=== PATIENT | male | born 1960 | race Caucasian/White ===

== ENCOUNTER → 2017-12-26 | Outpatient (CLI) | payer OTHER ==
[~2017-12-26] MED LIST: ALBU1AER9 INH; AMT50 PO; ASPCH81X PO; BSP15 PO; CLON0.5T3 PO; DRON5CAP15 PO; EFAVTAB PO; FLUT220A INH; LISI20TA3 PO; MXZC25 PO; OMEP20CA9 PO
[2017-12-26 13:21] LABS: BASO % 0.6 %; BASO ABS # 0.03 K/uL (0-0.2); EOS % 3.2 %; EOS ABS # 0.17 K/uL (0-0.5); HEMATOCRIT 44.5 % (42-52); IG# 0.02 K/uL (0.00-0.02); LYMPH % 29.8 %; LYMPH ABS # 1.59 K/uL (1.2-3.4); MEAN CELL VOLUME 93.1 fL (80-100); MEAN CORPUSCULAR HEMOGLOBIN 33.5 pg (25-34); MEAN PLATELET VOLUME 10.6 fL (7.4-10.4); MONO % 8.2 %; MONO ABS # 0.44 K/uL (0.11-0.59); NEUT % 57.8 %; NEUT ABS # 3.09 K/uL (1.4-6.5); PLATELET COUNT 190 K/uL (130-400); RED CELL DISTRIBUTION WIDTH CV 14.3 % (11.5-14.5); RED CELL DISTRIBUTION WIDTH SD 48.5 fL (36.4-46.3); WHITE BLOOD COUNT 5.34 K/uL (4.8-10.8)
[2017-12-26 14:28] LABS: ALBUMIN 3.7 gm/dl (3.4-5.0); ALT/SGPT 24 U/L (12-78); AST/SGOT 15 U/L (15-37); BLOOD UREA NITROGEN 17 mg/dl (7-18); CALCIUM 8.4 mg/dl (8.5-10.1); CARBON DIOXIDE 28 mmol/L (21-32); CREATININE 1.17 mg/dl (0.60-1.40); GLUCOSE 140 mg/dl (70-99); POTASSIUM 4.8 mmol/L (3.5-5.1); SODIUM 132 mmol/L (136-145)
[2017-12-26 14:30] LABS: ALKALINE PHOSPHATASE 98 U/L (45-117); CHOLESTEROL 178 mg/dl (0-200); LDL CHOLESTEROL CALCULATED 86 mg/dl; TOTAL PROTEIN 7.6 gm/dl (6.4-8.2)
== END | disposition home or self-care (01) ==
LOC: C.LABPBG 08:52
PROVIDERS: ATTEND Internal Medicine Infectious Disease
DX: B20 Human immunodeficiency virus [HIV] disease (principal)

== ENCOUNTER 2019-09-25 18:31 | Inpatient (IN) ==
[2019-09-25] MEDS ORDERED: methylPREDNISolone 125 MG/2 ML VIAL IV STA (18:42)
[2019-09-25] MEDS ORDERED: ALBUT/IPRATROP 3MG/0.5MG NEB 3 ML VIAL NEB ONE (18:42)
[2019-09-25 19:05] LABS: Basophils # (auto) 0.03 K/uL (0-0.2); Basophils % (auto) 0.3 %; Eosinophils # (auto) 0.19 K/uL (0-0.5); Hematocrit (blood only) 40.1 % (42-52); Hemoglobin 14.2 g/dL (14.0-18.0); Immature Granulocytes # (auto) 0.01 K/uL (0.00-0.02); Immature Granulocytes % (auto) 0.1 %; Lymphocytes # (auto) 1.24 K/uL (1.2-3.4); Lymphocytes % (auto) 13.3 %; Mean Corpuscular Hgb Conc 35.4 g/dL (32-36); Mean Corpuscular Volume 90.3 fL (80-100); Mean Platelet Volume 10.5 fL (7.4-10.4); Monocytes # (auto) 0.59 K/uL (0.11-0.59); Monocytes % (auto) 6.3 %; Neutrophils # (auto) 7.29 K/uL (1.4-6.5); Platelet Count 220 K/uL (130-400); RDW Coefficient of Variation 13.8 % (11.5-14.5); RDW Standard Deviation 45.8 fL (36.4-46.3); Red Blood Count 4.44 M/uL (4.7-6.1); White Blood Count 9.35 K/uL (4.8-10.8)
--- NOTE | 2019-09-25 19:07 | XRay Report ---
XR chest 1V portable CLINICAL HISTORY: 58 years-old Male presenting with Chest Pain. TECHNIQUE: Portable upright AP view of the chest was obtained. COMPARISON: 07/08/2019. FINDINGS: Left apical irregular groundglass opacity as on prior exam. Elevation of the left hemidiaphragm. Card iac silhouette mildly enlarged. Significant interstitial prominence, increased from prior. Abdomen de nsity at the left lung base is similar to prior. No large effusion or pneumothorax. Degenerative winslow ges of the thoracic spine. Upper abdomen normal. IMPRESSION: 1. Interstitial prominence new from prior exam. This could represent a venolymphatic congestive winslow ge/developing pulmonary edema or an atypical infectious or inflammatory etiology. 2. Mild cardiomegaly. 3. Persistent groundglass nodule at the left apex. Underlying neoplasm not excluded. ACT 112: Negative or not required by law. Electronically signed by: Robert Guzman M.D. 09/25/2019 7:05 PM
[2019-09-25] MEDS ORDERED: MoRPHine SULFATE 4 MG/ML 1 ML CARP\\VIAL IV STA (19:08)
[2019-09-25 19:18] LABS: Partial Thromboplastin Ratio 1.1; Partial Thromboplastin Time 28.6 Seconds (21.0-31.0); Prothrombin Time 10.1 Seconds (9.0-12.0)
[2019-09-25 19:25] LABS: Base Excess VBG 1.8 mEq/L; Oxygen Saturation VBG 68.4 %; pH VBG 7.44 (7.36-7.41)
[2019-09-25 19:31] LABS: BUN Creatinine Ratio 15.5 (10-20); Blood Urea Nitrogen 14 mg/dl (7-18); Calcium 9.1 mg/dl (8.5-10.1); Carbon Dioxide 25 mmol/L (21-32); Chloride 98 mmol/L (98-107); Est GFR (African American) 103.8; Est GFR (Non-African American) 89.5; Glucose 117 mg/dl (70-99); Lipase 76 U/L (73-393); NT Pro B Type Natriuretic Pept 46 pg/ml (0-900); Sodium 129 mmol/L (136-145); Troponin I < 0.015 ng/ml (0-0.045)
[2019-09-25] MEDS ORDERED: OPTIRAY 320 125ml IV PRN (20:28)
[2019-09-25 20:34] LABS: Influenza A virus by PCR Neg for Influ A (Neg); Influenza B virus by PCR Neg for Influ B (Neg)
--- NOTE | 2019-09-25 20:41 | CT Scan Report ---
CT angio chest PE protocol CLINICAL HISTORY: 58 years-old Male presenting with chest pain, clinical concern for pulmonary embolu s. TECHNIQUE: Multidetector CT angiography of the chest was performed after administration of intravenou s contrast. 3-D volumetric and/or maximum intensity projection (MIP) images were subsequently reconst ructed for review. IV contrast: 120 mL of Optiray 320. One or more dose lowering techniques were used consistent with the principles of ALARA (as low as reasonably achievable), including automatic expos ure control, mA or kV adjustment to individual patient size, and/or use of iterative reconstruction. COMPARISON: Outside chest CT from 08/07/2019. CT DOSE (mGy.cm): The estimated cumulative dose is 295.59 mGy.cm. FINDINGS: Senior It Auditor topogram: Elevation of the left hemidiaphragm. Interstitial prominence. Pulmonary vasculature: The study is adequate for assessment of the pulmonary vascular tree. No filling defect within the pul monary arteries to suggest embolus. Segmental arteries to the right upper lobe are narrowed as are se veral segmental arteries to the left upper lobe. Main pulmonary artery is not enlarged. No flattening of the interventricular septum. No intracardiac filling defect. Reflux of contrast into the IVC and hepatic veins. This likely indicates elevated right heart pressure. Remaining chest: Soft tissues: Normal thyroid and thoracic inlet. Extensive poorly delineated mediastinal and bilatera l hilar lymphadenopathy. These were previously better delineated in part due to the phase of contrast . These have significantly progressed. Right axillary lymphadenopathy also noted. Normal aorta. Yvonne l heart size. Moderate pericardial effusion, simple appearing and increased from prior. Elevation of the left hemidiaphragm. This may suggest left phrenic nerve injury/left hemidiaphragm paralysis/pares is. Upper abdomen normal. Lungs and airways: No pneumothorax. Diffuse mild bronchial wall thickening. Severe centrilobular emph ysema. Pulmonary arteries are not significantly enlarged relative to adjacent bronchi. Nodular thicke radha of the left major fissure increased from prior. Atelectasis associated with elevation of the lef t hemidiaphragm. Several prominent bulla/blebs are evident. There is also a solid spiculated nodule a long the periphery of the left upper lobe. The irregularity of the nodule makes this difficult to mitul sure though this is approximately 2.2 cm in diameter, previously 1.7 cm. No additional nodule is appr eciated. Musculoskeletal: No destructive osseous lesion. IMPRESSION: 1. Interval progression of disease with significantly increased right axillary, mediastinal, and shine ateral lymphadenopathy, presumably related to metastatic disease in the setting of a primary lung mal ignancy. 2. Increased size of the irregular solid left upper lobe nodule now measuring 2.2 cm. This is presum ably the site of the primary bronchogenic neoplasm. 3. Nodular thickening of the left major fissure highly suspicious for lymphangitic carcinomatosis ve rsus pleural spread of disease, worsened from prior. 4. Severe emphysema. 5. No evidence of acute pulmonary embolus. 6. Evidence of elevated right heart pressure. 7. Moderate pericardial effusion, simple appearing though increased from prior. 8. Elevated left hemidiaphragm concerning for left phrenic nerve invasion in the clinical setting. ACT 112: Negative or not required by law. Electronically signed by: Robert Guzman M.D. 09/25/2019 8:40 PM
[2019-09-25] MEDS ORDERED: SODIUM CHLORIDE 0.9% 1000ML 1,000 ML IV ONE (20:48)
[2019-09-25] MEDS ORDERED: KETOROLAC TROMETHAMINE 15 MG/ML VIAL IV STA (20:56)
--- NOTE | 2019-09-25 21:18 | Emergency Department Note ---
Entered by Kimberly Payan acting as a scribe for History of Present Illness General Chief complaint: Chest Pain Time Seen by Provider: 09/25/19 18:35 Source: patient History of Present Illness Onset (ago): day(s) (2 to 3) Location: chest Quality: + other (chest pain) Exacerbated By: + other (lying flat) Associated symptoms: + cough (productive, mucus), + shortness of breath and + other (Positive tobacco use. 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 He has a hx of HIV, asthma, depression, hypertension. He states he has severe SOB and lying flat is a worsening factor. He notes he has a productive cough with mucus. The patient states he has pain left sided neck pain with radiation to his back. The patient is a current smoker but states he is trying to quit. He denies any long plane or car rides, coughing up blood. Home Medications Home Medications Medication Instructions Recorded Confirmed Type amitriptyline 50 mg PO DAILY 07/08/19 09/25/19 History buspirone 15 mg PO BID 07/08/19 09/25/19 History clonazepam 1 mg PO BID 07/08/19 09/25/19 History dronabinol 10 mg PO BID 07/08/19 09/25/19 History rpjirrdfm-xlicisjzyfjl-mpecgcj 1 tab PO DAILY 07/08/19 09/25/19 History [Atripla] fluoxetine 20 mg PO DAILY 07/08/19 09/25/19 History lisinopril 20 mg PO DAILY 07/08/19 09/25/19 History oxycodone-acetaminophen 1 - 2 tab PO Q4H PRN 07/08/19 09/25/19 History triamterene-hydrochlorothiazid 1 tab PO DAILY 07/08/19 09/25/19 History albuterol sulfate 90 mcg/actuation 2 puffs INH Q6H PRN 08/21/19 09/25/19 History aerosol inhaler aspirin 81 mg tablet,delayed 162 mg PO DAILY tab 08/21/19 09/25/19 History release fluticasone propionate 220 1 puffs INH BID 08/21/19 09/25/19 History mcg/actuation HFA aerosol inhaler omeprazole 20 mg capsule,delayed 20 mg PO DAILY 08/21/19 09/25/19 History release Allergies Allergy/AdvReac Type Severity Reaction Status Date / Time pollen extracts Allergy Intermediate ASTHMA Verified 09/25/19 20:11 Sulfa (Sulfonamide Allergy Unknown HIVES Verified 09/25/19 20:11 Antibiotics) Past Med/Surg History Medical History Anxiety (Chronic) Asymptomatic human immunodeficiency virus (HIV) infection status (Chronic 10/25/11) Distal radial fracture (Acute) HIV disease HTN (hypertension) (Chronic) Muscle strain (Resolved) Osteoarthritis (Chronic) Pain, dental (Resolved) Surgical History No pertinent past surgical history Family History Other No pertinent family history in first degree relatives Social History Feels Safe at Home: Yes Smoking Status: Current some day smoker packs per day: 0.5 ; Review of Systems See HPI for pertinent positives & negatives. and A total of 10 systems reviewed and were otherwise negative Physical Exam Vital Signs Vital Signs - 24 hr 09/25/19 18:40 09/25/19 18:41 09/25/19 18:42 Temperature 36.8 C Temperature Source Oral Pulse Rate 117 H Pulse Rate [Right Finger] Pulse Rhythm Regular Pulse Strength Normal Respiratory Rate 22 Respiratory Effort / Characteristics Spontaneous Short of Breath SOB on Exertion Non-Labored Spontaneous Respiratory Depth Shallow Normal Respiratory Pattern Regular Blood Pressure 129/89 Blood Pressure [Right Arm] Blood Pressure Mean 102 Blood Pressure Mean [Right Arm] Blood Pressure Position Lying Blood Pressure Position [Right Arm] Pulse Oximetry 84 L 98 Oxygen Delivery Method Oxymask Room Air Oxymask Oxygen Flow Rate 3 4 Sepsis Recent Fever Within 48 Hours No Sepsis New/Unexplained Change in Mental Status No Sepsis Action Taken by Nursing No Action Required 09/25/19 18:48 09/25/19 18:53 09/25/19 19:34 Temperature Temperature Source Pulse Rate 118 H Pulse Rate [Right Finger] 118 H 120 H Pulse Rhythm Regular Pulse Strength Respiratory Rate 26 H 20 28 H Respiratory Effort / Characteristics Non-Labored Spontaneous Respiratory Depth Respiratory Pattern Blood Pressure Blood Pressure [Right Arm] 93/77 L Blood Pressure Mean Blood Pressure Mean [Right Arm] 82 Blood Pressure Position Blood Pressure Position [Right Arm] Sitting Pulse Oximetry 97 98 98 Oxygen Delivery Method Oxymask Oxymask Nebulizer Oxygen Flow Rate 4 4 Sepsis Recent Fever Within 48 Hours Sepsis New/Unexplained Change in Mental Status Sepsis Action Taken by Nursing 09/25/19 20:35 Temperature Temperature Source Pulse Rate Pulse Rate [Right Finger] 111 H Pulse Rhythm Pulse Strength Respiratory Rate 24 Respiratory Effort / Characteristics Spontaneous Short of Breath SOB on Exertion Respiratory Depth Respiratory Pattern Regular Blood Pressure Blood Pressure [Right Arm] 89/70 L Blood Pressure Mean Blood Pressure Mean [Right Arm] 76 Blood Pressure Position Blood Pressure Position [Right Arm] Sitting Pulse Oximetry 94 Oxygen Delivery Method Nasal Cannula Oxygen Flow Rate 4 Sepsis Recent Fever Within 48 Hours Sepsis New/Unexplained Change in Mental Status Sepsis Action Taken by Nursing GENERAL: He is oriented to person, place, and time. He appears well-developed and well-nourished. He does not appear distressed. HENT: Exam performed. - Head: Normocephalic and atraumatic. - Right Ear: External ear normal. No mastoid tenderness. - Left Ear: External ear normal. No mastoid tenderness. - Mouth/Throat: The oropharynx is clear and moist. No trismus in the jaw. No dental abscesses or uvula swelling. No oropharyngeal exudate or tonsillar abscesses. EYES: Conjunctivae and EOM are normal. Pupils are equal, round, and reactive to light. Right eye exhibits no discharge. Left eye exhibits no discharge. No scleral icterus. NECK: Normal range of motion. Neck supple. Mild JVD present. No spinous process tenderness present. No carotid bruit present. No rigidity. No tracheal deviation and normal range of motion present. No Brudzinski's sign and no Kernig's sign noted. CV: Tachycardic rate, regular rhythm, normal heart sounds and intact distal pulses. There is no peripheral edema. Palpable radial pulses bue. PULM/CHEST: Tachypneic. No stridor. Bilateral expiratory wheezes. He has no rales. - Chest Wall: He exhibits no tenderness. ABD: The abdomen is soft. Bowel sounds are normal. He has no distension. No mass is present. There is no tenderness. There is no rebound, no guarding, no Bhandari 's sign and no tenderness at McBurney's point. Rovsig negative. MUSC/SKEL: Normal range of motion. There is no peripheral edema, tenderness or deformity. LYMPH: No cervical adenopathy. NEURO: He is alert and oriented to person, place, and time. He has normal strength. No cranial nerve deficit or sensory deficit. Coordination and gait normal. GCS eye subscore is 4. GCS verbal subscore is 5. GCS motor subscore is 6. Cerebellar tests wnl. SKIN: Skin is warm and dry. He is not diaphoretic. PSYCH: He has a normal mood and affect. Behavior is normal. Judgment and thought content normal. Course Course 1839: Past medical records reviewed. The patient was evaluated in room B11. A complete history and physical exam was performed. 2100: Patient's wheezing improved status post 1 hour DuoNeb treatment and IV steroids. Labs within normal limits. CTA of the chest shows no PE, however it does show lung mets and lung mass. Patient does state he has been told that he has lung cancer, he still waiting to be evaluated by oncology and surgical oncology. [facility] the patient's case [facility] Gonzales[facility] The patient will be evaluated for further management. Administered Medications Sodium Chloride (Nss 1000ml) 1,000 mls @ 999 mls/hr IV .Q1H1M ONE Stop: 09/25/19 21:48 Last Admin: 09/25/19 20:59 Dose: 999 mls/hr Documented by: [id number] Ioversol (Optiray 320 125ml) 120 ml IV ONCE PRN PRN Reason: Interaction Checking Stop: 09/29/19 20:27 Last Admin: 09/25/19 20:29 Dose: 120 ml Documented by: [id number] Discontinued Medications Albuterol (Duoneb) 12 ml NEB ONE ONE Stop: 09/25/19 18:43 Last Admin: 09/25/19 18:52 Dose: 12 ml Documented by: [id number] Ketorolac Tromethamine (Toradol) 15 mg IV NOW STA Stop: 09/25/19 20:57 Last Admin: 09/25/19 21:00 Dose: 15 mg Documented by: [id number] Methylprednisolone (Solumedrol) 125 mg IV NOW STA Stop: 09/25/19 18:43 Last Admin: 09/25/19 18:56 Dose: 125 mg Documented by: [id number] Morphine Sulfate (Morphine Sulfate) 4 mg IV NOW STA Stop: 09/25/19 19:09 Last Admin: 09/25/19 19:30 Dose: 4 mg Documented by: [id number] Critical Care Time Critical Care Time: Yes Total Critical Care Time: 59 I have personally spent approximately 59 minutes of critical care time in the direct management of this patient. This includes bedside care, interpretation of diagnostic studies, and testing, discussion with consultants, patient, and family members, and other required patient management activities. This approximate 59 minutes is in excess of all separately billable procedures. Medical Decision Making Medical Records Attestation: I reviewed the patient's medical records. 1836: EMR reviewed. Patient has a hx of HIV, asthma, depression, hypertension, and uses tobacco. He is on atripla. Home Medications Current Medication List: was personally reviewed by me Laboratory Data Attestation: I reviewed the patient's lab results. Result diagrams: 09/25/19 18:55 09/25/19 20:39 Lab Results 09/25/19 09/25/19 09/25/19 Range/Units 18:55 18:55 18:55 WBC 9.35 (4.8-10.8) K/uL RBC 4.44 L (4.7-6.1) M/uL Hgb 14.2 (14.0-18.0) g/dL Hct 40.1 L (42-52) % MCV 90.3 (80-100) fL MCH 32.0 (25-34) pg MCHC 35.4 (32-36) g/dL RDW Std Deviation 45.8 (36.4-46.3) fL RDW Coeff of Greg 13.8 (11.5-14.5) % Plt Count 220 (130-400) K/uL MPV 10.5 H (7.4-10.4) fL Immature Gran % (Auto) 0.1 % Neut % (Auto) 78.0 % Lymph % (Auto) 13.3 % [place] % (Auto) 6.3 % Eos % (Auto) 2.0 % Baso % (Auto) 0.3 % Immature Gran # (Auto) 0.01 (0.00-0.02) K/uL Neut # (Auto) 7.29 H (1.4-6.5) K/uL Lymph # (Auto) 1.24 (1.2-3.4) K/uL [place] # (Auto) 0.59 (0.11-0.59) K/uL Eos # (Auto) 0.19 (0-0.5) K/uL Baso # (Auto) 0.03 (0-0.2) K/uL PT 10.1 (9.0-12.0) Seconds INR 1.0 (0.9-1.1) APTT 28.6 (21.0-31.0) Seconds PTT Ratio 1.1 VBG pH (7.36-7.41) VBG pCO2 (38-50) mmHg VBG pO2 mmHg VBG HCO3 mmol/L VBG O2 Saturation % VBG Base Excess mEq/L Barometric Pressure mm/Hg Sodium 129 L (136-145) mmol/L Potassium (3.5-5.1) mmol/L Chloride 98 (98-107) mmol/L Carbon Dioxide 25 (21-32) mmol/L Anion Gap 6.0 (3-11) BUN 14 (7-18) mg/dl Creatinine 0.93 (0.6-1.4) mg/dl Est Cr Clr Drug Dosing 80.0 ml/min Est GFR ( Amer) 103.8 Est GFR (Non-Af Amer) 89.5 BUN/Creatinine Ratio 15.5 (10-20) Glucose 117 H (70-99) mg/dl Calcium 9.1 (8.5-10.1) mg/dl Troponin I < 0.015 (0-0.045) ng/ml NT-Pro-B Natriuret Pep 46 (0-900) pg/ml Lipase 76 (73-393) U/L Influenza Type A (PCR) (Neg) Influenza Type B (PCR) (Neg) 09/25/19 09/25/19 09/25/19 Range/Units 19:05 19:32 20:39 WBC (4.8-10.8) K/uL RBC (4.7-6.1) M/uL Hgb (14.0-18.0) g/dL Hct (42-52) % MCV (80-100) fL MCH (25-34) pg MCHC (32-36) g/dL RDW Std Deviation (36.4-46.3) fL RDW Coeff of Greg (11.5-14.5) % Plt Count (130-400) K/uL MPV (7.4-10.4) fL Immature Gran % (Auto) % Neut % (Auto) % Lymph % (Auto) % [place] % (Auto) % Eos % (Auto) % Baso % (Auto) % Immature Gran # (Auto) (0.00-0.02) K/uL Neut # (Auto) (1.4-6.5) K/uL Lymph # (Auto) (1.2-3.4) K/uL [place] # (Auto) (0.11-0.59) K/uL Eos # (Auto) (0-0.5) K/uL Baso # (Auto) (0-0.2) K/uL PT (9.0-12.0) Seconds INR (0.9-1.1) APTT (21.0-31.0) Seconds PTT Ratio VBG pH 7.44 H (7.36-7.41) VBG pCO2 39 (38-50) mmHg VBG pO2 36 mmHg VBG HCO3 26 mmol/L VBG O2 Saturation 68.4 % VBG Base Excess 1.8 mEq/L Barometric Pressure 716.0 mm/Hg Sodium (136-145) mmol/L Potassium 4.0 (3.5-5.1) mmol/L Chloride (98-107) mmol/L Carbon Dioxide (21-32) mmol/L Anion Gap (3-11) BUN (7-18) mg/dl Creatinine (0.6-1.4) mg/dl Est Cr Clr Drug Dosing ml/min Est GFR ( Amer) Est GFR (Non-Af Amer) BUN/Creatinine Ratio (10-20) Glucose (70-99) mg/dl Calcium (8.5-10.1) mg/dl Troponin I (0-0.045) ng/ml NT-Pro-B Natriuret Pep (0-900) pg/ml Lipase (73-393) U/L Influenza Type A (PCR) Neg for Influ A (Neg) Influenza Type B (PCR) Neg for Influ B (Neg) Imaging Data Radiologist's Impression: Radiology results as stated below per my review and the radiologist's interpretation: XR chest 1V portable CLINICAL HISTORY: 58 years-old Male presenting with Chest Pain. TECHNIQUE: Portable upright AP view of the chest was obtained. COMPARISON: 07/08/2019. FINDINGS: Left apical irregular groundglass opacity as on prior exam. Elevation of the left hemidiaphragm. Cardiac silhouette mildly enlarged. Significant interstitial prominence, increased from prior. Abdomen density at the left lung base is similar to prior. No large effusion or pneumothorax. Degenerative changes of the thoracic spine. Upper abdomen normal. IMPRESSION: 1. Interstitial prominence new from prior exam. This could represent a venolymphatic congestive change/developing pulmonary edema or an atypical infectious or inflammatory etiology. 2. Mild cardiomegaly. 3. Persistent groundglass nodule at the left apex. Underlying neoplasm not excluded. ACT 112: Negative or not required by law. Electronically signed by: Robert Guzman M.D. 09/25/2019 7:[address] angio chest PE protocol CLINICAL HISTORY: 58 years-old Male presenting with chest pain, clinical concern for pulmonary embolus. TECHNIQUE: Multidetector CT angiography of the chest was performed after administration of intravenous contrast. 3-D volumetric and/or maximum intensity projection (MIP) images were subsequently reconstructed for review. IV contrast: 120 mL of Optiray 320. One or more dose lowering techniques were used consistent with the principles of ALARA (as low as reasonably achievable), including automatic exposure control, mA or kV adjustment to individual patient size, and/or use of iterative reconstruction. COMPARISON: Outside chest CT from 08/07/2019. CT DOSE (mGy.cm): The estimated cumulative dose is 295.59 mGy.cm. FINDINGS: Civil Engineering Manager topogram: Elevation of the left hemidiaphragm. Interstitial prominence. Pulmonary vasculature: The study is adequate for assessment of the pulmonary vascular tree. No filling defect within the pulmonary arteries to suggest embolus. Segmental arteries to the right upper lobe are narrowed as are several segmental arteries to the left upper lobe. Main pulmonary artery is not enlarged. No flattening of the interventricular septum. No intracardiac filling defect. Reflux of contrast into the IVC and hepatic veins. This likely indicates elevated right heart pressure. Remaining chest: Soft tissues: Normal thyroid and thoracic inlet. Extensive poorly delineated mediastinal and bilateral hilar lymphadenopathy. These were previously better delineated in part due to the phase of contrast. These have significantly progressed. Right axillary lymphadenopathy also noted. Normal aorta. Normal heart size. Moderate pericardial effusion, simple appearing and increased from prior. Elevation of the left hemidiaphragm. This may suggest left phrenic nerve injury/left hemidiaphragm paralysis/paresis. Upper abdomen normal. Lungs and airways: No pneumothorax. Diffuse mild bronchial wall thickening. Severe centrilobular emphysema. Pulmonary arteries are not significantly e nlarged relative to adjacent bronchi. Nodular thickening of the left major fissure increased from prior. Atelectasis associated with elevation of the left hemidiaphragm. Several prominent bulla/blebs are evident. There is also a solid spiculated nodule along the periphery of the left upper lobe. The irregularity of the nodule makes this difficult to measure though this is approximately 2.2 cm in diameter, previously 1.7 cm. No additional nodule is appreciated. Musculoskeletal: No destructive osseous lesion. IMPRESSION: 1. Interval progression of disease with significantly increased right axillary, mediastinal, and bilateral lymphadenopathy, presumably related to metastatic disease in the setting of a primary lung malignancy. 2. Increased size of the irregular solid left upper lobe nodule now measuring 2.2 cm. This is presumably the site of the primary bronchogenic neoplasm. 3. Nodular thickening of the left major fissure highly suspicious for lymphangitic carcinomatosis versus pleural spread of disease, worsened from prior. 4. Severe emphysema. 5. No evidence of acute pulmonary embolus. 6. Evidence of elevated right heart pressure. 7. Moderate pericardial effusion, simple appearing though increased from prior. 8. Elevated left hemidiaphragm concerning for left phrenic nerve invasion in the clinical setting. ACT 112: Negative or not required by law. Electronically signed by: Robert Guzman M.D. 09/25/2019 8:40 PM ECG Data Attestation: I personally reviewed and interpreted this ECG as follows: Indication: + chest pain Rate (beats per minute): 119 Rhythm: + sinus tachycardia ECG Intervals/blocks: + Normal QRS, + Normal HI and + Normal QT-c ECG ST segments: no ST depression and no ST elevation Blood Pressure Blood Pressure Findings: Low blood pressure Blood Pressure Disposition: further management by hospitalist HAMIDA Melton 1839: Past medical records reviewed. The patient was evaluated in room B11. A complete history and physical exam was performed. 2100: Patient's wheezing improved status post 1 hour DuoNeb treatment and IV steroids. Labs within normal limits. CTA of the chest shows no PE, however it does show lung mets and lung mass. Patient does state he has been told that he has lung cancer, he still waiting to be evaluated by oncology and surgical oncology. Discussed the patient's case with Carole Almeida Hospitalist. The patient will be evaluated for further management. Impression & Plan Hypoxia, Lung cancer, COPD exacerbation Discharge Plan Visit Data Chief Complaint: Chest Pain ED Provider: Dustin Roberson Discharge Problem: Hypoxia, Lung cancer, COPD exacerbation Patient Disposition: Being Evaluated by Hospitalist Forms Stand Alone Forms: Call Back Authorization, [facility] Prescriptions Prescriptions: No Action fluticasone propionate 220 mcg/actuation HFA aerosol inhaler 1 puffs INH BID RF: 0 omeprazole 20 mg capsule,delayed release(DR/EC) 20 mg PO DAILY RF: 0 albuterol sulfate [Ventolin HFA] 90 mcg/actuation HFA aerosol inhaler 2 puffs INH Q6H PRN (Reason: Shortness Of Breath Or Wheezing) RF: 0 lisinopril 20 mg tablet 20 mg PO DAILY RF: 0 clonazepam 1 mg tablet 1 mg PO BID RF: 0 amitriptyline 50 mg tablet 50 mg PO DAILY RF: 0 oxycodone-acetaminophen 10-325 mg tablet 1 - 2 tab PO Q4H PRN (Reason: Pain) RF: 0 triamterene-hydrochlorothiazid 37.5-25 mg tablet 1 tab PO DAILY RF: 0 dronabinol 10 mg capsule 10 mg PO BID RF: 0 fluoxetine 20 mg capsule 20 mg PO DAILY RF: 0 buspirone 15 mg tablet 15 mg PO BID RF: 0 Atripla 600-200-300 mg tablet 1 tab PO DAILY RF: 0 aspirin 81 mg tablet,delayed release (DR/EC) 162 mg PO DAILY RF: 0 Referrals Referrals: Robert Black MD [Primary Care Provider] - Discharge Problem: Lung cancer Qualifiers: Laterality: unspecified laterality Lung location: unspecified part of lung Qualified Code(s): C34.90 - Malignant neoplasm of unspecified part of unspecified bronchus or lung The scribe's documentation has been prepared under my direction and personally reviewed by me in its entirety. I confirm that the note above accurately reflects all work, treatment, procedures, and medical decision making performed by me.
[2019-09-25] MEDS ORDERED: HYDROmorphone INJ 0.5 MG/0.5 ML SYR IV STA (23:40)
[2019-09-26] MEDS ORDERED: ALBUTEROL HFA 8 GM INHALER INH PRN (00:21)
[2019-09-26] MEDS ORDERED: ACETAMINOPHEN 325 MG TAB PO PRN (00:21)
[2019-09-26] MEDS ORDERED: NITROGLYCERIN SL 0.4 MG/TAB TAB SL PRN (00:21)
[2019-09-26] MEDS ORDERED: XOPENEX/ATROVENT 1.25mg/0.5MG NEB COMBO NEB PRN (00:21)
[2019-09-26] MEDS ORDERED: OXYCODONE/ACETAMINOPHEN 10-325 TAB PO PRN (00:21)
[2019-09-26] MEDS ORDERED: ONDANSETRON INJ 2 MG/ML 2 ML VIAL IV PRN ×2 (00:21→13:07)
[2019-09-26] MEDS: HYDROmorphone INJ 0.5 MG/0.5 ML SYR IV PRN ×2 (00:47→05:40)
--- NOTE | 2019-09-26 01:08 | History and Physical Report ---
DATE OF ADMISSION: 09/25/2019 CHIEF COMPLAINT: Chest pain. HISTORY OF PRESENT ILLNESS: This is a 58-year-old male with past medical history significant for asthma mild persistent, prediabetes, history of hypertension, generalized osteoarthritis, history of cervical disc herniation, history of HIV on antiviral therapy, generalized anxiety disorder, tobacco abuse. The patient was recently found to have enlarged lymph node in supraclavicular area. Smokes half pack a day for 50 years. CAT scan showed left lung mass and enlarged lymph node in mediastinal region. There is a plan for biopsy with Dr. Forrester as per patient. Presents now with chest pain going on for the last few days, all over the chest mostly on the left side and also left shoulder. He also complains of left knee pain and also pain in the left thigh. He is ambulating okay. Appetite is not that great. He says he has lost about 30 pounds in last 6 months, coughing up whitish yellow phlegm. Denies any fever, chills, no sore throat, no dysphagia, no odynophagia. No headache, no blurred vision, no earache, no runny nose. No fever, no chills. Has some shortness of breath, nauseous, no abdominal pain. Normal bowel and bladder movements. No hematuria or melena. No burning micturition, no hematuria. No swelling in the legs. He says the pain is more when lying down. ALLERGIES: POLLEN EXTRACT, SULFA ANTIBIOTICS. PAST MEDICAL HISTORY: As mentioned above. PAST SURGICAL HISTORY: Arteritis on left pentecostalism. MEDICATIONS: The patient is on Klonopin 1 mg p.o. b.i.d., donepezil 10 mg capsule p.o. b.i.d., Percocet 10/325 mg 1 tablet q. 6 hours p.r.n. pain, albuterol 2 puffs every 4 hours p.r.n., Flovent HFA 220 mcg 2 puffs b.i.d., lisinopril 20 mg p.o. daily, Maxzide 37.5/25 mg 1 tablet p.o. daily, BuSpar 50 mg p.o. b.i.d., Prozac 20 mg p.o. daily, Elavil 50 mg p.o. at bedtime, aspirin 325 mg p.o. daily, omeprazole 20 mg p.o. daily in a.m., albuterol nebulization every 4 hours p.r.n., Atripla 1 tablet at bedtime. FAMILY HISTORY: Significant for mother had uterine cancer and stroke. Father had early onset Alzheimer disease. SOCIAL HISTORY: Smoke half pack a day for 44 years, currently not drinking. No drug use. REVIEW OF SYMPTOMS: As per HPI. Rest of review of symptoms negative. PHYSICAL EXAMINATION: GENERAL: The patient is of moderate build, not in acute distress. VITAL SIGNS: Temperature 36.8, pulse 106, respiratory rate 22, blood pressure 109/88, oxygen 98%. HEENT: No pallor, no icterus. NECK: No JVD, no neck masses, no carotid bruits. CARDIOVASCULAR: S1, S2 heard, regular rate and rhythm, no murmur, no gallop. RESPIRATORY SYSTEM: Normal AP diameter. No accessory muscle use. No wheezing, no crackles. ABDOMEN: Soft, bowel sounds present, nontender. No distention. CENTRAL NERVOUS SYSTEM: Cranial nerves II-XII grossly nonfocal. EXTREMITIES: No edema, no erythema. LABORATORY DATA: WBC 9.3, hemoglobin 14.2, hematocrit 40.1, platelets 220. PT 10.1, INR 1, APTT 28.6. Venous blood gas pH of 7.44, pCO2 of 39, pO2 of 36, bicarbonate 26. Sodium 139, potassium 4, chloride 98, bicarbonate 25, BUN 14, creatinine 0.9, serum glucose 110, calcium 9.1. Troponin I less than 0.015. BNP 46, lipase 76. Influenza A and B PCR negative. IMAGING DATA: Chest x-ray, interstitial prominence new from prior exam, mild cardiomegaly, persistent ground-glass noted at the left apex underlying neoplasm not excluded. CTA of the chest, no PE, interval progression of the disease with significantly increased right axillary, mediastinal and bilateral lymphadenopathy, presumably related to metastatic disease in the setting of a primary lung malignancy, increased size of a regular solid left upper lobe nodule now measuring 2.2 cm. This is presumably the site of the primary bronchogenic neoplasm. Nodular thickening of the left major fissure highly suspicious for lymphangitic carcinomatosis versus pleural spread of the disease, severe emphysema, evidence of elevated right heart pressure, moderate pericardial effusion, elevated left hemidiaphragm concerning for left phrenic nerve denervation in the clinical setting. EKG: NSR of 96. No acute St changes seen. a/p 58 M with hx of HIV, Tobacco abuse, Asthma, recent finding of lung mass presents with chest pain, cough with sputum and sob. Chest pain mostly from lung mass pain control pulmonary consulted Possible copd ex hx of tobacco abuse nebs and inhalers, Prednisone 40mg daily will monitor Pericardial effusion moderate on ct scan will follow echo cardiology consulted hx of HIV continue anti viral med HTN continue lisinopril and Maxzide will monitor depression and anxiety on Klonopin and fluoxetine and BuSpar DVT px scds Disposition to be determined. MTDD
[2019-09-26] MEDS: clonazePAM 1 MG TAB PO SCH ×3 (01:48→19:43)
[2019-09-26 05:43] LABS: Basophils # (auto) 0.01 K/uL (0-0.2); Basophils % (auto) 0.2 %; Eosinophils # (auto) 0.03 K/uL (0-0.5); Eosinophils % (auto) 0.5 %; Hematocrit (blood only) 37.4 % (42-52); Hemoglobin 12.9 g/dL (14.0-18.0); Immature Granulocytes # (auto) 0.01 K/uL (0.00-0.02); Immature Granulocytes % (auto) 0.2 %; Lymphocytes % (auto) 15.3 %; Mean Corpuscular Hemoglobin 31.2 pg (25-34); Mean Corpuscular Hgb Conc 34.5 g/dL (32-36); Mean Corpuscular Volume 90.6 fL (80-100); Mean Platelet Volume 9.9 fL (7.4-10.4); Monocytes # (auto) 0.34 K/uL (0.11-0.59); Monocytes % (auto) 5.8 %; Platelet Count 184 K/uL (130-400); RDW Standard Deviation 46.1 fL (36.4-46.3); Red Blood Count 4.13 M/uL (4.7-6.1); White Blood Count 5.89 K/uL (4.8-10.8)
[2019-09-26] MEDS ORDERED: CLINDAMYCIN 600 MG/54 ML BAG IV SCH (06:00)
[2019-09-26 06:39] LABS: BUN Creatinine Ratio 13.5 (10-20); Creatinine Clr Calc Pharmacy 85.5 ml/min; Est GFR (African American) 109.5; Est GFR (Non-African American) 94.5; Magnesium 2.3 mg/dl (1.8-2.4); Potassium 4.7 mmol/L (3.5-5.1)
[2019-09-26] MEDS: FLUTICASONE FUROATE 200MCG 14 PUFFS/INHALER INH SCH (08:55)
[2019-09-26] MEDS: FLUOXETINE HCL 20 MG CAP PO SCH (08:57)
[2019-09-26] MEDS: predniSONE 20 MG TAB PO SCH (08:57)
[2019-09-26] MEDS: lisinopriL 20 MG TAB PO SCH (08:57)
[2019-09-26] MEDS: DOXYCYCLINE HYCLATE 100 MG CAP PO SCH ×2 (08:57→19:43)
[2019-09-26] MEDS: AMITRIPTYLINE HCL 50 MG TAB PO SCH (08:58)
[2019-09-26] MEDS: PANTOprazole 40 MG TAB PO SCH (08:58)
[2019-09-26] MEDS: TRIAMTERENE/HCTZ 37.5/25MG TAB PO SCH (08:58)
[2019-09-26] MEDS: ASPIRIN 81 MG ECTAB PO SCH (08:59)
[2019-09-26] MEDS: BusPIRone 15 MG TAB PO SCH ×2 (08:59→19:41)
[2019-09-26] MEDS: NICOTINE 21 MG/24 HR TDSY TD SCH (09:43)
--- NOTE | 2019-09-26 11:46 | Cardiology Consultation ---
Date of Consultation September 26, 2019 Assessment & Plan (1) Pericardial effusion: 58-year-old with past medical history of HIV diagnosed in 1996, on HAART therapy, who is a longstanding history of cigarette smoking presents with progressive chest tightness and orthopnea. A moderate sized pericardial effusion is noted on both CT and echocardiogram. The size of this effusion has increased significantly compared to CT performed on 08/07/2019 as have the patient symptoms. He is currently hemodynamically stable. The patient has findings on his chest CT suggestive of primary pulmonary malignancy for which tissue biopsy is indicated. I believe his echocardiogram is consistent with pre-tamponade physiology without garima tamponade clinically or by echocardiographic criteria. I discussed his symptoms, CT, and echocardiographic findings with Dr Forrester by phone and asked him to see the patient in consultation for consideration of pericardial window. Patient's nurse updated. Case discussed with Dr Landry by phone. Will keep patient NPO pending thoracic surgery consultation. (2) Hypoxia: (3) Lung cancer: (4) COPD exacerbation: (5) HIV disease: (6) Asthma: (7) Depression: (8) Tobacco use disorder: History of Present Illness Attending Physician: Mir Landry DO History of Present Illness Emeka Pulido is a 58 year old male seen in cardiology consultation per the request of Dr Gonzales for the evaluation of chest discomfort and pericardial effusion which had been noted on CT of the chest last evening. Patient has a longstanding history of cigarette smoking, 1/2 pack/day for 50 years, and also has a history of HIV for which he is on antiretroviral therapy. He states he was diagnosed with HIV in approximate 1996 and he has been very adherent to therapy over the years. He follows with Dr. Dodd of [place] and states his most recent visit was 3 to 4 months ago. His recent illness dates back to early July, when he had been seen at the [facility] urgent care center and apparently had an abnormal chest x-ray. He went on to have a CT of the chest performed at [facility] on 08/07/2019 with lymphadenopathy and a thoracic mass suggestive of possible underlying malignancy. He has lost 30 pounds over the last 6 months. Over the last 6 weeks he describes progressive shortness of breath with minimal levels of exertion, and most notably last evening he had progressive chest discomfort, and orthopnea. He is comfortable sitting straight up in bed and is in no acute distress at present. A CT angiogram of the chest was performed last evening in the emergency department which revealed an interval progression of disease with significantly increased right axillary, mediastinal, and bilateral lymphadenopa thy, per the radiology report presumably related to metastatic disease. The report describes increased size of the irregular solid left upper lobe nodule, now measuring 2.2 cm. Severe emphysema was noted. A moderate pericardial effusion was noted with significant increase in size compared to July 2019 along with findings suggestive of elevated right heart pressure. A transthoracic echocardiogram was performed this morning revealing findings of a moderate circumferential pericardial effusion with no significant amount of fluid collection adjacent to the right lateral portion of the right ventricle, anteriorly, and laterally. The right ventricle appears underfilled on some views suggestive of pre-tamponade physiology, without Doppler findings of garima tamponade. Blood pressure has been stable, with most recent reading of 127/90. Allergies Allergy/AdvReac Type Severity Reaction Status Date / Time pollen extracts Allergy Intermediate ASTHMA Verified 09/25/19 20:11 Sulfa (Sulfonamide Allergy Unknown HIVES Verified 09/25/19 20:11 Antibiotics) Home Medications Home Medications Medication Instructions Recorded Confirmed Type amitriptyline 50 mg PO DAILY 07/08/19 09/25/19 History buspirone 15 mg PO BID 07/08/19 09/25/19 History clonazepam 1 mg PO BID 07/08/19 09/25/19 History dronabinol 10 mg PO BID 07/08/19 09/25/19 History qjxolvbad-xbgsbeayvqph-msigrab 1 tab PO DAILY 07/08/19 09/25/19 History [Atripla] fluoxetine 20 mg PO DAILY 07/08/19 09/25/19 History lisinopril 20 mg PO DAILY 07/08/19 09/25/19 History oxycodone-acetaminophen 1 - 2 tab PO Q4H PRN 07/08/19 09/25/19 History triamterene-hydrochlorothiazid 1 tab PO DAILY 07/08/19 09/25/19 History albuterol sulfate 90 mcg/actuation 2 puffs INH Q6H PRN 08/21/19 09/25/19 History aerosol inhaler aspirin 81 mg tablet,delayed 162 mg PO DAILY tab 08/21/19 09/25/19 History release fluticasone propionate 220 1 puffs INH BID 08/21/19 09/25/19 History mcg/actuation HFA aerosol inhaler omeprazole 20 mg capsule,delayed 20 mg PO DAILY 08/21/19 09/25/19 History release Patient History Medical History Anxiety (Chronic) Asymptomatic human immunodeficiency virus (HIV) infection status (Chronic 10/25/11) Distal radial fracture (Acute) HIV disease HTN (hypertension) (Chronic) Muscle strain (Resolved) Osteoarthritis (Chronic) Pain, dental (Resolved) Surgical History No pertinent past surgical history Family History Other No pertinent family history in first degree relatives Social History Preferred Language: Citizen Of [place] Communication Ability: Effective 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 Required: No Beliefs That Will Affect Care: None Current Living Situation: Spouse Other Information That Helps Us Care for You: No Feels Safe at Home: Yes Safety Concerns: Feels Safe At This Time Smoking Status: Current every day smoker Tobacco Type: cigarettes ; packs per day: 0.5 ; Cigarettes Per Day: 20 ; Hx Alcohol Use: No Hx Substance Use: No Review of Systems Review of Systems: All systems reviewed & are unremarkable except as noted in HPI & below Physical Exam Physical Exam: Temp Pulse Resp BP Pulse Ox 36.5 C 90 18 127/90 93 09/26/19 10:55 09/26/19 10:55 09/26/19 10:55 09/26/19 10:55 09/26/19 10:55 Constitutional: WD/WN, vitals as above Respiratory: normal respiratory effort, lungs clear to auscultation Cardiovascular: RRR, no murmur, no edema Vessels: no JVD Extremities: no edema Gastrointestinal (Abdomen): normal bowel sounds, soft, nontender, no hepatosplenomegaly Skin: no rashes, warm and dry Neurologic: PERRL, EOMI, accommodation nl, no face palsy, no dysarthria Results & Data Vital Signs (Past 12 Hours) Vital Signs Temp Pulse Pulse Pulse Resp BP BP 09/26/19 10:55 36.5 C 90 18 127/90 09/26/19 07:44 95 H 09/26/19 07:30 36.2 C L 96 H 24 133/91 09/26/19 04:38 36.4 C L 95 H 18 107/72 09/26/19 00:25 102 H 09/26/19 00:15 36.2 C L 100 H 22 09/26/19 00:03 105 H 22 109/80 BP Pulse Ox 09/26/19 10:55 93 09/26/19 07:44 09/26/19 07:30 90 09/26/19 04:38 93 09/26/19 00:25 09/26/19 00:15 124/79 99 09/26/19 00:03 0 L Laboratory Results Cardiac Enzymes 09/25/19 09/26/19 Range/Units 18:55 05:31 Troponin I < 0.015 < 0.015 (0-0.045) ng/ml Coagulation 09/25/19 Range/Units 18:55 PT 10.1 (9.0-12.0) Seconds APTT 28.6 (21.0-31.0) Seconds CBC 09/25/19 09/26/19 Range/Units 18:55 05:31 WBC 9.35 5.89 (4.8-10.8) K/uL RBC 4.44 L 4.13 L (4.7-6.1) M/uL Hgb 14.2 12.9 L (14.0-18.0) g/dL Hct 40.1 L 37.4 L (42-52) % Plt Count 220 184 (130-400) K/uL Neut # (Auto) 7.29 H 4.60 (1.4-6.5) K/uL Lymph # (Auto) 1.24 0.90 L (1.2-3.4) K/uL Frontier # (Auto) 0.59 0.34 (0.11-0.59) K/uL Eos # (Auto) 0.19 0.03 (0-0.5) K/uL Baso # (Auto) 0.03 0.01 (0-0.2) K/uL Comprehensive Metabolic Panel 09/25/19 09/25/19 09/26/19 Range/Units 18:55 20:39 05:31 Sodium 129 L 131 L (136-145) mmol/L Potassium 4.0 4.7 D (3.5-5.1) mmol/L Chloride 98 101 (98-107) mmol/L Carbon Dioxide 25 22 (21-32) mmol/L BUN 14 12 (7-18) mg/dl Creatinine 0.93 0.87 (0.6-1.4) mg/dl Glucose 117 H 128 H (70-99) mg/dl Calcium 9.1 9.0 (8.5-10.1) mg/dl Intake and Output 09/25/19 09/26/19 09/26/19 22:59 06:59 14:59 Intake Total 1000 / 1000 Output Total 925 / 925 200 / 200 Balance 75 / 75 -200 / -200 Intake: IV 1000 / 1000 Nss 1000ML 1,000 ml @ 999 mls/ 1000 / 1000 hr IV .Q1H1M ONE Rx#:[id number] Output: Urine 925 / 925 200 / 200 Other: # Unmeasured Voids 1 Weight 69.1 kg 68.5 kg 68.5 kg Patient Weight 09/27/19 06:59 Weight 68.5 kg Diagnostic Findings EKG performed 09/25/2019 at 1835: Sinus tachycardia at 119 bpm, otherwise normal EKG, unchanged compared to 07/08/2019. Repeat EKG performed this morning 09/26/2019 at 6:29 AM and reviewed independently: Normal sinus rhythm at 96 bpm, no significant ST changes, no changes to suggest pericarditis by EKG criteria. Summary of transthoracic echocardiogram performed this morning 09/26/2019: There is a moderate sized circumferential pericardial effusion. Significant amount of fluid collection is anteriorly and adjacent to the anterolateral, inferolateral, and inferior aspects of the left ventricle and adjacent to the lateral wall of the right ventricle. On some views the right ventricle does appear to be somewhat underfilled. Doppler assessment does not suggest tamponade physiology. The inferior vena cava is not plethoric. Left ventricular systolic function is normal. The LV Ejection Fraction = 60-65%. There is no significant valvular heart disease. (1) Lung cancer Laterality: unspecified laterality Lung location: unspecified part of lung Qualified Code(s): C34.90 - Malignant neoplasm of unspecified part of unspecified bronchus or lung
--- NOTE | 2019-09-26 12:07 | Hospitalist Progress Note ---
Date of Service September 26, 2019 Assessment & Plan (1) Pericardial effusion: (2) Hypoxia: (3) Lung cancer: (4) COPD exacerbation: (5) HIV disease: (6) Depression: (7) Tobacco use disorder: (8) Osteoarthritis: (9) HTN (hypertension): (10) Anxiety: (11) Asymptomatic human immunodeficiency virus (HIV) infection status: 58 M with hx of HIV, Tobacco abuse, Asthma, recent finding of lung mass presents with chest pain, cough with sputum and sob. Chest pain mostly from lung mass pain control pulmonary on case as well as Thoracic Possible copd ex hx of tobacco abuse nebs and inhalers, Prednisone 40mg daily will monitor Pericardial effusion moderate on ct scan will follow echo cardiology on case hx of HIV continue anti viral med HTN continue lisinopril and Maxzide will monitor depression and anxiety on Klonopin and fluoxetine and BuSpar DVT px scds Biopsy today c Dr Forrester Labs checked ROS-No Headache, No Visual Changes, No Nausea, No Vomiting, No Fever, No Chills, No Neck Pain or Stiffness, +Rib/Chest Pain, No Palpitations, + SOB, + ZAMBRANO, + Cough, No Sputum, No Wheezing, No Abdominal Pain, No Diarrhea, No Hematemesis, No Hemoptysis, No Unexpected Weight Loss, No Flank pain, No Melena, No Hematochezia, No Frequency, No Urgency, No Burning, No Hematuria, No Rashes, No Diaphoresis. Appetite is Normal Physical Exam Gen-AAO x 3, NAD, Afebrile, Cachectic Head-NCAT, EOMI, PERRLA, Anicteric Sclera, No Posterior Pharyngeal Erythema Neck-Supple, No JVD, No Thyromegaly, No Masses, No LAD, No Bruits Lungs-Clear to Auscultation Bilaterally, No Rales, No Rhonchi, No Wheezing, No Crepitus Chest-No S4, +S1, +S2, No S3, No Murmurs, No Rubs, No Gallops, No Ectopy Abdomen-Soft, Bowel Sounds Present, Non Tender, Non Distended, No Hepatomegaly, No Splenomegaly, No Palpable Masses, No Rebound, No Rigidity, No Guarding Musculoskeletal-Full Range of Motion Bilaterally, No CVAT Extremities-No Cyanosis, No Clubbing, No Edema Nuero-Cranial Nerves II-XII grossly intact, Motor WNL, DTRs WNL, Strength WNL, Non Focal Psych-Normal Mood Results & Data ([facility]) Vital Signs (Past 12 Hours) Vital Signs Temp Pulse Pulse Pulse Resp BP BP 09/26/19 10:55 36.5 C 90 18 127/90 09/26/19 07:44 95 H 09/26/19 07:30 36.2 C L 96 H 24 133/91 09/26/19 04:38 36.4 C L 95 H 18 107/72 09/26/19 00:25 102 H 09/26/19 00:15 36.2 C L 100 H 22 124/79 Pulse Ox 09/26/19 10:55 93 09/26/19 07:44 09/26/19 07:30 90 09/26/19 04:38 93 09/26/19 00:25 09/26/19 00:15 99 (1) Lung cancer Laterality: unspecified laterality Lung location: unspecified part of lung Qualified Code(s): C34.90 - Malignant neoplasm of unspecified part of unspecified bronchus or lung
--- NOTE | 2019-09-26 12:13 | Anesthesiology Consultation ---
Date of Service September 26, 2019 Assessment & Plan (1) Encounter for pre-operative examination: Chart Review Chart Review: Acceptable Risk for Surgery History Surgery Operation Date: 09/26/19 12:20 Proposed Procedures p Left Video Assisted Thoracoscopy with Pericardial Window - Cm Forrester MD, FACS Height/Weight Height: 5 ft 7 in Weight: 68.5 kg Allergies Allergy/AdvReac Type Severity Reaction Status Date / Time pollen extracts Allergy Intermediate ASTHMA Verified 09/25/19 20:11 Sulfa (Sulfonamide Allergy Unknown HIVES Verified 09/25/19 20:11 Antibiotics) Medications Home Medications Medication Instructions Recorded Confirmed Last Taken amitriptyline 50 mg PO DAILY 07/08/19 09/25/19 Unknown buspirone 15 mg PO BID 07/08/19 09/25/19 Unknown clonazepam 1 mg PO BID 07/08/19 09/25/19 Unknown dronabinol 10 mg PO BID 07/08/19 09/25/19 Unknown ndcijzyvf-zairdpgwmsad-yvayiek 1 tab PO DAILY 07/08/19 09/25/19 Unknown [Atripla] fluoxetine 20 mg PO DAILY 07/08/19 09/25/19 Unknown lisinopril 20 mg PO DAILY 07/08/19 09/25/19 Unknown oxycodone-acetaminophen 1 - 2 tab PO Q4H PRN 07/08/19 09/25/19 Unknown triamterene-hydrochlorothiazid 1 tab PO DAILY 07/08/19 09/25/19 Unknown albuterol sulfate 90 mcg/actuation 2 puffs INH Q6H PRN 08/21/19 09/25/19 Unknown aerosol inhaler aspirin 81 mg tablet,delayed 162 mg PO DAILY tab 08/21/19 09/25/19 Unknown release fluticasone propionate 220 1 puffs INH BID 08/21/19 09/25/19 Unknown mcg/actuation HFA aerosol inhaler omeprazole 20 mg capsule,delayed 20 mg PO DAILY 08/21/19 09/25/19 Unknown release Active Medications Generic Name Dose Route Start Last Admin Trade Name Freq PRN Reason Stop Dose Admin Amitriptyline HCl 50 mg 09/26/19 09:00 09/26/19 08:58 Elavil PO 10/26/19 08:59 50 mg DAILY TEN Administration Aspirin 162 mg 09/26/19 09:00 09/26/19 08:59 Ecotrin Ectab PO 10/26/19 08:59 162 mg DAILY TEN Administration Buspirone HCl 15 mg 09/26/19 09:00 09/26/19 08:59 Buspar PO 10/26/19 08:59 15 mg BID TEN Administration Clonazepam 1 mg 09/26/19 00:21 09/26/19 08:56 Klonopin PO 10/26/19 00:20 1 mg BID TEN Administration Doxycycline Hyclate 100 mg 09/26/19 09:00 09/26/19 08:57 Vibramycin PO 10/03/19 08:59 100 mg BID TEN Administration Dronabinol 10 mg 09/26/19 09:00 09/26/19 08:56 Marinol PO 10/26/19 08:59 10 mg BID TEN Administration Fluoxetine HCl 20 mg 09/26/19 09:00 09/26/19 08:57 Prozac PO 10/26/19 08:59 20 mg DAILY TEN Administration Fluticasone Furoate 1 puffs 09/26/19 09:00 09/26/19 08:55 Arnuity Ellipta 200mcg INH 10/26/19 08:59 1 puffs DAILY TEN Administration Hydromorphone HCl 0.5 mg 09/26/19 00:21 09/26/19 05:40 Dilaudid IV 10/10/19 00:20 0.5 mg Q3H PRN Administration Pain Lisinopril 20 mg 09/26/19 09:00 09/26/19 08:57 Zestril PO 10/26/19 08:59 20 mg DAILY TEN Administration Miscellaneous 1 ea 09/26/19 08:00 09/26/19 08:55 Order Awaiting Action N/A 10/26/19 07:59 Not Given QS TEN Nicotine 21 mg 09/26/19 09:30 09/26/19 09:43 Nicoderm Cq TD 10/26/19 09:29 21 mg QAM TEN Administration Oxycodone/Acetaminophen 1 - 2 tab 09/26/19 00:21 09/26/19 08:56 Percocet 10/325mg PO 10/10/19 00:20 2 tab Q4H PRN Administration Pain Pantoprazole Sodium 40 mg 09/26/19 09:00 09/26/19 08:58 Protonix PO 10/26/19 08:59 40 mg DAILY TEN Administration Prednisone 40 mg 09/26/19 09:00 09/26/19 08:57 Prednisone PO 10/26/19 08:59 40 mg DAILY TEN Administration Triamterene/HCTZ 1 tab 09/26/19 09:00 09/26/19 08:58 Maxzide 37.5/25mg PO 10/26/19 08:59 1 tab DAILY TEN Administration Past Medical History Medical History (Updated 09/26/19 @ 12:19 by Dionicio Gaitan MD) Anxiety (Chronic) Asymptomatic human immunodeficiency virus (HIV) infection status (Chronic 10/25/11) Distal radial fracture (Acute) HIV disease HTN (hypertension) (Chronic) Lung mass Lymphadenopathy Muscle strain (Resolved) Osteoarthritis (Chronic) Pain, dental (Resolved) Weight loss Past Family History Family History Other No pertinent family history in first degree relatives Past Surgical History Surgical History (Updated 09/26/19 @ 12:14 by Dionicio Gaitan MD) History of temporal artery biopsy No pertinent past surgical history Social History Smoking Status: Current every day smoker tobacco type: cigarettes Smoking cigarettes per day: 20 Hx Alcohol Use: No Hx Substance Use: No Physical Exam Vital Signs Last Vital Signs Temp 36.5 C 09/26/19 10:55 Pulse 90 09/26/19 10:55 Resp 18 09/26/19 10:55 BP 127/90 09/26/19 10:55 Pulse Ox 93 09/26/19 10:55 Testing Laboratory Results 09/26/19 05:31 09/26/19 05:31 PT 10.1 Seconds (9.0-12.0) 09/25/19 18:55 INR 1.0 (0.9-1.1) 09/25/19 18:55 APTT 28.6 Seconds (21.0-31.0) 09/25/19 18:55 Electrocardiogram Date: 09/26/19 Findings: + NSR @ (98) Chest X-Ray Date: 09/25/19 Findings: + cardiomegaly left lung nodule interstitial prominence Echocardiogram Date: 09/26/19 EF: 60-65% LV Function: normal (underfilled) Valvular Disease: + no significant valvular disease moderate pericardial effusion c/w pretamponade
[2019-09-26] MEDS ORDERED: DEXAMETHASONE SOD INJ 4 MG/ML VIAL ONE (12:26)
[2019-09-26] MEDS ORDERED: SUCCINYLCHOLINE CHLORIDE 20 MG/ML 10 ML VIAL ONE (12:26)
[2019-09-26] MEDS ORDERED: MIDAZOLAM HCL 1 MG/ML 2ML VIAL ONE (12:26)
[2019-09-26] MEDS ORDERED: LIDOCAINE HCL 2% 2 ML VIAL/AMP(20MG/ML) INFIL ONE (12:26)
[2019-09-26] MEDS ORDERED: PHENYLEPHRINE HCL 10 MG/ML VIAL ONE (12:26)
[2019-09-26] MEDS ORDERED: GLYCOPYRROLATE 0.2 MG/ML VIAL ONE (12:26)
[2019-09-26] MEDS ORDERED: fentaNYL citrate 100 MCG/2 ML VIAL ONE (12:26)
[2019-09-26] MEDS ORDERED: NEOSTIGMINE METHYLSULFATE 5 MG/5 ML SYR ONE (12:26)
[2019-09-26] MEDS ORDERED: ePHEDrine sulfate 50 MG/ML AMP ONE (12:26)
[2019-09-26] MEDS ORDERED: PROPOFOL IV EMULSION 10 MG/ML 20 ML VIAL IV ONE (12:26)
[2019-09-26] MEDS ORDERED: ONDANSETRON INJ 2 MG/ML 2 ML VIAL ONE (12:26)
[2019-09-26] MEDS ORDERED: SODIUM CHLORIDE 0.9% PF 50 ML VIAL ONE (12:46)
[2019-09-26] MEDS ORDERED: BUPIVACAINE 0.5 % 5 MG/1 ML MPF 30ML VIAL ONE (12:46)
[2019-09-26] MEDS ORDERED: BUPIVACAINE LIPOSOME 1.3% 266 MG/20 ML VIAL ONE (12:46)
--- NOTE | 2019-09-26 13:01 | History & Physical Bridge Note ---
Date of Service September 26, 2019 History & Physical Bridge Note I have examined the patient, reviewed the History & Physical and in the interval since the performance of the History & Physical I have noted the following changes of clinical significance: no changes noted. This a 58-year-old male who has a history of HIV positivity anxiety disorder and cigarettes smoking who has been scheduled to see me in the office. Patient has been hoarse and short of breath and has lost 30 pounds. It appears he has a l adam cancer in his left lung. 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 Patient now has a pericardial effusion which is enlarging. I discussed this with Dr. Dominguez Goddard from cardiology. He is concerned about the echocardiogram and this pericardial effusion has enlarged. He is not in garima tamponade however it is concerning enough for us to intervene. I would offer him a left thoracoscopy with a pericardial window. We will be able to then biopsy the process on the left. I believe this patient has carcinoma of the lung. Is unclear whether were dealing with a small cell or non-small cell however his pericardial effusion needs to be addressed. I had a long talk with the patient and his of many years. They understand the significance and also the potential complications. We will proceed today. For details of this please see Mr. David Moses's full consult.
--- NOTE | 2019-09-26 13:02 | Surgery Consultation ---
Date of Consultation September 26, 2019 Assessment & Plan (1) Pericardial effusion: -pt. seen and examined by Dr. Forrester: -plan is for LVATS with pericardial window for diagnostic and therapeutic purposes History of Present Illness Attending Physician: Mir Landry DO History of Present Illness 58 year old male presented to [facility] with progressive SOB and chest tightness. He notes some weight loss but no fevers, shakes, chills. He was seen by cardiology and echo showed a pericardial effusion and they asked for input from thoracic surgery. Allergies Allergy/AdvReac Type Severity Reaction Status Date / Time pollen extracts Allergy Intermediate ASTHMA Verified 09/25/19 20:11 Sulfa (Sulfonamide Allergy Unknown HIVES Verified 09/25/19 20:11 Antibiotics) Home Medications Home Medications Medication Instructions Recorded Confirmed Type amitriptyline 50 mg PO DAILY 07/08/19 09/25/19 History buspirone 15 mg PO BID 07/08/19 09/25/19 History clonazepam 1 mg PO BID 07/08/19 09/25/19 History dronabinol 10 mg PO BID 07/08/19 09/25/19 History qddsvwrrl-mhjyjuonidby-wvzkcrt 1 tab PO DAILY 07/08/19 09/25/19 History [Atripla] fluoxetine 20 mg PO DAILY 07/08/19 09/25/19 History lisinopril 20 mg PO DAILY 07/08/19 09/25/19 History oxycodone-acetaminophen 1 - 2 tab PO Q4H PRN 07/08/19 09/25/19 History triamterene-hydrochlorothiazid 1 tab PO DAILY 07/08/19 09/25/19 History albuterol sulfate 90 mcg/actuation 2 puffs INH Q6H PRN 08/21/19 09/25/19 History aerosol inhaler aspirin 81 mg tablet,delayed 162 mg PO DAILY tab 08/21/19 09/25/19 History release fluticasone propionate 220 1 puffs INH BID 08/21/19 09/25/19 History mcg/actuation HFA aerosol inhaler omeprazole 20 mg capsule,delayed 20 mg PO DAILY 08/21/19 09/25/19 History release Patient History Medical History (Updated 09/26/19 @ 12:19 by Dionicio Gaitan MD) Anxiety (Chronic) Asymptomatic human immunodeficiency virus (HIV) infection status (Chronic 10/25/11) Distal radial fracture (Acute) HIV disease HTN (hypertension) (Chronic) Lung mass Lymphadenopathy Muscle strain (Resolved) Osteoarthritis (Chronic) Pain, dental (Resolved) Weight loss Surgical History (Updated 09/26/19 @ 12:14 by Dionicio Gaitan MD) History of temporal artery biopsy No pertinent past surgical history Family History Other No pertinent family history in first degree relatives Social History Preferred Language: Azeri Communication Ability: Effective Crime Scene Analyst Required: No Beliefs That Will Affect Care: None Current Living Situation: Spouse Other Information That Helps Us Care for You: No Feels Safe at Home: Yes Safety Concerns: Feels Safe At This Time Smoking Status: Current every day smoker Tobacco Type: cigarettes ; packs per day: 0.5 ; Cigarettes Per Day: 20 ; Hx Alcohol Use: No Hx Substance Use: No Review of Systems Constitutional: + weight loss; no fever and no chills Eyes: no diplopia Ear, Nose, Mouth, Throat: no ear pain Respiratory: + dyspnea on exertion Cardiovascular: Additional Comments: chest tightness Gastrointestinal: no nausea Genitourinary: no dysuria Musculoskeletal: no back pain Integumentary: no rash Neurologic: no localized weakness Physical Exam Constitutional: well developed and well nourished; no acute distress Eyes: no conjunctival abnormality ENMT: Ears: no hearing impairment Neck: trachea midline Respiratory: + labored breathing Cardiovascular: Rate/Rhythm: regular rate and regular rhythm Gastrointestinal (Abdomen): Percussion/Palpation: abdomen soft; abdomen nontender Musculoskeletal: no calf tenderness Skin: no rashes, warm and dry Neurologic: moves all extremities Results & Data Vital Signs (Past 12 Hours) Vital Signs Temp Pulse Pulse Pulse Resp BP BP 09/26/19 12:38 36.3 C L 96 H 22 124/94 09/26/19 10:55 36.5 C 90 18 127/90 09/26/19 07:44 95 H 09/26/19 07:30 36.2 C L 96 H 24 133/91 09/26/19 04:38 36.4 C L 95 H 18 107/72 Pulse Ox 09/26/19 12:38 95 09/26/19 10:55 93 09/26/19 07:44 09/26/19 07:30 90 09/26/19 04:38 93 PG Care Time/CCT Total # of Minutes Spent Total Time Spent with Patient: Total time spent is greater than 50% in coordination of care (as documented) at patient's floor/unit and/or counseling patient: Coding Level of Care Code 84468 Inpt Consult Level 4 Diagnoses Pericardial effusion I31.3
[2019-09-26] MEDS ORDERED: ePHEDrine sulfate 50 MG/ML AMP IV PRN (13:07)
[2019-09-26] MEDS ORDERED: HYDROmorphone INJ 1 MG/ML SYRINGE IV PRN (13:07)
[2019-09-26] MEDS ORDERED: fentaNYL citrate 100 MCG/2 ML VIAL IV PRN (13:07)
[2019-09-26] MEDS ORDERED: ATROPINE SULFATE 0.1 MG/ML 10ML SYR IV PRN (13:07)
[2019-09-26] MEDS ORDERED: CLINDAMYCIN 600 MG/54 ML D5W IV ONE (13:12)
[2019-09-26] MEDS ORDERED: ALBUMIN HUMAN 5% 12.5 GM/250 ML VIAL IV ONE (13:55)
[2019-09-26] MEDS ORDERED: SODIUM CHLORIDE 0.9% INJ 10 ML VIAL ONE (13:58)
[2019-09-26] MEDS ORDERED: VASOPRESSIN 20 UNIT/ML VIAL ONE (13:58)
[2019-09-26] MEDS ORDERED: LARYING-O-JET KIT (LTA) ONE (14:05)
--- NOTE | 2019-09-26 14:08 | Electrocardiogram Report ---
Test Reason : Blood Pressure : / mmHG Vent. Rate : 119 BPM Atrial Rate : 119 BPM P-R Int : 144 ms QRS Dur : 086 ms QT Int : 318 ms P-R-T Axes : 071 085 043 degrees QTc Int : 447 ms Sinus tachycardia Otherwise normal ECG When compared with ECG of 08-JUL-2019 13:30, No significant change was found Confirmed by Derrell Santana ([id number]) on 09/26/2019 2:08:36 PM Referred By: REFERRED SELF Confirmed By:Derrell Santana
[2019-09-26] MEDS ORDERED: METOCLOPRAMIDE HCL INJ 5 MG/ML 2 ML VIAL IV ONE (15:25)
--- NOTE | 2019-09-26 15:34 | XRay Report ---
XR chest 1V portable CLINICAL HISTORY: 58 years-old Male presenting with left wedge biopsy. TECHNIQUE: Portable upright AP view of the chest was obtained. COMPARISON: 09/25/2019. FINDINGS: Atherosclerosis of the aortic arch. Cardiac silhouette enlarged. Interval placement of a large bore l eft pleural drain. A suture margin is noted at the periphery of the left upper lung at the site of th e prior nodule. Trace left pneumothorax. There is asymmetric added density of the left lung. Low left lung volume again noted. Milder added density and prominent interstitium of the right lung. Trace ri ght pleural effusion. Osseous structures normal. Elevation of the left hemidiaphragm. IMPRESSION: 1. Postsurgical changes of left upper lung wedge resection. Trace left pneumothorax with a left pleu ral drain in place. 2. Interval development of diffuse added density of the lungs, left greater than right. This is conc erning for pulmonary edema. 3. Background emphysema. 4. Enlargement of the cardiac silhouette may relate to the underlying or cardial effusion. ACT 112: Negative or not required by law. Electronically signed by: Robert Guzman M.D. 09/26/2019 3:33 PM
[2019-09-26] MEDS ORDERED: ALBUT/IPRATROP 3MG/0.5MG NEB 3 ML VIAL INH PRN (15:35)
[2019-09-26] MEDS ORDERED: LORazepam 2 MG/4 ML VIAL ONE (15:37)
[2019-09-26] MEDS ORDERED: LORazepam 1 MG/2 ML VIAL IV STA (15:38)
--- NOTE | 2019-09-26 16:27 | Anesthesiology Progress Note ---
Date of Service September 26, 2019 Anesthesia Post Procedure Vital Signs Vital Signs: Temp Pulse Pulse Pulse Resp BP BP 09/26/19 16:10 36.2 C L 95 H 11 L 106/67 09/26/19 16:00 98 H 12 130/75 09/26/19 15:51 94 H 14 09/26/19 15:50 94 H 14 133/98 09/26/19 15:40 102 H 18 151/89 H 09/26/19 15:30 101 H 26 H 122/104 H 09/26/19 15:24 36.2 C L 94 H 13 137/96 09/26/19 12:38 36.3 C L 96 H 22 09/26/19 10:55 36.5 C 90 18 127/90 09/26/19 07:44 95 H 09/26/19 07:30 36.2 C L 96 H 24 133/91 09/26/19 04:38 36.4 C L 95 H 18 107/72 09/26/19 00:25 102 H 09/26/19 00:15 36.2 C L 100 H 22 09/26/19 00:03 105 H 22 109/80 09/25/19 21:30 106 H 22 09/25/19 20:35 111 H 24 09/25/19 19:34 120 H 28 H 09/25/19 18:53 118 H 20 09/25/19 18:48 118 H 26 H 09/25/19 18:42 09/25/19 18:41 36.8 C 117 H 22 129/89 BP Pulse Ox 09/26/19 16:10 96 09/26/19 16:00 94 09/26/19 15:51 94 09/26/19 15:50 94 09/26/19 15:40 93 09/26/19 15:30 94 09/26/19 15:24 96 09/26/19 12:38 124/94 95 09/26/19 10:55 93 09/26/19 07:44 09/26/19 07:30 90 09/26/19 04:38 93 09/26/19 00:25 09/26/19 00:15 124/79 99 09/26/19 00:03 0 L 09/25/19 21:30 109/88 98 09/25/19 20:35 89/70 L 94 09/25/19 19:34 93/77 L 98 09/25/19 18:53 98 09/25/19 18:48 97 09/25/19 18:42 98 09/25/19 18:41 84 L Pain Intensity Chest: Pain Intensity: 9 Transfer of Care Handoff Completed per policy Notes Mental Status: alert / awake / arousable Patient Amnestic to Procedure: Yes Nausea / Vomiting: adequately controlled Pain: adequately controlled Airway Patency, RR, SpO2: see Notes below BP & HR: see Notes below Hydration State: stable & adequate Anesthetic Complications: see Notes below Notes: Patient was very restless in recovery and primary surgical team had written for 1mg ativan to be given when I arrived to evaluate him. The ativan did help him calm down but I ordred a STAT ABG to ensure patient wasn't severely hypoxic or hypercarbic. pCO2 was 54 and pO2 was 81 on 10L oxymask. I had already given him a duoneb as he was audibly wheezing. He did have a fluid sounding cough and had very noisy breath sounds throughout all lung sibley. Given the severe nature of his condition in a likely advanced lung cancer with pericardial effusion, it was decided that this patient be transferred to the ICU. Both primary surgeon and myself spoke to the ICU cribber and gave full report. Patient will be taken to the ICU within the next 5 minutes for continued monitoring and treatment as deemed appropriate by the ICU team.
--- NOTE | 2019-09-26 16:41 | Electrocardiogram Report ---
Test Reason : Blood Pressure : / mmHG Vent. Rate : 096 BPM Atrial Rate : 096 BPM P-R Int : 170 ms QRS Dur : 090 ms QT Int : 338 ms P-R-T Axes : 067 078 048 degrees QTc Int : 427 ms Normal sinus rhythm Normal ECG When compared with ECG of 25-SEP-2019 18:35, (unconfirmed) No significant change was found Confirmed by Derrell Santana ([id number]) on 09/26/2019 4:41:22 PM Referred By: REFERRED SELF Confirmed By:Derrell Santana
[2019-09-26] MEDS: D5W AND 1/2NSS 1,000 ML IV SCH (17:00)
[2019-09-26] MEDS: DEXMEDETOMIDINE HCL 200 MCG in SODIUM CHLORIDE 0.9% 48 ML IV SCH ×3 (17:08→20:11)
[2019-09-26] MEDS: MoRPHine SULFATE 2 MG/ML CARP IV PRN (17:41)
--- NOTE | 2019-09-26 18:13 | Critical Care Consultation ---
Date of Consultation September 26, 2019 Assessment & Plan (1) Carcinoma, lung: Patient is acutely delirious status post his video-assisted thoracoscopy and pericardial drainage. We are using Precedex for sedation. He does also appear to be in a COPD exacerbation. We are continuing prednisone. He does look like he has a significant burden of metastatic lung cancer. We are awaiting the official biopsy results. It seems like he has had significant weight loss and his performance status has significantly declined over the last month or so. I did discuss CODE STATUS with the patient's partner and he indicated to me that he would want to be a full code at this time. We will hold mind altering medications at this time including his clonazepam especially in light of his acute hypercapnic respiratory failure. Chest tube management per thoracic surgery. Blood pressure appears stable at this current time. Continue general ICU care. CRITICAL CARE TIME - I have personally spent 30 minutes of critical care time in the direct management of this patient. This is a life/limb threatening event. This includes time spent evaluating patient, direct bedside care, chart review, placing orders, interpretation of diagnostic studies, discussion with consultants, patient, and family members, as well as other required patient management activities. This time is exclusive of all separately billable procedures, and teaching time and separate from and in addition to any other critical care service time. (2) Lymphadenopathy: (3) Weight loss: (4) HIV disease: History of Present Illness Reason for Consultation: Status post pericardial window now with respiratory and metabolic acidosis Requesting Physician: Dr. Landry Attending Physician: Mir Landry DO History of Present Illness This is a 58-year-old male with a history of significant tobacco abuse (0.5 packs/day for 50 years), history of HIV on ART therapy, hypertension, anxiety, COPD who presents to the hospital with increasing shortness of breath. Patient is unable to give any history as he is acutely encephalopathic status post surgery and stating over and over that "I need to use the bathroom". Patient's partner was at bedside in a wheelchair who was able to offer some collateral history. He noted that the patient has been losing significant weight over the last month or so. He has lost approximately 30 pounds. He had a CT of his chest done in July which demonstrated bulky mediastinal adenopathy with a lung nodule, but was unable to get an appointment with the surgeon for a long period of time. He notes that he has a chronic cough and has COPD. He describes that he has been having more progressively short of breath. He denied witnessing any hemoptysis. An echocardiogram was performed today which demonstrated pre-tamponade physiology. Dr. Larisa Lofton of thoracic surgery was consulted. He performed a pericardial window and was able to drain 300 mL of fluid from the pericardial sac. He also performed a tissue biopsy of the lung. I did speak with the thoracic surgeon and he indicated to me that the frozen sections were consistent with a carcinoma. Post surgery, the patient was very combative and severely delirious. I did speak with the anesthesiologist. He noted that there was approximately 30 mL of blood loss. He also noted that they had to use intermittent doses of ephedrine, phenylephrine and vasopressin to maintain his blood pressure. Currently he is hemodynamically stable, but in hypoxemic respiratory failure requiring an oxygen mask at 8 L. He does desaturate significantly when he takes the oxygen mask off. He is sitting up in bed and is quite delirious. We have started him on a Precedex drip with some mild improvement in the agitation. He did have a blood gas that was performed which demonstrated a combined respiratory metabolic acidosis with a PCO2 of 54 and a bicarb of 22. His pH was 7.22. Allergies Allergy/AdvReac Type Severity Reaction Status Date / Time pollen extracts Allergy Intermediate ASTHMA Verified 09/25/19 20:11 Sulfa (Sulfonamide Allergy Unknown HIVES Verified 09/25/19 20:11 Antibiotics) Home Medications Home Medications Medication Instructions Recorded Confirmed Type amitriptyline 50 mg PO DAILY 07/08/19 09/25/19 History buspirone 15 mg PO BID 07/08/19 09/25/19 History clonazepam 1 mg PO BID 07/08/19 09/25/19 History dronabinol 10 mg PO BID 07/08/19 09/25/19 History rmggfuxks-drqvqqlmscnl-zqgccug 1 tab PO DAILY 07/08/19 09/25/19 History [Atripla] fluoxetine 20 mg PO DAILY 07/08/19 09/25/19 History lisinopril 20 mg PO DAILY 07/08/19 09/25/19 History oxycodone-acetaminophen 1 - 2 tab PO Q4H PRN 07/08/19 09/25/19 History triamterene-hydrochlorothiazid 1 tab PO DAILY 07/08/19 09/25/19 History albuterol sulfate 90 mcg/actuation 2 puffs INH Q6H PRN 08/21/19 09/25/19 History aerosol inhaler aspirin 81 mg tablet,delayed 162 mg PO DAILY tab 08/21/19 09/25/19 History release fluticasone propionate 220 1 puffs INH BID 08/21/19 09/25/19 History mcg/actuation HFA aerosol inhaler omeprazole 20 mg capsule,delayed 20 mg PO DAILY 08/21/19 09/25/19 History release Patient History Medical History Anxiety (Chronic) Asymptomatic human immunodeficiency virus (HIV) infection status (Chronic 10/25/11) Distal radial fracture (Acute) HIV disease HTN (hypertension) (Chronic) Lung mass Lymphadenopathy Muscle strain (Resolved) Osteoarthritis (Chronic) Pain, dental (Resolved) Weight loss Surgical History History of temporal artery biopsy No pertinent past surgical history Family History Other No pertinent family history in first degree relatives Social History Preferred Language: Swiss Communication Ability: Effective Robotics Testing Technician Required: No Beliefs That Will Affect Care: None Current Living Situation: Spouse Other Information That Helps Us Care for You: No Feels Safe at Home: Yes Safety Concerns: Feels Safe At This Time Smoking Status: Current every day smoker Tobacco Type: cigarettes ; packs per day: 0.5 ; Cigarettes Per Day: 20 ; Hx Alcohol Use: No Hx Substance Use: No Review of Systems Review of Systems: Unobtainable due to cognitive status Physical Exam Constitutional: The patient is cachectic and frail-appearing. He appears much older than his stated age. He has long hair and generally appears unkempt. Eyes: Eyes appear sunken in. Pupils are equal. ENMT: Mallampati Class: II Bitemporal wasting noted. Neck: normal visual inspection Respiratory: Diffuse mild rhonchi particularly on the left. He has a chest tube present on the left that is draining serosanguineous fluid. Cardiovascular: RRR, no murmur, no edema Gastrointestinal (Abdomen): normal bowel sounds, soft, nontender, no hepatosplenomegaly Musculoskeletal: no cyanosis or clubbing, extremities motor strength 5/5 Skin: no rashes, warm and dry Neurologic: Difficult to assess as the patient is delirious and unwilling to comply with exam. He does appear to move all of his extremities. Psychiatric: Patient is awake but disoriented. Genitourinary: Wu catheter is in place and draining urine. Results & Data ([facility]) Vital Signs (Past 12 Hours) Vital Signs Temp Pulse Pulse Pulse Resp BP BP 09/26/19 17:45 107 H 32 H 09/26/19 17:30 102 H 14 09/26/19 17:15 106 H 25 H 09/26/19 17:00 102 H 13 09/26/19 16:49 98.2 F 102 H 11 L 93/66 L 09/26/19 16:48 102 H 09/26/19 16:45 104 H 24 09/26/19 16:41 103 H 18 09/26/19 16:40 103 H 21 136/119 H 09/26/19 16:20 99 H 12 93/65 L 09/26/19 16:10 97.2 F L 95 H 11 L 106/67 09/26/19 16:00 98 H 12 130/75 09/26/19 15:51 94 H 14 09/26/19 15:50 94 H 14 133/98 09/26/19 15:40 102 H 18 151/89 H 09/26/19 15:30 101 H 26 H 122/104 H 09/26/19 15:24 97.2 F L 94 H 13 137/96 09/26/19 12:38 97.3 F L 96 H 22 09/26/19 10:55 97.7 F 90 18 127/90 09/26/19 07:44 95 H 09/26/19 07:30 97.2 F L 96 H 24 133/91 BP Pulse Ox 09/26/19 17:45 94 09/26/19 17:30 94 09/26/19 17:15 95 09/26/19 17:00 92 09/26/19 16:49 98 09/26/19 16:48 09/26/19 16:45 02/07/20 16:41 09/26/19 16:40 95 09/26/19 16:20 94 09/26/19 16:10 96 09/26/19 16:00 94 09/26/19 15:51 94 09/26/19 15:50 94 09/26/19 15:40 93 09/26/19 15:30 94 09/26/19 15:24 96 09/26/19 12:38 124/94 95 09/26/19 10:55 93 09/26/19 07:44 09/26/19 07:30 90 I did reviewed the pertinent labs, chest imaging and previous notes Coding Level of Care Code Critical Care 1st 30-74 mins Diagnoses Carcinoma, lung C34.90 Laterality: unspecified laterality Lymphadenopathy R59.1 Weight loss R63.4 HIV disease B20 Time Spent (min) 30 (1) Carcinoma, lung Laterality: unspecified laterality Qualified Code(s): C34.90 - Malignant neoplasm of unspecified part of unspecified bronchus or lung
[2019-09-26] MEDS: DOCUSATE SODIUM 100 MG CAP PO SCH (19:41)
[2019-09-26] MEDS: [UNRECOGNIZED DRUG - OTHER] PO SCH (21:00)
[2019-09-26] MEDS: ACETAMINOPHEN 1,000 MG/100 ML VIAL IV SCH (21:36)
[2019-09-26] MEDS: DEXMEDETOMIDINE HCL 400 MCG in 0.9 % SODIUM CHLORIDE 96 ML IV SCH (21:39)
[2019-09-26] MEDS ORDERED: NORMOSOL-R 500 ML IV ONE (22:44)
[2019-09-26 23:06] LABS: Hematocrit (blood only) 34.5 % (42-52); Hemoglobin 11.9 g/dL (14.0-18.0)
[2019-09-26] MEDS: METOCLOPRAMIDE HCL INJ 5 MG/ML 2 ML VIAL IV SCH (23:49)
[2019-09-27] MEDS: OXYCODONE HCL IR 5 MG TAB (IMMEDIATE RELEASE) PO PRN ×3 (02:07→13:56)
[2019-09-27] MEDS: D5W AND 1/2NSS 1,000 ML IV SCH (02:11)
--- NOTE | 2019-09-27 02:26 | Operative Report ---
DATE OF OPERATION: 09/26/2019 PREOPERATIVE DIAGNOSES: 1. Enlarging pericardial effusion. 2. 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 3. Left upper lobe mass. POSTOPERATIVE DIAGNOSES: 1. Enlarging pericardial effusion. 2. 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 PROCEDURE: 1. Left thoracoscopy with pericardial window. 2. Biopsy of left mediastinal mass. 3. Wedge biopsy of left upper lobe. 4. Biopsy of pleural mass. SURGEON: Cm Forrester MD. SUPERVISOR TYPESETTING: ARA Perea (Mr. Moses was present for the entire case and closed incisions at the conclusion and was instrumental in holding the camera). ANESTHESIA: General anesthesia, endotracheal intubation. INDICATION FOR PROCEDURE AND FINDINGS: A 58-year-old male with long history of cigarette smoking, has lost 30 pounds and has been hoarse for 2 months and short of breath. It appears to me that he probably has a carcinoma of the lung with paralysis of the left hemidiaphragm and his left vocal cord based on the CT scan and his symptoms. He developed a pericardial effusion which was being followed by Dr. Dominguez Johnson. Dr. Johnson called me today and was concerned about the fact that it has enlarged and he was having some symptoms. It did not appear he was in garima tamponade. However, we still did not have a diagnosis for this patient and given the fact that this had enlarged and somewhat symptomatic, we were concerned. For this reason, we elected to proceed with a biopsy while we were in there doing a pericardial window. We elected to do this on the left side. I had a long discussion with the patient and his . On 09/26/2019, the patient underwent an uncomplicated left thoracoscopy. He had some adhesions taken down from the upper lobe to the chest wall. We really did not have any pleural fluid; however, he had about 300 mL of a yellow thick fluid in the pericardium. We actually did this posterior to the phrenic nerve, which was identified. We made a generous window. In addition, the patient had a mass noted in the left mediastinum which I noted on CT scan, I biopsied this and the frozen section came back as a very poorly differentiated carcinoma; however, it did not appear to be a small cell. I also attempted to wedge out a mass of the left upper lobe; however, these were in the area of adhesions. I did not feel a mass per se. We also saw an implant which appeared malignant to me and the pericardial fat along the pleura inferiorly, which I biopsied. We did a nerve block. The patient had very little in the way of blood loss. He tolerated it well, but was a bit agitated upon awakening in the recovery room. DETAILS OF PROCEDURE: The patient was brought to the operating room and laid in supine position. General anesthesia induced and endotracheal intubation performed with a single lumen tube. Arterial line was placed. The patient was placed in the right lateral decubitus position, his left chest prepped and draped in usual sterile fashion. After appropriate timeout had been called and after appropriate antibiotics had been given, a 5 mm port was placed posterior to the scapula. It could be seen there were some adhesions from the upper lobe to the chest wall. Another 5 mm port was placed anterior to the scapula and anterior to the latissimus dorsi muscle and then we put a 12 mm port just above the diaphragm and just anterior to mid axillary line. We then did some retraction with some long cotton-tipped applicators and used a long Bovie cautery hook as well as a Harmonic scalpel to take down these adhesions. After taking these down, there was some mild bleeding which were along the chest wall. We then saw this large mass along the left mediastinum which we biopsied by grasping this and with a biopsy forceps and got several good size pieces which were sent off to the lab. We then proceeded with a pericardial window and Dr. Robert Castillo called back in the room and for the frozen section states this is a poorly differentiated carcinoma and we felt like we had enough tissue to make a diagnosis. I then used the cautery hook to go into the pericardium and it was under pressure. Yellow fluid was ejected from the pericardotomy with a good deal of force. We then used the hook to open this up and made a window at about 8 x 4 cm posterior to the phrenic nerve. There were no adhesions in the pericardium. It was fairly thick yellow fluid which was sent to the lab. After we had finished this and we could see there was no bleeding I noted an area of an implant along the pericardial fat just above the diaphragm anterior. This was a bit hard and white and I grasped this and using Harmonic scalpel, I removed a segment of the pericardial fat as well as the mass. This was delivered off the field. I then wedged out a small area which had a small amount of bleeding on the anterolateral aspect of the upper lobe. This was sent for histology. We did not do a frozen on this. At the beginning of the case, a total of 20 mL of 266 mg of Exparel mixed with 30 mL of 0.5% bupivacaine and 250 mL of normal saline. We injected each of the 3 port sites with this before making an incision and also used it to do an intercostal block from the 2nd to the 12th rib. At the conclusion of the case, we then placed a 24-H[place] chest tube through the #12 port directed towards the apex and held in place with heavy silk suture. A 4-0 Monocryl was used to hold, it was used to close all the skin incisions in a subcuticular fashion. He had no air leak. We lost very little blood. He tolerated it well. I attest to the content of the Intraoperative Record and any orders documented therein. Any exceptions are noted below. MARIO
[2019-09-27] MEDS: MoRPHine SULFATE 2 MG/ML CARP IV PRN ×5 (02:32→21:40)
[2019-09-27 04:52] LABS: Basophils # (auto) 0.01 K/uL (0-0.2); Basophils % (auto) 0.1 %; Eosinophils # (auto) 0.04 K/uL (0-0.5); Eosinophils % (auto) 0.6 %; Hematocrit (blood only) 36.1 % (42-52); Hemoglobin 12.7 g/dL (14.0-18.0); Immature Granulocytes # (auto) 0.02 K/uL (0.00-0.02); Immature Granulocytes % (auto) 0.3 %; Lymphocytes # (auto) 0.72 K/uL (1.2-3.4); Lymphocytes % (auto) 10.6 %; Mean Corpuscular Hemoglobin 31.1 pg (25-34); Mean Corpuscular Hgb Conc 35.2 g/dL (32-36); Mean Corpuscular Volume 88.5 fL (80-100); Monocytes # (auto) 0.48 K/uL (0.11-0.59); Monocytes % (auto) 7.1 %; Neutrophils % (auto) 81.3 %; Platelet Count 178 K/uL (130-400); RDW Coefficient of Variation 13.5 % (11.5-14.5); RDW Standard Deviation 44.1 fL (36.4-46.3); Red Blood Count 4.08 M/uL (4.7-6.1); White Blood Count 6.77 K/uL (4.8-10.8)
[2019-09-27 05:10] LABS: BUN Creatinine Ratio 14.3 (10-20); Bilirubin Direct 0.1 mg/dl (0-0.2); Calcium 8.1 mg/dl (8.5-10.1); Creatinine Clr Calc Pharmacy 103.3 ml/min; Est GFR (African American) 118.3; Est GFR (Non-African American) 102.1; Magnesium 1.7 mg/dl (1.8-2.4); Potassium 4.2 mmol/L (3.5-5.1)
[2019-09-27 05:13] LABS: Bilirubin,Total 0.6 mg/dl (0.2-1); Phosphorus 2.9 mg/dl (2.5-4.9); Total Protein 6.2 gm/dl (6.4-8.2)
[2019-09-27] MEDS ORDERED: MAGNESIUM SULFATE / D5W 1 GM/100 ML BAG IV ONE (05:32)
[2019-09-27] MEDS: ACETAMINOPHEN 1,000 MG/100 ML VIAL IV SCH ×2 (06:19→13:56)
--- NOTE | 2019-09-27 06:51 | Hospitalist Progress Note ---
Date of Service September 27, 2019 Assessment & Plan (1) Pericardial effusion: (2) Hypoxia: (3) Lung cancer: (4) COPD exacerbation: (5) HIV disease: (6) Depression: (7) Tobacco use disorder: (8) Osteoarthritis: (9) HTN (hypertension): (10) Anxiety: (11) Asymptomatic human immunodeficiency virus (HIV) infection status: 58 M with hx of HIV, Tobacco abuse, Asthma, recent finding of lung mass presents with chest pain, cough with sputum and sob. Chest pain mostly from lung mass, s/p pericardial window, mediastinal and lung biopsy 09/[address] Forrester Chest tube on Left, In ICU pain control pulmonary on case copd hx of tobacco abuse nebs and inhalers, Prednisone 40mg daily Pericardial effusion Window Done hx of HIV continue anti viral med HTN continue lisinopril and Maxzide will monitor depression and anxiety on Klonopin and fluoxetine and BuSpar DVT px scds Await biopsy and serology results Labs checked ROS-No Headache, No Visual Changes, No Nausea, No Vomiting, No Fever, No Chills, No Neck Pain or Stiffness, +Rib/Chest Pain, No Palpitations, + SOB, + ZAMBRANO, + Cough, No Sputum, No Wheezing, No Abdominal Pain, No Diarrhea, No Hematemesis, No Hemoptysis, No Unexpected Weight Loss, No Flank pain, No Melena, No Hematochezia, No Frequency, No Urgency, No Burning, No Hematuria, No Rashes, No Diaphoresis. Appetite is Normal Physical Exam Gen-AAO x 3, NAD, Afebrile, Cachectic, L Chest tube in place Head-NCAT, EOMI, PERRLA, Anicteric Sclera, No Posterior Pharyngeal Erythema Neck-Supple, No JVD, No Thyromegaly, No Masses, No LAD, No Bruits Lungs-Clear to Auscultation Bilaterally, No Rales, No Rhonchi, No Wheezing, No Crepitus Chest-No S4, +S1, +S2, No S3, No Murmurs, No Rubs, No Gallops, No Ectopy Abdomen-Soft, Bowel Sounds Present, Non Tender, Non Distended, No Hepatomegaly, No Splenomegaly, No Palpable Masses, No Rebound, No Rigidity, No Guarding Musculoskeletal-Full Range of Motion Bilaterally, No CVAT Extremities-No Cyanosis, No Clubbing, No Edema Nuero-Cranial Nerves II-XII grossly intact, Motor WNL, DTRs WNL, Strength WNL, Non Focal Psych-Normal Mood Results & Data ([facility]) Vital Signs (Past 12 Hours) Vital Signs Temp Pulse Pulse Resp BP BP Pulse Ox 09/27/19 06:30 113 H 16 89 L 09/27/19 06:20 115 H 21 95 09/27/19 06:10 114 H 24 95 09/27/19 06:00 113 H 18 89 L 09/27/19 05:52 112 H 29 H 125/82 97 09/27/19 05:50 112 H 28 H 80 L 09/27/19 05:40 111 H 24 93 09/27/19 05:30 113 H 20 94 09/27/19 05:20 114 H 22 89 L 09/27/19 05:10 114 H 26 H 92 09/27/19 05:00 112 H 29 H 94 09/27/19 04:52 110 H 24 135/94 95 09/27/19 04:50 115 H 29 H 78 L 09/27/19 04:40 113 H 18 92 09/27/19 04:30 112 H 17 92 09/27/19 04:20 113 H 19 91 09/27/19 04:10 113 H 22 91 09/27/19 04:00 36.8 C 114 H 114 H 20 116/74 92 09/27/19 03:52 114 H 19 116/74 91 09/27/19 03:50 114 H 20 91 09/27/19 03:40 114 H 17 90 09/27/19 03:30 115 H 20 89 L 09/27/19 03:20 116 H 18 91 09/27/19 03:10 120 H 18 85 L 09/27/19 03:00 119 H 18 89 L 09/27/19 02:52 120 H 20 97/68 L 89 L 09/27/19 02:50 119 H 18 89 L 09/27/19 02:40 120 H 21 88 L 09/27/19 02:30 120 H 27 H 87 L 09/27/19 02:20 117 H 27 H 88 L 09/27/19 02:10 117 H 29 H 91 09/27/19 02:00 113 H 19 81 L 09/27/19 01:52 111 H 19 122/81 92 09/27/19 01:50 111 H 25 H 92 09/27/19 01:40 107 H 24 93 09/27/19 01:30 106 H 18 99 09/27/19 01:20 106 H 18 98 09/27/19 01:10 106 H 18 98 09/27/19 01:00 105 H 17 98 09/27/19 00:52 105 H 18 99/63 L 96 09/27/19 00:50 104 H 17 89 L 09/27/19 00:40 104 H 19 95 09/27/19 00:30 104 H 17 99 09/27/19 00:20 100 H 18 100 09/27/19 00:10 104 H 24 98 09/27/19 00:00 36.8 C 103 H 100 H 19 107/78 90 09/26/19 23:52 100 H 15 107/78 90 09/26/19 23:50 103 H 15 88 L 09/26/19 23:40 98 H 14 94 09/26/19 23:30 98 H 17 93 09/26/19 21:20 107 H 09/26/19 21:10 107 H 24 94 09/26/19 21:00 105 H 18 96 09/26/19 20:52 105 H 17 99/74 L 91 09/26/19 20:50 105 H 19 95 09/26/19 20:40 104 H 19 94 09/26/19 20:30 104 H 18 93 09/26/19 20:20 103 H 17 93 09/26/19 20:10 102 H 20 92 09/26/19 20:00 36.5 C 100 H 21 91 09/26/19 19:52 102 H 23 117/76 91 09/26/19 19:50 101 H 22 91 09/26/19 19:48 36.5 C 108 H 19 96/58 L 92 09/26/19 19:40 99 H 20 95 09/26/19 19:30 105 H 30 H 89 L 09/26/19 19:20 106 H 28 H 83 L 09/26/19 19:11 106 H 34 H 90 09/26/19 19:09 108 H 24 123/90 78 L 09/26/19 19:00 108 H 24 87 L 09/26/19 18:50 106 H 21 93 Pulse Ox 09/27/19 06:30 09/27/19 06:20 09/27/19 06:10 09/27/19 06:00 09/27/19 05:52 09/27/19 05:50 09/27/19 05:40 09/27/19 05:30 09/27/19 05:20 09/27/19 05:10 09/27/19 05:00 09/27/19 04:52 09/27/19 04:50 09/27/19 04:40 09/27/19 04:30 09/27/19 04:20 09/27/19 04:10 09/27/19 04:00 09/27/19 03:52 09/27/19 03:50 09/27/19 03:40 09/27/19 03:30 09/27/19 03:20 09/27/19 03:10 09/27/19 03:00 09/27/19 02:52 09/27/19 02:50 09/27/19 02:40 09/27/19 02:30 09/27/19 02:20 09/27/19 02:10 09/27/19 02:00 09/27/19 01:52 09/27/19 01:50 09/27/19 01:40 09/27/19 01:30 09/27/19 01:20 09/27/19 01:10 09/27/19 01:00 09/27/19 00:52 09/27/19 00:50 09/27/19 00:40 09/27/19 00:30 09/27/19 00:20 09/27/19 00:10 09/27/19 00:00 09/26/19 23:52 09/26/19 23:50 09/26/19 23:40 09/26/19 23:30 09/26/19 21:20 09/26/19 21:10 09/26/19 21:00 09/26/19 20:52 09/26/19 20:50 09/26/19 20:40 09/26/19 20:30 09/26/19 20:20 09/26/19 20:10 09/26/19 20:00 09/26/19 19:52 09/26/19 19:50 09/26/19 19:48 95 09/26/19 19:40 09/26/19 19:30 09/26/19 19:20 09/26/19 19:11 09/26/19 19:09 09/26/19 19:00 09/26/19 18:50 (1) Lung cancer Laterality: unspecified laterality Lung location: unspecified part of lung Qualified Code(s): C34.90 - Malignant neoplasm of unspecified part of unspecified bronchus or lung
--- NOTE | 2019-09-27 07:02 | XRay Report ---
XR chest 1V portable CLINICAL HISTORY: 58 years-old Male presenting with f/u. TECHNIQUE: Portable upright AP view of the chest was obtained. COMPARISON: 10/06/2019. FINDINGS: Large bore left pleural drain remains positioned at the left apex. Cardiac silhouette partially obscu red due enlarged. Suture margin again noted at the periphery of the left upper lung. Diffuse reticula r lung markings. Significant interval decrease in added density of the left lung and left upper lung opacity. There is also significantly decreased density of the right lung. Persistent bibasilar opacit ies. Persistent elevation of the left hemidiaphragm. Trace left pneumothorax as on prior. Small bilat eral pleural effusion suspected, stable increased from prior. Osseous structures grossly normal. Nume gonzalo overlying external leads and tubing. IMPRESSION: 1. Significantly decreased pulmonary edema and congestive change. 2. Stable to slight increase in small bilateral pleural effusions. 3. Left lower pleural drain in place with a trace left pneumothorax. 4. Background emphysema. ACT 112: Negative or not required by law. Electronically signed by: Robert Guzman M.D. 09/27/2019 7:00 AM
[2019-09-27] MEDS: DEXMEDETOMIDINE HCL 400 MCG in 0.9 % SODIUM CHLORIDE 96 ML IV SCH (07:20)
[2019-09-27] MEDS: METOCLOPRAMIDE HCL INJ 5 MG/ML 2 ML VIAL IV SCH ×2 (08:25→17:10)
[2019-09-27] MEDS: DOXYCYCLINE HYCLATE 100 MG CAP PO SCH ×2 (08:26→21:33)
[2019-09-27] MEDS: FLUTICASONE FUROATE 200MCG 14 PUFFS/INHALER INH SCH (08:26)
[2019-09-27] MEDS: DOCUSATE SODIUM 100 MG CAP PO SCH ×2 (08:29→21:33)
[2019-09-27] MEDS: FLUOXETINE HCL 20 MG CAP PO SCH (08:29)
[2019-09-27] MEDS: clonazePAM 1 MG TAB PO SCH ×2 (08:29→21:33)
[2019-09-27] MEDS: NICOTINE 21 MG/24 HR TDSY TD SCH (08:29)
[2019-09-27] MEDS: AMITRIPTYLINE HCL 50 MG TAB PO SCH (08:29)
[2019-09-27] MEDS: ASPIRIN 81 MG ECTAB PO SCH (08:29)
[2019-09-27] MEDS: TRIAMTERENE/HCTZ 37.5/25MG TAB PO SCH (08:29)
[2019-09-27] MEDS: PANTOprazole 40 MG TAB PO SCH (08:29)
[2019-09-27] MEDS: BusPIRone 15 MG TAB PO SCH ×2 (08:29→21:33)
[2019-09-27] MEDS: predniSONE 20 MG TAB PO SCH (08:30)
[2019-09-27] MEDS: lisinopriL 20 MG TAB PO SCH (08:30)
--- NOTE | 2019-09-27 09:40 | Critical Care Progress Note ---
Date of Service September 27, 2019 Assessment & Plan (1) Carcinoma, lung: Patient is status post VATS with pericardial window and lung biopsy. He is having a bit of a COPD exacerbation. Preliminary diagnosis as far as I was told by thoracic surgery appears to be a carcinoma. Final pathology is pending. Cardiology is on board for the history of atrial fibrillation and pericardial effusion. He is going to undergo a limited echo today. I did speak with Dr. Goddard of cardiology as well who is going to start him on metoprolol. Continue supplemental oxygen to maintain sats above 88%. I did review his chest x-ray which does demonstrate improvement. He has a left chest tube that is draining serosanguineous fluid. I will defer management of the chest tube to the thoracic surgeon. I do not appreciate a significant air leak. Continue course of 7 days of prednisone for COPD exacerbation. Continue is a ART therapy for his history of HIV. I think that perhaps later today he will be more stable to be transferred to the floor. (2) Lymphadenopathy: (3) Weight loss: (4) HIV disease: (5) Pericardial effusion: Subjective Patient is much less delirious today. He is sitting up in a chair. He does appear quite short of breath. He is wearing an oxygen mask. He notes that he became very winded when walking to the bedside commode. He is still having some intermittent chest pain on the left side near the chest tube insertion site. He is not having any nausea or vomiting. Physical Exam ENMT: Mallampati Class: II Neck: normal visual inspection Respiratory: Rhonchi bilaterally. Left lower lobe diminished. Cardiovascular: RRR, no murmur, no edema Gastrointestinal (Abdomen): normal bowel sounds, soft, nontender, no hepatosplenomegaly Musculoskeletal: no cyanosis or clubbing, extremities motor strength 5/5 Skin: no rashes, warm and dry Neurologic: PERRL, EOMI, accommodation nl, no face palsy, no dysarthria Psychiatric: A+Ox3, euthymic affect Results & Data ([facility]) Vital Signs (Past 12 Hours) Vital Signs Temp Pulse Pulse Resp BP BP Pulse Ox 09/27/19 06:30 113 H 16 89 L 09/27/19 06:20 115 H 21 95 09/27/19 06:10 114 H 24 95 09/27/19 06:00 113 H 18 89 L 09/27/19 05:52 112 H 29 H 125/82 97 09/27/19 05:50 112 H 28 H 80 L 09/27/19 05:40 111 H 24 93 09/27/19 05:30 113 H 20 94 09/27/19 05:20 114 H 22 89 L 09/27/19 05:10 114 H 26 H 92 09/27/19 05:00 112 H 29 H 94 09/27/19 04:52 110 H 24 135/94 95 09/27/19 04:50 115 H 29 H 78 L 09/27/19 04:40 113 H 18 92 09/27/19 04:30 112 H 17 92 09/27/19 04:20 113 H 19 91 09/27/19 04:10 113 H 22 91 09/27/19 04:00 98.2 F 114 H 114 H 20 116/74 92 09/27/19 03:52 114 H 19 116/74 91 09/27/19 03:50 114 H 20 91 09/27/19 03:40 114 H 17 90 09/27/19 03:30 115 H 20 89 L 09/27/19 03:20 116 H 18 91 09/27/19 03:10 120 H 18 85 L 09/27/19 03:00 119 H 18 89 L 09/27/19 02:52 120 H 20 97/68 L 89 L 09/27/19 02:50 119 H 18 89 L 09/27/19 02:40 120 H 21 88 L 09/27/19 02:30 120 H 27 H 87 L 09/27/19 02:20 117 H 27 H 88 L 09/27/19 02:10 117 H 29 H 91 09/27/19 02:00 113 H 19 81 L 09/27/19 01:52 111 H 19 122/81 92 09/27/19 01:50 111 H 25 H 92 09/27/19 01:40 107 H 24 93 09/27/19 01:30 106 H 18 99 09/27/19 01:20 106 H 18 98 09/27/19 01:10 106 H 18 98 09/27/19 01:00 105 H 17 98 09/27/19 00:52 105 H 18 99/63 L 96 09/27/19 00:50 104 H 17 89 L 09/27/19 00:40 104 H 19 95 09/27/19 00:30 104 H 17 99 09/27/19 00:20 100 H 18 100 09/27/19 00:10 104 H 24 98 09/27/19 00:00 98.2 F 103 H 100 H 19 107/78 90 09/26/19 23:52 100 H 15 107/78 90 09/26/19 23:50 103 H 15 88 L 09/26/19 23:40 98 H 14 94 09/26/19 23:30 98 H 17 93 Coding Level of Care Code 78631 Subseq Hosp Care Lvl 3 Diagnoses Carcinoma, lung C34.90 Laterality: unspecified laterality Lymphadenopathy R59.1 Weight loss R63.4 HIV disease B20 Pericardial effusion I31.3 (1) Carcinoma, lung Laterality: unspecified laterality Qualified Code(s): C34.90 - Malignant neoplasm of unspecified part of unspecified bronchus or lung
--- NOTE | 2019-09-27 10:00 | Cardiology Progress Note ---
Date of Service September 27, 2019 Assessment & Plan (1) Pericardial effusion: (2) Carcinoma, lung: Presumed malignant pericardial effusion, status post fluoroscopy, lung biopsy, pericardial window yielding 300 mL of pericardial fluid. Cytology currently pending. Blood pressure stable, but still on the lower side. Mild hyponatremia noted. We will discontinue lisinopril and triamterene hydrochlorothiazide, and start metoprolol tartrate 25 mg twice daily for treatment of sinus tachycardia, as I am concerned that he is at risk for atrial arrhythmias. Limited echo plan for today reassess pericardial fluid. EKG performed this morning revealed sinus tachycardia 108 bpm. Mild J-point e levation noted in lead II only without garima changes to suggest pericarditis by EKG criteria. Knee-high SCDs for DVT prophylaxis while chest tube is in place. Subjective Patient sitting in bedside chair. Left-sided chest tube in place. Comfortable, mild cough. Sinus tachycardia noted on the monitor. Review of Systems Review of Systems: All systems reviewed & are unremarkable except as noted in HPI & below Physical Exam Physical Exam: Temp Pulse Resp BP Pulse Ox 36.8 C 113 H 16 125/82 89 L 09/27/19 04:00 09/27/19 06:30 09/27/19 06:30 09/27/19 05:52 09/27/19 06:30 Constitutional: Thin, acutely ill in appearance without acute distress Respiratory: Mildly decreased breath sounds bilaterally at the bases, no rales Cardiovascular: Rate/Rhythm: + tachycardic Heart Sounds: normal S1 and normal S2; no murmur Vessels: no JVD Extremities: no edema Gastrointestinal (Abdomen): normal bowel sounds, soft, nontender, no hepatosplenomegaly Neurologic: PERRL, EOMI, accommodation nl, no face palsy, no dysarthria Results & Data Vital Signs (Past 12 Hours) Vital Signs Temp Pulse Pulse Resp BP BP Pulse Ox 09/27/19 06:30 113 H 16 89 L 09/27/19 06:20 115 H 21 95 09/27/19 06:10 114 H 24 95 09/27/19 06:00 113 H 18 89 L 09/27/19 05:52 112 H 29 H 125/82 97 09/27/19 05:50 112 H 28 H 80 L 09/27/19 05:40 111 H 24 93 02/08/20 05:30 113 H 20 94 02/08/20 05:20 114 H 22 89 L 09/27/19 05:10 114 H 26 H 92 09/27/19 05:00 112 H 29 H 94 09/27/19 04:52 110 H 24 135/94 95 09/27/19 04:50 115 H 29 H 78 L 09/27/19 04:40 113 H 18 92 09/27/19 04:30 112 H 17 92 09/27/19 04:20 113 H 19 91 09/27/19 04:10 113 H 22 91 09/27/19 04:00 36.8 C 114 H 114 H 20 116/74 92 09/27/19 03:52 114 H 19 116/74 91 09/27/19 03:50 114 H 20 91 09/27/19 03:40 114 H 17 90 09/27/19 03:30 115 H 20 89 L 09/27/19 03:20 116 H 18 91 09/27/19 03:10 120 H 18 85 L 09/27/19 03:00 119 H 18 89 L 09/27/19 02:52 120 H 20 97/68 L 89 L 09/27/19 02:50 119 H 18 89 L 09/27/19 02:40 120 H 21 88 L 09/27/19 02:30 120 H 27 H 87 L 09/27/19 02:20 117 H 27 H 88 L 09/27/19 02:10 117 H 29 H 91 09/27/19 02:00 113 H 19 81 L 09/27/19 01:52 111 H 19 122/81 92 09/27/19 01:50 111 H 25 H 92 09/27/19 01:40 107 H 24 93 09/27/19 01:30 106 H 18 99 09/27/19 01:20 106 H 18 98 09/27/19 01:10 106 H 18 98 09/27/19 01:00 105 H 17 98 09/27/19 00:52 105 H 18 99/63 L 96 09/27/19 00:50 104 H 17 89 L 09/27/19 00:40 104 H 19 95 09/27/19 00:30 104 H 17 99 09/27/19 00:20 100 H 18 100 09/27/19 00:10 104 H 24 98 09/27/19 00:00 36.8 C 103 H 100 H 19 107/78 90 09/26/19 23:52 100 H 15 107/78 90 09/26/19 23:50 103 H 15 88 L 09/26/19 23:40 98 H 14 94 09/26/19 23:30 98 H 17 93 Laboratory Results Cardiac Enzymes 09/26/19 09/27/19 Range/Units 10:58 04:11 AST 14 L (15-37) U/L Troponin I < 0.015 (0-0.045) ng/ml CBC 09/26/19 09/27/19 Range/Units 22:57 04:11 WBC 6.77 (4.8-10.8) K/uL RBC 4.08 L (4.7-6.1) M/uL Hgb 11.9 L 12.7 L (14.0-18.0) g/dL Hct 34.5 L 36.1 L (42-52) % Plt Count 178 (130-400) K/uL Neut # (Auto) 5.50 (1.4-6.5) K/uL Lymph # (Auto) 0.72 L (1.2-3.4) K/uL Banks # (Auto) 0.48 (0.11-0.59) K/uL Eos # (Auto) 0.04 (0-0.5) K/uL Baso # (Auto) 0.01 (0-0.2) K/uL Comprehensive Metabolic Panel 09/27/19 Range/Units 04:11 Sodium 128 L (136-145) mmol/L Potassium 4.2 (3.5-5.1) mmol/L Chloride 98 (98-107) mmol/L Carbon Dioxide 24 (21-32) mmol/L BUN 10 (7-18) mg/dl Creatinine 0.72 (0.6-1.4) mg/dl Glucose 141 H (70-99) mg/dl Calcium 8.1 L (8.5-10.1) mg/dl Direct Bilirubin 0.1 (0-0.2) mg/dl AST 14 L (15-37) U/L ALT 16 (12-78) U/L Alkaline Phosphatase 95 (45-117) U/L Total Protein 6.2 L (6.4-8.2) gm/dl Albumin 3.0 L (3.4-5.0) gm/dl Intake and Output 09/26/19 09/27/19 09/27/19 22:59 06:59 14:59 Intake Total 3330.570 / 4891.153 1560.583 / 4891.153 127.917 / 127.917 Output Total 3310 / 5910 2100 / 5910 Balance 20.570 / -1018.847 -539.417 / -1018.847 127.917 / 127.917 Intake: IV 230.570 / 0098.603 9589.583 / 1791.153 127.917 / 127.917 OFIRMEV 1,000 mg In 100 ml @ 100 / 200 100 / 200 400 mls/hr IV Q8H TEN Rx#: [id number] CLEOCIN 600 mg In 54 ml @ 100 54 / 54 mls/hr IV PREOP TEN Rx#: [id number] D5w and 1/2Nss 1,000 ml @ 100 918.333 / 918.333 mls/hr IV .Q10H TEN Rx#: [id number] Precedex 400 Mcg In Sodium 42.25 / 42.25 27.917 / 27.917 Chloride 96 ml @ 0.29 MCG/KG/HR 4.966 mls/hr IV .Q20H9M TEN Rx #:[id number] Precedex 200 Mcg In Nss 48 ml @ 76.570 / 76.570 1.5 MCG/KG/HR 25.688 mls/hr IV .Q1H57M TEN Rx#:[id number] MAGNESIUM SULFATE / D5W 1 gm In 100 / 100 100 ml @ 100 mls/hr IV ONE ONE Rx#:[id number] Normosol-R 500 ml @ 999 mls/hr 500 / 500 IV .Q31M ONE Rx#:[id number] IV Perioperative 2600 / 2600 Other 500 / 500 Output: Estimated Blood Loss 30 / 30 Urine Amount (Catheter) 2850 / 4050 1200 / 4050 Wu/Indwelling 2850 / 4050 1200 / 4050 Chest Tube Drainage 430 / 1330 900 / 1330 Left Lateral Chest Pleur-Evac 430 / 1330 900 / 1330 Xi Other: Other Intake Source Albumin # Unmeasured Voids 1 Weight 67.4 kg (1) Carcinoma, lung Laterality: unspecified laterality Qualified Code(s): C34.90 - Malignant neoplasm of unspecified part of unspecified bronchus or lung
--- NOTE | 2019-09-27 10:07 | Progress Note ---
DATE: 09/27/2019 Mr. Pulido looks much better today. He apologized for his belligerent last night. He is on nasal cannula with good saturations this morning. Heart rate is still high, but is a bit anxious at 110. His lungs sound very good. He does not have an air leak. He has over 1300 mL in his chest tube which is a bit surprising. We will see how much he drains over the next 24 hours. I thought his x-ray looked very good. ASSESSMENT: 1. 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 2. Pericardial effusion which was drained with pericardial window. PLAN: I believe this patient will be moved up to the third floor which has experienced taking care chest tubes. My hope is that the drainage will drop and we will be able to get the chest tube out tomorrow. I explained to the patient and his ____ that this is a metastatic carcinoma and we will have to wait for our final immunohistochemical stains and genomic to see exactly what his treatment will be and what cell type we are dealing with. I also explained him that it is extremely important for him to walk. One other problem is he is hyponatremic. His sodium is down to 128 and he has been low since he got here. In fact, he has a history of having a low sodium. He is 129 on 09/25/2019, went up to 131 and down to 128. It is possible he has a paraneoplastic syndrome, although I doubt that. At any rate, we will stop his IV and diurese him, I think it would be helpful. Incidentally, his x-ray looks much better today.
[2019-09-27] MEDS: METOPROLOL TARTRATE 25 MG TAB PO SCH ×2 (11:23→20:58)
--- NOTE | 2019-09-27 11:23 | Electrocardiogram Report ---
Test Reason : Blood Pressure : / mmHG Vent. Rate : 108 BPM Atrial Rate : 324 BPM P-R Int : 000 ms QRS Dur : 076 ms QT Int : 352 ms P-R-T Axes : 043 080 044 degrees QTc Int : 471 ms Atrial flutter with 3:1 A-V conduction Minor ST elevation in Inferior leads Abnormal ECG When compared with ECG of 26-SEP-2019 06:29, Atrial flutter has replaced Sinus rhythm Minor ST elevation now present in Inferior leads HR has increased by 12 bpm Confirmed by Oswaldo Urrutia ([id number] on 09/27/2019 11:23:04 AM Referred By: REFERRED SELF Confirmed By:Oswaldo Urrutia
[2019-09-27] MEDS: IPRATROPIUM BROMIDE NEB SOLN 0.02% 2.5 ML VIAL INH PRN (13:18)
[2019-09-27] MEDS: LEVALBUTEROL 1.25MG/0.5ML NEB INH PRN (13:18)
--- NOTE | 2019-09-27 20:11 | Anesthesiology Progress Note ---
Date of Service September 27, 2019 Anesthesia Post Procedure Vital Signs Vital Signs: Temp Pulse Pulse Resp BP BP BP 09/27/19 19:20 36.6 C 94 H 18 92/65 L 09/27/19 14:52 36.4 C L 95 H 20 91/67 L 09/27/19 13:52 98 H 24 100/78 09/27/19 13:18 100 H 24 09/27/19 12:52 100 H 20 111/77 09/27/19 12:30 123/89 09/27/19 12:00 113 H 23 09/27/19 11:52 36.5 C 112 H 24 123/89 09/27/19 10:52 109 H 19 103/63 09/27/19 10:00 113 H 19 09/27/19 09:52 113 H 24 102/71 09/27/19 08:43 112 H 24 105/67 09/27/19 08:07 121 H 92/62 L 09/27/19 08:00 36.5 C 111 H 21 09/27/19 07:00 114 H 20 09/27/19 06:30 113 H 16 09/27/19 06:20 115 H 21 09/27/19 06:10 114 H 24 09/27/19 06:00 113 H 18 09/27/19 05:52 112 H 29 H 125/82 09/27/19 05:50 112 H 28 H 09/27/19 05:40 111 H 24 09/27/19 05:30 113 H 20 09/27/19 05:20 114 H 22 09/27/19 05:10 114 H 26 H 09/27/19 05:00 112 H 29 H 09/27/19 04:52 110 H 24 135/94 09/27/19 04:50 115 H 29 H 09/27/19 04:40 113 H 18 09/27/19 04:30 112 H 17 09/27/19 04:20 113 H 19 09/27/19 04:10 113 H 22 09/27/19 04:00 36.8 C 114 H 114 H 20 116/74 09/27/19 03:52 114 H 19 116/74 09/27/19 03:50 114 H 20 09/27/19 03:40 114 H 17 09/27/19 03:30 115 H 20 09/27/19 03:20 116 H 18 09/27/19 03:10 120 H 18 09/27/19 03:00 119 H 18 09/27/19 02:52 120 H 20 97/68 L 09/27/19 02:50 119 H 18 09/27/19 02:40 120 H 21 09/27/19 02:30 120 H 27 H 09/27/19 02:20 117 H 27 H 09/27/19 02:10 117 H 29 H 09/27/19 02:00 113 H 19 09/27/19 01:52 111 H 19 122/81 09/27/19 01:50 111 H 25 H 09/27/19 01:40 107 H 24 09/27/19 01:30 106 H 18 09/27/19 01:20 106 H 18 09/27/19 01:10 106 H 18 09/27/19 01:00 105 H 17 09/27/19 00:52 105 H 18 99/63 L 09/27/19 00:50 104 H 17 09/27/19 00:40 104 H 19 09/27/19 00:30 104 H 17 09/27/19 00:20 100 H 18 09/27/19 00:10 104 H 24 09/27/19 00:00 36.8 C 103 H 100 H 19 107/78 09/26/19 23:52 100 H 15 107/78 09/26/19 23:50 103 H 15 09/26/19 23:40 98 H 14 09/26/19 23:30 98 H 17 09/26/19 21:20 107 H 09/26/19 21:10 107 H 24 09/26/19 21:00 105 H 18 09/26/19 20:52 105 H 17 99/74 L 09/26/19 20:50 105 H 19 09/26/19 20:40 104 H 19 09/26/19 20:30 104 H 18 09/26/19 20:20 103 H 17 Pulse Ox 09/27/19 19:20 91 09/27/19 14:52 92 09/27/19 13:52 09/27/19 13:18 92 09/27/19 12:52 92 09/27/19 12:30 09/27/19 12:00 90 09/27/19 11:52 91 09/27/19 10:52 90 09/27/19 10:00 92 09/27/19 09:52 92 09/27/19 08:43 09/27/19 08:07 09/27/19 08:00 94 09/27/19 07:00 91 09/27/19 06:30 89 L 09/27/19 06:20 95 09/27/19 06:10 95 09/27/19 06:00 89 L 09/27/19 05:52 97 09/27/19 05:50 80 L 09/27/19 05:40 93 09/27/19 05:30 94 09/27/19 05:20 89 L 09/27/19 05:10 92 09/27/19 05:00 94 09/27/19 04:52 95 09/27/19 04:50 78 L 09/27/19 04:40 92 09/27/19 04:30 92 09/27/19 04:20 91 09/27/19 04:10 91 09/27/19 04:00 92 09/27/19 03:52 91 09/27/19 03:50 91 09/27/19 03:40 90 09/27/19 03:30 89 L 09/27/19 03:20 91 09/27/19 03:10 85 L 09/27/19 03:00 89 L 09/27/19 02:52 89 L 09/27/19 02:50 89 L 09/27/19 02:40 88 L 09/27/19 02:30 87 L 09/27/19 02:20 88 L 09/27/19 02:10 91 09/27/19 02:00 81 L 09/27/19 01:52 92 09/27/19 01:50 92 09/27/19 01:40 93 09/27/19 01:30 99 09/27/19 01:20 98 09/27/19 01:10 98 09/27/19 01:00 98 09/27/19 00:52 96 09/27/19 00:50 89 L 09/27/19 00:40 95 09/27/19 00:30 99 09/27/19 00:20 100 09/27/19 00:10 98 09/27/19 00:00 90 09/26/19 23:52 90 02/07/20 23:50 88 L 09/26/19 23:40 94 09/26/19 23:30 93 09/26/19 21:20 09/26/19 21:10 94 09/26/19 21:00 96 09/26/19 20:52 91 09/26/19 20:50 95 09/26/19 20:40 94 09/26/19 20:30 93 09/26/19 20:20 93 Pain Intensity Chest: Pain Intensity: 9 Notes Mental Status: alert / awake / arousable and participated in evaluation Patient Amnestic to Procedure: Yes Nausea / Vomiting: adequately controlled Pain: adequately controlled Airway Patency, RR, SpO2: stable & adequate BP & HR: stable & adequate Hydration State: stable & adequate Anesthetic Complications: no major complications apparent and Pt Satisfied with anesthetic care
[2019-09-27] MEDS: [UNRECOGNIZED DRUG - OTHER] PO SCH (21:33)
[2019-09-28] MEDS: IPRATROPIUM BROMIDE NEB SOLN 0.02% 2.5 ML VIAL INH PRN (01:59)
[2019-09-28] MEDS: LEVALBUTEROL 1.25MG/0.5ML NEB INH PRN (01:59)
[2019-09-28] MEDS: MoRPHine SULFATE 2 MG/ML CARP IV PRN ×2 (03:09→09:47)
--- NOTE | 2019-09-28 06:56 | Hospitalist Progress Note ---
Date of Service September 28, 2019 Assessment & Plan (1) Pericardial effusion: (2) Hypoxia: (3) Lung cancer: (4) COPD exacerbation: (5) HIV disease: (6) Depression: (7) Tobacco use disorder: (8) Osteoarthritis: (9) HTN (hypertension): (10) Anxiety: (11) Asymptomatic human immunodeficiency virus (HIV) infection status: 58 M with hx of HIV, Tobacco abuse, Asthma, recent finding of lung mass presents with chest pain, cough with sputum and sob. Chest pain mostly from lung mass, s/p pericardial window, mediastinal and lung biopsy 09/[address] Forrester Await Path, now in PCU Chest tube on Left, In ICU pain control pulmonary on case COPD hx of tobacco abuse nebs and inhalers, Prednisone 40mg daily Pericardial effusion Window Done 09/26 hx of HIV continue anti viral med HTN continue lisinopril and Maxzide will monitor depression and anxiety on Klonopin and fluoxetine and BuSpar DVT px SCDs, No Heparin +Bloody CT drainage Await biopsy and serology results Labs checked ROS-No Headache, No Visual Changes, No Nausea, No Vomiting, No Fever, No Chills, No Neck Pain or Stiffness, +Rib/Chest Pain, No Palpitations, + SOB, + ZAMBRANO, + Cough, No Sputum, No Wheezing, No Abdominal Pain, No Diarrhea, No Hematemesis, No Hemoptysis, No Unexpected Weight Loss, No Flank pain, No Melena, No Hematochezia, No Frequency, No Urgency, No Burning, No Hematuria, No Rashes, No Diaphoresis. Appetite is Normal Physical Exam Gen-AAO x 3, NAD, Afebrile, Cachectic, L Chest tube in place Head-NCAT, EOMI, PERRLA, Anicteric Sclera, No Posterior Pharyngeal Erythema Neck-Supple, No JVD, No Thyromegaly, No Masses, No LAD, No Bruits Lungs-Poor air movement, No Rales, No Rhonchi, No Wheezing, No Crepitus Chest-Tachy No S4, +S1, +S2, No S3, No Murmurs, No Rubs, No Gallops, No Ectopy Abdomen-Soft, Bowel Sounds Present, Non Tender, Non Distended, No Hepatomegaly, No Splenomegaly, No Palpable Masses, No Rebound, No Rigidity, No Guarding Musculoskeletal-Full Range of Motion Bilaterally, No CVAT Extremities-No Cyanosis, No Clubbing, No Edema Nuero-Cranial Nerves II-XII grossly intact, Motor WNL, DTRs WNL, Strength WNL, Non Focal Psych-Normal Mood Results & Data ([facility]) Vital Signs (Past 12 Hours) Vital Signs Temp Pulse Resp BP Pulse Ox 09/28/19 03:45 36.6 C 104 H 24 134/95 90 09/28/19 02:00 109 H 28 H 94 09/27/19 23:18 36.5 C 99 H 24 116/76 93 09/27/19 19:20 36.6 C 94 H 18 92/65 L 91 (1) Lung cancer Laterality: unspecified laterality Lung location: unspecified part of lung Qualified Code(s): C34.90 - Malignant neoplasm of unspecified part of unspecified bronchus or lung
[2019-09-28] MEDS ORDERED: SODIUM CHLORIDE 0.65% NA SOLN 45 ML (OCEAN) ONE (07:20)
[2019-09-28] MEDS: DOXYCYCLINE HYCLATE 100 MG CAP PO SCH ×2 (09:22→22:31)
[2019-09-28] MEDS: DOCUSATE SODIUM 100 MG CAP PO SCH ×2 (09:22→23:03)
[2019-09-28] MEDS: PANTOprazole 40 MG TAB PO SCH (09:22)
[2019-09-28] MEDS: predniSONE 20 MG TAB PO SCH (09:22)
[2019-09-28] MEDS: ASPIRIN 81 MG ECTAB PO SCH (09:23)
[2019-09-28] MEDS: NICOTINE 21 MG/24 HR TDSY TD SCH (09:23)
[2019-09-28] MEDS: FLUOXETINE HCL 20 MG CAP PO SCH (09:23)
[2019-09-28] MEDS: METOPROLOL TARTRATE 25 MG TAB PO SCH ×2 (09:23→22:30)
[2019-09-28] MEDS: BusPIRone 15 MG TAB PO SCH ×2 (09:24→22:31)
[2019-09-28] MEDS: FLUTICASONE FUROATE 200MCG 14 PUFFS/INHALER INH SCH (09:24)
[2019-09-28] MEDS: clonazePAM 1 MG TAB PO SCH ×2 (09:30→22:31)
[2019-09-28] MEDS: AMITRIPTYLINE HCL 50 MG TAB PO SCH (09:31)
--- NOTE | 2019-09-28 10:49 | Progress Note ---
DATE: 09/28/2019 The patient has some anxiety related issues. Heart rates in the 110s with stable blood pressure. He has made a good deal of urine. His chest tube output was assessed. By my count, he has put out at least 300 mL last day, but apparently this has slowed. We are going to see how much he drains over the next 24 hours and then pull his chest tube, hopefully tomorrow. He looks much better except he remains quite anxious. MTDD
--- NOTE | 2019-09-28 10:54 | Cardiology Progress Note ---
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 Repeat echocardiogram performed 09/27/2019 revealed a trace residual loculated pericardial effusion adjacent to the right ventricle. No echocardiographic indications of tamponade or constrictive physiology. Continue metoprolol. He will be more comfortable once his chest tube is removed, however he needs to stay in place for now, as noted in the thoracic surgery note, drainage to be reassessed tomorrow and need for ongoing chest tube will be reassessed then. Continue BUILDING APPRAISER HAART therapy. DVT prophylaxis: SCDs Subjective Patient has chest pain or shortness of breath, but subjectively improved compared to yesterday. Still tachycardic, sinus tachycardia at 117 to 121 bpm present on telemetry. Approximately 300 mL of chest tube drainage noted in the last 24 hours. Physical Exam Physical Exam: Temp Pulse Resp BP Pulse Ox 36.4 C L 117 H 24 119/92 94 09/28/19 07:08 09/28/19 07:08 09/28/19 07:08 09/28/19 07:08 09/28/19 09:30 Constitutional: WD/WN, vitals as above Respiratory: Mildly decreased breath sounds at left apex, chest tube in place Cardiovascular: Rate/Rhythm: + tachycardic Heart Sounds: no gallop, no murmur and no cardiac rub Extremities: no edema Gastrointestinal (Abdomen): normal bowel sounds, soft, nontender, no hepatosplenomegaly Results & Data Vital Signs (Past 12 Hours) Vital Signs Temp Pulse Resp BP Pulse Ox 09/28/19 09:30 94 09/28/19 07:08 36.4 C L 117 H 24 119/92 92 09/28/19 03:45 36.6 C 104 H 24 134/95 90 09/28/19 02:00 109 H 28 H 94 09/27/19 23:18 36.5 C 99 H 24 116/76 93 (1) Carcinoma, lung Laterality: unspecified laterality Qualified Code(s): C34.90 - Malignant neoplasm of unspecified part of unspecified bronchus or lung
[2019-09-28] MEDS: [UNRECOGNIZED DRUG - OTHER] PO SCH (22:32)
[2019-09-29 06:35] LABS: Basophils # (auto) 0.01 K/uL (0-0.2); Basophils % (auto) 0.1 %; Eosinophils # (auto) 0.17 K/uL (0-0.5); Eosinophils % (auto) 1.7 %; Hematocrit (blood only) 40.6 % (42-52); Immature Granulocytes # (auto) 0.03 K/uL (0.00-0.02); Immature Granulocytes % (auto) 0.3 %; Lymphocytes # (auto) 1.12 K/uL (1.2-3.4); Lymphocytes % (auto) 11.4 %; Mean Corpuscular Hemoglobin 31.6 pg (25-34); Mean Corpuscular Hgb Conc 36.9 g/dL (32-36); Mean Corpuscular Volume 85.7 fL (80-100); Mean Platelet Volume 10.5 fL (7.4-10.4); Monocytes # (auto) 0.99 K/uL (0.11-0.59); Monocytes % (auto) 10.1 %; Neutrophils # (auto) 7.48 K/uL (1.4-6.5); Neutrophils % (auto) 76.4 %; Platelet Count 241 K/uL (130-400); RDW Coefficient of Variation 13.4 % (11.5-14.5); Red Blood Count 4.74 M/uL (4.7-6.1)
--- NOTE | 2019-09-29 06:42 | Hospitalist Progress Note ---
Date of Service September 29, 2019 Assessment & Plan (1) Pericardial effusion: (2) Hypoxia: (3) Lung cancer: (4) COPD exacerbation: (5) HIV disease: (6) Depression: (7) Tobacco use disorder: (8) Osteoarthritis: (9) HTN (hypertension): (10) Anxiety: (11) Asymptomatic human immunodeficiency virus (HIV) infection status: 58 M with hx of HIV, Tobacco abuse, Asthma, recent finding of lung mass presents with chest pain, cough with sputum and sob. Chest pain mostly from lung mass, s/p pericardial window, mediastinal and lung biopsy 09/[address] Forrester Await Path, now in PCU Chest tube on Left pain control pulmonary on case COPD hx of tobacco abuse nebs and inhalers, Prednisone 40mg daily Pericardial effusion Window Done 09/26 hx of HIV continue anti viral med HTN continue lisinopril and Maxzide will monitor depression and anxiety on Klonopin and fluoxetine and BuSpar DVT px SCDs, No Heparin +Bloody CT drainage Await biopsy and serology results Labs checked-Replete Mg ROS-No Headache, No Visual Changes, No Nausea, No Vomiting, No Fever, No Chills, No Neck Pain or Stiffness, +Rib/Chest Pain, No Palpitations, + SOB, + ZAMBRANO, + Cough, No Sputum, No Wheezing, No Abdominal Pain, No Diarrhea, No Hematemesis, No Hemoptysis, No Unexpected Weight Loss, No Flank pain, No Melena, No Hematochezia, No Frequency, No Urgency, No Burning, No Hematuria, No Rashes, No Diaphoresis. Appetite is Normal Physical Exam Gen-AAO x 3, NAD, Afebrile, Cachectic, L Chest tube in place, Looks better today Head-NCAT, EOMI, PERRLA, Anicteric Sclera, No Posterior Pharyngeal Erythema Neck-Supple, No JVD, No Thyromegaly, No Masses, No LAD, No Bruits Lungs-Poor air movement, No Rales, No Rhonchi, No Wheezing, No Crepitus Chest-Tachy No S4, +S1, +S2, No S3, No Murmurs, No Rubs, No Gallops, No Ectopy Abdomen-Soft, Bowel Sounds Present, Non Tender, Non Distended, No Hepatomegaly, No Splenomegaly, No Palpable Masses, No Rebound, No Rigidity, No Guarding Musculoskeletal-Full Range of Motion Bilaterally, No CVAT Extremities-No Cyanosis, No Clubbing, No Edema Nuero-Cranial Nerves II-XII grossly intact, Motor WNL, DTRs WNL, Strength WNL, Non Focal Psych-Normal Mood Results & Data ([facility]) Vital Signs (Past 12 Hours) Vital Signs Temp Pulse Resp BP Pulse Ox 09/29/19 03:46 37.0 C 97 H 18 126/97 94 09/28/19 23:50 36.9 C 103 H 20 114/97 90 09/28/19 18:51 36.5 C 90 22 103/70 90 (1) Lung cancer Laterality: unspecified laterality Lung location: unspecified part of lung Qualified Code(s): C34.90 - Malignant neoplasm of unspecified part of unspecified bronchus or lung
--- NOTE | 2019-09-29 07:00 | XRay Report ---
XR chest 1V portable CLINICAL HISTORY: 58 years-old Male presenting with lung cancer. TECHNIQUE: Portable upright AP view of the chest was obtained. COMPARISON: 09/27/2019. FINDINGS: Atherosclerosis of the aortic arch. Cardiac silhouette enlarged. Elevation of the left hemidiaphragm as on prior. Large bore left pleural drain remains position at the left apex. No pneumothorax is appa rent. Persistent bandlike opacity at the left lung base. Diffuse reticular lung markings. Interval de creased density of the left lung. Significant improved aeration of the right lung base. No large effu kale. Degenerative changes of the thoracic spine. Gaseous distention of large bowel beneath the left hemidiaphragm. IMPRESSION: 1. Continued decrease in pulmonary edema. 2. Resolution of right pleural effusion. 3. Improved aeration of the right lung base. 4. Left pleural drain. No pneumothorax. 5. Background emphysema. ACT 112: Negative or not required by law. Electronically signed by: Robert Guzman M.D. 09/29/2019 6:59 AM
[2019-09-29 08:12] LABS: Albumin Globulin Ratio 0.7 (0.9-2); Albumin Level 3.1 gm/dl (3.4-5.0); Bilirubin,Total 0.7 mg/dl (0.2-1); Calcium 9.3 mg/dl (8.5-10.1); Creatinine Clr Calc Pharmacy 88.5 ml/min; Est GFR (African American) 112.2; Est GFR (Non-African American) 96.8; Globulin 4.6 gm/dl (2.5-4.0); Potassium 4.4 mmol/L (3.5-5.1); Total Protein 7.7 gm/dl (6.4-8.2)
[2019-09-29 08:13] LABS: BUN Creatinine Ratio 26.2 (10-20)
[2019-09-29] MEDS ORDERED: SODIUM CHLORIDE 0.9% 1000ML 1,000 ML IV ONE ×2 (08:31→15:02)
[2019-09-29] MEDS: MAGNESIUM OXIDE 400 MG TAB PO SCH ×3 (08:48→21:00)
[2019-09-29] MEDS: BusPIRone 15 MG TAB PO SCH ×2 (08:49→21:01)
[2019-09-29] MEDS: DOXYCYCLINE HYCLATE 100 MG CAP PO SCH ×2 (08:49→21:00)
[2019-09-29] MEDS: FLUOXETINE HCL 20 MG CAP PO SCH (08:50)
[2019-09-29] MEDS: PANTOprazole 40 MG TAB PO SCH (08:50)
[2019-09-29] MEDS: predniSONE 20 MG TAB PO SCH (08:50)
[2019-09-29] MEDS: METOPROLOL TARTRATE 25 MG TAB PO SCH ×2 (08:50→21:01)
[2019-09-29] MEDS: ASPIRIN 81 MG ECTAB PO SCH (08:51)
[2019-09-29] MEDS: AMITRIPTYLINE HCL 50 MG TAB PO SCH (08:51)
[2019-09-29] MEDS: FLUTICASONE FUROATE 200MCG 14 PUFFS/INHALER INH SCH (08:52)
[2019-09-29] MEDS: DOCUSATE SODIUM 100 MG CAP PO SCH ×2 (08:52→21:01)
[2019-09-29] MEDS: NICOTINE 21 MG/24 HR TDSY TD SCH (08:53)
[2019-09-29] MEDS: clonazePAM 1 MG TAB PO SCH ×2 (09:03→21:01)
--- NOTE | 2019-09-29 09:10 | XRay Report ---
XR chest 1V portable CLINICAL HISTORY: 58 years-old Male presenting with tube removal. TECHNIQUE: Portable upright AP view of the chest was obtained. COMPARISON: 09/29/2019 at 6:45 AM. FINDINGS: The left pleural drain has been removed. Cardiomediastinal silhouette stable. Persistence mild promin ence of pulmonary vasculature with interstitial prominence. Persistent bandlike opacity at the left l adam base. Aeration of the lungs is unchanged. No large effusion. Trace left pneumothorax may be prese nt along the suture margin noted in the periphery of the left lung. Underlying left upper lung reticu lonodular opacity. Degenerative changes of the thoracic spine. Gaseous distention of bowel beneath th e left hemidiaphragm. IMPRESSION: 1. Trace pneumothorax may be present along the suture margin in the periphery of the left lung statu s post left pleural drain removal. Attention on follow-up. 2. Some degree of volume overload and congestive change remains. 3. 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 4. Background emphysema and left apical infiltrate. ACT 112: Negative or not required by law. Electronically signed by: Robert Guzman M.D. 09/29/2019 9:09 AM
--- NOTE | 2019-09-29 09:58 | Cardiology Progress Note ---
Date of Service September 29, 2019 Assessment & Plan (1) Pericardial effusion: (2) Carcinoma, lung: Pericardial fluid cytology consistent with metastatic carcinoma. Thoracic surgery input noted and appreciated. Chest tube removed today, chest x-ray with small residual pneumothorax. Patient is tachycardic, relatively hypotensive, hemoconcentrated with hemoglobin of 15, and sodium level is 118 mmol/L. The chest x-ray interpretation per radiology suggest congestive heart failure, I think this is likely markings from his underlying lung disease, and would proceed with cautious IV fluid administration. Continue metoprolol for heart rate support, given risks of developing atrial arrhythmias. Repeat echocardiogram tomorrow. Subjective Patient feeling progressively improved this morning, still has some degree of chest discomfort at his chest tube site, and just after my exam of the patient, thoracic surgery removed his chest tube with interval improvement in pt's generalized comfort. Telemetry revealed sinus rhythm and sinus tachycardia in the range of 90-110 overnight last night and thus far this morning. Physical Exam Physical Exam: Temp Pulse Resp BP Pulse Ox 36.7 C 112 H 18 91/71 L 92 09/29/19 07:47 09/29/19 07:47 09/29/19 07:47 09/29/19 07:47 09/29/19 07:47 Constitutional: + ill appearing and + cachectic Respiratory: normal respiratory effort, lungs clear to auscultation Cardiovascular: Rate/Rhythm: + tachycardic Heart Sounds: normal S1 and normal S2; no murmur Vessels: no JVD Extremities: no edema Gastrointestinal (Abdomen): normal bowel sounds, soft, nontender, no hepatosplenomegaly Neurologic: PERRL, EOMI, accommodation nl, no face palsy, no dysarthria Results & Data Vital Signs (Past 12 Hours) Vital Signs Temp Pulse Resp BP BP Pulse Ox 09/29/19 07:47 36.7 C 112 H 18 91/71 L 92 09/29/19 03:46 37.0 C 97 H 18 126/97 94 09/28/19 23:50 36.9 C 103 H 20 114/97 90 Laboratory Results Cardiac Enzymes 09/29/19 09/29/19 Range/Units 06:05 07:32 AST Cancelled 20 CBC 09/29/19 Range/Units 06:05 WBC 9.80 (4.8-10.8) K/uL RBC 4.74 (4.7-6.1) M/uL Hgb 15.0 (14.0-18.0) g/dL Hct 40.6 L (42-52) % Plt Count 241 (130-400) K/uL Neut # (Auto) 7.48 H (1.4-6.5) K/uL Lymph # (Auto) 1.12 L (1.2-3.4) K/uL [place] # (Auto) 0.99 H (0.11-0.59) K/uL Eos # (Auto) 0.17 (0-0.5) K/uL Baso # (Auto) 0.01 (0-0.2) K/uL Comprehensive Metabolic Panel 09/29/19 09/29/19 Range/Units 06:05 07:32 Sodium Cancelled 118 L* Potassium Cancelled 4.4 Chloride Cancelled 85 L Carbon Dioxide Cancelled 27 BUN Cancelled 22 H Creatinine Cancelled 0.82 Glucose Cancelled 107 H Calcium Cancelled 9.3 AST Cancelled 20 ALT Cancelled 24 Alkaline Phosphatase Cancelled 110 Total Protein Cancelled 7.7 Albumin Cancelled 3.1 L Intake and Output 09/28/19 09/29/19 09/29/19 22:59 06:59 14:59 Intake Total 240 / 1260 520 / 1260 Output Total 400 / 690 50 / 690 Balance -160 / 570 470 / 570 Intake: Oral 240 / 1260 520 / 1260 Output: Urine 400 / 600 Chest Tube Drainage 50 / 90 Left Lateral Chest Pleur-Evac 50 / 90 Xi Other: # Unmeasured Voids 3 1 Weight 64.5 kg (1) Carcinoma, lung Laterality: unspecified laterality Qualified Code(s): C34.90 - Malignant neoplasm of unspecified part of unspecified bronchus or lung
[2019-09-29] MEDS ORDERED: OXYCODONE/ACETAMINOPHEN 5mg/325mg TAB PO PRN (10:38)
[2019-09-29] MEDS: OXYCODONE/ACETAMINOPHEN 5mg/325mg TAB PO PRN (11:29)
--- NOTE | 2019-09-29 13:31 | Progress Note ---
DATE: 09/29/2019 Mr. Pulido is better. He is on room air. We pulled his chest tube out today and his x-ray shows some atelectasis and actually looks good. 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 The cytology on his pericardial fluid has come back and he does have metastatic carcinoma with a malignant pericardial effusion. It should be noted he did not have a pleural effusion. ASSESSMENT AND PLAN: Postoperative day #3 status post pericardial window and biopsy. Oncology should get involved in this case. I do feel better about him. He is settling down from a surgical standpoint.
[2019-09-29 14:04] LABS: BUN Creatinine Ratio 26.1 (10-20); Calcium 8.7 mg/dl (8.5-10.1); Creatinine Clr Calc Pharmacy 89.6 ml/min; Est GFR (African American) 112.7; Est GFR (Non-African American) 97.3; Potassium 4.5 mmol/L (3.5-5.1)
[2019-09-29 14:27] LABS: Base Excess ABG 0.1 mEq/L (-9-1.8); HCO3 ABG 22 mmol/L (19-24); Oxygen Saturation ABG 92.4 % (90-95); PCO2 ABG 28 mmHg (35-46); PO2 ABG 61 mmHg (80-95)
[2019-09-29 14:30] LABS: Allen Test Pos (Pos)
[2019-09-29] MEDS ORDERED: HALOPERIDOL LACTATE 5 MG/ML 1 ML VIAL IV STA (14:37)
[2019-09-29 15:34] LABS: Calcium 9.3 mg/dl (8.5-10.1); Creatinine Clr Calc Pharmacy 91.9 ml/min; Est GFR (African American) 113.9; Est GFR (Non-African American) 98.3; Potassium 4.9 mmol/L (3.5-5.1)
[2019-09-29 15:41] LABS: Hematocrit (blood only) 41.8 % (42-52); Hemoglobin 15.6 g/dL (14.0-18.0); Mean Corpuscular Hemoglobin 31.7 pg (25-34); Mean Corpuscular Hgb Conc 37.3 g/dL (32-36); Mean Platelet Volume 10.7 fL (7.4-10.4); Platelet Count 278 K/uL (130-400); RDW Coefficient of Variation 13.2 % (11.5-14.5); Red Blood Count 4.92 M/uL (4.7-6.1); White Blood Count 11.53 K/uL (4.8-10.8)
[2019-09-29 15:42] LABS: Basophils # (auto) 0.01 K/uL (0-0.2); Basophils % (auto) 0.1 %; Echinocytes 1+; Eosinophils # (auto) 0.06 K/uL (0-0.5); Eosinophils % (auto) 0.5 %; Immature Granulocytes # (auto) 0.03 K/uL (0.00-0.02); Immature Granulocytes % (auto) 0.3 %; Lymphocytes # (auto) 0.48 K/uL (1.2-3.4); Lymphocytes % (auto) 4.2 %; Monocytes # (auto) 0.58 K/uL (0.11-0.59); Neutrophils # (auto) 10.37 K/uL (1.4-6.5); Neutrophils % (auto) 89.9 %
[2019-09-29] MEDS ORDERED: OPTIRAY 320 125ml IV PRN (16:21)
--- NOTE | 2019-09-29 16:49 | CT Scan Report ---
CT angio chest PE protocol CT DOSE: 419.93 mGy.cm HISTORY: 58 years-old Male with PE. Acute shortness of breath TECHNIQUE: Multiple CTA images of the chest were obtained after the intravenous administration of 120 ml Optiray 320. Coronal and sagittal MIPS were obtained from the axial data set and were submitted for review. All measurements were obtained according to NASCET criteria. A dose lowering technique w as utilized adhering to the principles of ALARA. COMPARISON: Chest radiograph of same day, CT chest 09/25/2019, 08/07/2019. FINDINGS: CTA: Mild cardiomegaly. Trace pericardial effusion has decreased in size from comparison. Coronary arteria l calcifications are noted. No thoracic aortic aneurysm or dissection. Mild mixed plaque of the thora cic aorta. Patency of the imaged great vessels. The pulmonary artery is opacified to level of the sub segmental branches. Study is mildly limited secondary to respiratory motion artifact. No filling defe cts identified to suggest pulmonary thromboembolic disease. CT CHEST: Unremarkable thyroid. Pathologically enlarged prevascular, paratracheal, subcarinal and bilateral hil ar lymph nodes are redemonstrated with right hilar adenopathy measuring up to 3.2 x 2.5 cm image 165 series 4. Pathologic hilar adenopathy encases branches of the pulmonary arteries. 4.2 x 2.4 cm partia lly imaged ill-defined mass of the right retroperitoneum is noted suspicious for adrenal metastasis, increase in size from 08/06/2019. Soft tissue nodule within the region of the left adrenal gland luiz uring 1.6 cm suggestive of additional metastatic focus. A small diverticulum of the gastric fundus in cidentally noted. No acute process of the imaged upper abdomen. Trace left pleural effusion. Irregular and spiculated peripheral 2.2 cm nodule of the left upper lobe redemonstrated. Adjacent suture material with trace left pneumothorax. 6 cm fissural nodule noted ad jacent to the lingula, image 154 series 4. Asymmetric thickening of the left major fissure. Irregular 2.1 cm consolidative opacity of the lingula with peripheral cystic changes as noted on image 104 ser ies 4 which appears unchanged. Severe emphysema with marked bilateral bronchial wall thickening. Mode rate tracheobronchial secretions. Unchanged 3.1 cm medial cyst of the left lung base. 7 mm solid nodu le of the superior segment left lower lobe. 10 mm solid nodule lingula on image 164 series 4. New dep endent consolidative opacities of the right lower lobe, image 140 series 4 with additional scattered groundglass and consolidative opacities of the right lung base. Soft tissues are unremarkable. No definite suspicious osteolytic or blastic lesions identified. IMPRESSION: 1. Exam degraded by respiratory motion artifact. Within the limitations of the study, there is no opal dence of pulmonary thromboembolic disease. 2. 2.2 cm irregular subpleural nodule of the anterior segment left upper lobe redemonstrated suggesti ve of neoplasm. Adjacent surgical suture material is noted in addition to a trace left pneumothorax. 3. There are several nodular foci scattered throughout the left lung as above suspicious for metastat ic disease. Additionally, there is irregular asymmetric thickening of the left major fissure again no homero which may reflect lymphangitic carcinomatosis. 4. Trace left pleural effusion. 5. Patchy groundglass and consolidative opacities of the right lung base and superior segment right l ower lobe are new from the 09/25/2019 exam. This finding in conjunction with tracheobronchial secretion s is suspicious for aspiration pneumonitis. 6. Metastatic thoracic adenopathy and adrenal metastasis redemonstrated. ACT 112: Negative or not required by law. The above report was generated using voice recognition software. It may contain grammatical, syntax o r spelling errors. Electronically signed by: Edwin Cristobal M.D. 09/29/2019 4:48 PM
[2019-09-29] MEDS: [UNRECOGNIZED DRUG - OTHER] PO SCH (21:01)
[2019-09-30] MEDS: OXYCODONE/ACETAMINOPHEN 5mg/325mg TAB PO PRN ×6 (01:35→22:15)
[2019-09-30] MEDS: LEVALBUTEROL 1.25MG/0.5ML NEB INH PRN ×3 (02:12→21:49)
[2019-09-30] MEDS: IPRATROPIUM BROMIDE NEB SOLN 0.02% 2.5 ML VIAL INH PRN ×3 (02:12→21:50)
[2019-09-30 06:32] LABS: Hematocrit (blood only) 42.3 % (42-52); Hemoglobin 15.6 g/dL (14.0-18.0); Mean Corpuscular Hemoglobin 31.6 pg (25-34); Mean Corpuscular Hgb Conc 36.9 g/dL (32-36); Mean Corpuscular Volume 85.8 fL (80-100); Mean Platelet Volume 10.3 fL (7.4-10.4); Platelet Count 250 K/uL (130-400); RDW Coefficient of Variation 13.3 % (11.5-14.5); RDW Standard Deviation 41.6 fL (36.4-46.3); Red Blood Count 4.93 M/uL (4.7-6.1); White Blood Count 10.19 K/uL (4.8-10.8)
--- NOTE | 2019-09-30 06:47 | Hospitalist Progress Note ---
Date of Service September 30, 2019 Assessment & Plan (1) Pericardial effusion: (2) Hypoxia: (3) Lung cancer: (4) COPD exacerbation: (5) HIV disease: (6) Depression: (7) Tobacco use disorder: (8) Osteoarthritis: (9) HTN (hypertension): (10) Anxiety: (11) Asymptomatic human immunodeficiency virus (HIV) infection status: 58 M with hx of HIV, Tobacco abuse, Asthma, recent finding of lung mass presents with chest pain, cough with sputum and sob. Chest pain From lung mass, s/p pericardial window, mediastinal and lung biopsy 09/[address] Forrester Await Path, now in PCU Chest tube on Left is out pain control pulmonary on case CTA neg for PE COPD hx of tobacco abuse nebs and inhalers, Prednisone 40mg daily Pericardial effusion Window Done 09/26 HIV continue anti viral med HTN BP Low will monitor Depression and Anxiety on Klonopin and fluoxetine and BuSpar DVT px SCDs, No Heparin +Bloody CT drainage Await biopsy and serology results AMS yesterday, Seems better today Labs checked ROS-No Headache, No Visual Changes, No Nausea, No Vomiting, No Fever, No Chills, No Neck Pain or Stiffness, +Rib/Chest Pain, No Palpitations, + SOB, + ZAMBRANO, + Cough, No Sputum, No Wheezing, No Abdominal Pain, No Diarrhea, No Hematemesis, No Hemoptysis, No Unexpected Weight Loss, No Flank pain, No Melena, No Hematochezia, No Frequency, No Urgency, No Burning, No Hematuria, No Rashes, No Diaphoresis. Appetite is Normal Physical Exam Gen-AAO x 3, NAD, Afebrile, Cachectic, L Chest tube in place, Looks better today Head-NCAT, EOMI, PERRLA, Anicteric Sclera, No Posterior Pharyngeal Erythema Neck-Supple, No JVD, No Thyromegaly, No Masses, No LAD, No Bruits Lungs-Better air movement, L Rales, No Rhonchi, No Wheezing, No Crepitus Chest-Tachy No S4, +S1, +S2, No S3, No Murmurs, No Rubs, No Gallops, No Ectopy Abdomen-Soft, Bowel Sounds Present, Non Tender, Non Distended, No Hepatomegaly, No Splenomegaly, No Palpable Masses, No Rebound, No Rigidity, No Guarding Musculoskeletal-Full Range of Motion Bilaterally, No CVAT Extremities-No Cyanosis, No Clubbing, No Edema Nuero-Cranial Nerves II-XII grossly intact, Motor WNL, DTRs WNL, Strength WNL, Non Focal Psych-Normal Mood Admission and Anticipated Discharge Date Admission Date: September 25, 2019 Results & Data ([facility]) Vital Signs (Past 12 Hours) Vital Signs Temp Pulse Pulse Resp BP BP Pulse Ox 09/30/19 03:08 36.8 C 101 H 18 108/80 92 09/30/19 02:14 93 H 20 93 09/29/19 23:30 36.9 C 103 H 17 113/70 90 (1) Lung cancer Laterality: unspecified laterality Lung location: unspecified part of lung Qualified Code(s): C34.90 - Malignant neoplasm of unspecified part of unspecified bronchus or lung
[2019-09-30] MEDS ORDERED: SODIUM CHLORIDE 0.9% 1000ML 1,000 ML IV SCH (07:00)
[2019-09-30 07:13] LABS: Albumin Globulin Ratio 0.7 (0.9-2); Albumin Level 2.9 gm/dl (3.4-5.0); BUN Creatinine Ratio 26.2 (10-20); Bilirubin,Total 0.5 mg/dl (0.2-1); Calcium 8.6 mg/dl (8.5-10.1); Creatinine Clr Calc Pharmacy 93.3 ml/min; Est GFR (African American) 115.7; Est GFR (Non-African American) 99.9; Globulin 3.9 gm/dl (2.5-4.0); Potassium 4.1 mmol/L (3.5-5.1); Total Protein 6.8 gm/dl (6.4-8.2)
[2019-09-30] MEDS: BusPIRone 15 MG TAB PO SCH ×2 (08:49→22:11)
[2019-09-30] MEDS: predniSONE 20 MG TAB PO SCH (08:49)
[2019-09-30] MEDS: MAGNESIUM OXIDE 400 MG TAB PO SCH ×3 (08:49→22:11)
[2019-09-30] MEDS: FLUTICASONE FUROATE 200MCG 14 PUFFS/INHALER INH SCH (08:49)
[2019-09-30] MEDS: DOXYCYCLINE HYCLATE 100 MG CAP PO SCH ×2 (08:49→22:11)
[2019-09-30] MEDS: ASPIRIN 81 MG ECTAB PO SCH (08:50)
[2019-09-30] MEDS: AMITRIPTYLINE HCL 50 MG TAB PO SCH (08:50)
[2019-09-30] MEDS: FLUOXETINE HCL 20 MG CAP PO SCH (08:50)
[2019-09-30] MEDS: PANTOprazole 40 MG TAB PO SCH (08:50)
[2019-09-30] MEDS: NICOTINE 21 MG/24 HR TDSY TD SCH (08:50)
[2019-09-30] MEDS: clonazePAM 1 MG TAB PO SCH ×2 (09:44→21:45)
[2019-09-30] MEDS: METOPROLOL TARTRATE 25 MG TAB PO SCH ×2 (09:44→22:11)
[2019-09-30] MEDS: DOCUSATE SODIUM 100 MG CAP PO SCH ×2 (09:44→22:12)
--- NOTE | 2019-09-30 11:13 | Cardiology Progress Note ---
Date of Service September 30, 2019 Assessment & Plan (1) Pericardial effusion: (2) Carcinoma, lung: Malignant pericardial effusion status post thorascopic pericardial window. Continue metoprolol tartrate 25 mg twice daily with holds given his relative low blood pressure in the range of a systolic blood pressure of 90 to 100 mmHg. Would recommend starting pharmacologic DVT prophylaxis now that his chest tube is been removed. Hyponatremia noted yesterday, which improved slightly with fluid bolus. Repeat CT of the chest performed 09/29/2019 for shortness of breath revealed no evidence of pulmonary embolism. Trace residual pericardial effusion noted. Metastatic thoracic adenopathy and adrenal metastases demonstrated unchanged compared to the previous CT scan as well as a 2.2 cm irregular subpleural nodule of the anterior segment of the left upper lobe. Subjective Patient feeling a bit more comfortable today, but still has some degree of shortness of breath. Repeat echocardiogram performed this morning reveals no residual pericardial effusion, no significant pericardial thickening to suggest effusive constrictive pericarditis. Ongoing sinus tachycardia in the range of 100 to 110 bpm is noted on telemetry. Physical Exam Physical Exam: Temp Pulse Resp BP Pulse Ox 36.3 C L 106 H 18 90/68 L 90 09/30/19 07:28 09/30/19 08:00 09/30/19 07:28 09/30/19 09:41 09/30/19 07:28 Constitutional: WD/WN, vitals as above Respiratory: Diminished breath sounds at the apices, no rales rhonchi or wheezing Cardiovascular: RRR, no murmur, no edema Gastrointestinal (Abdomen): normal bowel sounds, soft, nontender, no hepatosplenomegaly Neurologic: Conversant, moves all 4 extremities Results & Data Vital Signs (Past 12 Hours) Vital Signs Temp Pulse Pulse Pulse Resp BP BP 09/30/19 09:41 90/68 L 09/30/19 08:00 106 H 09/30/19 07:28 36.3 C L 112 H 18 97/71 L 09/30/19 03:08 36.8 C 101 H 18 108/80 09/30/19 02:14 93 H 20 09/29/19 23:30 36.9 C 103 H 17 113/70 Pulse Ox 09/30/19 09:41 09/30/19 08:00 09/30/19 07:28 90 09/30/19 03:08 92 09/30/19 02:14 93 09/29/19 23:30 90 Laboratory Results Cardiac Enzymes 09/30/19 Range/Units 06:02 AST 18 (15-37) U/L CBC 09/29/19 09/30/19 Range/Units 15:06 06:02 WBC 11.53 H 10.19 (4.8-10.8) K/uL RBC 4.92 4.93 (4.7-6.1) M/uL Hgb 15.6 15.6 (14.0-18.0) g/dL Hct 41.8 L 42.3 (42-52) % Plt Count 278 250 (130-400) K/uL Neut # (Auto) 10.37 H (1.4-6.5) K/uL Lymph # (Auto) 0.48 L (1.2-3.4) K/uL [place] # (Auto) 0.58 (0.11-0.59) K/uL Eos # (Auto) 0.06 (0-0.5) K/uL Baso # (Auto) 0.01 (0-0.2) K/uL Comprehensive Metabolic Panel 09/29/19 09/29/19 09/30/19 Range/Units 13:09 15:06 06:02 Sodium 120 L 121 L 124 L (136-145) mmol/L Potassium 4.5 4.9 4.1 D (3.5-5.1) mmol/L Chloride 89 L 91 L 94 L (98-107) mmol/L Carbon Dioxide 23 20 L 22 (21-32) mmol/L BUN 21 H 22 H 20 H (7-18) mg/dl Creatinine 0.81 0.79 0.76 (0.6-1.4) mg/dl Glucose 120 H 132 H 115 H (70-99) mg/dl Calcium 8.7 9.3 8.6 (8.5-10.1) mg/dl AST 18 (15-37) U/L ALT 29 (12-78) U/L Alkaline Phosphatase 116 (45-117) U/L Total Protein 6.8 (6.4-8.2) gm/dl Albumin 2.9 L (3.4-5.0) gm/dl Intake and Output 09/29/19 09/30/19 09/30/19 22:59 06:59 14:59 Intake Total 1000 / 3055 550 / 3055 340 / 340 Balance 1000 / 2403 550 / 2403 340 / 340 Intake: IV 1000 / 2000 Nss 1000ML 1,000 ml @ 999 mls/ 1000 / 1000 hr IV .Q1H1M ONE Rx#:[id number] Oral 550 / 1055 340 / 340 Other: # Unmeasured Voids 3 1 1 Weight 64.5 kg 63 kg (1) Carcinoma, lung Laterality: unspecified laterality Qualified Code(s): C34.90 - Malignant neoplasm of unspecified part of unspecified bronchus or lung
--- NOTE | 2019-09-30 12:55 | Nephrology Consultation ---
Date of Consultation September 30, 2019 Assessment & Plan (1) Hyponatremia: acute on chronic hyponatremia w/ baseline sNa about 130 including on 09/26 presentation; dropped to 118 on 09/29 at 0730 after sNa on 09/27 was 128 (so acute change). sNa has climbed gradually since to 124 as of this am, gain of 6 points in 24 hrs. He had 2L NS yesterday and has been getting 100 ml/hr NS since 0700 today. He has been hypotensive and tachycardic and is overall 3L positive this admission -continue NS for now given relative hypotension/tachycardia -stat BMP, serum osms, urine osms, urine rd Na -goal sNa is 128-130 by tomorrow am; target rate of change not as slow w/ acute processes like this so this target should be acceptable -would avoid hctz/triamterene combination at d/c d/t chronic hyponatremia -agree w/ holding lisinopril for now -daily bmp >> some risk w/ hypotension, IV contrast for KRISTINE Present on Admission?: Yes History of Present Illness Reason for Consultation: hyponatremia, volume status Requesting Physician: Dr Landry Attending Physician: Mir Landry, DO History of Present Illness 58 y/o M whom I'm asked to see for hyponatremia and volume status was admitted 09/26 w/ enlarging malignant pericardial effusion, L mediastinal mass and L upper lobe and pleural masses. PMH includes HIV on ART therapy, active tobacco abuse, COPD, anxiety disorder, chronic hyponatremia w/ sNa running low 130s. Concern before procedure was for lung carcinoma. Weight loss 30 lb reported in month prior to admission. He is s/p L thoracoscopy w/ pericardial window on 09/27/19. Biopsy path is pending; pericardial fluid came back as metastatic carcinoma. After procedure, pt was in ICU for about 24 hrs to manage acute delirium and post procedural hypotension. chest tube out now; pt on RA. Cardiology following closely. F/u TTE today shows trace residual pericardial effusion; also s/p CTA PE protocol w/ no PE found. he was 129 on 2/6 PM presentation and remained in customary OP range through 09/27. Then next labs 09/29 0730 w/ sNa 118, on gradual uptrend to 124 this am at 0600. he was started this AM on NS at 100 mL hourly based on AM labs. He also had 2L NS yesterday. He is overall about 3L positive on admission. He endorses chronic thirst and states he is "always" drinking water. Allergies Allergy/AdvReac Type Severity Reaction Status Date / Time pollen extracts Allergy Intermediate ASTHMA Verified 09/25/19 20:11 Sulfa (Sulfonamide Allergy Intermediate HIVES Verified 09/29/19 10:40 Antibiotics) Home Medications Home Medications Medication Instructions Recorded Confirmed Type amitriptyline 50 mg PO DAILY 07/08/19 09/25/19 History buspirone 15 mg PO BID 07/08/19 09/25/19 History clonazepam 1 mg PO BID 07/08/19 09/25/19 History dronabinol 10 mg PO BID 07/08/19 09/25/19 History jlphtfeej-sqqdyfajfcsp-ylgemnm 1 tab PO DAILY 07/08/19 09/25/19 History [Atripla] fluoxetine 20 mg PO DAILY 07/08/19 09/25/19 History lisinopril 20 mg PO DAILY 07/08/19 09/25/19 History oxycodone-acetaminophen 1 - 2 tab PO Q4H PRN 07/08/19 09/25/19 History triamterene-hydrochlorothiazid 1 tab PO DAILY 07/08/19 09/25/19 History albuterol sulfate 90 mcg/actuation 2 puffs INH Q6H PRN 08/21/19 09/25/19 History aerosol inhaler aspirin 81 mg tablet,delayed 162 mg PO DAILY tab 08/21/19 09/25/19 History release fluticasone propionate 220 1 puffs INH BID 08/21/19 09/25/19 History mcg/actuation HFA aerosol inhaler omeprazole 20 mg capsule,delayed 20 mg PO DAILY 08/21/19 09/25/19 History release Patient History Medical History Anxiety (Chronic) Asymptomatic human immunodeficiency virus (HIV) infection status (Chronic 10/25/11) Carcinoma, lung Distal radial fracture (Acute) HIV disease HTN (hypertension) (Chronic) Hyponatremia Lung mass Lymphadenopathy Muscle strain (Resolved) Osteoarthritis (Chronic) Pain, dental (Resolved) Pericardial effusion Weight loss Surgical History History of temporal artery biopsy No pertinent past surgical history Family History Other No pertinent family history in first degree relatives Social History Preferred Language: American Communication Ability: Effective 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 Beliefs That Will Affect Care: None Current Living Situation: Spouse Other Information That Helps Us Care for You: No Feels Safe at Home: Yes Safety Concerns: Feels Safe At This Time Smoking Status: Current every day smoker Tobacco Type: cigarettes ; packs per day: 0.5 ; Cigarettes Per Day: 20 ; Hx Alcohol Use: No Hx Substance Use: No Review of Systems Respiratory: + cough Cardiovascular: + chest pain (at L chest/site of chest tube); no palpitations and no edema Gastrointestinal: + abdominal pain (LUQ and c/o bulge in this area intermittently all post procedure/ worse w/ chough); no vomiting and no diarrhea/loose stools Genitourinary: + urinary frequency; no dysuria and no difficulty urinating Psychiatric: no depression Physical Exam Constitutional: well developed, + thin and cooperative on RA Eyes: EOM intact bilaterally ENMT: Ears: no external ear abnormality Nose: no external nose abnormality Mouth: + muffled voice (hoarse) and + dry oral mucous membranes Neck: no nuchal rigidity Respiratory: normal respiratory effort; no respiratory distress and no labored breathing Auscultation: + diminished lung sounds and + crackles (R base posterior) Cardiovascular: Rate/Rhythm: regular rhythm and + tachycardic Extremities: no edema Gastrointestinal (Abdomen): Inspection/Auscultation: normal bowel sounds Percussion/Palpation: abdomen soft; abdomen nontender and no guarding Musculoskeletal: Extremities: strength 5/5 throughout pastor, fluent speech, no tremor Skin: no rashes, warm and dry large bandage L chest Neurologic: pastor, fluent speech, no tremor Psychiatric: Orientation: alert and oriented x 3 Speech: normal rate/rhythm/volume of speech (though hoarse) Affect: + anxious affect Genitourinary: no carvajal Results & Data Vital Signs (Past 12 Hours) Vital Signs Temp Pulse Pulse Resp BP Pulse Ox 09/30/19 11:09 113 H 18 92 09/30/19 09:41 90/68 L 09/30/19 08:00 106 H 09/30/19 07:28 36.3 C L 112 H 18 97/71 L 90 09/30/19 03:08 36.8 C 101 H 18 108/80 92 09/30/19 02:14 93 H 20 93 Laboratory Results 09/30/19 06:02 09/30/19 06:[address] chest PE protocol 09/29 1. Exam degraded by respiratory motion artifact. Within the limitations of the study, there is no evidence of pulmonary thromboembolic disease. 2. 2.2 cm irregular subpleural nodule of the anterior segment left upper lobe redemonstrated suggestive of neoplasm. Adjacent surgical suture material is noted in addition to a trace left pneumothorax. 3. There are several nodular foci scattered throughout the left lung as above suspicious for metastatic disease. Additionally, there is irregular asymmetric thickening of the left major fissure again noted which may reflect lymphangitic carcinomatosis. 4. Trace left pleural effusion. 5. Patchy groundglass and consolidative opacities of the right lung base and superior segment right lower lobe are new from the 09/25/2019 exam. This finding in conjunction with tracheobronchial secretions is suspicious for aspiration pneumonitis. 6. Metastatic thoracic adenopathy and adrenal metastasis redemonstrated. cxr 09/29 1. Trace pneumothorax may be present along the suture margin in the periphery of the left lung status post left pleural drain removal. Attention on follow-up. 2. Some degree of volume overload and congestive change remains. 3. 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 4. Background emphysema and left apical infiltrate.
[2019-09-30] MEDS: ENOXAPARIN INJ 40 MG/0.4 ML SYR SQ SCH (13:32)
[2019-09-30 14:14] LABS: BUN Creatinine Ratio 21.4 (10-20); Calcium 8.8 mg/dl (8.5-10.1); Est GFR (African American) 105.1; Est GFR (Non-African American) 90.7
[2019-09-30 14:24] LABS: iSTAT Arterial Blood Gas HCO3 22 meg/L (19-24); iSTAT Arterial Blood Gas pCO2 54 mmHg (35-46); iSTAT Arterial Blood Gas pH 7.22 (7.35-7.45); iSTAT Arterial Blood Gas pO2 81 mmHg (80-95); iSTAT Carbon Dioxide 24 mmol/L (24-31); iSTAT Hematocrit 36 % (42-52); iSTAT Hemoglobin 12.2 g/dl (14.0-18.0); iSTAT Potassium 4.5 mmol/L (3.3-5.0); iSTAT Site Art Line; iSTAT Sodium 132 mmol/L (135-144)
--- NOTE | 2019-09-30 15:41 | Progress Note ---
DATE: 09/30/2019 Mr. Pulido was seen today. He is going to be moved up to the third floor today. He is on room air. CT scan was obtained yesterday and shows no evidence of pulmonary embolism. He really has very little in the way of any fluid or pericardial fluid. The final pathology has come back. He has a very poorly differentiated carcinoma, but we are still waiting for immunohistochemical stains on the level 5 lymph node. His pericardial fluid was also positive.
[2019-09-30] MEDS: SODIUM CHLORIDE 0.9% 1000ML IV SCH (17:58)
[2019-09-30] MEDS: [UNRECOGNIZED DRUG - OTHER] PO SCH (21:44)
[2019-10-01] MEDS: MoRPHine SULFATE 2 MG/ML CARP IV PRN ×3 (02:08→23:53)
[2019-10-01] MEDS: SODIUM CHLORIDE 0.9% 1000ML IV SCH (03:41)
[2019-10-01] MEDS: OXYCODONE/ACETAMINOPHEN 5mg/325mg TAB PO PRN ×2 (05:42→11:52)
[2019-10-01 06:29] LABS: Basophils # (auto) 0.02 K/uL (0-0.2); Basophils % (auto) 0.2 %; Eosinophils # (auto) 0.14 K/uL (0-0.5); Eosinophils % (auto) 1.1 %; Hematocrit (blood only) 41.8 % (42-52); Hemoglobin 15.2 g/dL (14.0-18.0); Immature Granulocytes # (auto) 0.05 K/uL (0.00-0.02); Immature Granulocytes % (auto) 0.4 %; Lymphocytes # (auto) 0.89 K/uL (1.2-3.4); Lymphocytes % (auto) 6.8 %; Mean Corpuscular Hemoglobin 31.6 pg (25-34); Mean Corpuscular Hgb Conc 36.4 g/dL (32-36); Mean Corpuscular Volume 86.9 fL (80-100); Mean Platelet Volume 10.1 fL (7.4-10.4); Monocytes # (auto) 0.96 K/uL (0.11-0.59); Monocytes % (auto) 7.3 %; Neutrophils # (auto) 11.01 K/uL (1.4-6.5); Neutrophils % (auto) 84.2 %; Platelet Count 249 K/uL (130-400); RDW Coefficient of Variation 13.5 % (11.5-14.5); RDW Standard Deviation 42.6 fL (36.4-46.3); Red Blood Count 4.81 M/uL (4.7-6.1); White Blood Count 13.07 K/uL (4.8-10.8)
[2019-10-01] MEDS: BusPIRone 15 MG TAB PO SCH ×2 (08:29→21:05)
[2019-10-01] MEDS: METOPROLOL TARTRATE 25 MG TAB PO SCH ×2 (08:30→21:04)
[2019-10-01] MEDS: FLUOXETINE HCL 20 MG CAP PO SCH (08:30)
[2019-10-01] MEDS: predniSONE 20 MG TAB PO SCH (08:30)
[2019-10-01] MEDS: ASPIRIN 81 MG ECTAB PO SCH (08:31)
[2019-10-01] MEDS: MAGNESIUM OXIDE 400 MG TAB PO SCH ×3 (08:31→21:04)
[2019-10-01] MEDS: AMITRIPTYLINE HCL 50 MG TAB PO SCH (08:32)
[2019-10-01] MEDS: PANTOprazole 40 MG TAB PO SCH (08:32)
[2019-10-01] MEDS: FLUTICASONE FUROATE 200MCG 14 PUFFS/INHALER INH SCH (08:33)
[2019-10-01] MEDS: DOXYCYCLINE HYCLATE 100 MG CAP PO SCH ×2 (08:34→21:05)
[2019-10-01] MEDS: NICOTINE 21 MG/24 HR TDSY TD SCH (08:35)
[2019-10-01] MEDS: DOCUSATE SODIUM 100 MG CAP PO SCH ×2 (08:38→21:02)
[2019-10-01] MEDS: ENOXAPARIN INJ 40 MG/0.4 ML SYR SQ SCH (08:39)
[2019-10-01] MEDS: clonazePAM 1 MG TAB PO SCH ×2 (08:39→21:03)
[2019-10-01 09:09] LABS: BUN Creatinine Ratio 21.7 (10-20); Calcium 8.9 mg/dl (8.5-10.1); Creatinine Clr Calc Pharmacy 89.7 ml/min; Est GFR (African American) 113.9; Est GFR (Non-African American) 98.3; Potassium 4.5 mmol/L (3.5-5.1)
[2019-10-01] MEDS: IPRATROPIUM BROMIDE NEB SOLN 0.02% 2.5 ML VIAL INH PRN (09:30)
[2019-10-01] MEDS: LEVALBUTEROL 1.25MG/0.5ML NEB INH PRN (09:31)
[2019-10-01] MEDS: guaiFENesin 200 MG TAB PO SCH ×2 (10:54→17:02)
--- NOTE | 2019-10-01 12:42 | XRay Report ---
XR chest 1V portable CLINICAL HISTORY: SOB COMPARISON STUDY: September 29, 2019 FINDINGS: There is an increasing left-sided pneumothorax with a pleural separation of 34 mm. There is an area of nodularity within the visceral pleural surface of the left upper lung zone at the level o f the suture line. Since the prior study, the patient has developed diffuse right lung airspace opaci ties this could represent asymmetric edema or a right lung pneumonia.[ IMPRESSION: 1. Moderate left-sided pneumothorax with pleural separation of 34 mm 2. Interval development of diffuse right lung airspace opacities, asymmetric edema versus pneumonia. Clinical and radiographic follow-up is recommended. ACT 112: Negative or not required by law. Electronically signed by: Kiel Garcia M.D. 10/01/2019 12:41 PM
[2019-10-01] MEDS: IPRATROPIUM BROMIDE NEB SOLN 0.02% 2.5 ML VIAL INH SCH ×2 (12:46→20:11)
[2019-10-01] MEDS: LEVALBUTEROL 1.25MG/0.5ML NEB INH SCH ×2 (12:46→20:11)
--- NOTE | 2019-10-01 12:55 | Hospitalist Progress Note ---
Date of Service October 01, 2019 Assessment & Plan (1) Pericardial effusion: Present on admission with worsening chest pain when lying associated with SOB CTA chest on admission showed moderate pericardial effusion, simple appearing though increased from prior. Echo showed moderate sized circumferential pericardial effusion From lung mass, s/p pericardial window, mediastinal and lung biopsy 09/[address] Forrester Repeat ECHO on 09/30 showed no pericardial effusion Pathology report showed METASTATIC ADENOCARCINOMA CONSISTENT WITH LUNG PRIMARY. Chest tube on Left lung removed Thoracic surgery on board CTA neg for PE Pneumothorax Hypoxia CXR done today showed moderate left-sided pneumothorax with pleural separation of 34 mm Thoracic surgeon was notified Since Dr. Forrester in the OR, will ask pulmonology team to eval the patient for chest tube placement Continue oxygen supplement Pneumonia CXR showed Interval development of diffuse right lung airspace opacities, asymmetric edema versus pneumonia. Continue doxycycline Lung CA patology showed METASTATIC ADENOCARCINOMA CONSISTENT WITH LUNG PRIMARY. 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 IVF discontinued Fluid restriction at 1200ml Monitor BMP COPD Hx of tobacco abuse nebs and inhalers, Prednisone 40mg daily Continue oxygen supplement Counseling on tobacco abuse HIV continue anti viral med HTN BP stable Continue Metoprolol Depression Anxiety on Klonopin, fluoxetine and BuSpar Stable DVT px Will start on heparin drip if no upcoming surgical procedure by thoracic surgeon for the pneumothorax CODE Status Full code Admission and Anticipated Discharge Date Admission Date: September 25, 2019 Subjective Pt was seen and examined Sitting in bed complaint of SOB Pt said that he feels his breathing got worst He said that he ran out breath just by walking to the bathroom He has been required more oxygen supplement He said that he has been coughing up phlegm with trace of blood Physical Exam Physical Exam: General- No acute distress Head- atraumatic Eyes- PERRL, EOMI, ENT- oropharynx clear Neck- supple, no JVD Lungs- decreased BS more in the [place] Heart- +tachycardia, no murmur Abdomen- normal bowel sounds, soft, nontender Extremities- no calf tenderness Neuro- alert, oriented x 3; PERRL, EOMI; no facial palsy; no dysarthria Skin- warm & dry Results & Data ([facility]) Vital Signs (Past 12 Hours) Vital Signs Temp Pulse Pulse Resp BP Pulse Ox 10/01/19 12:46 104 H 24 91 10/01/19 11:43 105 H 18 92 10/01/19 11:35 105 H 28 H 77 L 10/01/19 09:31 108 H 24 70 L 10/01/19 07:18 36.3 C L 111 H 22 127/90 91 10/01/19 05:41 113 H 20 80 L
--- NOTE | 2019-10-01 13:23 | Cardiology Progress Note ---
Date of Service October 01, 2019 Assessment & Plan (1) Carcinoma, lung: Pathology consistent with primary lung carcinoma. (2) Pericardial effusion: Malignant pericardial effusion. Status post pericardial window. No residual fluid on echocardiogram 09/30/2019, and repeat chest CT. (3) Hyponatremia: Sodium trending toward normal having reached a level of 118, and is up to 127 today. Continue metoprolol 25 mg twice daily for treatment of tachycardia. Continue Lovenox 40 mg daily subcutaneously for DVT prophylaxis. Subjective Patient now with telemetry. He was seen and examined in room 376. He was receiving a nebulizer treatment. He felt a little bit less comfortable compared to yesterday from a shortness of breath standpoint. Lungs are clear to auscultation. Review of Systems Review of Systems: All systems reviewed & are unremarkable except as noted in HPI & below Physical Exam Physical Exam: Temp Pulse Resp BP Pulse Ox 36.3 C L 104 H 24 127/90 91 10/01/19 07:18 10/01/19 12:46 10/01/19 12:46 10/01/19 07:18 10/01/19 12:46 Constitutional: + cachectic Respiratory: normal respiratory effort, lungs clear to auscultation Cardiovascular: RRR, no murmur, no edema Vessels: no JVD Gastrointestinal (Abdomen): normal bowel sounds, soft, nontender, no hepatosplenomegaly Neurologic: PERRL, EOMI, accommodation nl, no face palsy, no dysarthria Results & Data Vital Signs (Past 12 Hours) Vital Signs Temp Pulse Pulse Resp BP Pulse Ox 10/01/19 12:46 104 H 24 91 10/01/19 11:43 105 H 18 92 10/01/19 11:35 105 H 28 H 77 L 10/01/19 09:31 108 H 24 70 L 10/01/19 07:18 36.3 C L 111 H 22 127/90 91 10/01/19 05:41 113 H 20 80 L Laboratory Results CBC 10/01/19 Range/Units 06:15 WBC 13.07 H (4.8-10.8) K/uL RBC 4.81 (4.7-6.1) M/uL Hgb 15.2 (14.0-18.0) g/dL Hct 41.8 L (42-52) % Plt Count 249 (130-400) K/uL Neut # (Auto) 11.01 H (1.4-6.5) K/uL Lymph # (Auto) 0.89 L (1.2-3.4) K/uL [place] # (Auto) 0.96 H (0.11-0.59) K/uL Eos # (Auto) 0.14 (0-0.5) K/uL Baso # (Auto) 0.02 (0-0.2) K/uL Comprehensive Metabolic Panel 09/30/19 10/01/19 Range/Units 13:43 06:17 Sodium 126 L 127 L (136-145) mmol/L Potassium 4.0 4.5 (3.5-5.1) mmol/L Chloride 94 L 96 L (98-107) mmol/L Carbon Dioxide 23 24 (21-32) mmol/L BUN 20 H 17 (7-18) mg/dl Creatinine 0.92 0.79 (0.6-1.4) mg/dl Glucose 143 H 108 H (70-99) mg/dl Calcium 8.8 8.9 (8.5-10.1) mg/dl Intake and Output 09/30/19 10/01/19 10/01/19 22:59 06:59 14:59 Intake Total 1261.667 / 2601.667 1000 / 2601.667 601.667 / 601.667 Output Total 350 / 1650 1150 / 1650 500 / 500 Balance 911.667 / 951.667 -150 / 951.667 101.667 / 101.667 Intake: IV 921.667 / 3718.014 6061 / 1921.667 601.667 / 601.667 Nss 1000ML 1,000 ml @ 100 mls/ 921.667 / 9530.814 8483 / 1921.667 601.667 / 601.667 hr IV .Q10H TEN Rx#:[id number] Oral 340 / 680 Output: Urine 350 / 1650 1150 / 1650 500 / 500 Other: Weight 63 kg (1) Carcinoma, lung Laterality: unspecified laterality Qualified Code(s): C34.90 - Malignant neoplasm of unspecified part of unspecified bronchus or lung
--- NOTE | 2019-10-01 14:52 | Nephrology Progress Note ---
Date of Service October 01, 2019 Assessment & Plan (1) Hyponatremia: acute on chronic hyponatremia w/ baseline sNa about 130 including on 09/26 presentation; dropped to 118 on 09/29 at 0730 after sNa on 09/27 was 128 (so acute change). sNa has climbed gradually since to 127 as of this am, urine osmolality of 635 and a urine sodium of 66. Etiology of hyponatremia likely SIADH. -stop IV fluids. -fluid restriction of 1200 mL daily. -PO Lasix 20 mg daily -salt tablets 1 g three times daily -agree w/ holding lisinopril for now -daily bmp >> some risk w/ hypotension, IV contrast for KRISTINE Admission and Anticipated Discharge Date Admission Date: September 25, 2019 Subjective Patient complains of shortness of breath. Sodium is better today at 127. No leg swelling. Patient usually drinks about a gal of water daily at home. Review of Systems Review of Systems: All systems reviewed & are unremarkable except as noted in HPI & below Physical Exam Physical Exam: General exam: Appears comfortable, no acute distress HEENT: Pupils are equal and reactive to light Neck: No JVD, neck is supple trachea is midline Respiratory system: Reduced breath sounds in the bases bilaterally. Gastrointestinal: Abdomen is soft, non distended, non tender, bowel sounds are present CVS: Tachycardia. No murmurs, rubs or gallops Musculoskeletal: No joint or muscle tenderness Extremities: Non tender, no edema, peripheral pulses are present Neuro: Oriented, no tremors, no focal neurological deficits Skin: No rashes Results & Data ([facility]) Vital Signs (Past 12 Hours) Vital Signs Temp Pulse Pulse Resp BP Pulse Ox 10/01/19 12:46 104 H 24 91 10/01/19 11:43 105 H 18 92 10/01/19 11:35 105 H 28 H 77 L 10/01/19 09:31 108 H 24 70 L 10/01/19 07:18 36.3 C L 111 H 22 127/90 91 10/01/19 05:41 113 H 20 80 L Laboratory Results 10/01/19 06:17 10/01/19 06:15 WBC 13.07 H RBC 4.81 MCV 86.9 MCH 31.6 MCHC 36.4 H RDW Std Deviation 42.6 RDW Coeff of Greg 13.5 Plt Count 249 MPV 10.1
[2019-10-01] MEDS ORDERED: LIDOCAINE HCL 1% 20 ML VIAL ONE (16:21)
--- NOTE | 2019-10-01 16:46 | Procedure Note ---
Procedure Note Date of Service October 01, 2019 Procedure: Pigtail chest tube insertion Yarn Dumper: Dr. Ryland Alba Indication: Tension pneumothorax on the left side Consent: Signed by patient and verified with timeout prior to procedure Anesthesia: 1% lidocaine without epinephrine local Procedure: Consent was verified and timeout performed. Appropriate imaging studies were reviewed prior to the procedure. Appropriate site above the diaphragm for chest tube insertion was selected. The skin was prepped and draped in normal sterile fashion. Lidocaine was used for local analgesia. Fluid was aspirated via the finder needle. A small skin heaven was made with the scalpel and the catheter over the needle apparatus was advanced over the rib into the pleural space. With the help of guidewire and Seldinger technique, 14 [place] pigtail catheter was inserted and connected to Pleur-evac. There was bubbling appreciated initially which lasted less than 20 seconds after which no air leak appreciated. Chest x-ray to follow Fluid was sent for labs, culture and cytology. The patient tolerated the procedure without obvious complication Complications: None Blood loss: Less than 2 cc. Coding CPT Codes Pulmonary/Thoracic - Pulmonary and Thoracic: 69647 Tube thoracostomy ([id number]) [facility] [place] Procedure Codes ([place]arges) Pulmonary/Thoracic Procedure 1: Pulmonary and Thoracic: 48878 Tube thoracostomy
--- NOTE | 2019-10-01 16:51 | XRay Report ---
XR chest 1V portable CLINICAL HISTORY: pneumothorax/ chest tube placement COMPARISON STUDY: Chest CT September 29, 2019. Chest radiograph October 01, 2019. FINDINGS: Interval placement of a left pleural pigtail catheter is noted. Left pneumothorax has signi ficantly decreased in size since prior exam performed earlier today. There is a small residual pleura l effusion. Emphysema and interstitial thickening is unchanged. Cardiomediastinal silhouette is unrem arkable. IMPRESSION: 1. Interval placement of a left pleural pigtail catheter. Significant decrease in size of the left pn eumothorax. Small residual pneumothorax. 2. Otherwise, unchanged appearance of the chest with severe emphysema. ACT 112: Negative or not required by law. Electronically signed by: Jem Gallardo M.D. 10/01/2019 4:50 PM
[2019-10-01] MEDS: SODIUM CHLORIDE 1 GM TABLET PO SCH ×2 (16:52→21:05)
[2019-10-01] MEDS: FUROSEMIDE 20 MG TAB PO SCH (16:52)
--- NOTE | 2019-10-01 17:07 | Pulmonary Consultation ---
Date of Consultation October 01, 2019 Assessment & Plan (1) Tension pneumothorax: Called to bedside by hospitalist physician to evaluate for tension pneumothorax Chest x-ray revealed a moderate left pneumothorax with separation of approximately 34 mm INR was checked and was 1.0 on 09/25/2019 Consent was obtained by Dr. Alba at bedside from the patient A left-sided pigtail catheter was placed to the fourth intercostal space in the midaxillary line without difficulty Postprocedural chest x-ray shows significant decrease in pneumothorax and good chest tube placement Chest tube should be placed on continuous suction at -20 mmHg Repeat chest x-ray in the morning We will communicate with Dr. Forrester Thank you for including us in the care of this patient. Please refer to Dr. Alba's addendum for further recommendations and corrections. Supervising Physician Co-Signing Physician Notes I saw and evaluated the patient with Pj sethi, and agree with findings and plan as documented in the note. 58-year-old male with past medical history of HIV on Ross therapy who was admitted to the hospital with complaints of chest pain and pericardial effusion for along with mediastinal mass for which patient had a pericardial window through left thoracoscopy and biopsy of the left mediastinal mass and wedge biopsy of the left upper lobe on 09/26/2019. Patient was found to have small pneumothorax since then. Pulmonary were consulted as patient was developing tension pneumothorax today. Patient was in severe respiratory distress. Plan was made to do pigtail chest tube insertion. Risks and benefits of the procedure were explained to the patient at bedside. 14 Danish pigtail catheter was placed in the left fourth intercostal space midaxillary line without any complications. Repeat chest x-ray showed reexpansion of the left lung with small residual pneumothorax appreciated. We will put the patient on -20 of suction continuous for the time being. Dr. Forrester is already on the board. Chest tube management as per CT surgery. I have spent more than 50% of this 40 minute encounter in counseling and/or coordination of care with patient. History of Present Illness Attending Physician: Chaka Brandt MD History of Present Illness Attending: Dr. Alba This is a 58-year-old male admitted on 09/25/2019 with chest pain. Patient was found to have a pericardial effusion. 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 Patient went to the operating room on 09/26/2019 and underwent left thoracoscopy with pericardial window, biopsy of left mediastinal mass, wedge biopsy of left upper lobe, and biopsy of pleural mass. 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 A nerve block was completed. Today the patient was found to have shortness of breath and a chest x-ray was completed which showed a moderate left-sided pneumothorax [address] Forrester was called to evaluate and was in the operating room. The pulmonary service was then called by Dr. Brandt of the hospitalist service to evaluate. Consent was obtained and a left-sided pigtail catheter was placed at the fourth intercostal space in the midaxillary line. Please refer to Dr. Alba's procedure note for further detail. Allergies Allergy/AdvReac Type Severity Reaction Status Date / Time pollen extracts Allergy Intermediate ASTHMA Verified 09/25/19 20:11 Sulfa (Sulfonamide Allergy Intermediate HIVES Verified 09/29/19 10:40 Antibiotics) Home Medications Home Medications Medication Instructions Recorded Confirmed Type amitriptyline 50 mg PO DAILY 07/08/19 09/25/19 History buspirone 15 mg PO BID 07/08/19 09/25/19 History clonazepam 1 mg PO BID 07/08/19 09/25/19 History dronabinol 10 mg PO BID 07/08/19 09/25/19 History euylbuaiw-dxhrljwgogtl-tajsnfv 1 tab PO DAILY 07/08/19 09/25/19 History [Atripla] fluoxetine 20 mg PO DAILY 07/08/19 09/25/19 History lisinopril 20 mg PO DAILY 07/08/19 09/25/19 History oxycodone-acetaminophen 1 - 2 tab PO Q4H PRN 07/08/19 09/25/19 History triamterene-hydrochlorothiazid 1 tab PO DAILY 07/08/19 09/25/19 History albuterol sulfate 90 mcg/actuation 2 puffs INH Q6H PRN 08/21/19 09/25/19 History aerosol inhaler aspirin 81 mg tablet,delayed 162 mg PO DAILY tab 08/21/19 09/25/19 History release fluticasone propionate 220 1 puffs INH BID 08/21/19 09/25/19 History mcg/actuation HFA aerosol inhaler omeprazole 20 mg capsule,delayed 20 mg PO DAILY 08/21/19 09/25/19 History release Patient History Medical History Anxiety (Chronic) Asymptomatic human immunodeficiency virus (HIV) infection status (Chronic 02/28) Carcinoma, lung Distal radial fracture (Acute) HIV disease HTN (hypertension) (Chronic) Hyponatremia Lung mass Lymphadenopathy Muscle strain (Resolved) Osteoarthritis (Chronic) Pain, dental (Resolved) Pericardial effusion Weight loss Surgical History History of temporal artery biopsy No pertinent past surgical history Family History Other No pertinent family history in first degree relatives Social History Preferred Language: Guyanese Communication Ability: Effective Flight Teacher Required: No Beliefs That Will Affect Care: None Current Living Situation: Spouse Other Information That Helps Us Care for You: No Feels Safe at Home: Yes Safety Concerns: Feels Safe At This Time Smoking Status: Current every day smoker Tobacco Type: cigarettes ; packs per day: 0.5 ; Cigarettes Per Day: 20 ; Hx Alcohol Use: No Hx Substance Use: No Review of Systems Review of Systems: All systems reviewed & are unremarkable except as noted in HPI & below Physical Exam Physical Exam: GENERAL : Moderate respiratory distress with evidence of accessory muscle use EYES: No icterus, gaze conjugate. Pupils are equal round and reactive to light NOSE: No evidence of epistaxis. Oxymask is in place. MOUTH: No lesions or candidiasis. Mucosa is moist NECK: Supple. Trachea is slightly deviated to the right LUNGS: Decreased breath sounds at the left base. There are also some faint wheezes on forced expiration in the posterior sibley. HEART: Regular, rate controlled. No appreciation of ectopy ABDOMEN: Soft, NT, ND, BS Present. EXTREMITIES: No LE edema, pedal pulses intact NEURO: A&OX3. Results & Data ([facility]) Vital Signs (Past 12 Hours) Vital Signs Temp Pulse Pulse Resp BP BP Pulse Ox 10/01/19 15:13 36.4 C L 104 H 26 H 126/79 86 L 10/01/19 12:46 104 H 24 91 10/01/19 11:43 105 H 18 92 10/01/19 11:35 105 H 28 H 77 L 10/01/19 09:31 108 H 24 70 L 10/01/19 07:18 36.3 C L 111 H 22 127/90 91 10/01/19 05:41 113 H 20 80 L Laboratory Results 10/01/19 06:15 10/01/19 06:17 INR 1.0 (0.9-1.1) 09/25/19 18:55 Diagnostic Findings XR chest 1V portable 10/01/2019 at 1241pm CLINICAL HISTORY: SOB COMPARISON STUDY: September 29, 2019 FINDINGS: There is an increasing left-sided pneumothorax with a pleural separation of 34 mm. There is an area of nodularity within the visceral pleural surface of the left upper lung zone at the level of the suture line. Since the prior study, the patient has developed diffuse right lung airspace opacities this could represent asymmetric edema or a right lung pneumonia.[ IMPRESSION: 1. Moderate left-sided pneumothorax with pleural separation of 34 mm 2. Interval development of diffuse right lung airspace opacities, asymmetric edema versus pneumonia. Clinical and radiographic follow-up is recommended. ACT 112: Negative or not required by law. Electronically signed by: Kiel Garcia M.D. 10/01/2019 12:41 PM XR chest 1V portable CLINICAL HISTORY: pneumothorax/ chest tube placement COMPARISON STUDY: Chest CT September 29, 2019. Chest radiograph October 01, 2019. FINDINGS: Interval placement of a left pleural pigtail catheter is noted. Left pneumothorax has significantly decreased in size since prior exam performed earlier today. There is a small residual pleural effusion. Emphysema and interstitial thickening is unchanged. Cardiomediastinal silhouette is unremarkable. IMPRESSION: 1. Interval placement of a left pleural pigtail catheter. Significant decrease in size of the left pneumothorax. Small residual pneumothorax. 2. Otherwise, unchanged appearance of the chest with severe emphysema. ACT 112: Negative or not required by law. Electronically signed by: Jem Gallardo M.D. 10/01/2019 4:50 PM PG Care Time/CCT Total # of Minutes Spent Total Time Spent with Patient: Total time spent is greater than 50% in coordination of care (as documented) at patient's floor/unit and/or counseling patient: 25 minutes independent of any procedures performed by Dr. Alba [place] [address] Initial Inpt Care Lvl 2 Patient Type New Medical Decision Making Straight Forward Diagnoses Tension pneumothorax J93.0
[2019-10-01] MEDS: [UNRECOGNIZED DRUG - OTHER] PO SCH (21:03)
[2019-10-02] MEDS ORDERED: KETOROLAC TROMETHAMINE 15 MG/ML VIAL IV ONE (00:35)
--- NOTE | 2019-10-02 00:37 | Hospitalist Progress Note ---
Date of Service October 02, 2019 Assessment & Plan Admission and Anticipated Discharge Date Admission Date: September 25, 2019 Subjective On 9 L as per RN on 9 L Code purple called around 12 AM. Worsening hypoxemia noted as per RN. O2 sats 60s on 9 L as per RN. Left-sided chest pain going to the neck as per patient Worsening shortness of breath. Usual cough symptoms. CXR as per my interpretation : Asymmetric pulmonary congestion right, COPD, left-sided pneumothorax similar to a.m. x-ray, drainage catheter left lung field in place AP Worsening hypoxemic respiratory failure Pulmonary congestion Tension pneumothorax status post L drainage catheter placement ICU transfer for closer monitoring Supplemental O2 Baseline ABG IV Lasix [address] chest RE worsening hypoxemia Will relay to AM provider. Results & Data ([facility]) Vital Signs (Past 12 Hours) Vital Signs Temp Pulse Pulse Pulse Resp BP BP 10/01/19 23:08 36.4 C L 115 H 16 111/71 10/01/19 20:59 37.1 C 108 H 17 113/82 10/01/19 20:11 103 H 20 10/01/19 17:11 36.3 C L 101 H 20 126/87 10/01/19 15:13 36.4 C L 104 H 26 H 126/79 10/01/19 12:46 104 H 24 Pulse Ox 10/01/19 23:08 98 10/01/19 20:59 90 10/01/19 20:11 92 10/01/19 17:11 91 10/01/19 15:13 86 L 10/01/19 12:46 91
[2019-10-02 00:44] LABS: Base Excess ABG 1.1 mEq/L (-9-1.8); HCO3 ABG 23 mmol/L (19-24); Oxygen Saturation ABG 94.3 % (90-95); PCO2 ABG 30 mmHg (35-46); PO2 ABG 65 mmHg (80-95)
[2019-10-02 00:47] LABS: Partial Thromboplastin Ratio 1.1; Partial Thromboplastin Time 29.6 Seconds (21.0-31.0)
[2019-10-02 00:51] LABS: Allen Test POS (Pos)
[2019-10-02 00:53] LABS: BUN Creatinine Ratio 23.2 (10-20); Calcium 9.5 mg/dl (8.5-10.1); Creatinine Clr Calc Pharmacy 99.8 ml/min; Est GFR (Non-African American) 102.7; Magnesium 1.8 mg/dl (1.8-2.4); Potassium 4.7 mmol/L (3.5-5.1)
[2019-10-02 00:54] LABS: pH ABG 7.51 (7.35-7.45)
[2019-10-02] MEDS ORDERED: ICU PROTOCOL FOR HYPERGLYCEMIA PRN (01:16)
[2019-10-02] MEDS ORDERED: XOPENEX/ATROVENT 1.25mg/0.5MG NEB COMBO NEB SCH (01:16)
[2019-10-02] MEDS ORDERED: XOPENEX/ATROVENT 1.25mg/0.5MG NEB COMBO NEB STA (01:16)
[2019-10-02] MEDS: MAGNESIUM SULFATE / D5W 1 GM/100 ML BAG IV SCH ×2 (01:20→02:27)
[2019-10-02] MEDS: LEVALBUTEROL 1.25MG/0.5ML NEB INH SCH ×4 (01:24→19:21)
[2019-10-02] MEDS ORDERED: ALBUMIN 25% 50 ML with FUROSEMIDE 40 MG IV ONE (01:30)
--- NOTE | 2019-10-02 01:33 | Critical Care Progress Note ---
Date of Service October 02, 2019 Assessment & Plan (1) Admitted to intensive care unit: Reason Critically Ill: 58-year-old male with complicated hospital course including pericardial effusion status post pericardial window, new diagnosis of lung mass, recurrent pulmonary edema, and pneumothorax requiring decompression. Patient with acute hypoxic respiratory distress with concerns for volume overload. NEURO - * CAM ICU: NEGATIVE * Pain: Morphine as needed * Waxing/waning agitation: * Present since postoperative state. * No focal neurological deficits. Patient awake, alert, and oriented. * Morphine for pain and air hunger. * Precedex if needed. CARDIAC/VASCULAR - * Pericardial effusion: * Status post pericardial window. * EKG demonstrates no acute findings. * Monitor on telemetry. RESPIRATORY - * Acute respiratory distress with hypoxia: * Chest x-ray concerning for pulmonary edema. * LEFT-sided chest tube in place without significant persisting pneumothorax. * Administer Lasix and plan positive pressure ventilatory techniques. * Patient showed great improvement with BiPAP at settings of 8/4 and 50%. * Trend ABGs. * Monitor urine output and serial chest x-rays. * Low threshold for intubation. * Imaging patterns consistent with patient's prior presentation of pulmonary edema. GI/NUTRITION - * N.p.o. currently. RENAL/LYTES - * Hyponatremia: * Appreciate nephrology recommendations. - * Wu in place - Strict I&Os. ENDO - * No history of diabetes or thyroid disease. * BSGs per unit protocol. ISS --> gtt per unit policy. HEME - * Stable H&H. ID - * Chest x-ray appears more consistent with pulmonary edema. Without sequela of infection at this time. Would hold antibiotics for now. * Chronic HIV infection: * Continue home medications. LINES/IV ACCESS - * PIVs x2 * Wu catheter * LEFT-sided chest tube. DVT PROPHYLAXIS - * Lovenox * SCDs I have personally spent 60 minutes of critical care time in the direct management of this patient. This is a life/limb threatening event. This includes time spent evaluating patient, direct bedside care, chart review, placing orders, interpretation of diagnostic studies, discussion with consultants, patient, and family members, as well as other required patient management activities. This time is exclusive of all separately billable procedures, and teaching time and separate from and in addition to any other critical care service time. Thank you for allowing us to participate in the care of this patient. Please refer to my attending physician's documentation for any further recommendations. (2) Respiratory distress: (3) Pneumothorax: (4) Hyponatremia: (5) Pericardial effusion: (6) Carcinoma, lung: (7) Lung mass: (8) COPD exacerbation: (9) Lung cancer: (10) Hypoxia: (11) HIV disease: Supervising Physician Co-Signing Physician Notes I have personally evaluated and examined this patient. I agree with assessment and plan of Mack Rey PA-C. Patient is hemodynamically stable, chest tube will be managed by CT surgery. Patient has all indicators of significant metastatic disease. Likely to benefit from oncology/palliative care determination of goals of care. Stable for downgrade out of ICU. Subjective Patient is a 58-year-old male who initially presented to this facility with shortness of breath and concerns for lung mass who underwent pericardial window procedure in the setting of concern for cardiac tamponade. He had an abbreviated stay in the ICU and was subsequently transferred to the medical surgical floor for continued management. Chest tubes had been removed previously. Yesterday, the patient did develop an LEFT-sided pneumothorax requiring pigtail catheter placement for decompression. He was noted to be hypoxic during this time. He had been doing well throughout the evening, but developed worsening hypoxia, pain, and tachypnea. Code purple was called and the patient subsequently underwent chest x-ray which demonstrated persistent yet worsening pulmonary edema to the RIGHT sided lung field. LEFT-sided pigtail catheter in place with reexpansion of the lung noted. Patient was subsequently transferred to the ICU for continued care. On evaluation, the patient is awake, alert, and oriented. He is occasionally agitated and confused. He complains of pain to the LEFT-sided chest and LEFT shoulder. He states that the LEFT shoulder pain is chronic, but the chest pain has worsened. BiPAP was placed and the patient did show improvement with his tachypnea and tidal volumes. He reports feeling better with BiPAP in place. Review of Systems Review of Systems: A complete 10 point review of systems was reviewed with the patient with pertinent positives and negatives as per history of present illness. All else were negative. Physical Exam Physical Exam: VITAL SIGNS - Vital signs and nursing notes were reviewed. GENERAL - 58-year-old male appearing his stated age who is in moderate respiratory distress. Communicates well with provider and answers questions appropriately. HEAD - NC/AT. EYES - PERRL with EOMI bilaterally. Sclera anicteric. EARS - No deformities of external structures noted on gross examination bilaterally. NOSE - Midline and without cyanosis. MOUTH/OROPHARYNX - Without perioral cyanosis. Buccal mucosa pink and moist and without leukoplakia. NECK - Neck with FROM. Supple to palpation. LUNGS - Tachypnea.coarse breath sounds noted to the LEFT-sided lung field. Diminished breath sounds with rales noted to the RIGHT. LEFT sided chest tube in place. CARDIAC - RRR with S1/S2. No murmur, rubs, or gallops appreciated. No reprod ucible tenderness to palpation appreciated over the anterior chest wall. ABDOMEN - Abdominal contour flat without pulsations or visible masses. BS normoactive all four quadrants. No tenderness, palpable masses, hepatosplenomegaly, or ascites noted. EXTREMITIES - No clubbing or peripheral cyanosis. No pretibial edema present. +3/5 radial and dorsalis pedis pulses palpated throughout. +5/5 strength noted in UE/LE bilaterally. NEUROLOGIC - Cranial nerves II through XII grossly intact. Sensory intact to light touch throughout. PSYCH - A&Ox3 and cooperates fully with examiner. Pt is very pleasant and interacts well with examiner. Results & Data ([facility]) Vital Signs (Past 12 Hours) Vital Signs Temp Pulse Pulse Pulse Resp BP BP 10/02/19 01:29 121 H 22 10/02/19 01:26 121 H 22 10/01/19 23:08 36.4 C L 115 H 16 111/71 10/01/19 20:59 37.1 C 108 H 17 113/82 10/01/19 20:11 103 H 20 10/01/19 17:11 36.3 C L 101 H 20 126/87 10/01/19 15:13 36.4 C L 104 H 26 H 126/79 Pulse Ox 10/02/19 01:29 95 10/02/19 01:26 95 10/01/19 23:08 98 10/01/19 20:59 90 10/01/19 20:11 92 10/01/19 17:11 91 10/01/19 15:13 86 L Coding Level of Care Code Critical Care 1st 30-74 mins Diagnoses Admitted to intensive care unit Z78.9 Respiratory distress R06.03 Pneumothorax J93.9 Hyponatremia E87.1 Pericardial effusion I31.3 Carcinoma, lung C34.90 Laterality: unspecified laterality Lung mass R91.8 COPD exacerbation J44.1 Lung cancer C34.90 Laterality: unspecified laterality Lung location: unspecified part of lung Hypoxia R09.02 HIV disease B20 Time Spent (min) 60 (1) Lung cancer Laterality: unspecified laterality Lung location: unspecified part of lung Qualified Code(s): C34.90 - Malignant neoplasm of unspecified part of unspecified bronchus or lung (2) Carcinoma, lung Laterality: unspecified laterality Qualified Code(s): C34.90 - Malignant neoplasm of unspecified part of unspecified bronchus or lung
[2019-10-02] MEDS ORDERED: LEVALBUTEROL 1.25MG/0.5ML NEB INH STA (01:34)
[2019-10-02] MEDS ORDERED: IPRATROPIUM BROMIDE NEB SOLN 0.02% 2.5 ML VIAL INH STA (01:34)
[2019-10-02] MEDS: MoRPHine SULFATE 2 MG/ML CARP IV PRN ×2 (01:37→23:17)
[2019-10-02 01:45] LABS: Basophils # (auto) 0.01 K/uL (0-0.2); Basophils % (auto) 0.1 %; Eosinophils # (auto) 0.23 K/uL (0-0.5); Eosinophils % (auto) 1.5 %; Hematocrit (blood only) 42.9 % (42-52); Hemoglobin 15.3 g/dL (14.0-18.0); Immature Granulocytes # (auto) 0.03 K/uL (0.00-0.02); Immature Granulocytes % (auto) 0.2 %; Lymphocytes # (auto) 1.22 K/uL (1.2-3.4); Lymphocytes % (auto) 8.2 %; Mean Corpuscular Hemoglobin 30.8 pg (25-34); Mean Corpuscular Hgb Conc 35.7 g/dL (32-36); Mean Corpuscular Volume 86.3 fL (80-100); Monocytes # (auto) 0.83 K/uL (0.11-0.59); Monocytes % (auto) 5.6 %; Neutrophils # (auto) 12.61 K/uL (1.4-6.5); Neutrophils % (auto) 84.4 %; Platelet Count 282 K/uL (130-400); RBC Morphology Unremarkable; Red Blood Count 4.97 M/uL (4.7-6.1); White Blood Count 14.93 K/uL (4.8-10.8)
[2019-10-02] MEDS: IPRATROPIUM BROMIDE NEB SOLN 0.02% 2.5 ML VIAL INH SCH ×4 (02:04→19:21)
[2019-10-02] MEDS: DEXMEDETOMIDINE HCL 200 MCG in SODIUM CHLORIDE 0.9% 48 ML IV SCH ×3 (02:16→13:56)
[2019-10-02] MEDS: guaiFENesin 200 MG TAB PO SCH ×3 (02:28→17:53)
[2019-10-02 04:55] LABS: Basophils # (auto) 0.02 K/uL (0-0.2); Basophils % (auto) 0.2 %; Eosinophils # (auto) 0.21 K/uL (0-0.5); Eosinophils % (auto) 1.8 %; Hematocrit (blood only) 38.4 % (42-52); Hemoglobin 13.9 g/dL (14.0-18.0); Immature Granulocytes # (auto) 0.04 K/uL (0.00-0.02); Immature Granulocytes % (auto) 0.3 %; Lymphocytes % (auto) 8.5 %; Mean Corpuscular Hemoglobin 31.3 pg (25-34); Mean Corpuscular Hgb Conc 36.2 g/dL (32-36); Mean Corpuscular Volume 86.5 fL (80-100); Mean Platelet Volume 10.2 fL (7.4-10.4); Monocytes # (auto) 0.86 K/uL (0.11-0.59); Monocytes % (auto) 7.3 %; Neutrophils # (auto) 9.66 K/uL (1.4-6.5); Neutrophils % (auto) 81.9 %; Platelet Count 252 K/uL (130-400); RDW Coefficient of Variation 13.3 % (11.5-14.5); RDW Standard Deviation 42.2 fL (36.4-46.3); Red Blood Count 4.44 M/uL (4.7-6.1); White Blood Count 11.79 K/uL (4.8-10.8)
[2019-10-02 05:12] LABS: BUN Creatinine Ratio 24.9 (10-20); Blood Urea Nitrogen 18 mg/dl (7-18); Carbon Dioxide 24 mmol/L (21-32); Chloride 91 mmol/L (98-107); Creatinine Clr Calc Pharmacy 97.1 ml/min; Est GFR (African American) 117.7; Est GFR (Non-African American) 101.5; Glucose 129 mg/dl (70-99); Magnesium 2.5 mg/dl (1.8-2.4); Potassium 4.2 mmol/L (3.5-5.1); Sodium 124 mmol/L (136-145)
[2019-10-02 05:17] LABS: Phosphorus 3.7 mg/dl (2.5-4.9); Troponin I < 0.015 ng/ml (0-0.045)
[2019-10-02 05:18] LABS: Allen Test Pos (Pos); Base Excess ABG 2.9 mEq/L (-9-1.8); HCO3 ABG 26 mmol/L (19-24); PCO2 ABG 37 mmHg (35-46); PO2 ABG 69 mmHg (80-95); pH ABG 7.47 (7.35-7.45)
--- NOTE | 2019-10-02 06:28 | XRay Report ---
XR chest 1V portable HISTORY: 58 years-old Male sob acute shortness of breath COMPARISON: Chest radiograph 10/01/2019, CT of the chest 10/02/2019 TECHNIQUE: Portable AP view of the chest FINDINGS: Left-sided pigtail catheter projects of the left lung base, slightly inferior from comparison. Left-s ided pneumothorax persists, pleural separation of 7 mm, unchanged. Cardiomediastinal and hilar silhou ettes are unchanged. Slightly progressed interstitial opacities of the right lung base. Severe emphys baron with chronic fibrotic changes. Persistent left basilar atelectasis. No overt pulmonary edema. Deg enerative changes of the shoulders and spine. IMPRESSION: 1. Left-sided pigtail drainage catheter terminates at the level of the left lung base, slightly infer ior from comparison radiograph. Unchanged small left pneumothorax. 2. Severe emphysema with chronic fibrotic changes. 3. Mildly progressed interstitial opacities of the right lung base ACT 112: Negative or not required by law. The above report was generated using voice recognition software. It may contain grammatical, syntax o r spelling errors. Electronically signed by: Edwin Cristobal M.D. 10/02/2019 6:27 AM
--- NOTE | 2019-10-02 08:16 | CT Scan Report ---
CT SCAN OF THE CHEST WITHOUT IV CONTRAST CLINICAL HISTORY: Dyspnea. COMPARISON STUDY: Chest CT scans dated 09/29/2019 and 08/07/2019. Chest x-ray dated 10/02/2019. TECHNIQUE: CT scan of the thorax was performed from the thoracic inlet to the upper abdomen. Images are reviewed in the axial, sagittal, and coronal planes. IV contrast was not administered for this ex amination as per the referring clinician. A dose lowering technique was utilized adhering to the tiff watson of [place]. CT DOSE: 278.99 mGy.cm FINDINGS: Thyroid: Imaged portions of the thyroid gland are normal in size and attenuation. Thoracic aorta: There is mild atherosclerotic calcification of the thoracic aorta, which is normal in caliber and demonstrates standard 3-vessel arch anatomy. Heart: The heart is normal in size and without pericardial effusion. The coronary arteries are densel y calcified. Lungs and pleural spaces: Advanced emphysema is change is identified. There is postoperative change s een in the left upper lobe. Elevation of the left hemidiaphragm is unchanged. A chest tube has been p laced at the left lung base. This extends through the major fissure and is positioned within the ling ular parenchyma. There is trace left-sided pneumothorax. There is trace left pleural effusion. There are scattered calcified granulomas. Foci of scarring/atelectasis are present at the lung bases, left greater than right. The trachea and central airways are clear. A 6 cm focus of nodular pleural thicke radha in the lingula along the major fissure on image #162 is unchanged. No lobar consolidation is asaf ntified. Intralobular septal thickening and groundglass changes seen throughout the right lower lung. This has increased from previous. Mediastinum: Mediastinal lymphadenopathy is similar to previous. A subcarinal node measures 2.3 cm in short axis. A prevascular magdalene aggregate measures up to 3.5 cm. Dee: Hilar adenopathy is likely unchanged. This is not well-visualized without IV contrast. Axillae: There is no axillary lymphadenopathy. Upper abdomen: A 3.8 cm right adrenal mass is unchanged. A 1.4 cm nodule is noted in the left adrenal gland. Skeletal structures: The skeletal structures are osteopenic. No lytic or blastic bony lesions are see n. Soft tissues: Subcutaneous emphysema is noted along the left chest wall. IMPRESSION: 1. Advanced emphysema with postoperative change from left upper lobe resection. 2. A chest tube has been placed at the left lung base. This traverses the major fissure and terminate s in the lingular parenchyma. This may be malpositioned and clinical correlation will be required. 3. Trace left hydropneumothorax. 4. Intralobular septal thickening and groundglass change throughout the right lower lung has increase d from 09/29/2019. This could be on an infectious/inflammatory basis or could represent edema. Clinica l correlation will be essential. 5. Mediastinal and hilar adenopathy are likely unchanged. 6. Bilateral adrenal lesions are likely unchanged. 7. Nodular pleural thickening along the left major fissure is unchanged. ACT 112: Negative or not required by law. Electronically signed by: Pj Marx M.D. 10/02/2019 8:14 AM
--- NOTE | 2019-10-02 08:18 | XRay Report ---
SINGLE VIEW CHEST CLINICAL HISTORY: Dyspnea. FINDINGS: An AP, portable, upright chest radiograph is compared to chest x-ray and chest CT performed earlier the same day 10/02/2019. The examination is degraded by portable technique and patient rotati on. The cardiomediastinal silhouette is unremarkable noting atherosclerotic calcification of the thor acic aorta. A catheter at the left lung base is unchanged. Advanced emphysema and postoperative mcmahan e from left upper lobe lung resection are similar to previous. There is elevation of left hemidiaphra gm. Trace left hydropneumothorax persists. Airspace opacities are again seen at the right lung base. The skeletal structures are osteopenic. The bony thorax is grossly intact. IMPRESSION: 1. Advanced emphysema and postoperative change in the left lung are similar to previous. 2. A catheter at the left lung base is unchanged in position. Trace left hydropneumothorax persists. 3. Airspace opacities are again seen at the right lung base. ACT 112: Negative or not required by law. Electronically signed by: Pj Marx M.D. 10/02/2019 8:16 AM
[2019-10-02] MEDS: DOXYCYCLINE HYCLATE 100 MG CAP PO SCH ×2 (08:38→21:44)
[2019-10-02] MEDS: PANTOprazole 40 MG TAB PO SCH (08:38)
[2019-10-02] MEDS: clonazePAM 1 MG TAB PO SCH ×2 (08:38→21:45)
[2019-10-02] MEDS: FLUOXETINE HCL 20 MG CAP PO SCH (08:38)
[2019-10-02] MEDS: NICOTINE 21 MG/24 HR TDSY TD SCH (08:38)
[2019-10-02] MEDS: FLUTICASONE FUROATE 200MCG 14 PUFFS/INHALER INH SCH (08:38)
[2019-10-02] MEDS: BusPIRone 15 MG TAB PO SCH ×2 (08:38→21:44)
[2019-10-02] MEDS: ASPIRIN 81 MG ECTAB PO SCH (08:38)
[2019-10-02] MEDS: predniSONE 20 MG TAB PO SCH (08:39)
[2019-10-02] MEDS: AMITRIPTYLINE HCL 50 MG TAB PO SCH (08:39)
[2019-10-02] MEDS: SODIUM CHLORIDE 1 GM TABLET PO SCH (08:39)
[2019-10-02] MEDS: ENOXAPARIN INJ 40 MG/0.4 ML SYR SQ SCH (08:39)
--- NOTE | 2019-10-02 09:42 | Progress Note ---
DATE: 10/02/2019 Mr. Pulido was seen last night, on supplemental oxygen resting, he was hypoxic with a saturation of about 85%. He was transferred down to the unit. He is on BiPAP with 96% saturations on an FIO2 of 50%. He developed a pneumothorax yesterday while I was in the OR. Dr. Alba expertly inserted a chest tube, which has worked very well. A CT scan was obtained which shows no evidence of a significant pneumothorax. The bottom line is that this patient has widely metastatic lung cancer. He has stage 4 with a malignant pericardial effusion. 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 The fact that the patient never had an air leak and has marked bulla make me wonder if we are dealing with a staple line leak or a ruptured bleb. At any rate, his lung is fully expanded, and I see no evidence of an air leak. We will continue to follow along. MARIO
[2019-10-02] MEDS ORDERED: ONDANSETRON 8MG OD TAB PO PRN (10:22)
--- NOTE | 2019-10-02 10:27 | Cardiology Progress Note ---
Date of Service October 02, 2019 Assessment & Plan (1) Pericardial effusion: (2) Carcinoma, lung: (3) Pneumothorax: s/p thorascopic pericardial window using 300 mL of malignant pericardial effusion 09/26/2019. Status post emergent chest tube placement 10/01/19 for pneumothorax. Continue metoprolol with holds to minimize risk of developing atrial fibrillation. Lovenox for DVT prophylaxis. Thoracic surgery and pulmonary input noted and appreciated. Subjective Patient nauseous my assessment in ICU room 103. Mildly tachycardic at 102 bpm, systolic blood pressure in the 80s. Left-sided chest tube in place having been found to have hypoxia and a left-sided pneumothorax yesterday prompting placement of chest tube emergently. Physical Exam Physical Exam: Temp Pulse Resp BP Pulse Ox 36.5 C 98 H 18 89/64 L 96 10/02/19 04:09 10/02/19 07:37 10/02/19 07:37 10/02/19 06:46 10/02/19 07:37 Constitutional: + ill appearing and + cachectic Respiratory: normal respiratory effort, lungs clear to auscultation Cardiovascular: Rate/Rhythm: + tachycardic Heart Sounds: normal S1 and normal S2; no murmur Vessels: no JVD Neurologic: PERRL, EOMI, accommodation nl, no face palsy, no dysarthria Results & Data Vital Signs (Past 12 Hours) Vital Signs Temp Pulse Pulse Pulse Resp BP BP 10/02/19 07:37 98 H 98 H 18 10/02/19 06:46 99 H 17 89/64 L 10/02/19 06:08 92 H 16 96/64 L 10/02/19 05:05 96 H 15 113/82 10/02/19 04:09 36.5 C 102 H 20 87/62 L 10/02/19 03:44 103 H 23 100/62 10/02/19 03:08 102 H 21 100/74 10/02/19 02:38 103 H 22 93/64 L 10/02/19 01:35 120 H 10/02/19 01:34 120 H 20 113/78 10/02/19 01:29 121 H 22 10/02/19 01:26 121 H 22 10/01/19 23:08 36.4 C L 115 H 16 111/71 Pulse Ox 10/02/19 07:37 96 10/02/19 06:46 98 10/02/19 06:08 92 10/02/19 05:05 92 10/02/19 04:09 96 10/02/19 03:44 95 10/02/19 03:08 96 10/02/19 02:38 94 10/02/19 01:35 10/02/19 01:34 88 L 10/02/19 01:29 95 10/02/19 01:26 95 10/01/19 23:08 98 Laboratory Results Cardiac Enzymes 10/02/19 Range/Units 04:42 Troponin I < 0.015 (0-0.045) ng/ml Coagulation 10/02/19 Range/Units 00:29 APTT 29.6 (21.0-31.0) Seconds CBC 10/02/19 10/02/19 Range/Units 00:29 04:42 WBC 14.93 H 11.79 H (4.8-10.8) K/uL RBC 4.97 4.44 L (4.7-6.1) M/uL Hgb 15.3 13.9 L (14.0-18.0) g/dL Hct 42.9 38.4 L (42-52) % Plt Count 282 252 (130-400) K/uL Neut # (Auto) 12.61 H 9.66 H (1.4-6.5) K/uL Lymph # (Auto) 1.22 1.00 L (1.2-3.4) K/uL [place]on # (Auto) 0.83 H 0.86 H (0.11-0.59) K/uL Eos # (Auto) 0.23 0.21 (0-0.5) K/uL Baso # (Auto) 0.01 0.02 (0-0.2) K/uL Comprehensive Metabolic Panel 10/02/19 10/02/19 Range/Units 00:29 04:42 Sodium 124 L 124 L (136-145) mmol/L Potassium 4.7 4.2 (3.5-5.1) mmol/L Chloride 91 L 91 L (98-107) mmol/L Carbon Dioxide 22 24 (21-32) mmol/L BUN 17 18 (7-18) mg/dl Creatinine 0.71 0.73 (0.6-1.4) mg/dl Glucose 129 H 129 H (70-99) mg/dl Calcium 9.5 9.0 (8.5-10.1) mg/dl Intake and Output 10/01/19 10/02/19 10/02/19 22:59 06:59 14:59 Intake Total 222 / 1199.855 256.188 / 1199.855 36.435 / 36.435 Output Total 432 / 1854 920 / 1854 Balance -210 / -654.145 -663.812 / -654.145 36.435 / 36.435 Intake: IV 256.188 / 857.855 36.435 / 36.435 Precedex 200 Mcg In Nss 48 ml @ 2.188 / 2.188 36.435 / 36.435 0.4 MCG/KG/HR 6.3 mls/hr IV . [id number] [facility] Rx#:[id number] Albumin 25% 50 ml @ 54 mls/hr 54 / 54 IV ONE ONE with Lasix 40 mg Rx# :[id number] MAGNESIUM SULFATE / D5W 1 gm In 200 / 200 100 ml @ 100 mls/hr IV Q1H [facility] Rx#:[id number] Oral 222 / 342 Output: Urine 400 / 900 Pleural Fluid 32 / 32 Urine Amount (Catheter) 850 / 850 Wu/Indwelling 850 / 850 Chest Tube Drainage 70 / 70 Left Lateral Chest Pleur-Evac 70 / 70 Xi Other: Weight 61.1 kg (1) Carcinoma, lung Laterality: unspecified laterality Qualified Code(s): C34.90 - Malignant neoplasm of unspecified part of unspecified bronchus or lung
[2019-10-02] MEDS: OXYCODONE/ACETAMINOPHEN 5mg/325mg TAB PO PRN ×3 (11:24→23:24)
--- NOTE | 2019-10-02 11:26 | Hospitalist Progress Note ---
Date of Service October 02, 2019 Assessment & Plan (1) Pericardial effusion: Present on admission with worsening chest pain when lying associated with SOB CTA chest on admission showed moderate pericardial effusion, simple appearing though increased from prior. Echo showed moderate sized circumferential pericardial effusion From lung mass, s/p pericardial window, mediastinal and lung biopsy 09/[address] Forrester Repeat ECHO on 09/30 showed no pericardial effusion Pathology report showed METASTATIC ADENOCARCINOMA CONSISTENT WITH LUNG PRIMARY. Thoracic surgery on board CTA neg for PE Pneumothorax Hypoxia CXR on 10/01 showed moderate left-sided pneumothorax with pleural separation of [address] Forrester was notified. Since Dr. Forrester was in the OR, Iphone Developer Dr. Renee placed the chest tube on 10/01/19 CT chest repeat this morning showed trace left hydropneumothorax. intralobular septal thickening and groundglass change throughout the right lower lung has increased from 09/29/2019. Continue oxygen supplement Pneumonia CXR showed Interval development of diffuse right lung airspace opacities, asymmetric edema versus pneumonia. Continue doxycycline Lung CA Pathology showed METASTATIC ADENOCARCINOMA CONSISTENT WITH LUNG PRIMARY. Stage 4 with a malignant pericardial effusion. 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 IVF discontinued Na dropped to 124 today Fluid restriction at 1200ml Monitor BMP COPD Hx of tobacco abuse nebs and inhalers, Prednisone 40mg daily Continue oxygen supplement Counseling on tobacco abuse HIV continue anti viral med HTN BP stable Continue Metoprolol Depression Anxiety on Klonopin, fluoxetine and BuSpar Stable DVT px Will start on heparin drip if no upcoming surgical procedure by thoracic surgeon for the pneumothorax CODE Status Full code Disposition Will transfer to Med/surg Admission and Anticipated Discharge Date Admission Date: September 25, 2019 Subjective Pt was seen and examined Sitting in bed with no distress He was sent to the ICU for close monitor due to hypoxia/SOB He said that his breathing a little bit better He said that he feels like his suffocated with the ventimask He said that he feels much comfortable with the NC Denies any chest pain, palpitation and dizziness Physical Exam Physical Exam: General- No acute distress Head- atraumatic Eyes- PERRL, EOMI, ENT- oropharynx clear Neck- supple, no JVD Lungs- decreased BS in the Lside, +chest tube in left lung Heart- +tachycardia, no murmur Abdomen- normal bowel sounds, soft, nontender Extremities- no calf tenderness Neuro- alert, oriented x 3; PERRL, EOMI; no facial palsy; no dysarthria Skin- warm & dry Results & Data ([facility]) Vital Signs (Past 12 Hours) Vital Signs Temp Pulse Pulse Resp BP Pulse Ox 10/02/19 07:37 98 H 98 H 18 96 10/02/19 06:46 99 H 17 89/64 L 98 10/02/19 06:08 92 H 16 96/64 L 92 10/02/19 05:05 96 H 15 113/82 92 10/02/19 04:09 36.5 C 102 H 20 87/62 L 96 10/02/19 03:44 103 H 23 100/62 95 10/02/19 03:08 102 H 21 100/74 96 10/02/19 02:38 103 H 22 93/64 L 94 10/02/19 01:35 120 H 10/02/19 01:34 120 H 20 113/78 88 L 10/02/19 01:29 121 H 22 95 10/02/19 01:26 121 H 22 95
[2019-10-02] MEDS: METOPROLOL TARTRATE 25 MG TAB PO SCH ×2 (11:47→21:45)
[2019-10-02] MEDS: FUROSEMIDE 20 MG TAB PO SCH (11:47)
[2019-10-02] MEDS: UREA (URE-NA) 15 GM PACK PO SCH ×2 (11:47→21:45)
[2019-10-02] MEDS: DOCUSATE SODIUM 100 MG CAP PO SCH ×2 (11:48→21:59)
--- NOTE | 2019-10-02 13:49 | Nephrology Progress Note ---
Date of Service October 02, 2019 Assessment & Plan (1) Hyponatremia: acute on chronic hyponatremia w/ baseline sNa about 130 including on 09/26 presentation; dropped to 118 on 09/29 at 0730 after sNa on 09/27 was 128 (so acute change). sNa has climbed gradually since to 127 as of this am, urine osmolality of 635 and a urine sodium of 66. Etiology of hyponatremia likely SIADH. -start park 15 g twice daily -fluid restriction of 1200 mL daily. -continue PO Lasix 20 mg daily -discontinue salt tablets 1 g three times daily -agree w/ holding lisinopril for now -daily bmp >> some risk w/ hypotension, IV contrast for KRISTINE Admission and Anticipated Discharge Date Admission Date: September 25, 2019 Subjective Patient complains of shortness of breath. He was transferred to ICU yesterday for left-sided pneumothorax. He is status post chest tube. Sodium dropped to 124. Review of Systems Review of Systems: All systems reviewed & are unremarkable except as noted in HPI & below Physical Exam Physical Exam: General exam: Appears comfortable, no acute distress HEENT: Pupils are equal and reactive to light Neck: No JVD, neck is supple trachea is midline Respiratory system: Clear breath sounds bilaterally. Chest tube on the Left side Gastrointestinal: Abdomen is soft, non distended, non tender, bowel sounds are present CVS: Regular rate and rhythm. No murmurs, rubs or gallops Musculoskeletal: No joint or muscle tenderness Extremities: Non tender, no edema, peripheral pulses are present Neuro: Oriented, no tremors, no focal neurological deficits Skin: No rashes Results & Data ([facility]) Vital Signs (Past 12 Hours) Vital Signs Temp Pulse Pulse Resp BP Pulse Ox 10/02/19 13:31 102 H 28 H 94 10/02/19 12:14 102 H 33 H 101/87 88 L 10/02/19 10:35 104 H 24 83/65 L 90 10/02/19 10:28 104 H 18 82/57 L 89 L 10/02/19 09:35 102 H 27 H 92/68 L 92 10/02/19 09:06 103 H 20 86/60 L 91 10/02/19 08:36 103 H 24 85/57 L 92 10/02/19 08:35 102 H 24 88/54 L 93 10/02/19 08:20 36.9 C 99 H 17 73/57 L 95 10/02/19 08:03 98 H 16 81/60 L 93 10/02/19 07:37 98 H 98 H 18 96 10/02/19 07:35 99 H 16 81/60 L 94 10/02/19 07:05 97 H 18 82/64 L 97 10/02/19 06:46 99 H 17 89/64 L 98 10/02/19 06:08 92 H 16 96/64 L 92 10/02/19 05:05 96 H 15 113/82 92 10/02/19 04:09 36.5 C 102 H 20 87/62 L 96 10/02/19 03:44 103 H 23 100/62 95 10/02/19 03:08 102 H 21 100/74 96 10/02/19 02:38 103 H 22 93/64 L 94 Laboratory Results 10/02/19 04:42 10/02/19 10/02/19 10/02/19 00:29 04:42 04:42 WBC 14.93 H 11.79 H RBC 4.97 4.44 L MCV 86.3 86.5 MCH 30.8 31.3 MCHC 35.7 36.2 H RDW Std Deviation 42.2 RDW Coeff of Greg 13.3 Plt Count 282 252 MPV 10.2 Phosphorus 3.7
--- NOTE | 2019-10-02 14:19 | Electrocardiogram Report ---
Test Reason : Blood Pressure : / mmHG Vent. Rate : 112 BPM Atrial Rate : 112 BPM P-R Int : 162 ms QRS Dur : 090 ms QT Int : 314 ms P-R-T Axes : 076 091 074 degrees QTc Int : 428 ms Sinus tachycardia Possible Left atrial enlargement Rightward axis Borderline ECG When compared with ECG of 27-SEP-2019 07:04, No significant change Confirmed by Rolo Flowers ([id number]) on 10/02/2019 2:18:56 PM Referred By: REFERRED SELF Confirmed By:Rolo Flowers
--- NOTE | 2019-10-02 15:28 | Pulmonology Progress Note ---
Date of Service October 02, 2019 Assessment & Plan (1) Pneumothorax: -- Tension pneumothorax Status post pigtail catheter insertion 10/01/2019 Patient has multiple reasons for his pneumothorax he has metastatic adenocarcinoma with mets at the periphery of the lung which are very likely to cause pneumothorax, on top of that patient has severe emphysema and bullous disease bilaterally especially of the apices and lastly patient recently had surgery with pericardial window. There is no air leak appreciated on the chest tube. He still has small left- sided pneumothorax. Patient is very high risk for future pneumothoraces. -- Severe COPD/emphysema Would continue with inhaled bronchodilators Patient needs to be on LABA/lama (Anoro/Bevespi/Stiolto) inhaler on discharge. Recommend not continuing fluticasone inhaler on discharge. Pulmonary will sign off. Chest tube management as per Dr. Forrester. Recall if needed. Please note the above document was generated using voice recognition software. It may contain grammatical, syntax or spelling errors. Subjective Patient seen and examined at bedside. No acute distress. Patient was upgraded to the ICU overnight as he was desaturating and complaining of shortness of breath. Patient was put on BiPAP after which she felt better. Today the time of examination patient states he has no chest pain, shortness of breath is improved. No headache, no nausea, no vomiting. Denies any headache, no blurry vision. Review of Systems Review of Systems: All systems reviewed & are unremarkable except as noted in HPI & below Physical Exam Physical Exam: Constitutional: No acute distress HEENT: EOMI, PERRLA Respiratory system: Decreased air entry bilaterally, no wheeze, no rhonchi, minimal crackles bilateral lower lobes CVS: S1-S2 positive, no murmurs or gallops Abdomen: Soft, nontender, nondistended, positive bowel sounds x4 Extremities: +2 pulses bilaterally radialis/ dorsalis pedis, no cyanosis, no edema, no clubbing Neuro: Awake alert oriented x3 Psych: Normal mood and affect G/U: No Wu Left-sided chest tube in place. No air leak appreciated. On increasing the suction to -40 some bubbles were appreciated which resolved. But back to -20. Skin: no rashes, warm and dry Lymphatic: no cervical or axillary lymphadenopathy Results & Data ([facility]) Vital Signs (Past 12 Hours) Vital Signs Temp Pulse Pulse Pulse Resp BP BP 10/02/19 13:53 36.0 C L 77 20 81/58 L 10/02/19 13:31 102 H 28 H 10/02/19 12:14 102 H 33 H 101/87 10/02/19 10:35 104 H 24 83/65 L 10/02/19 10:28 104 H 18 82/57 L 10/02/19 09:35 102 H 27 H 92/68 L 10/02/19 09:06 103 H 20 86/60 L 10/02/19 08:36 103 H 24 85/57 L 10/02/19 08:35 102 H 24 88/54 L 10/02/19 08:20 36.9 C 99 H 17 73/57 L 10/02/19 08:03 98 H 16 81/60 L 10/02/19 07:37 98 H 98 H 18 10/02/19 07:35 99 H 16 81/60 L 10/02/19 07:05 97 H 18 82/64 L 10/02/19 06:46 99 H 17 89/64 L 10/02/19 06:08 92 H 16 96/64 L 10/02/19 05:05 96 H 15 113/82 10/02/19 04:09 36.5 C 102 H 20 87/62 L 10/02/19 03:44 103 H 23 100/62 BP Pulse Ox 10/02/19 13:53 88/54 L 94 10/02/19 13:31 94 10/02/19 12:14 88 L 10/02/19 10:35 90 10/02/19 10:28 89 L 10/02/19 09:35 92 10/02/19 09:06 91 10/02/19 08:36 92 10/02/19 08:35 93 10/02/19 08:20 95 10/02/19 08:03 93 10/02/19 07:37 96 10/02/19 07:35 94 10/02/19 07:05 97 10/02/19 06:46 98 10/02/19 06:08 92 10/02/19 05:05 92 10/02/19 04:09 96 10/02/19 03:44 95 10/02/19 04:42 10/02/19 04:42 PG Care Time/CCT Total # of Minutes Spent Total Time Spent with Patient: Total time spent is greater than 50% in coordination of care (as documented) at patient's floor/unit and/or counseling patient: Coding Level of Care Code 72117 Subseq Hosp Care Lvl 2 Diagnoses Pneumothorax J93.9
[2019-10-02] MEDS: LORazepam 0.25 MG/0.5 ML VIAL IV PRN (16:04)
[2019-10-02] MEDS: [UNRECOGNIZED DRUG - OTHER] PO SCH (21:43)
[2019-10-02] MEDS: PSYLLIUM 58.6% POWDER PACKET PO SCH (21:45)
[2019-10-03] MEDS: guaiFENesin 200 MG TAB PO SCH ×3 (01:09→18:48)
[2019-10-03] MEDS: MoRPHine SULFATE 2 MG/ML CARP IV PRN ×4 (01:10→23:31)
[2019-10-03] MEDS: LEVALBUTEROL 1.25MG/0.5ML NEB INH SCH ×4 (01:17→19:13)
[2019-10-03] MEDS: IPRATROPIUM BROMIDE NEB SOLN 0.02% 2.5 ML VIAL INH SCH ×4 (01:17→19:14)
[2019-10-03] MEDS: LORazepam 0.25 MG/0.5 ML VIAL IV PRN (02:02)
--- NOTE | 2019-10-03 02:55 | Communication Note ---
Date of Service: October 03, 2019 Made aware of persistent tachycardia on the floor after ICU transfer out last night. Usual chest tube pain as per RN. No unusual shortness of breath. Patient currently sleeping as per RN. Medical telemetry transfer for closer monitoring. Will relay to AM provider.
[2019-10-03 04:28] LABS: Basophils # (auto) 0.02 K/uL (0-0.2); Basophils % (auto) 0.2 %; Eosinophils # (auto) 0.22 K/uL (0-0.5); Hematocrit (blood only) 36.7 % (42-52); Hemoglobin 13.6 g/dL (14.0-18.0); Immature Granulocytes # (auto) 0.08 K/uL (0.00-0.02); Immature Granulocytes % (auto) 0.7 %; Lymphocytes # (auto) 1.31 K/uL (1.2-3.4); Lymphocytes % (auto) 12.1 %; Mean Corpuscular Hemoglobin 31.6 pg (25-34); Mean Corpuscular Hgb Conc 37.1 g/dL (32-36); Mean Corpuscular Volume 85.2 fL (80-100); Mean Platelet Volume 9.5 fL (7.4-10.4); Monocytes # (auto) 0.89 K/uL (0.11-0.59); Monocytes % (auto) 8.2 %; Neutrophils # (auto) 8.35 K/uL (1.4-6.5); Neutrophils % (auto) 76.8 %; Platelet Count 292 K/uL (130-400); RDW Coefficient of Variation 13.4 % (11.5-14.5); RDW Standard Deviation 42.1 fL (36.4-46.3); Red Blood Count 4.31 M/uL (4.7-6.1); White Blood Count 10.87 K/uL (4.8-10.8)
[2019-10-03 04:30] LABS: Base Excess ABG 1.4 mEq/L (-9-1.8); HCO3 ABG 25 mmol/L (19-24); Oxygen Saturation ABG 87.2 % (90-95); PCO2 ABG 36 mmHg (35-46); PO2 ABG 55 mmHg (80-95); pH ABG 7.46 (7.35-7.45)
[2019-10-03 04:32] LABS: Allen Test Pos (Pos)
[2019-10-03 04:48] LABS: BUN Creatinine Ratio 52.3 (10-20); Calcium 8.8 mg/dl (8.5-10.1); Creatinine Clr Calc Pharmacy 66.7 ml/min; Est GFR (African American) 91.7; Est GFR (Non-African American) 79.1; Magnesium 2.4 mg/dl (1.8-2.4); Potassium 3.6 mmol/L (3.5-5.1)
[2019-10-03] MEDS ORDERED: POTASSIUM CHLORIDE 20 MEQ TABCR PO STA (07:26)
--- NOTE | 2019-10-03 08:32 | XRay Report ---
XR chest 1V portable CLINICAL HISTORY: 58 years-old Male presenting with pneumothorax. TECHNIQUE: Portable upright AP view of the chest was obtained. COMPARISON: 10/02/2019. FINDINGS: Left pleural pigtail catheter remains at the left lung base likely in the posterior costophrenic sulc us. Atherosclerosis of the aortic arch. Cardiac silhouette partially secured. Heterogeneity of lung p arenchyma. Diffuse interstitial prominence of the lungs, right greater than left. Slight interval dec reased size of the small basilar predominant left pneumothorax. Postsurgical changes of the periphery of the left lung suspected with peripheral opacity at the left upper lung again noted.. Bandlike opa cities at the left lung base similar to prior. No large effusion. Degenerative changes of the thoraci c spine. Upper abdomen normal. IMPRESSION: 1. Slight interval decrease of the small basilar predominant left pneumothorax with the left pleural drain in place. 2. Post surgical changes of the left upper lung with a peripheral infiltrate. This is unchanged. 3. Congestive changes in the lungs versus developing diffuse interstitial infiltrates superimposed o n emphysema. 4. Minimal left basilar atelectasis. ACT 112: Negative or not required by law. Electronically signed by: Robert Guzman M.D. 10/03/2019 8:31 AM
--- NOTE | 2019-10-03 09:03 | Progress Note ---
DATE: 10/03/2019 Mr. Pulido was seen today. On 2 liters, he is 96% saturations. He is moving air on the left side. I reviewed his x-ray and there is a very tiny pneumothorax, but I do not see an air leak. He has drained some fluid. I made sure that his chest tube is working. We may end up pulling out this pleural catheter tomorrow or the next day. I would keep it today. We did have a discussion about his cancer. He realizes he has metastatic lung cancer which is stage IV. We will check an x-ray tomorrow and make a determination about when to pull his chest tube.
[2019-10-03] MEDS: clonazePAM 1 MG TAB PO SCH ×2 (09:27→20:56)
[2019-10-03] MEDS: ASPIRIN 81 MG ECTAB PO SCH (09:31)
[2019-10-03] MEDS: PANTOprazole 40 MG TAB PO SCH (09:31)
[2019-10-03] MEDS: BusPIRone 15 MG TAB PO SCH ×2 (09:32→20:49)
[2019-10-03] MEDS: FLUTICASONE FUROATE 200MCG 14 PUFFS/INHALER INH SCH (09:34)
[2019-10-03] MEDS: AMITRIPTYLINE HCL 50 MG TAB PO SCH (09:34)
[2019-10-03] MEDS: ENOXAPARIN INJ 40 MG/0.4 ML SYR SQ SCH (09:36)
[2019-10-03] MEDS: NICOTINE 21 MG/24 HR TDSY TD SCH (09:36)
[2019-10-03] MEDS: predniSONE 20 MG TAB PO SCH (09:37)
[2019-10-03] MEDS: METOPROLOL TARTRATE 25 MG TAB PO SCH ×2 (09:38→20:52)
[2019-10-03] MEDS: FUROSEMIDE 20 MG TAB PO SCH (09:38)
[2019-10-03] MEDS: UREA (URE-NA) 15 GM PACK PO SCH ×2 (09:39→20:52)
--- NOTE | 2019-10-03 09:59 | Nephrology Progress Note ---
Date of Service October 03, 2019 Assessment & Plan (1) Hyponatremia: acute on chronic hyponatremia w/ baseline sNa about 130 including on 09/26 presentation; dropped to 118 on 09/29 at 0730 after sNa on 09/27 was 128 (so acute change). sNa has climbed gradually since to 127 as of this am, urine osmolality of 635 and a urine sodium of 66. Etiology of hyponatremia likely SIADH. -Continue Hernandez 15 g twice daily -fluid restriction of 1200 mL daily. -continue PO Lasix 20 mg daily -agree w/ holding lisinopril for now -daily bmp >> some risk w/ hypotension, IV contrast for KRISTINE Admission and Anticipated Discharge Date Admission Date: September 25, 2019 Subjective Patient complains of shortness of breath and left-sided chest pain at the site of the chest tube. Sodium is up trending to 127. Review of Systems Review of Systems: All systems reviewed & are unremarkable except as noted in HPI & below Physical Exam Physical Exam: General exam: Mild respiratory distress HEENT: Pupils are equal and reactive to light Neck: No JVD, neck is supple trachea is midline Respiratory system: Clear breath sounds bilaterally. Chest tube on the left side Gastrointestinal: Abdomen is soft, non distended, non tender, bowel sounds are present CVS: Regular rate and rhythm. No murmurs, rubs or gallops Musculoskeletal: No joint or muscle tenderness Extremities: Non tender, no edema, peripheral pulses are present Neuro: Oriented, no tremors, no focal neurological deficits Skin: No rashes Results & Data ([facility]) Vital Signs (Past 12 Hours) Vital Signs Temp Pulse Pulse Pulse Resp BP BP 10/03/19 09:52 68 101/68 10/03/19 07:16 36.6 C 69 20 112/75 10/03/19 06:58 107 H 18 10/03/19 04:15 99 H 10/03/19 03:55 36.7 C 104 H 26 H 89/49 L 10/03/19 01:35 10/03/19 01:17 106 H 24 10/03/19 01:16 10/02/19 23:16 36.5 C 108 H 18 106/73 Pulse Ox 10/03/19 09:52 10/03/19 07:16 96 10/03/19 06:58 73 L 10/03/19 04:15 10/03/19 03:55 92 10/03/19 01:35 94 10/03/19 01:17 84 L 10/03/19 01:16 81 L 10/02/19 23:16 92 Laboratory Results 10/03/19 04:11 10/03/19 04:11 WBC 10.87 H RBC 4.31 L MCV 85.2 MCH 31.6 MCHC 37.1 H RDW Std Deviation 42.1 RDW Coeff of Greg 13.4 Plt Count 292 MPV 9.5
[2019-10-03] MEDS: DOCUSATE SODIUM 100 MG CAP PO SCH ×2 (10:14→20:56)
[2019-10-03] MEDS: OXYCODONE/ACETAMINOPHEN 5mg/325mg TAB PO PRN ×2 (10:57→20:58)
--- NOTE | 2019-10-03 12:25 | Cardiology Progress Note ---
Date of Service October 03, 2019 Assessment & Plan (1) Pneumothorax: (2) Pericardial effusion: (3) Carcinoma, lung: s/p thorascopic pericardial window using 300 mL of malignant pericardial effusion 09/26/2019. Status post emergent chest tube placement 10/01/19 for pneumothorax. Continue metoprolol with holds to minimize risk of developing atrial fibrillation. Nephrology input noted and appreciated regarding hyponatremia, and furosemide dose. -Follow up echo post pericardial window revealed normal biventricular systolic function without residual effusion or pericardial thickening. Lovenox for DVT prophylaxis. Subjective Pt seen in room 287-2. He notes he is still SOB. Left sided chest tube is in place. Telemetry reveals sinus tachycardia at 110 bpm. Physical Exam Physical Exam: Temp Pulse Resp BP Pulse Ox 36.8 C 120 H 20 100/69 95 10/03/19 12:09 10/03/19 12:09 10/03/19 12:09 10/03/19 12:09 10/03/19 12:09 Constitutional: WD/WN, vitals as above Respiratory: Decreased breath sounds at the left apex Cardiovascular: Rate/Rhythm: + tachycardic Heart Sounds: no murmur and no cardiac rub Vessels: no JVD Extremities: no edema Gastrointestinal (Abdomen): normal bowel sounds, soft, nontender, no hepatosplenomegaly Neurologic: PERRL, EOMI, accommodation nl, no face palsy, no dysarthria Results & Data Vital Signs (Past 12 Hours) Vital Signs Temp Pulse Pulse Pulse Resp BP BP 10/03/19 12:09 36.8 C 120 H 20 100/69 10/03/19 10:56 99/69 L 10/03/19 09:52 68 101/68 10/03/19 08:20 106 H 10/03/19 07:16 36.6 C 69 20 112/75 10/03/19 06:58 107 H 18 10/03/19 04:15 99 H 10/03/19 03:55 36.7 C 104 H 26 H 89/49 L 10/03/19 01:35 10/03/19 01:17 106 H 24 10/03/19 01:16 Pulse Ox 10/03/19 12:09 95 10/03/19 10:56 90 10/03/19 09:52 10/03/19 08:20 10/03/19 07:16 96 10/03/19 06:58 73 L 10/03/19 04:15 10/03/19 03:55 92 10/03/19 01:35 94 10/03/19 01:17 84 L 10/03/19 01:16 81 L (1) Carcinoma, lung Laterality: unspecified laterality Qualified Code(s): C34.90 - Malignant neoplasm of unspecified part of unspecified bronchus or lung
--- NOTE | 2019-10-03 14:49 | Hospitalist Progress Note ---
Date of Service October 03, 2019 Assessment & Plan (1) Pericardial effusion: Present on admission with worsening chest pain when lying associated with SOB CTA chest on admission showed moderate pericardial effusion, simple appearing though increased from prior. Echo showed moderate sized circumferential pericardial effusion From lung mass, s/p pericardial window, mediastinal and lung biopsy 09/[address] Forrester Repeat ECHO on 09/30 showed no pericardial effusion Pathology report showed METASTATIC ADENOCARCINOMA CONSISTENT WITH LUNG PRIMARY. Thoracic surgery on board CTA neg for PE Pneumothorax Hypoxia CXR on 10/01 showed moderate left-sided pneumothorax with pleural separation of [address] Forrester was notified. Since Dr. Forrester was in the OR, Machine Rug Cleaner Dr. Renee placed the chest tube on 10/01/19 CT chest repeat this morning showed trace left hydropneumothorax. intralobular septal thickening and groundglass change throughout the right lower lung has increased from 09/29/2019. Continue oxygen supplement repeat CXR today showed slight interval decrease of the small basilar predominant left pneumothorax with the left pleural drain in place. Plan to remove chest tube tomorrow Consider to step on discharge if continue requiring oxygen Pneumonia CXR showed Interval development of diffuse right lung airspace opacities, asymmetric edema versus pneumonia. Continue doxycycline Lung CA Pathology showed METASTATIC ADENOCARCINOMA CONSISTENT WITH LUNG PRIMARY. Stage 4 with a malignant pericardial effusion. 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 IVF discontinued Na dropped to 127 today Fluid restriction at 1200ml Monitor BMP COPD Hx of tobacco abuse nebs and inhalers, Prednisone 40mg daily Continue oxygen supplement Counseling on tobacco abuse HIV continue anti viral med HTN BP stable Continue Metoprolol Depression Anxiety on Klonopin, fluoxetine and BuSpar Stable DVT px Will start on heparin drip if no upcoming surgical procedure by thoracic surgeon for the pneumothorax CODE Status Full code Disposition Continue monitor closely Admission and Anticipated Discharge Date Admission Date: September 25, 2019 Subjective Pt was seen and examined Sitting in bed with no distress Pt said that his breathing feels much today He said that he is having pain in his left side of his chest He continues to require oxygen supplement Denies any fever, chest pain and dizziness Physical Exam Physical Exam: General- No acute distress Head- atraumatic Eyes- PERRL, EOMI, ENT- oropharynx clear Neck- supple, no JVD Lungs- decreased BS in the Lside, +chest tube in left lung Heart- +tachycardia, no murmur Abdomen- normal bowel sounds, soft, nontender Extremities- no calf tenderness Neuro- alert, oriented x 3; PERRL, EOMI; no facial palsy; no dysarthria Skin- warm & dry Results & Data ([facility]) Vital Signs (Past 12 Hours) Vital Signs Temp Pulse Pulse Pulse Resp BP BP 10/03/19 13:09 87 22 10/03/19 12:09 36.8 C 120 H 20 100/69 10/03/19 10:56 99/69 L 10/03/19 09:52 68 101/68 10/03/19 08:20 106 H 10/03/19 07:16 36.6 C 69 20 112/75 10/03/19 06:58 107 H 18 10/03/19 04:15 99 H 10/03/19 03:55 36.7 C 104 H 26 H 89/49 L Pulse Ox 10/03/19 13:09 94 10/03/19 12:09 95 10/03/19 10:56 90 10/03/19 09:52 10/03/19 08:20 10/03/19 07:16 96 10/03/19 06:58 73 L 10/03/19 04:15 10/03/19 03:55 92
[2019-10-03] MEDS: PSYLLIUM 58.6% POWDER PACKET PO SCH (20:49)
[2019-10-03] MEDS: [UNRECOGNIZED DRUG - OTHER] PO SCH (20:53)
[2019-10-03] MEDS ORDERED: COUGH DROP (SUGAR FREE) LOZ 24 LOZ/1 BOX BUCCAL PRN (22:06)
[2019-10-04] MEDS: LEVALBUTEROL 1.25MG/0.5ML NEB INH SCH ×4 (01:07→19:42)
[2019-10-04] MEDS: IPRATROPIUM BROMIDE NEB SOLN 0.02% 2.5 ML VIAL INH SCH ×4 (01:07→19:42)
[2019-10-04] MEDS: guaiFENesin 200 MG TAB PO SCH ×3 (01:56→17:18)
[2019-10-04] MEDS ORDERED: ALBUT/IPRATROP 3MG/0.5MG NEB 3 ML VIAL NEB STA (04:48)
[2019-10-04] MEDS: MoRPHine SULFATE 2 MG/ML CARP IV PRN ×3 (05:12→15:51)
[2019-10-04] MEDS ORDERED: FUROSEMIDE 20 MG in SYRINGE 0 ML IV ONE (05:15)
--- NOTE | 2019-10-04 07:16 | XRay Report ---
XR chest 1V portable CLINICAL HISTORY: SOB COMPARISON STUDY: 10/04/2019 FINDINGS: The cardiac and mediastinal contours remain stable. There is interval decrease in the size of a left pneumothorax with a lateral pleural separation of 14 mm. There is a large bore pigtail cath eter within the left pleural space. There is elevation left hemidiaphragm and left basilar atelectati c change. There are trace pleural effusions. There is diffuse interstitial thickening.[ IMPRESSION: 1. Diffuse elevation of interstitium, consistent with congestive failure/fluid overload, or interstit ial inflammatory process 2. Interval decrease in the size of the left pneumothorax with a current pleural separation a 14 mm ACT 112: Negative or not required by law. Electronically signed by: Kiel Garcia M.D. 10/04/2019 7:15 AM
--- NOTE | 2019-10-04 07:24 | XRay Report ---
XR chest 1V portable CLINICAL HISTORY: Hypoxia COMPARISON STUDY: 10/03/2019 FINDINGS: There is an enlarging left-sided pneumothorax with a pleural separation of 5 cm laterally. There is a large bore left pleural pigtail catheter. The heart is normal in size. There is diffuse in terstitial thickening, consistent with pulmonary vascular congestion or underlying interstitial infla mmatory process.[ IMPRESSION: Interval increase in size of the left pneumothorax which currently has a pleural separati on of 5 cm. ACT 112: Negative or not required by law. Electronically signed by: Kiel Garcia M.D. 10/04/2019 7:22 AM
[2019-10-04 07:43] LABS: Basophils # (auto) 0.04 K/uL (0-0.2); Basophils % (auto) 0.3 %; Eosinophils % (auto) 2.5 %; Hematocrit (blood only) 43.2 % (42-52); Hemoglobin 15.2 g/dL (14.0-18.0); Immature Granulocytes # (auto) 0.11 K/uL (0.00-0.02); Immature Granulocytes % (auto) 0.9 %; Lymphocytes # (auto) 1.73 K/uL (1.2-3.4); Lymphocytes % (auto) 14.5 %; Mean Corpuscular Hemoglobin 31.3 pg (25-34); Mean Corpuscular Hgb Conc 35.2 g/dL (32-36); Mean Corpuscular Volume 89.1 fL (80-100); Mean Platelet Volume 9.8 fL (7.4-10.4); Monocytes # (auto) 0.91 K/uL (0.11-0.59); Monocytes % (auto) 7.6 %; Neutrophils # (auto) 8.82 K/uL (1.4-6.5); Neutrophils % (auto) 74.2 %; Platelet Count 357 K/uL (130-400); RDW Coefficient of Variation 13.6 % (11.5-14.5); RDW Standard Deviation 44.4 fL (36.4-46.3); Red Blood Count 4.85 M/uL (4.7-6.1); White Blood Count 11.91 K/uL (4.8-10.8)
[2019-10-04 08:09] LABS: Base Excess ABG 2.6 mEq/L (-9-1.8); HCO3 ABG 26 mmol/L (19-24); PCO2 ABG 35 mmHg (35-46); PO2 ABG 82 mmHg (80-95); pH ABG 7.48 (7.35-7.45)
[2019-10-04 08:10] LABS: Allen Test Pos (Pos)
[2019-10-04 08:22] LABS: BUN Creatinine Ratio 34.7 (10-20); Calcium 9.7 mg/dl (8.5-10.1); Creatinine Clr Calc Pharmacy 71.8 ml/min; Est GFR (African American) 101.1; Est GFR (Non-African American) 87.3; Magnesium 2.1 mg/dl (1.8-2.4); Potassium 4.1 mmol/L (3.5-5.1)
[2019-10-04] MEDS: predniSONE 20 MG TAB PO SCH (09:02)
[2019-10-04] MEDS: FLUTICASONE FUROATE 200MCG 14 PUFFS/INHALER INH SCH (09:02)
[2019-10-04] MEDS: UREA (URE-NA) 15 GM PACK PO SCH ×2 (09:02→20:47)
[2019-10-04] MEDS: AMITRIPTYLINE HCL 50 MG TAB PO SCH (09:03)
[2019-10-04] MEDS: METOPROLOL TARTRATE 25 MG TAB PO SCH ×2 (09:03→20:45)
[2019-10-04] MEDS: ASPIRIN 81 MG ECTAB PO SCH (09:03)
[2019-10-04] MEDS: NICOTINE 21 MG/24 HR TDSY TD SCH (09:03)
[2019-10-04] MEDS: PANTOprazole 40 MG TAB PO SCH (09:03)
[2019-10-04] MEDS: clonazePAM 1 MG TAB PO SCH ×2 (09:04→20:45)
[2019-10-04] MEDS: BusPIRone 15 MG TAB PO SCH ×2 (09:04→20:46)
[2019-10-04] MEDS: ENOXAPARIN INJ 40 MG/0.4 ML SYR SQ SCH (09:04)
[2019-10-04] MEDS: DOCUSATE SODIUM 100 MG CAP PO SCH ×2 (09:18→20:49)
--- NOTE | 2019-10-04 09:53 | Progress Note ---
DATE: 10/04/2019 Mr. Pulido had respiratory distress and an x-ray this morning at 5:00 showed recurrent pneumothorax. His pleural catheter had become occluded. It was flushed and his pneumothorax had resolved. There is a small one laterally, but I do not think this is of clinical significance. The patient is frustrated. He is also having pain in his chest, which is not responding to morphine. Needless to say, this patient has significant tumor burden. I would like for him to get treated. We are still awaiting his genomic studies to see whether he is a candidate for checkpoint inhibitors. In the meantime, he does have an air leak this morning. I am going to continue observing this. I would prefer not to operate on this patient again. However, we may have to go repair his air leak. We will discuss this in more detail if his air leak does not stop.
--- NOTE | 2019-10-04 13:59 | Hospitalist Progress Note ---
Date of Service October 04, 2019 Assessment & Plan (1) Pericardial effusion: Present on admission with worsening chest pain when lying associated with SOB CTA chest on admission showed moderate pericardial effusion, simple appearing though increased from prior. Echo showed moderate sized circumferential pericardial effusion From lung mass, s/p pericardial window, mediastinal and lung biopsy 09/[address] Forrester Repeat ECHO on 09/30 showed no pericardial effusion Pathology report showed METASTATIC ADENOCARCINOMA CONSISTENT WITH LUNG PRIMARY. Thoracic surgery on board CTA neg for PE Pneumothorax Hypoxia CXR on 10/01 showed moderate left-sided pneumothorax with pleural separation of [address] Forrester was notified. Since Dr. Forrester was in the OR, Textile Technical Officer Dr. Renee placed the chest tube on 10/01/19 CT chest repeat this morning showed trace left hydropneumothorax. intralobular septal thickening and groundglass change throughout the right lower lung has increased from 09/29/2019. Continue oxygen supplement Repeat CXR today showed interval decrease in the size of the left pneumothorax with a current pleural separation a 14 mm Chest tube as been managed by Dr. Forrester Consider to step on discharge if continue requiring oxygen CHF CXR showed diffuse elevation of interstitium, consistent with congestive failure/fluid overload, or interstitial inflammatory process Received IV lasix 20mg this morning Continue Lasix po daily Will assess later for additional lasix Pneumonia CXR showed Interval development of diffuse right lung airspace opacities, asymmetric edema versus pneumonia. Continue doxycycline Lung CA Pathology showed METASTATIC ADENOCARCINOMA CONSISTENT WITH LUNG PRIMARY. Stage 4 with a malignant pericardial effusion. Genomic study pending Case discussed with Dr. 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 IVF discontinued Na dropped to 127 today Fluid restriction at 1200ml Monitor BMP COPD Hx of tobacco abuse nebs and inhalers, Prednisone 40mg daily Continue oxygen supplement Counseling on tobacco abuse HIV continue anti viral med HTN BP stable Continue Metoprolol Depression Anxiety on Klonopin, fluoxetine and BuSpar Stable DVT px Will start on heparin drip if no upcoming surgical procedure by thoracic surgeon for the pneumothorax CODE Status Full code Disposition Continue monitor closely Provide update to his Dominguez @ [phone] Admission and Anticipated Discharge Date Admission Date: September 25, 2019 Subjective Pt was seen and examined Lying in bed with no distress Pt said that breathing is slightly better He said that pain around the chest tube area a little bit improves Continue to require oxygen supplement Update provided to his Dominguez as pt permission Physical Exam Physical Exam: General- No acute distress Head- atraumatic Eyes- PERRL, EOMI, ENT- oropharynx clear Neck- supple, no JVD Lungs- decreased BS in the Lside, +chest tube in left lung Heart- +tachycardia, no murmur Abdomen- normal bowel sounds, soft, nontender Extremities- no calf tenderness Neuro- alert, oriented x 3; PERRL, EOMI; no facial palsy; no dysarthria Skin- warm & dry Results & Data ([facility]) Vital Signs (Past 12 Hours) Vital Signs Temp Pulse Pulse Pulse Resp BP Pulse Ox 10/04/19 13:36 116 H 91/53 L 10/04/19 12:34 36.8 C 113 H 20 94/72 L 93 10/04/19 08:00 36.5 C 118 H 20 106/71 98 10/04/19 07:25 115 H 22 95 10/04/19 07:15 113 H 10/04/19 04:56 99 H 16 93 10/04/19 04:29 97 H 18 116/85 90 10/04/19 04:20 83 L
[2019-10-04] MEDS: OXYCODONE/ACETAMINOPHEN 5mg/325mg TAB PO PRN ×2 (14:07→18:59)
[2019-10-04] MEDS: KETOROLAC 30 MG/ML VIAL IV PRN (17:44)
[2019-10-04] MEDS: [UNRECOGNIZED DRUG - OTHER] PO SCH (20:46)
[2019-10-04] MEDS: PSYLLIUM 58.6% POWDER PACKET PO SCH (20:47)
[2019-10-05] MEDS: LEVALBUTEROL 1.25MG/0.5ML NEB INH SCH ×4 (01:41→17:51)
[2019-10-05] MEDS: IPRATROPIUM BROMIDE NEB SOLN 0.02% 2.5 ML VIAL INH SCH ×4 (01:41→17:51)
[2019-10-05] MEDS: guaiFENesin 200 MG TAB PO SCH ×3 (01:45→18:15)
[2019-10-05 06:13] LABS: Hematocrit (blood only) 39.9 % (42-52); Hemoglobin 14.4 g/dL (14.0-18.0); Mean Corpuscular Hemoglobin 31.3 pg (25-34); Mean Corpuscular Hgb Conc 36.1 g/dL (32-36); Mean Corpuscular Volume 86.7 fL (80-100); Mean Platelet Volume 9.2 fL (7.4-10.4); Platelet Count 323 K/uL (130-400); RDW Coefficient of Variation 13.4 % (11.5-14.5); RDW Standard Deviation 42.7 fL (36.4-46.3); White Blood Count 8.62 K/uL (4.8-10.8)
[2019-10-05 06:52] LABS: BUN Creatinine Ratio 55.2 (10-20); Calcium 8.8 mg/dl (8.5-10.1); Creatinine Clr Calc Pharmacy 83.1 ml/min; Est GFR (African American) 112.7; Est GFR (Non-African American) 97.3; Potassium 3.9 mmol/L (3.5-5.1)
--- NOTE | 2019-10-05 07:52 | XRay Report ---
SINGLE VIEW CHEST CLINICAL HISTORY: Lung cancer. Pneumothorax. FINDINGS: An AP, portable, upright chest radiograph is compared to chest x-ray dated 10/04/2019 and co rrelated with chest CT performed 10/02/2019. The examination is degraded by portable technique and pat ient rotation. The cardiomediastinal silhouette is unremarkable noting atherosclerotic calcification of the thoracic aorta. A catheter at the left lung base is unchanged position. Advanced emphysema and postoperative change from left upper lobe lung resection are similar to previous. There is elevation of left hemidiaphragm. A small left upper lobe pneumothorax persists. Airspace opacities are again s een in the left upper lobe. The skeletal structures are osteopenic. The bony thorax is grossly intact . IMPRESSION: 1. Advanced emphysema and postoperative change in the left lung are similar to previous. 2. A catheter at the left lung base is unchanged in position. A small left pneumothorax is unchanged from yesterday. 3. Airspace opacities are again seen in the left upper lobe. ACT 112: Negative or not required by law. Electronically signed by: Pj Marx M.D. 10/05/2019 7:51 AM
[2019-10-05] MEDS: clonazePAM 1 MG TAB PO SCH ×2 (08:37→20:54)
[2019-10-05] MEDS: NICOTINE 21 MG/24 HR TDSY TD SCH (08:39)
[2019-10-05] MEDS: AMITRIPTYLINE HCL 50 MG TAB PO SCH (08:39)
[2019-10-05] MEDS: METOPROLOL TARTRATE 25 MG TAB PO SCH ×2 (08:39→20:54)
[2019-10-05] MEDS: BusPIRone 15 MG TAB PO SCH ×2 (08:41→20:53)
[2019-10-05] MEDS: ASPIRIN 81 MG ECTAB PO SCH (08:41)
[2019-10-05] MEDS: PANTOprazole 40 MG TAB PO SCH (08:42)
[2019-10-05] MEDS: predniSONE 20 MG TAB PO SCH (08:44)
[2019-10-05] MEDS: UREA (URE-NA) 15 GM PACK PO SCH ×3 (08:44→20:55)
[2019-10-05] MEDS: ENOXAPARIN INJ 40 MG/0.4 ML SYR SQ SCH (08:44)
[2019-10-05] MEDS: FLUTICASONE FUROATE 200MCG 14 PUFFS/INHALER INH SCH (08:45)
[2019-10-05] MEDS: DOCUSATE SODIUM 100 MG CAP PO SCH ×2 (08:46→21:00)
[2019-10-05] MEDS ORDERED: KETOROLAC TROMETHAMINE 15 MG/ML VIAL IV ONE (10:00)
--- NOTE | 2019-10-05 10:41 | Progress Note ---
DATE: 10/05/2019 Mr. Pulido continues to be quite anxious. He is complaining of 10/10 pain; however, I think much of this has to do with anxiety. He did have a better night with the Toradol. We will continue that. His air leak is smaller but still present intermittently and I was happy with his x-ray today. I would prefer not to operate on this patient. 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 He understands. He would like more potent pain medicine; however, I do not think anxiety plays a role here. He is on significant amount of medications as it. We will check another chest x-ray in the morning.
[2019-10-05] MEDS: MoRPHine SULFATE 2 MG/ML CARP IV PRN ×4 (10:57→21:59)
--- NOTE | 2019-10-05 11:21 | Hospitalist Progress Note ---
Date of Service October 05, 2019 Assessment & Plan (1) Pericardial effusion: Present on admission with worsening chest pain when lying associated with SOB CTA chest on admission showed moderate pericardial effusion, simple appearing though increased from prior. Echo showed moderate sized circumferential pericardial effusion From lung mass, s/p pericardial window, mediastinal and lung biopsy 09/[address] Forrester Repeat ECHO on 09/30 showed no pericardial effusion Pathology report showed METASTATIC ADENOCARCINOMA CONSISTENT WITH LUNG PRIMARY. Thoracic surgery on board CTA neg for PE Pneumothorax Hypoxia CXR on 10/01 showed moderate left-sided pneumothorax with pleural separation of [address] Forrester was notified. Since Dr. Forrester was in the OR, Hatchery Worker Dr. Renee placed the chest tube on 10/01/19 CT chest repeat this morning showed trace left hydropneumothorax. intralobular septal thickening and groundglass change throughout the right lower lung has increased from 09/29/2019. Continue oxygen supplement Repeat CXR today showed a small left pneumothorax is unchanged from yesterday. Airspace opacities are again seen in the left upper lobe. Chest tube as been managed by Dr. Forrester Consider 2 step exercise on discharge if continue requiring oxygen Will repeat CXR in am Chest pain Might be related to the chest tube Will get an EKG and troponin Continue morphine and toradol for pain CHF CXR showed diffuse elevation of interstitium, consistent with congestive failure/fluid overload, or interstitial inflammatory process Received IV lasix 20mg this morning Continue Lasix po daily Will assess later for additional lasix if BP improves Pneumonia CXR showed Interval development of diffuse right lung airspace opacities, asymmetric edema versus pneumonia. Continue doxycycline Lung CA Pathology showed METASTATIC ADENOCARCINOMA CONSISTENT WITH LUNG PRIMARY. Stage 4 with a malignant pericardial effusion. Genomic study pending Case discussed with Dr. 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 IVF discontinued Na dropped to 127 today Fluid restriction at 1200ml Monitor BMP COPD Hx of tobacco abuse nebs and inhalers, Prednisone 40mg daily Continue oxygen supplement Counseling on tobacco abuse HIV continue anti viral med HTN BP stable Continue Metoprolol Depression Anxiety on Klonopin, fluoxetine and BuSpar Stable DVT px Will start on heparin drip if no upcoming surgical procedure by thoracic surgeon for the pneumothorax CODE Status Full code Disposition Continue monitor closely Provide update to his Dominguez @ [phone] Admission and Anticipated Discharge Date Admission Date: September 25, 2019 Subjective Pt was seen and examined Sitting in bed with complaint of chest pain He said that pain is worst with deep breathing He said that morphine helps with the pain Physical Exam Physical Exam: General- No acute distress Head- atraumatic Eyes- PERRL, EOMI, ENT- oropharynx clear Neck- supple, no JVD Lungs- decreased BS in the Lside, +chest tube in left lung Heart- +tachycardia, no murmur Abdomen- normal bowel sounds, soft, nontender Extremities- no calf tenderness Neuro- alert, oriented x 3; PERRL, EOMI; no facial palsy; no dysarthria Skin- warm & dry Results & Data ([facility]) Vital Signs (Past 12 Hours) Vital Signs Temp Pulse Pulse Pulse Resp BP Pulse Ox 10/05/19 09:40 36.4 C L 117 H 22 95/58 L 96 10/05/19 08:00 107 H 22 87/65 L 98 10/05/19 07:32 93 H 10/05/19 07:08 76 16 85 L 10/05/19 02:56 36.2 C L 94 H 21 97 10/05/19 01:41 88 16 91 10/05/19 01:07 93 H
--- NOTE | 2019-10-05 14:22 | Electrocardiogram Report ---
Test Reason : Blood Pressure : / mmHG Vent. Rate : 119 BPM Atrial Rate : 119 BPM P-R Int : 132 ms QRS Dur : 090 ms QT Int : 324 ms P-R-T Axes : 066 087 058 degrees QTc Int : 455 ms Sinus tachycardia Possible Left atrial enlargement Borderline ECG When compared with ECG of 02-OCT-2019 00:28, No significant change was found Confirmed by Cruz Bonilla ([id number]) on 10/05/2019 2:22:30 PM Referred By: REFERRED SELF Confirmed By:Cruz Bonilla
[2019-10-05] MEDS: FUROSEMIDE 20 MG TAB PO SCH (15:07)
[2019-10-05] MEDS: [UNRECOGNIZED DRUG - OTHER] PO SCH (20:52)
[2019-10-05] MEDS: PSYLLIUM 58.6% POWDER PACKET PO SCH (20:55)
[2019-10-05] MEDS: OXYCODONE/ACETAMINOPHEN 5mg/325mg TAB PO PRN (20:55)
[2019-10-06] MEDS: MoRPHine SULFATE 2 MG/ML CARP IV PRN ×4 (00:02→17:59)
[2019-10-06] MEDS: LEVALBUTEROL 1.25MG/0.5ML NEB INH SCH ×4 (00:55→19:34)
[2019-10-06] MEDS: IPRATROPIUM BROMIDE NEB SOLN 0.02% 2.5 ML VIAL INH SCH ×4 (00:55→19:34)
[2019-10-06] MEDS: guaiFENesin 200 MG TAB PO SCH ×3 (01:26→19:20)
[2019-10-06] MEDS: LORazepam 0.25 MG/0.5 ML VIAL IV PRN ×2 (03:38→19:19)
[2019-10-06] MEDS ORDERED: XOPENEX/ATROVENT 1.25mg/0.5MG NEB COMBO NEB STA (03:42)
[2019-10-06] MEDS ORDERED: LEVALBUTEROL 1.25MG/0.5ML NEB INH STA (03:45)
[2019-10-06] MEDS ORDERED: MAGNESIUM SULFATE / D5W 1 GM/100 ML BAG IV ONE (03:45)
[2019-10-06] MEDS ORDERED: IPRATROPIUM BROMIDE NEB SOLN 0.02% 2.5 ML VIAL INH STA (03:45)
[2019-10-06] MEDS ORDERED: POTASSIUM CHLORIDE 20 MEQ TABCR PO STA ×2 (03:45→21:55)
[2019-10-06] MEDS ORDERED: METOPROLOL TARTRATE 25 MG TAB PO SCH (04:15)
[2019-10-06 04:21] LABS: Basophils # (auto) 0.03 K/uL (0-0.2); Basophils % (auto) 0.2 %; Eosinophils # (auto) 0.31 K/uL (0-0.5); Eosinophils % (auto) 2.5 %; Hematocrit (blood only) 38.1 % (42-52); Hemoglobin 13.7 g/dL (14.0-18.0); Immature Granulocytes # (auto) 0.32 K/uL (0.00-0.02); Immature Granulocytes % (auto) 2.5 %; Lymphocytes # (auto) 1.69 K/uL (1.2-3.4); Lymphocytes % (auto) 13.4 %; Mean Corpuscular Hemoglobin 31.7 pg (25-34); Mean Corpuscular Volume 88.2 fL (80-100); Monocytes % (auto) 10.3 %; Neutrophils # (auto) 8.99 K/uL (1.4-6.5); Neutrophils % (auto) 71.1 %; Platelet Count 325 K/uL (130-400); RDW Coefficient of Variation 13.7 % (11.5-14.5); RDW Standard Deviation 44.3 fL (36.4-46.3); Red Blood Count 4.32 M/uL (4.7-6.1); White Blood Count 12.64 K/uL (4.8-10.8)
[2019-10-06 04:23] LABS: Base Excess ABG -0.9 mEq/L (-9-1.8); HCO3 ABG 22 mmol/L (19-24); Oxygen Saturation ABG 96.1 % (90-95); PCO2 ABG 32 mmHg (35-46); PO2 ABG 76 mmHg (80-95); pH ABG 7.46 (7.35-7.45)
[2019-10-06 04:24] LABS: Allen Test Pos (Pos)
[2019-10-06 04:32] LABS: Partial Thromboplastin Time 25.9 Seconds (21.0-31.0)
[2019-10-06 04:40] LABS: BUN Creatinine Ratio 52.3 (10-20); Calcium 8.6 mg/dl (8.5-10.1); Creatinine Clr Calc Pharmacy 81.1 ml/min; Est GFR (African American) 111.6; Est GFR (Non-African American) 96.3; Potassium 3.9 mmol/L (3.5-5.1)
[2019-10-06] MEDS ORDERED: ALBUMIN 25% 50 ML IV ONE (04:43)
[2019-10-06] MEDS: KETOROLAC 30 MG/ML VIAL IV PRN (04:47)
--- NOTE | 2019-10-06 05:57 | XRay Report ---
XR chest 1V portable CLINICAL HISTORY: sob dyspnea COMPARISON STUDY: 10/05/2019 FINDINGS: Slight increase in volume of the left-sided pneumothorax. Maximum pleural separation at the left base is now 2.4 cm. Very slight displacement of the cardiomediastinal silhouette to the right. Slightly progressive compressive atelectasis left base. Right lung remains clear. Left basilar chest tube is unchanged in position. IMPRESSION: Mild increase in volume of left-sided pneumothorax now estimated 25% of the left hemitho racic volume. ACT 112: Negative or not required by law. The above report was generated using voice recognition software. It may contain grammatical, syntax or spelling errors. Electronically signed by: Shantanu Jiménez M.D. 10/06/2019 5:55 AM
[2019-10-06] MEDS: clonazePAM 1 MG TAB PO SCH ×2 (08:10→21:40)
[2019-10-06] MEDS: DOCUSATE SODIUM 100 MG CAP PO SCH ×2 (08:10→21:43)
[2019-10-06] MEDS: AMITRIPTYLINE HCL 50 MG TAB PO SCH (08:10)
[2019-10-06] MEDS: FUROSEMIDE 20 MG TAB PO SCH (08:11)
[2019-10-06] MEDS: predniSONE 20 MG TAB PO SCH (08:11)
[2019-10-06] MEDS: UREA (URE-NA) 15 GM PACK PO SCH ×2 (08:12→21:48)
[2019-10-06] MEDS: ASPIRIN 81 MG ECTAB PO SCH (08:12)
[2019-10-06] MEDS: BusPIRone 15 MG TAB PO SCH ×2 (08:15→21:40)
[2019-10-06] MEDS: FLUTICASONE FUROATE 200MCG 14 PUFFS/INHALER INH SCH (08:15)
[2019-10-06] MEDS: PANTOprazole 40 MG TAB PO SCH (08:15)
[2019-10-06] MEDS: ENOXAPARIN INJ 40 MG/0.4 ML SYR SQ SCH (08:16)
[2019-10-06] MEDS: NICOTINE 21 MG/24 HR TDSY TD SCH (08:16)
[2019-10-06] MEDS: METOPROLOL TARTRATE 25 MG TAB PO SCH ×2 (09:00→21:41)
[2019-10-06] MEDS: OXYCODONE/ACETAMINOPHEN 5mg/325mg TAB PO PRN ×2 (09:39→21:43)
[2019-10-06] MEDS: POLYETHYLENE (MIRALAX) 17 GM PACK PO PRN (09:40)
--- NOTE | 2019-10-06 11:47 | XRay Report ---
XR chest 1V portable CLINICAL HISTORY: pneumothorax COMPARISON STUDY: 10/06/2019 3:48 AM FINDINGS: Slight increase in volume of a left pneumothorax. Maximum pleural separation is 2.8 cm slig htly increased from 2.4 cm earlier the same date. The left basilar catheter remains similar in position. There is elevation left hemidiaphragm on a chr onic basis. Interstitial changes throughout the left perihilar and basilar regions remains stable. Right lung is grossly clear. IMPRESSION: Slight increase in volume of a left sided pneumothorax. ACT 112: Negative or not required by law. The above report was generated using voice recognition software. It may contain grammatical, syntax or spelling errors. Electronically signed by: Shantanu Jiménez M.D. 10/06/2019 11:46 AM
--- NOTE | 2019-10-06 12:45 | Progress Note ---
DATE: 10/06/2019 I had a very long discussion with the patient's sister who has arrived from [place]. This is his only sibling. I had a long talk about his whole process in the hospital. He continues to have an air leak, in fact has a pneumothorax. We are manipulating the tube now. We discussed different options. One option would be to simply insert a chest tube and attached a Heimlich valve to it as it is draining very little in the way of fluid. Having said that, I also stated that another option would be to do another thoracoscopy, find the air leak and repair it. After a long discussion with the patient and his sister, they have agreed that they would like to have surgery. We are going to schedule this for tomorrow 10/07/2019. We discussed risks and benefits. Everyone is aware. 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 He has a metastatic lung adenocarcinoma. We have sent out his tissue for genomic studies. Hopefully, this will be back in the near future. MARIO
--- NOTE | 2019-10-06 12:45 | XRay Report ---
XR chest 1V portable CLINICAL HISTORY: pneumothorax COMPARISON STUDY: 10/06/2019 FINDINGS: The cardiac and mediastinal contours remain stable. There is a left pleural space pigtail c atheter. There is a left lateral pneumothorax with pleural separation of 39 mm. There are left basila r atelectatic changes. There is subtle diffuse reticulonodular shadowing.[ IMPRESSION: Loculated left lateral pneumothorax, similar in size preceding examination. ACT 112: Negative or not required by law. Electronically signed by: Kiel Garcia M.D. 10/06/2019 12:43 PM
--- NOTE | 2019-10-06 13:55 | Anesthesiology Consultation ---
Date of Service October 06, 2019 Assessment & Plan (1) Encounter for pre-operative examination: Chart Review Chart Review: Acceptable Risk for Surgery and Patient NOT seen in Pre Admission Testing Patient alert and oriented. Able to consent himself. Consults Requested none Patient's contact info: [place] [phone] History Surgery Operation Date: 09/26/19 12:20 Proposed Procedures p Left Video Assisted Thoracoscopy with Pericardial Window - Cm Forrester MD, FACS Operation Date: 10/07/19 13:05 Proposed Procedures p Left Thoracoscopy with Repair of Air Leak - Cm Forrester MD, FACS Height/Weight Height: 5 ft 7 in Weight: 62.1 kg Allergies Allergy/AdvReac Type Severity Reaction Status Date / Time pollen extracts Allergy Intermediate ASTHMA Verified 09/25/19 20:11 Sulfa (Sulfonamide Allergy Intermediate HIVES Verified 09/29/19 10:40 Antibiotics) Medications Home Medications Medication Instructions Recorded Confirmed Last Taken amitriptyline 50 mg PO DAILY 07/08/19 09/25/19 Unknown buspirone 15 mg PO BID 07/08/19 09/25/19 Unknown clonazepam 1 mg PO BID 07/08/19 09/25/19 Unknown dronabinol 10 mg PO BID 07/08/19 09/25/19 Unknown [id number] 1 tab PO DAILY 07/08/19 09/25/19 Unknown [Atripla] fluoxetine 20 mg PO DAILY 07/08/19 09/25/19 Unknown lisinopril 20 mg PO DAILY 07/08/19 09/25/19 Unknown oxycodone-acetaminophen 1 - 2 tab PO Q4H PRN 07/08/19 09/25/19 Unknown triamterene-hydrochlorothiazid 1 tab PO DAILY 07/08/19 09/25/19 Unknown albuterol sulfate 90 mcg/actuation 2 puffs INH Q6H PRN 08/21/19 09/25/19 Unknown aerosol inhaler aspirin 81 mg tablet,delayed 162 mg PO DAILY tab 08/21/19 09/25/19 Unknown release fluticasone propionate 220 1 puffs INH BID 08/21/19 09/25/19 Unknown mcg/actuation HFA aerosol inhaler omeprazole 20 mg capsule,delayed 20 mg PO DAILY 08/21/19 09/25/19 Unknown release Active Medications Generic Name Dose Route Start Last Admin Trade Name Galileo PRN Reason Stop Dose Admin Amitriptyline HCl 50 mg 09/26/19 09:00 10/06/19 08:10 Elavil PO 10/26/19 08:59 50 mg DAILY TEN Administration Aspirin 162 mg 09/26/19 09:00 10/06/19 08:12 Ecotrin Ectab PO 10/26/19 08:59 162 mg DAILY TEN Administration Buspirone HCl 15 mg 09/26/19 09:00 10/06/19 08:15 Buspar PO 10/26/19 08:59 15 mg BID TEN Administration Clonazepam 1 mg 09/26/19 00:21 10/06/19 08:10 Klonopin PO 10/26/19 00:20 1 mg BID TEN Administration Docusate Sodium 100 mg 09/26/19 21:00 10/06/19 08:10 Colace PO 10/26/19 20:59 100 mg BID TEN Administration Dronabinol 10 mg 09/27/19 21:00 10/06/19 09:00 Marinol PO 10/26/19 08:59 10 mg BID TEN Administration Efavirenz/Emtricitabine/Tenofovir 1 ea 09/26/19 21:00 10/05/19 20:52 Atripla Tablet PO 10/26/19 20:59 1 ea HS TEN Administration Enoxaparin Sodium 40 mg 09/30/19 11:30 10/06/19 08:16 Lovenox SQ 10/30/19 11:29 40 mg QAM TEN Administration Fluticasone Furoate 1 puffs 09/26/19 09:00 10/06/19 08:15 Arnuity Ellipta 200mcg INH 10/26/19 08:59 1 puffs DAILY TEN Administration Furosemide 20 mg 10/05/19 15:00 10/06/19 08:11 Lasix PO 11/04/19 14:59 20 mg QAM TEN Administration Guaifenesin 200 mg 10/01/19 10:00 10/06/19 09:00 Organidin Nr PO 10/31/19 09:59 200 mg Q8H TEN Administration Lorazepam 0.25 mg in 0.5 mls @ 0.5 mls/min 10/02/19 01:16 10/06/19 03:38 Ativan IV 03/14/20 01:15 0.5 mls/min Q4H PRN Administration Anxiety Ipratropium [place] 0.5 mg 10/02/19 07:00 10/06/19 13:22 Atrovent 0.02% 0.5mg/2.5ml INH 11/01/19 06:59 0.5 mg Q6R TEN Administration Ketorolac Tromethamine 30 mg 10/04/19 08:49 10/06/19 04:47 Toradol IV 10/09/19 08:48 30 mg Q6H PRN Administration Pain Levalbuterol HCl 1.25 mg 10/02/19 07:00 10/06/19 13:22 Xopenex 1.25mg/0.5ml Neb INH 11/01/19 06:59 1.25 mg Q6R TEN Administration Metoprolol Tartrate 25 mg 10/06/19 09:00 10/06/19 09:00 Lopressor PO 11/05/19 08:59 Not Given BID [facility] Miscellaneous 1 ea 09/27/19 08:59 10/06/19 08:17 Remove Nicoderm Patch N/A 10/27/19 08:58 1 ea DAILY@0859 TEN Administration Morphine Sulfate 2 mg 10/02/19 01:24 10/06/19 12:58 Morphine Sulfate IV 10/16/19 01:23 2 mg Q1H PRN Administration Pain Nicotine 21 mg 09/26/19 09:30 10/06/19 08:16 Nicoderm Cq TD 10/26/19 09:29 21 mg QAM TEN Administration Oxycodone/Acetaminophen 2 tab 09/29/19 10:39 10/06/19 09:39 Percocet 5mg/325mg PO 10/13/19 10:38 2 tab Q4H PRN Administration Pain Pantoprazole Sodium 40 mg 09/26/19 09:00 10/06/19 08:15 Protonix PO 10/26/19 08:59 40 mg DAILY TEN Administration Polyethylene Glycol 17 gm 09/26/19 00:21 10/06/19 09:40 Miralax Powder Packet PO 10/26/19 00:20 17 gm DAILY PRN Administration Constipation Prednisone 40 mg 09/26/19 09:00 10/06/19 08:11 Prednisone PO 10/26/19 08:59 40 mg DAILY TEN Administration Psyllium Hydrophilic Mucilloid 1 pkt 10/02/19 21:00 10/05/19 20:55 Metamucil PO 11/01/19 20:59 1 pkt PM TEN Administration Urea 15 gm 10/02/19 09:00 10/06/19 08:12 Ure-Na PO 11/01/19 08:59 15 gm BID TEN Administration Past Medical History Medical History (Updated 10/06/19 @ 14:02 by Moreno Galan MD) Anxiety (Chronic) Asthma Asymptomatic human immunodeficiency virus (HIV) infection status (Chronic 10/25/11) Carcinoma, lung COPD exacerbation (Acute) Depression (Acute 10/25/11) Distal radial fracture (Acute) HIV disease HTN (hypertension) (Chronic) Hyponatremia Lung cancer (Acute) Lung mass Lymphadenopathy Muscle strain (Resolved) Osteoarthritis (Chronic) Pain, dental (Resolved) Pericardial effusion Pneumothorax Tachycardia Patient being followed by cardiology, has been maintained on metoprolol Tobacco use disorder (Acute 10/25/11) Weight loss PATIENT HAD EMERGENT CHEST TUBE PLACEMENT 10/01/2019 FOR PNEUMOTHORAX. . 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 He has a metastatic adenocarcinoma. Patient has a continued air leak and will require another thoracoscopy with air leak repair. Past Family History Family History Other No pertinent family history in first degree relatives Past Surgical History Surgical History (Updated 10/06/19 @ 13:49 by Moreno Galan MD) History of temporal artery biopsy Status post creation of pericardial window 09/26/2019: pericardial window with Left VATS by Dr. Forrester. GETA. MAC 4, grade 2 view. 8.5 cuffed ETT. Arterial line. post-op delerium and to ICU. Social History Smoking Status: Current every day smoker tobacco type: cigarettes Smoking cigarettes per day: 20 Hx Alcohol Use: No Hx Substance Use: No Physical Exam Vital Signs Last Vital Signs Temp 36.6 C 10/06/19 11:58 Pulse 97 H 10/06/19 13:22 Resp 23 10/06/19 13:22 BP 114/77 10/06/19 11:58 Pulse Ox 96 10/06/19 13:22 ENMT Mouth: + dentition abnormality and + edentulous Thyromental Distance: < 3.5 Finger Breadths Mallampati Class: III Neck normal visual inspection Respiratory normal respiratory effort Auscultation: + diminished lung sounds; + lungs not clear to auscultation Cardiovascular Rate/Rhythm: regular rate and regular rhythm Musculoskeletal Spine: normal cervical ROM and no pain with cervical ROM Neurologic moves all extremities Psychiatric Orientation: alert and oriented x 3 Testing Laboratory Results 10/06/19 04:10 10/06/19 04:10 PT 10.1 Seconds (9.0-12.0) 09/25/19 18:55 INR 1.0 (0.9-1.1) 09/25/19 18:55 APTT 25.9 Seconds (21.0-31.0) 10/06/19 04:10 Blood Type O Positive 09/26/19 22:57 Antibody Screen NEGATIVE 09/26/19 22:57 09/26/19 14:41 Acid Fast Bacilli Smear - Final Pericardial Fluid Acid Fast Bacilli Culture - Preliminary No Acid-Fast Bacilli Isolated - Report 1, Additional Report to Follow. 09/26/19 14:41 Acid Fast Bacilli Smear - Final Lung,Left Acid Fast Bacilli Culture - Preliminary No Acid-Fast Bacilli Isolated - Report 1, Additional Report to Follow. 09/26/19 14:41 Fungal Smear - Final Chest Fungal Culture - Preliminary No yeast or fungus isolated - Report 2, Additional report to follow. 09/26/19 14:41 Fungal Smear - Final Lung,Left Fungal Culture - Preliminary No yeast or fungus isolated - Report 2, Additional report to follow. 09/26/19 14:41 Gram Stain - Final Pericardial Fluid Aerobic and Anaerobic Culture - Final No growth 09/26/19 14:41 Gram Stain - Final Lung,Left Aerobic and Anaerobic Culture - Final No growth Electrocardiogram Date: 10/05/19 Findings: + ST @ (119) sinus tach. possible LAE. No change when compared to ECG 10/02/2019. Chest X-Ray Date: 10/06/19 Findings: + cardiomegaly loculated left lateral pneumothorax, similar in size preceding exam. Echocardiogram Date: 09/27/19 LV Function: normal (underfilled) Valvular Disease: + no significant valvular disease (after pericardial window) Trace loculated pericardial effusion is noted. No tamponade. EF 60-65% RV size and function is normal. Echo performed 09/30/2019: Normal biv systolic function is note. NO PERICARDIAL EFFUSION.
--- NOTE | 2019-10-06 14:27 | Palliative Care Consultation ---
Date of Consultation October 06, 2019 Assessment & Plan (1) Goals of care, counseling/discussion: Pt seen and examined, pt's sister, Елена , at bedside Pt's spouse, Dominguez, is at home. Pt is primary caregiver for his spouse - spouse with hemiplegia s/p CVA. Pt is a 58 yo male with a PMH significant for HIV- dx 1996 on Atripla, Asthma/COPD- current smoker, depression/anxiety and HTN who presented to the ER on . with a complaint of CP X 2-3 days with increased sx when lying flat. pt was found to have a moderate pericardial effusion and L lung mass with adenopathy. Pt underwent pericardial window, mediastinal node bx, bx of pleural mass and MAYRA wedge resection of lung mass on 09/26. Pt required a pigtail CT placement on 10/01 for tension PTX. Node bx and pericardial effusion were + for Adenocarcinoma. Pt continues to require CT. Met with pt and sister at bedside - pt very SOB with speech, voice is just above a whisper. Discussed role of Palliative care and gave pt brochure describing Palliative care as well as phone # to call to make and outpt appt. Suggested f/u after he speaks with his ID physician and Oncology. Discussed seeing his ID physician before Oncologist to discuss whether or not chemo would be an option for him given his HIV status. Pt is to [place], he has one sibling, his sister Елена. He has no children. Елена lives in [place], [place] and is here to help care for pt and his spouse. Discussed having spouse's PCP make a home health referral to assist with his care as pt will not be able to provide the care he has been doing. Pt reports putting his own healthcare on hold to care for his spouse. - Goals of care - Full code for now, pt to see ID after d/c to see if chemo is an option given his HIV disease - Pericardial effusion - s/p pericardial window on 09/26 - Lung CA - will need to speak with Onc regarding his options - Tension PTX - CT iin place - Dr Forrester following - Resp distress - on O2 at 6L , further plans per Dr Forrester, cont scheduled nebs - HIV disease - on Atripla - pt will need to see ID after d/c with new dx of Filomena ng CA - Anxiety - increased anxiety with resp distress and new dx of Lung CA - cont Amitrip, Buspar, Klonopin, and prn Ativan. - TOB dependence - encourage smoking cessation - cont nicotine patch Pt given info for out pt follow up in Palliative Clinic (2) Pericardial effusion: (3) Carcinoma, lung: Laterality: unspecified laterality Qualified Code(s): C34.90 - Malignant neoplasm of unspecified part of unspecified bronchus or lung (4) Tension pneumothorax: (5) Respiratory distress: (6) HIV disease: (7) Anxiety: (8) Tobacco use disorder: History of Present Illness Reason for Consultation: Goals of care Requesting Physician: Dr Brandt Attending Physician: Chaka Brandt MD History of Present Illness Pt seen and examined, pt's sister, Елена , at bedside Pt's spouse, Dominguez, is at home. Pt is primary caregiver for his spouse - spouse with hemiplegia s/p CVA. Pt is a 58 yo male with a PMH significant for HIV- dx 1996 on Atripla, Asthma/COPD- current smoker, depression/anxiety and HTN who presented to the ER on 09.25 with a complaint of CP X 2-3 days with increased sx when lying flat. pt was found to have a moderate pericardial effusion and L lung mass with adenopathy. Pt underwent pericardial window, mediastinal node bx, bx of pleural mass and MAYRA wedge resection of lung mass on 09/26. Pt required a pigtail CT placement on 10/01 for tension PTX. Node bx and pericardial effusion were + for Adenocarcinoma. Pt continues to require CT. Met with pt and sister at bedside - pt very SOB with speech, voice is just above a whisper. Discussed role of Palliative care and gave pt brochure describing Palliative care as well as phone # to call to make and outpt appt. Suggested f/u after he speaks with his ID physician and Oncology. Discussed seeing his ID physician before Oncologist to discuss whether or not chemo would be an option for him given his HIV status. Pt is to [place], he has one sibling, his sister Елена. He has no children. Елена lives in [place], [place] and is here to help care for pt and his spouse. Discussed having spouse's PCP make a home health referral to assist with his care as pt will not be able to provide the care he has been doing. Pt reports putting his own healthcare on hold to care for his spouse. Allergies Allergy/AdvReac Type Severity Reaction Status Date / Time pollen extracts Allergy Intermediate ASTHMA Verified 09/25/19 20:11 Sulfa (Sulfonamide Allergy Intermediate HIVES Verified 09/29/19 10:40 Antibiotics) Home Medications Home Medications Medication Instructions Recorded Confirmed Type amitriptyline 50 mg PO DAILY 07/08/19 09/25/19 History buspirone 15 mg PO BID 07/08/19 09/25/19 History clonazepam 1 mg PO BID 07/08/19 09/25/19 History dronabinol 10 mg PO BID 07/08/19 09/25/19 History gkzdkvkai-sumcfmezpqwc-hoyrqqu 1 tab PO DAILY 07/08/19 09/25/19 History [Atripla] fluoxetine 20 mg PO DAILY 07/08/19 09/25/19 History lisinopril 20 mg PO DAILY 07/08/19 09/25/19 History oxycodone-acetaminophen 1 - 2 tab PO Q4H PRN 07/08/19 09/25/19 History triamterene-hydrochlorothiazid 1 tab PO DAILY 07/08/19 09/25/19 History albuterol sulfate 90 mcg/actuation 2 puffs INH Q6H PRN 08/21/19 09/25/19 History aerosol inhaler aspirin 81 mg tablet,delayed 162 mg PO DAILY tab 08/21/19 09/25/19 History release fluticasone propionate 220 1 puffs INH BID 08/21/19 09/25/19 History mcg/actuation HFA aerosol inhaler omeprazole 20 mg capsule,delayed 20 mg PO DAILY 08/21/19 09/25/19 History release Patient History Medical History Anxiety (Chronic) Asthma Asymptomatic human immunodeficiency virus (HIV) infection status (Chronic 10/25/11) Carcinoma, lung COPD exacerbation (Acute) Depression (Acute 10/25/11) Distal radial fracture (Acute) HIV disease HTN (hypertension) (Chronic) Hyponatremia Lung cancer (Acute) Lung mass Lymphadenopathy Muscle strain (Resolved) Osteoarthritis (Chronic) Pain, dental (Resolved) Pericardial effusion Pneumothorax Tachycardia Patient being followed by cardiology, has been maintained on metoprolol Tobacco use disorder (Acute 10/25/11) Weight loss Surgical History History of temporal artery biopsy Status post creation of pericardial window 09/26/2019: pericardial window with Left VATS by Dr. Forrester. SHERYLA. MAC 4, grade 2 view. 8.5 cuffed ETT. Arterial line. post-op delerium and to ICU. Family History Other No pertinent family history in first degree relatives Social History Preferred Language: Telugu Communication Ability: Effective [employer] Required: No Beliefs That Will Affect Care: None Current Living Situation: Spouse Other Information That Helps Us Care for You: No Feels Safe at Home: Yes Safety Concerns: Feels Safe At This Time Smoking Status: Current every day smoker Tobacco Type: cigarettes ; packs per day: 0.5 ; Cigarettes Per Day: 20 ; Hx Alcohol Use: No Hx Substance Use: No Review of Systems Constitutional: + anorexia and + weight loss approx 30 # Eyes: no problem reported Ear, Nose, Mouth, Throat: + hoarseness Respiratory: + dyspnea at rest and increased with speech L CT in place Cardiovascular: + dyspnea at rest and + dyspnea on exertion Gastrointestinal: + problem reported GERD Musculoskeletal: + muscle weakness Integumentary: no problem reported Neurologic: + generalized weakness Psychiatric: + depression and + anxiety Tobacco dependence Endocrine: no problem reported Physical Exam Physical Exam: PE: pt awake and alert, mild SOB at rest HEENT: EOMI, hearing WNL Resp: diminished BS on L, no rhonchi or wheezes, increased SOB with speech - can say 3-4 words between breaths CV: RR ABD: soft, NT/ND Ext: generalized weakness Neuro: no focal deficits, A&O X 4 Psych: anxious Results & Data Vital Signs (Past 12 Hours) Vital Signs Temp Pulse Pulse Pulse Resp BP Pulse Ox 10/06/19 13:22 97 H 23 96 10/06/19 11:58 97.9 F 86 16 114/77 97 10/06/19 07:38 97.9 F 116 H 17 99/67 L 92 10/06/19 07:19 117 H 10/06/19 07:03 111 H 19 93 10/06/19 04:38 103 H 20 99 10/06/19 04:32 97.5 F L 119 H 22 95/65 L 96 PG Care Time/CCT Total # of Minutes Spent Total Time Spent with Patient: Total time spent 70 min with > 50% of time spent at bedside discussing pt's goals as well as counseling regarding treatment options Coding Level of Care Code 23578 Inpt Consult Level 3 Diagnoses Goals of care, counseling/discussion Z71.89 Pericardial effusion I31.3 Carcinoma, lung C34.90 Laterality: unspecified laterality Tension pneumothorax J93.0 Respiratory distress R06.03 HIV disease B20 Anxiety F41.9 Tobacco use disorder F17.200 Time Spent (min) 70
--- NOTE | 2019-10-06 14:53 | XRay Report ---
SINGLE VIEW CHEST CLINICAL HISTORY: Lung cancer. Pneumothorax. FINDINGS: An AP, portable, upright chest radiograph is compared chest x-ray performed earlier the 10/06/2019 and correlated with chest CT performed 10/02/2019. The examination is degraded by port able technique and patient rotation. The cardiomediastinal silhouette is unremarkable noting atherosc lerotic calcification of the thoracic aorta. A catheter at the left lung base is unchanged position. Advanced emphysema and postoperative change from left upper lobe lung resection are similar to previo us. A left-sided pneumothorax has decreased in size from today's earlier examination. There is appro ximately 1.5 cm pleural separation. Airspace opacities are again seen in the left upper lobe. The ske letal structures are osteopenic. The bony thorax is grossly intact. IMPRESSION: 1. Advanced emphysema and postoperative change in the left lung are similar to previous. 2. A catheter at the left lung base is unchanged in position. A small left pneumothorax has decreased in size from today's earlier study. 3. Airspace opacities are again seen in the left upper lobe. ACT 112: Negative or not required by law. Electronically signed by: Pj Marx M.D. 10/06/2019 2:51 PM
--- NOTE | 2019-10-06 17:06 | Nephrology Progress Note ---
Date of Service October 06, 2019 Assessment & Plan (1) Hyponatremia: acute on chronic hyponatremia w/ baseline sNa about 130 including on 09/26 presentation; dropped to 118 on 09/29 at 0730 after sNa on 09/27 was 128 (so acute change). sNa has climbed gradually since to 133 as of this am, urine osmolality of 635 and a urine sodium of 66. 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 -Continue Urea 15 g twice daily -fluid restriction of 1200 mL daily. -continue PO Lasix 20 mg daily -agree w/ holding lisinopril for now -caution w/ nsaids for pain control -daily bmp >> some risk w/ hypotension, IV contrast for KRISTINE >>>will sign off; pls call if ?; Care coordinated w/ Dr Brandt >>>discharge recommendations (d/c summary updated)>> -Continue Urea 15 g twice daily; patient's sister aware pt may well have to pay for this out of pocket -fluid restriction of 1200 mL daily. -continue PO Lasix 20 mg daily -weekly bmp at discharge x 4 checks will be ordered by nephrology -follow up in nephrology clinic 4-6 wks after discharge w/ Dr Macario or Liz Present on Admission?: Yes Admission and Anticipated Discharge Date Admission Date: September 25, 2019 Subjective seen on round sthis am at 0940; c/o ongoing anxiety, pain at chest tube site; constipation; struggles to communicate Review of Systems Review of Systems: All systems reviewed & are unremarkable except as noted in HPI & below Respiratory: + dyspnea Physical Exam Constitutional: well developed and + thin sitting up cross legged in bed Eyes: EOM intact bilaterally ENMT: Ears: no external ear abnormality Nose: no external nose abnormality Mouth: + dry oral mucous membranes Neck: no nuchal rigidity Respiratory: normal respiratory effort and able to speak in complete sentences (but has to breathe between each) Auscultation: + diminished lung sounds L chest tube Cardiovascular: Rate/Rhythm: regular rhythm and + tachycardic Extremities: no edema Gastrointestinal (Abdomen): Inspection/Auscultation: normal bowel sounds Percussion/Palpation: abdomen soft; abdomen nontender Musculoskeletal: Extremities: strength 5/5 throughout Skin: no rashes, warm and dry Neurologic: pastor, fluent speech, no tremor Psychiatric: Orientation: alert and oriented x 3 Affect: + anxious affect Results & Data ([facility]) Vital Signs (Past 12 Hours) Vital Signs Temp Pulse Pulse Resp BP Pulse Ox 10/06/19 16:17 113 H 10/06/19 15:33 36.4 C L 112 H 20 104/69 95 10/06/19 13:22 97 H 23 96 10/06/19 11:58 36.6 C 86 16 114/77 97 10/06/19 07:38 36.6 C 116 H 17 99/67 L 92 10/06/19 07:19 117 H 10/06/19 07:03 111 H 19 93 Laboratory Results 10/06/19 04:10 10/06/19 04:10
--- NOTE | 2019-10-06 19:48 | Hospitalist Progress Note ---
Date of Service October 06, 2019 Assessment & Plan (1) Pericardial effusion: Present on admission with worsening chest pain when lying associated with SOB CTA chest on admission showed moderate pericardial effusion, simple appearing though increased from prior. Echo showed moderate sized circumferential pericardial effusion From lung mass, s/p pericardial window, mediastinal and lung biopsy 09/[address] Forrester Repeat ECHO on 09/30 showed no pericardial effusion Pathology report showed METASTATIC ADENOCARCINOMA CONSISTENT WITH LUNG PRIMARY. Thoracic surgery on board CTA neg for PE Pneumothorax Hypoxia CXR on 10/01 showed moderate left-sided pneumothorax with pleural separation of [address] Forrester was notified. Since Dr. Forrester was in the OR, Salon Professional Dr. Renee placed the chest tube on 10/01/19 CT chest repeat this morning showed trace left hydropneumothorax. intralobular septal thickening and groundglass change throughout the right lower lung has increased from 09/29/2019. Continue oxygen supplement Repeat CXR today showed A catheter at the left lung base is unchanged in position. A small left pneumothorax has decreased in size from today's earlier study. Airspace opacities are again seen in the left upper lobe. Chest tube as been managed by Dr. Forrester Plan to get thoracoscopy done tomorrow by Dr. Forerster Consider 2 step exercise on discharge if continue requiring oxygen Will make NPO after midnight Chest pain Might be related to the chest tube Will get an EKG and troponin Continue morphine and toradol for pain CHF CXR showed diffuse elevation of interstitium, consistent with congestive failure/fluid overload, or interstitial inflammatory process Received IV lasix 20mg this morning Continue Lasix po daily Will assess later for additional lasix if BP improves Pneumonia CXR showed Interval development of diffuse right lung airspace opacities, asymmetric edema versus pneumonia. Continue doxycycline Lung CA Pathology showed METASTATIC ADENOCARCINOMA CONSISTENT WITH LUNG PRIMARY. Stage 4 with a malignant pericardial effusion. Genomic study pending Case discussed with Dr. 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 IVF discontinued Na improved to 133 Fluid restriction at 1200ml Nephrology on board Continue Urea 15 g twice daily Continue PO Lasix 20 mg daily Weekly bmp at discharge x 4 checks will be ordered by nephrology Follow up in nephrology clinic 4-6 wks after discharge w/ Dr Macario or [facility] COPD Hx of tobacco abuse nebs and inhalers, Prednisone 40mg daily Continue oxygen supplement Counseling on tobacco abuse HIV continue anti viral med HTN BP stable Continue Metoprolol Depression Anxiety on Klonopin, fluoxetine and BuSpar Stable DVT px Will start on heparin drip if no upcoming surgical procedure by thoracic surgeon for the pneumothorax CODE Status Full code Disposition Continue monitor closely Provide update to his Dominguez @ [phone] Admission and Anticipated Discharge Date Admission Date: September 25, 2019 Subjective Pt was seen and examined Lying in bed with no acute distress Pt said that he continues to have pain around his chest wall area Continue to require oxygen supplement He is very anxious Physical Exam Physical Exam: General- No acute distress Head- atraumatic Eyes- PERRL, EOMI, ENT- oropharynx clear Neck- supple, no JVD Lungs- decreased BS in the Lside, +chest tube in left lung Heart- +tachycardia, no murmur Abdomen- normal bowel sounds, soft, nontender Extremities- no calf tenderness Neuro- alert, oriented x 3; PERRL, EOMI; no facial palsy; no dysarthria Skin- warm & dry Results & Data ([facility]) Vital Signs (Past 12 Hours) Vital Signs Temp Pulse Pulse Resp BP Pulse Ox 10/06/19 19:37 110 H 20 90 10/06/19 19:04 36.5 C 108 H 20 131/65 90 10/06/19 16:17 113 H 10/06/19 15:33 36.4 C L 112 H 20 104/69 95 10/06/19 13:22 97 H 23 96 10/06/19 11:58 36.6 C 86 16 114/77 97
[2019-10-06] MEDS ORDERED: XOPENEX/ATROVENT 1.25mg/0.5MG NEB COMBO NEB PRN (21:06)
[2019-10-06] MEDS ORDERED: LEVALBUTEROL 1.25MG/0.5ML NEB INH PRN (21:15)
[2019-10-06] MEDS ORDERED: IPRATROPIUM BROMIDE NEB SOLN 0.02% 2.5 ML VIAL INH PRN (21:15)
--- NOTE | 2019-10-06 21:34 | XRay Report ---
XR chest 1V portable CLINICAL HISTORY: 58 years-old Male presenting with sob, pneumothorax. TECHNIQUE: Portable upright AP view of the chest was obtained. COMPARISON: 10/06/2019 at 2:09 PM. FINDINGS: Left pigtail pleural drain presumably terminates in the posterior costophrenic sulcus on the left, po sition unchanged from prior. Elevation of the left hemidiaphragm with gaseous distended bowel beneath the diaphragm as on prior exam. Cardiomediastinal silhouette normal. Suture margin at the periphery of the left upper lung. Redemonstration of the small left pneumothorax with a similar degree of pleur al separation. Persistent bandlike opacity at the left lung base. Interstitial prominence in both leny gs again evident. Added density of the right lung base may be slightly increased from prior. No large effusion. Degenerative changes of the thoracic spine. Significant gaseous distention beneath the lef t hemidiaphragm, presumably within stomach or colon, which has been increasing. IMPRESSION: 1. Increasing gaseous distention beneath the left hemidiaphragm. This is presumably within bowel. Pl ease correlate clinically for abdominal symptomatology to exclude pneumoperitoneum. If there is priyanka rn, abdominal radiographs could be obtained. 2. Stable small left pneumothorax and left basilar atelectasis. 3. Postsurgical changes of the left lung. 4. Persistent congestive change in the lungs. Increasing right basilar density could suggest develop ing pulmonary edema. The report will be called/faxed according to standard departmental protocol. ACT 112: Negative or not required by law. Electronically signed by: Robert Guzman M.D. 10/06/2019 9:33 PM
[2019-10-06] MEDS: [UNRECOGNIZED DRUG - OTHER] PO SCH (21:47)
[2019-10-06] MEDS: PSYLLIUM 58.6% POWDER PACKET PO SCH (21:48)
[2019-10-06] MEDS ORDERED: FUROSEMIDE 20 MG in SYRINGE 0 ML IV ONE (22:00)
[2019-10-06] MEDS ORDERED: PROMETHAZINE HCL 12.5 MG in SODIUM CHLORIDE 0.9% 50 ML IV PRN (22:14)
--- NOTE | 2019-10-06 22:24 | Communication Note ---
Date of Service: October 06, 2019 Made aware by RN of patient hemoptysis episode associated with left-sided chest pain and left upper quadrant pain. A little more shortness of breath than usual as per patient. Chest x-ray: 1. Increasing gaseous distention beneath the left hemidiaphragm. This is presumably within bowel. Please correlate clinically for abdominal symptomatology to exclude pneumoperitoneum. If there is concern, abdominal radiographs could be obtained. 2. Stable small left pneumothorax and left basilar atelectasis. 3. Postsurgical changes of the left lung. 4. Persistent congestive change in the lungs. Increasing right basilar density could suggest developing pulmonary edema. AP Hemoptysis with pleuritic chest pain Rule out PE LUQ pain Solu-Medrol 1 dose for hemoptysis Hold aspirin for now CT chest/abdomen pelvis Will relay to AM provider.
[2019-10-06] MEDS ORDERED: methylPREDNISolone 20 MG in SYRINGE 0 ML IV STA (22:36)
[2019-10-07] MEDS ORDERED: ALBUMIN 25% 50 ML IV ONE ×2 (00:20→20:31)
[2019-10-07] MEDS ORDERED: OPTIRAY 320 125ml IV PRN (00:33)
[2019-10-07] MEDS: MoRPHine SULFATE 2 MG/ML CARP IV PRN ×5 (01:06→11:59)
[2019-10-07] MEDS: IPRATROPIUM BROMIDE NEB SOLN 0.02% 2.5 ML VIAL INH SCH ×4 (01:08→19:39)
[2019-10-07] MEDS: LEVALBUTEROL 1.25MG/0.5ML NEB INH SCH ×4 (01:09→19:39)
[2019-10-07 01:34] LABS: Basophils # (auto) 0.02 K/uL (0-0.2); Basophils % (auto) 0.2 %; Eosinophils # (auto) 0.23 K/uL (0-0.5); Eosinophils % (auto) 2.3 %; Hematocrit (blood only) 37.8 % (42-52); Hemoglobin 13.3 g/dL (14.0-18.0); Immature Granulocytes # (auto) 0.15 K/uL (0.00-0.02); Immature Granulocytes % (auto) 1.5 %; Lymphocytes # (auto) 1.78 K/uL (1.2-3.4); Lymphocytes % (auto) 17.5 %; Mean Corpuscular Hemoglobin 31.1 pg (25-34); Mean Corpuscular Hgb Conc 35.2 g/dL (32-36); Mean Corpuscular Volume 88.5 fL (80-100); Mean Platelet Volume 9.3 fL (7.4-10.4); Monocytes # (auto) 0.67 K/uL (0.11-0.59); Monocytes % (auto) 6.6 %; Neutrophils # (auto) 7.33 K/uL (1.4-6.5); Neutrophils % (auto) 71.9 %; Platelet Count 326 K/uL (130-400); RDW Coefficient of Variation 13.6 % (11.5-14.5); RDW Standard Deviation 43.9 fL (36.4-46.3); Red Blood Count 4.27 M/uL (4.7-6.1); White Blood Count 10.18 K/uL (4.8-10.8)
[2019-10-07] MEDS: guaiFENesin 200 MG TAB PO SCH ×3 (01:44→19:40)
[2019-10-07 01:57] LABS: Albumin Level 3.1 gm/dl (3.4-5.0); BUN Creatinine Ratio 56.8 (10-20); Calcium 8.6 mg/dl (8.5-10.1); Creatinine Clr Calc Pharmacy 80.3 ml/min; Est GFR (African American) 109.5; Est GFR (Non-African American) 94.5; Potassium 4.5 mmol/L (3.5-5.1)
[2019-10-07 02:00] LABS: Albumin Globulin Ratio 0.8 (0.9-2); Bilirubin,Total 0.2 mg/dl (0.2-1); Globulin 4.1 gm/dl (2.5-4.0); Total Protein 7.2 gm/dl (6.4-8.2)
[2019-10-07 02:44] LABS: Magnesium 2.1 mg/dl (1.8-2.4)
--- NOTE | 2019-10-07 07:13 | CT Scan Report ---
ABDOMEN AND PELVIS CT WITH IV CONTRAST CT DOSE: 647.91 mGy.cm HISTORY: Left-sided abdominal pain. TECHNIQUE: Multiaxial CT images of the abdomen and pelvis were performed following the use of intrave nous contrast. A dose lowering technique was utilized adhering to the principles of ALARA. COMPARISON STUDY: None. FINDINGS: Necrotic mediastinal and bilateral hilar lymphadenopathy is partially visualized on this st udy. Left basilar pneumothorax with a pigtail catheter located within the left anterior pleural space . Mild interlobular septal thickening and emphysema noted within the right lung base. No pneumoperito neum. No pneumatosis. No suspicious lytic are blastic osseous lesions. The gallbladder, pancreas, spl een, and left kidney are unremarkable. There is a 6 mm hypodense lesion within the right kidney. This favors a cyst. Bilateral heterogeneous adrenal gland nodules with the largest on the right measuring 4.1 x 2.7 cm. The left adrenal gland nodule measures 2.0 cm. Normal bladder. No retroperitoneal or p elvic lymphadenopathy. Moderate well-formed stool within the colon. No bowel wall thickening or obstr uction. IMPRESSION: 1. Necrotic mediastinal and bilateral hilar lymphadenopathy which is better appreciated on the same d ay chest CTA. 2. Left-sided pneumothorax with a left basilar pleural catheter in place. 3. Bilateral heterogeneous adrenal gland nodules likely representing metastatic disease. 4. Moderate well-formed stool within the colon. ACT 112: Negative or not required by law. Electronically signed by: Christopher Napoles M.D. 10/07/2019 7:11 AM
[2019-10-07 07:23] LABS: Hemoglobin 13.6 g/dL (14.0-18.0)
[2019-10-07] MEDS: clonazePAM 1 MG TAB PO SCH ×2 (07:53→21:35)
[2019-10-07] MEDS: POLYETHYLENE (MIRALAX) 17 GM PACK PO PRN (07:53)
[2019-10-07] MEDS: DOCUSATE SODIUM 100 MG CAP PO SCH ×2 (07:53→21:36)
--- NOTE | 2019-10-07 08:18 | CT Scan Report ---
CT ANGIOGRAM OF THE CHEST CLINICAL HISTORY: Hemoptysis. COMPARISON STUDY: Chest x-ray dated 10/06/2019. Chest CT scans dated 10/02/2019 and 09/25/2019. TECHNIQUE: Following the IV administration of 117 cc of Optiray 320, CT angiogram of the chest was pe rformed from the upper abdomen to the thoracic inlet utilizing the pulmonary embolus protocol. Images are reviewed in the axial, sagittal, and coronal planes. 3-D MIPS images are created and assessed. I V contrast was administered without complication. A dose lowering technique was utilized adhering to the principles of ALARA. The examination is compromised by motion artifact. FINDINGS: Thyroid: Imaged portions of the thyroid gland are normal in size and attenuation. Thoracic aorta: The thoracic aorta is normal in caliber and demonstrates standard 3-vessel arch anato my. No dissection is seen. Pulmonary vasculature: The pulmonary trunk is normal in caliber. There are no filling defects identif ied in main, lobar, or segmental pulmonary branches to suggest pulmonary embolus. Heart: The heart is normal in size and without pericardial effusion. There are coronary artery calcif ications. Lungs and pleural spaces: Advanced emphysematous change is identified. There is postoperative change and volume loss consistent with left upper lobe resection. A small to moderate left pneumothorax pers ists. A pigtail drainage catheter is present at the anterior left lung base, entering between the lat eral 7th and 8th ribs. The catheter traverses a segment of atelectatic left upper lobe. Segmental ate lectasis is noted in the left lower lobe. Parenchymal scarring is seen adjacent to the suture line in the left upper lung. No pleural effusion is identified and there is no lobar consolidation. A 7 mm p erifissural nodule is again seen in the left upper lobe on image #175. 11 mm right upper lobe nodule on image #205 is new from previous. Mediastinum: There is infiltrative soft tissue attenuation to the mediastinum consistent with tumor/l ymphadenopathy. Dee: There is bilateral hilar adenopathy. The largest node is on the right measuring 3.3 x 2.6 cm. Axillae: Mildly enlarged right axillary lymph nodes are again noted. These measure up to 12 mm short axis. Upper abdomen: A 4.3 x 2.9 cm right adrenal metastasis and 2.1 cm left adrenal metastasis are again n oted. Skeletal structures: Skeletal structures are osteopenic. No lytic or blastic bony lesions are seen. IMPRESSION: 1. There is no evidence of pulmonary embolus in the main, lobar, or segmental pulmonary arteries. 2. Advanced emphysema with postoperative change from left upper lobe resection. 3. A drainage catheter at the left lung base is unchanged in position. This traverses a segment of th e atelectatic left lung. 4. A small to moderate left pneumothorax is again noted. 5. A 7 mm perifissural nodule in the left upper lobe is unchanged. There is a new 11 mm right upper l obe nodule. 6. Mediastinal and hilar adenopathy as well as adrenal metastases are again noted. 7. Segmental atelectasis in the left upper and lower lobes has progressed from 10/02/2019. ACT 112: Negative or not required by law. Electronically signed by: Pj Marx M.D. 10/07/2019 8:17 AM
[2019-10-07] MEDS: UREA (URE-NA) 15 GM PACK PO SCH ×2 (08:30→21:39)
[2019-10-07] MEDS: predniSONE 20 MG TAB PO SCH (08:31)
[2019-10-07] MEDS: NICOTINE 21 MG/24 HR TDSY TD SCH (08:31)
[2019-10-07] MEDS: ENOXAPARIN INJ 40 MG/0.4 ML SYR SQ SCH (08:31)
[2019-10-07] MEDS: PANTOprazole 40 MG TAB PO SCH (08:31)
[2019-10-07] MEDS: FLUTICASONE FUROATE 200MCG 14 PUFFS/INHALER INH SCH (08:31)
[2019-10-07] MEDS: BusPIRone 15 MG TAB PO SCH ×2 (08:31→21:37)
[2019-10-07] MEDS: METOPROLOL TARTRATE 25 MG TAB PO SCH ×2 (08:31→21:37)
[2019-10-07] MEDS: AMITRIPTYLINE HCL 50 MG TAB PO SCH (08:31)
[2019-10-07] MEDS: FUROSEMIDE 20 MG TAB PO SCH (08:31)
[2019-10-07] MEDS: KETOROLAC 30 MG/ML VIAL IV PRN ×2 (10:13→20:45)
[2019-10-07] MEDS ORDERED: SODIUM CHLORIDE 0.9% PF 50 ML VIAL ONE (14:32)
[2019-10-07] MEDS ORDERED: BUPIVACAINE 0.5 % 5 MG/1 ML MPF 30ML VIAL ONE (14:32)
[2019-10-07] MEDS ORDERED: BUPIVACAINE LIPOSOME 1.3% 266 MG/20 ML VIAL ONE (14:33)
--- NOTE | 2019-10-07 14:54 | History & Physical Bridge Note ---
Date of Service October 07, 2019 History & Physical Bridge Note I have examined the patient, reviewed the History & Physical and in the interval since the performance of the History & Physical I have noted the following changes of clinical significance: no changes noted
[2019-10-07] MEDS ORDERED: fentaNYL citrate 100 MCG/2 ML VIAL ONE (15:04)
[2019-10-07] MEDS ORDERED: ePHEDrine sulfate 50 MG/ML AMP IV PRN (15:06)
[2019-10-07] MEDS ORDERED: fentaNYL citrate 100 MCG/2 ML VIAL IV PRN (15:06)
[2019-10-07] MEDS ORDERED: ATROPINE SULFATE 0.1 MG/ML 10ML SYR IV PRN (15:06)
[2019-10-07] MEDS ORDERED: ONDANSETRON INJ 2 MG/ML 2 ML VIAL IV PRN (15:06)
[2019-10-07] MEDS ORDERED: CEFAZOLIN 250 MG/ML 1 GM VIAL ONE (15:39)
[2019-10-07] MEDS ORDERED: PROPOFOL IV EMULSION 10 MG/ML 20 ML VIAL IV ONE (15:40)
[2019-10-07] MEDS ORDERED: LIDOCAINE HCL 2% 2 ML VIAL/AMP(20MG/ML) INFIL ONE (15:40)
[2019-10-07] MEDS ORDERED: ONDANSETRON INJ 2 MG/ML 2 ML VIAL ONE (15:40)
[2019-10-07] MEDS ORDERED: ROCURONIUM BROMIDE 10 MG/ML 5 ML VIAL ONE (15:40)
[2019-10-07] MEDS ORDERED: CISATRACURIUM BESYLATE IV SOLN 2 MG/ML 10 ML VIAL IV ONE (16:35)
--- NOTE | 2019-10-07 17:48 | XRay Report ---
XR chest 1V portable CLINICAL HISTORY: pneumothorax COMPARISON STUDY: 10/06/2019 FINDINGS: The cardiac and mediastinal contours remain stable. The pleural pigtail catheter has been r emoved and a left-sided chest tube has been placed the tip of which projects over the left posterior fourth rib. There are multiple left lung suture lines. No definitive pneumothorax is visualized. Ther e is subcutaneous emphysema on the left. There are medial left lung airspace opacities. There is a ne w airspace opacity the right lung base, atelectatic versus infectious/inflammatory[ IMPRESSION: 1. Developing nonspecific bilateral airspace opacities 2. Interval removal of the pleural pigtail catheter, and placement of a left-sided chest tube with it s tip projected over the left fifth rib. No definite pneumothorax ACT 112: Negative or not required by law. Electronically signed by: Kiel Garcia M.D. 10/07/2019 5:46 PM
--- NOTE | 2019-10-07 18:24 | Operative Report ---
DATE OF OPERATION: 10/07/2019 PREOPERATIVE DIAGNOSES: 1. Spontaneous left pneumothorax. 2. Status post pericardial window for malignant pleural effusion. 3. Stage IV nonsmall cell lung carcinoma, left lung. 4. 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 POSTOPERATIVE DIAGNOSES: 1. Spontaneous pneumothorax from apical bleb rupture. 2. Status post pericardial window for malignant pleural effusion. 3. Stage IV nonsmall cell lung carcinoma, left lung. 4. 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 PROCEDURE: Left thoracoscopy with apical bleb resection left upper lobe. SURGEON: Cm Forrester MD PIPE AND TANK FABRICATOR: Robin Moses (Lefty Josué was present for the entire case). ANESTHESIA: General anesthesia, endotracheal intubation using single lumen tube. SPECIFICS OF PROCEDURE AND FINDINGS: Mr. Pulido is an unfortunate 58-year-old heavy cigarette smoker who was found to have symptomatic pericardial effusion and underwent a pericardial window about 10 days ago. The patient responded well to this; however, it turns out he has widely metastatic cancer. He has been quite short of breath because of his paralyzed left hemidiaphragm in addition to his underlying COPD. In addition, we never had an air leak during our surgery and once we removed the chest tube, he was fine for a few days and then developed a pneumothorax. We did do a small wedge resection of a lung nodule; however, when we went back in it could be seen that this was not leaking. The patient has apical blebs and actually diffuse rather significant blebs in his left lung. We went back in and our staple line was fine. I took down multiple adhesions and then we found this large leak which was a bulla in the superior segment, I mean the apex of the left upper lobe. I did some generous wedge resection and removed this. He tolerated it well. I did an Exparel block. We had negligible blood loss and no air leak at conclusion of the case. DESCRIPTION OF PROCEDURE: The patient brought to the operating room, laid in supine position. General anesthesia induced and endotracheal intubation. Procedure performed with single lumen tube. The patient was then turned in right lateral decubitus position. The left chest prepped and draped in usual sterile fashion. We switched him over to a very small tidal volumes and removed his indwelling pleural catheter which was a rather small catheter. We then prepped him and draped him in usual sterile fashion. He received prophylactic antibiotics and appropriate timeout was called. His old incision posteriorly which is a 5 mm port was opened. A 5 mm port was placed. There were adhesions noted superiorly; however, we did not really see any from the left lower lobe. I then put another 5 mm port in the same port site anteriorly as well as a 12 mm port in the same site in the mid axillary line. We then gently took down the adhesions to the apex. We were able to get these down pretty easily. We filled the chest with saline. I did not see any leak initially until we got all the adhesions down. In particular our staple line on the anterolateral surface of the upper lobe showed no evidence of a leak. After taking down all the adhesions, there was some bleeding and Aquamantys was used to control the chest wall oozing. We then grasped the apex and pulling that it could be seen there was a bleb with an apparent leak which was rather large. Using Endo-BRIAN stapler, I removed this in a very generous wedge resection. In addition, I used the stapler to complete the posterior fissure between the upper lobe and the lower lobe. This helped us to free up the upper lobe more so we could apply the stapler. There was another raw area on the apex more posteriorly that I excised and removed it. I was concerned as it appeared to be more than just a pleural defect. I saw no leaking at the conclusion of the case after we filled the chest with saline. I then closely inspected the rest of the chest, I did not see any evidence of any air leak. A 24-Syriac chest tube was placed in the anterior port directed towards the apex. This was held in place with heavy silk suture. 0 Vicryl was used to close the muscle layers of the 12 mm port and 4-0 Monocryl was used in running subcuticular fashion to approximate the wound edges. The patient tolerated the procedure well. I attest to the content of the Intraoperative Record and any orders documented therein. Any exception s are noted below.
--- NOTE | 2019-10-07 18:25 | Anesthesiology Progress Note ---
Date of Service October 07, 2019 Anesthesia Post Procedure Vital Signs Vital Signs: Temp Pulse Pulse Pulse Pulse Resp BP 10/07/19 18:15 79 20 10/07/19 18:05 77 20 10/07/19 17:55 76 20 10/07/19 17:45 76 20 10/07/19 17:38 36.0 C L 74 74 20 10/07/19 14:16 36.5 C 102 H 22 10/07/19 13:26 96 H 20 10/07/19 11:35 36.5 C 94 H 20 10/07/19 10:21 96 H 10/07/19 07:25 95 H 20 10/07/19 07:02 96 H 18 10/07/19 04:55 36.5 C 98 H 20 10/07/19 03:46 111 H 10/07/19 01:09 94 H 16 10/06/19 23:58 36.3 C L 116 H 19 10/06/19 19:37 110 H 20 10/06/19 19:04 36.5 C 108 H 20 131/65 BP Pulse Ox 10/07/19 18:15 88/72 L 99 10/07/19 18:05 105/78 99 10/07/19 17:55 108/74 95 10/07/19 17:45 103/68 95 10/07/19 17:38 87/58 L 95 10/07/19 14:16 101/70 94 10/07/19 13:26 98 10/07/19 11:35 103/77 96 10/07/19 10:21 10/07/19 07:25 112/82 95 10/07/19 07:02 95 10/07/19 04:55 117/86 91 10/07/19 03:46 10/07/19 01:09 99 10/06/19 23:58 94/76 L 100 10/06/19 19:37 90 10/06/19 19:04 90 Pain Intensity Chest: Pain Intensity: 0 Left Back: Pain Intensity: 10 Left Chest: Pain Intensity: 10 Bilateral Back: Pain Intensity: 8 Transfer of Care Handoff Completed per policy Notes Mental Status: alert / awake / arousable and participated in evaluation Patient Amnestic to Procedure: Yes Nausea / Vomiting: adequately controlled Pain: adequately controlled Airway Patency, RR, SpO2: stable & adequate BP & HR: stable & adequate Hydration State: stable & adequate Anesthetic Complications: no major complications apparent, see Notes below and Pt Satisfied with anesthetic care Notes: Patient's only complaint at this time is that he needs to urinate. Patient is confident that he will be able to urinate if he can get out of bed. Will transfer up to the floor at this time to facilitate this.
--- NOTE | 2019-10-07 18:38 | Hospitalist Progress Note ---
Date of Service October 07, 2019 Assessment & Plan (1) Pericardial effusion: Present on admission with worsening chest pain when lying associated with SOB CTA chest on admission showed moderate pericardial effusion, simple appearing though increased from prior. Echo showed moderate sized circumferential pericardial effusion From lung mass, s/p pericardial window, mediastinal and lung biopsy 09/[address] Forrester Repeat ECHO on 09/30 showed no pericardial effusion Pathology report showed METASTATIC ADENOCARCINOMA CONSISTENT WITH LUNG PRIMARY. Thoracic surgery on board CTA neg for PE Pneumothorax Hypoxia CXR on 10/01 showed moderate left-sided pneumothorax with pleural separation of [address] Forrester was notified. Since Dr. Forrester was in the OR, Building Analyst/Supervisor Dr. Renee placed the chest tube on 10/01/19 CT chest repeat this morning showed trace left hydropneumothorax. intralobular septal thickening and groundglass change throughout the right lower lung has increased from 09/29/2019. Continue oxygen supplement Repeat CXR today showed A catheter at the left lung base is unchanged in position. A small left pneumothorax has decreased in size from today's earlier study. Airspace opacities are again seen in the left upper lobe. Chest tube as been managed by Dr. Forrester s/p Left thoracoscopy with apical bleb resection left upper lobe performed today by Dr. Forrester Consider 2 step exercise on discharge if continue requiring oxygen Chest pain Might be related to the chest tube Will get an EKG and troponin Continue morphine and toradol for pain CHF CXR showed diffuse elevation of interstitium, consistent with congestive failure/fluid overload, or interstitial inflammatory process Received IV lasix 20mg this morning Continue Lasix po daily Pneumonia CXR showed Interval development of diffuse right lung airspace opacities, asymmetric edema versus pneumonia. Continue doxycycline Lung CA Pathology showed METASTATIC ADENOCARCINOMA CONSISTENT WITH LUNG PRIMARY. Stage 4 with a malignant pericardial effusion. Genomic study pending Case discussed with Dr. 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 IVF discontinued Na 131 toady Fluid restriction at 1200ml Nephrology on board Continue Urea 15 g twice daily Continue PO Lasix 20 mg daily Weekly bmp at discharge x 4 checks will be ordered by nephrology Follow up in nephrology clinic 4-6 wks after discharge w/ Dr Macario or Liz COPD Hx of tobacco abuse nebs and inhalers, Prednisone 40mg daily Continue oxygen supplement Counseling on tobacco abuse HIV continue anti viral med HTN BP stable Continue Metoprolol Depression Anxiety on Klonopin, fluoxetine and BuSpar Stable DVT px Will start on heparin drip if no upcoming surgical procedure by thoracic surgeon for the pneumothorax CODE Status Full code Disposition Continue monitor closely Provide update to his Dominguez @ [phone] Admission and Anticipated Discharge Date Admission Date: September 25, 2019 Subjective Pt was seen and examined Sitting in bed with no distress Waiting to take to the OR at 1 PM today for thoracoscopy Continue to have chest wall tenderness Physical Exam Physical Exam: General- No acute distress Head- atraumatic Eyes- PERRL, EOMI, ENT- oropharynx clear Neck- supple, no JVD Lungs- decreased BS in the Lside, +chest tube in left lung Heart- +tachycardia, no murmur Abdomen- normal bowel sounds, soft, nontender Extremities- no calf tenderness Neuro- alert, oriented x 3; PERRL, EOMI; no facial palsy; no dysarthria Skin- warm & dry Results & Data ([facility]) Vital Signs (Past 12 Hours) Vital Signs Temp Pulse Pulse Pulse Pulse Resp BP 10/07/19 18:25 36.6 C 79 20 108/62 10/07/19 18:15 79 20 88/72 L 10/07/19 18:05 77 20 105/78 10/07/19 17:55 76 20 108/74 10/07/19 17:45 76 20 103/68 10/07/19 17:38 36.0 C L 74 74 20 87/58 L 10/07/19 14:16 36.5 C 102 H 22 101/70 10/07/19 13:26 96 H 20 10/07/19 11:35 36.5 C 94 H 20 103/77 10/07/19 10:21 96 H 10/07/19 07:25 95 H 20 112/82 10/07/19 07:02 96 H 18 Pulse Ox 10/07/19 18:25 99 10/07/19 18:15 99 10/07/19 18:05 99 10/07/19 17:55 95 10/07/19 17:45 95 10/07/19 17:38 95 10/07/19 14:16 94 10/07/19 13:26 98 10/07/19 11:35 96 10/07/19 10:21 10/07/19 07:25 95 10/07/19 07:02 95
[2019-10-07] MEDS ORDERED: D5W AND 1/2NSS 1,000 ML IV SCH (18:45)
[2019-10-07] MEDS: ACETAMINOPHEN 1,000 MG/100 ML VIAL IV SCH (19:41)
[2019-10-07] MEDS: METOCLOPRAMIDE HCL INJ 5 MG/ML 2 ML VIAL IV SCH (19:42)
[2019-10-07] MEDS ORDERED: DEXAMETHASONE SOD PHOSPHATE 4 MG in SYRINGE 0 ML IV STA (20:29)
[2019-10-07 21:01] LABS: Basophils # (auto) 0.01 K/uL (0-0.2); Basophils % (auto) 0.1 %; Eosinophils % (auto) 0.6 %; Hematocrit (blood only) 36.3 % (42-52); Hemoglobin 12.4 g/dL (14.0-18.0); Immature Granulocytes # (auto) 0.17 K/uL (0.00-0.02); Immature Granulocytes % (auto) 1.1 %; Lymphocytes # (auto) 0.79 K/uL (1.2-3.4); Mean Corpuscular Hemoglobin 31.1 pg (25-34); Mean Corpuscular Hgb Conc 34.2 g/dL (32-36); Mean Platelet Volume 9.3 fL (7.4-10.4); Monocytes # (auto) 0.66 K/uL (0.11-0.59); Monocytes % (auto) 4.2 %; Neutrophils # (auto) 14.09 K/uL (1.4-6.5); Platelet Count 311 K/uL (130-400); RDW Coefficient of Variation 13.6 % (11.5-14.5); RDW Standard Deviation 45.4 fL (36.4-46.3); Red Blood Count 3.99 M/uL (4.7-6.1); White Blood Count 15.82 K/uL (4.8-10.8)
--- NOTE | 2019-10-07 21:03 | XRay Report ---
XR chest 1V portable CLINICAL HISTORY: Chest pain, shortness of breath. COMPARISON STUDY: 10/07/2019 FINDINGS: The heart is normal in size. A right hemithorax line shadow is felt to represent a skinfold . The left-sided chest tube remains unchanged in position. No definite pneumothorax is visualized. Th ere is diffuse elevation of interstitium. There is improving aeration of the lung bases.[ IMPRESSION: 1. No change in the position left-sided chest tube 2. No definite pneumothorax 3. Resolving basilar opacities ACT 112: Negative or not required by law. Electronically signed by: Kiel Garcia M.D. 10/07/2019 9:01 PM
[2019-10-07 21:18] LABS: BUN Creatinine Ratio 42.3 (10-20); Blood Urea Nitrogen 42 mg/dl (7-18); Calcium 8.9 mg/dl (8.5-10.1); Carbon Dioxide 28 mmol/L (21-32); Chloride 99 mmol/L (98-107); Est GFR (African American) 95.1; Glucose 171 mg/dl (70-99); Magnesium 2.2 mg/dl (1.8-2.4); Potassium 4.5 mmol/L (3.5-5.1); Sodium 131 mmol/L (136-145)
[2019-10-07 21:29] LABS: NT Pro B Type Natriuretic Pept 553 pg/ml (0-900); Troponin I < 0.015 ng/ml (0-0.045)
[2019-10-07] MEDS ORDERED: SODIUM CHLORIDE 0.9% 500 ML IV ONE (21:36)
[2019-10-07] MEDS: PSYLLIUM 58.6% POWDER PACKET PO SCH (21:38)
[2019-10-07] MEDS ORDERED: XOPENEX/ATROVENT 1.25mg/0.5MG NEB COMBO NEB STA (21:45)
[2019-10-07] MEDS ORDERED: PIPERACILL/TAZOBAC CONSULT ACTIVE PRN (21:45)
[2019-10-07] MEDS ORDERED: IPRATROPIUM BROMIDE NEB SOLN 0.02% 2.5 ML VIAL INH STA (21:48)
[2019-10-07] MEDS ORDERED: LEVALBUTEROL 1.25MG/0.5ML NEB INH STA (21:48)
[2019-10-07] MEDS: [UNRECOGNIZED DRUG - OTHER] PO SCH (21:49)
[2019-10-07] MEDS: OXYCODONE HCL IR 5 MG TAB (IMMEDIATE RELEASE) PO PRN (21:49)
[2019-10-07] MEDS ORDERED: PIPERACILLIN/TAZOBACTAM 3.375 GM in DEXTROSE 5% 100 ML IV ONE (22:00)
[2019-10-08] MEDS: LEVALBUTEROL 1.25MG/0.5ML NEB INH SCH ×4 (01:22→19:16)
[2019-10-08] MEDS: IPRATROPIUM BROMIDE NEB SOLN 0.02% 2.5 ML VIAL INH SCH ×4 (01:22→19:16)
[2019-10-08] MEDS: MoRPHine SULFATE 2 MG/ML CARP IV PRN ×6 (02:43→23:22)
[2019-10-08] MEDS: guaiFENesin 200 MG TAB PO SCH ×3 (02:43→18:26)
[2019-10-08] MEDS: METOCLOPRAMIDE HCL INJ 5 MG/ML 2 ML VIAL IV SCH ×2 (02:44→10:42)
[2019-10-08] MEDS ORDERED: ALBUMIN 25% 50 ML IV ONE (03:43)
[2019-10-08] MEDS: ACETAMINOPHEN 1,000 MG/100 ML VIAL IV SCH ×3 (03:43→20:40)
[2019-10-08] MEDS ORDERED: DEXAMETHASONE SOD PHOSPHATE 4 MG in SYRINGE 0 ML IV STA (03:48)
[2019-10-08] MEDS: PIPERACILLIN/TAZOBACTAM 3.375 GM in DEXTROSE 5% 100 ML IV SCH ×3 (04:52→20:48)
--- NOTE | 2019-10-08 07:21 | XRay Report ---
XR chest 1V portable HISTORY: pneumothorax COMPARISON: Chest 10/07/2019. FINDINGS: The left-sided chest tube has been pulled back with the fenestrated line located outside of the pleural cavity. Only the tip of the chest tube remains within the pleural space. Small left apic al pneumothorax is not significantly changed in size. This demonstrates a maximal pleural gap of 13 m m. Volume loss within the left hemithorax consistent with the postoperative change. Small amount of l eft chest wall subcutaneous emphysema which has progressed and could be due to the malpositioned ches t tube. Left basilar densities are noted. Moderate emphysema. Diffuse interstitial thickening persist s. The heart is normal in size. IMPRESSION: The left-sided chest tube has been pulled back with the fenestrated line located outside of the pleur al cavity. Only the tip of the chest tube remains within the pleural space. Small left apical pneumot horax is not significantly changed in size. These findings were called/faxed to the referring physici an following dictation. ACT 112: Negative or not required by law. Electronically signed by: Christopher Napoles M.D. 10/08/2019 7:20 AM
[2019-10-08 07:40] LABS: Hematocrit (blood only) 34.8 % (42-52); Hemoglobin 11.9 g/dL (14.0-18.0); Mean Corpuscular Hgb Conc 34.2 g/dL (32-36); Mean Corpuscular Volume 90.6 fL (80-100); Mean Platelet Volume 9.1 fL (7.4-10.4); Platelet Count 265 K/uL (130-400); RDW Coefficient of Variation 13.8 % (11.5-14.5); RDW Standard Deviation 45.5 fL (36.4-46.3); Red Blood Count 3.84 M/uL (4.7-6.1); White Blood Count 11.04 K/uL (4.8-10.8)
[2019-10-08] MEDS: clonazePAM 1 MG TAB PO SCH ×2 (07:55→20:48)
[2019-10-08] MEDS: predniSONE 20 MG TAB PO SCH (07:56)
[2019-10-08] MEDS: AMITRIPTYLINE HCL 50 MG TAB PO SCH (07:57)
[2019-10-08] MEDS: METOPROLOL TARTRATE 25 MG TAB PO SCH ×2 (07:57→20:42)
[2019-10-08] MEDS: PANTOprazole 40 MG TAB PO SCH (07:58)
[2019-10-08] MEDS: BusPIRone 15 MG TAB PO SCH ×2 (07:59→20:41)
[2019-10-08] MEDS: DOCUSATE SODIUM 100 MG CAP PO SCH ×2 (07:59→20:41)
[2019-10-08] MEDS: ENOXAPARIN INJ 40 MG/0.4 ML SYR SQ SCH (08:00)
[2019-10-08] MEDS: NICOTINE 21 MG/24 HR TDSY TD SCH (08:01)
[2019-10-08] MEDS: UREA (URE-NA) 15 GM PACK PO SCH ×2 (08:01→20:43)
[2019-10-08] MEDS: FLUTICASONE FUROATE 200MCG 14 PUFFS/INHALER INH SCH (08:06)
[2019-10-08 08:13] LABS: BUN Creatinine Ratio 40.1 (10-20); Calcium 8.9 mg/dl (8.5-10.1); Creatinine Clr Calc Pharmacy 70.7 ml/min; Est GFR (African American) 96.2; Potassium 4.6 mmol/L (3.5-5.1)
[2019-10-08] MEDS: ASPIRIN 81 MG ECTAB PO SCH (08:48)
[2019-10-08] MEDS: OXYCODONE HCL IR 5 MG TAB (IMMEDIATE RELEASE) PO PRN ×2 (09:27→16:30)
--- NOTE | 2019-10-08 09:56 | Hospitalist Progress Note ---
Date of Service October 08, 2019 Assessment & Plan (1) Pericardial effusion: Present on admission with worsening chest pain when lying associated with SOB CTA chest on admission showed moderate pericardial effusion, simple appearing though increased from prior. Echo showed moderate sized circumferential pericardial effusion From lung mass, s/p pericardial window, mediastinal and lung biopsy 09/[address] Forrester Repeat ECHO on 09/30 showed no pericardial effusion Pathology report showed METASTATIC ADENOCARCINOMA CONSISTENT WITH LUNG PRIMARY. Thoracic surgery on board CTA neg for PE (2)Pneumothorax (3)Hypoxia CXR on 10/01 showed moderate left-sided pneumothorax with pleural separation of [address] Forrester was notified. Since Dr. Forrester was in the OR, Manugrapher Dr. Renee placed the chest tube on 10/01/19 CT chest repeat this morning showed trace left hydropneumothorax. intralobular septal thickening and groundglass change throughout the right lower lung has increased from 09/29/2019. Continue oxygen supplement Repeat CXR today showed A catheter at the left lung base is unchanged in position. A small left pneumothorax has decreased in size from today's earlier study. Airspace opacities are again seen in the left upper lobe. Chest tube as been managed by Dr. Forrester s/p Left thoracoscopy with apical bleb resection left upper lobe performed on 10/07/[address] Forrester Chest xray from today does not show any significant change in small left pn eumothorax Consider 2 step exercise on discharge if continue requiring oxygen (4)Chest pain Likely related to the chest tube, recent procedure and malignancy Got morphine during evaluation Will continue to monitor and optimize pain control (5)Pneumonia CXR showed interval development of diffuse right lung airspace opacities, asymmetric edema versus pneumonia. Currently on zosyn (6)Lung CA Pathology showed METASTATIC ADENOCARCINOMA CONSISTENT WITH LUNG PRIMARY. Stage 4 with a malignant pericardial effusion. Genomic study pending Case had been discussed by Previous Attending with Dr. 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 IVF discontinued Na still 131 toady Fluid restriction at 1200ml Nephrology on board Continue Urea 15 g twice daily Continue PO Lasix 20 mg daily Weekly bmp at discharge x 4 checks will be ordered by nephrology Follow up in nephrology clinic 4-6 wks after discharge w/ Dr Macario or Liz (8)COPD Hx of tobacco abuse nebs and inhalers Has been on prednisone for past 13 days, will start tapering off and monitor Continue oxygen supplementation Counseling on tobacco abuse (9)HIV continue HAART (10) Hypertension BP stable Continue Metoprolol (11)Depression (12)Anxiety Continue Klonopin, fluoxetine and BuSpar DVT px On lovenox sq CODE Status Full code Dominguez @ [phone] Admission and Anticipated Discharge Date Admission Date: September 25, 2019 Subjective Seen this AM. In painful distress. Reports his chest pain is worse this AM, left sided, feels like 'Javelin going through left side to the back'. States that it is usually worse in the AM. Reports some SOB which he stated is related to his pain and anxiety. Denied any other symptom at the moment Review of Systems Constitutional: no fever and no chills Chest pain Eyes: no problem reported Ear, Nose, Mouth, Throat: no problem reported Respiratory: + pain on inspiration; no dyspnea Cardiovascular: + chest pain; no lightheadedness, no syncope, no edema and no calf pain Gastrointestinal: no problem reported Genitourinary: no problem reported Musculoskeletal: Chest wall pain Neurologic: no problem reported Psychiatric: + anxiety Physical Exam Constitutional: + acute distress (Painful ) Eyes: PERRL and EOM intact bilaterally ENMT: Ears: no external ear abnormality Mouth: no oropharynx abnormality Respiratory: Left chest tube in situ, on 4l/min of nasal oxygen. Reduced breath sounds in left lung zone laterally Cardiovascular: RRR, no murmur, no edema Gastrointestinal (Abdomen): normal bowel sounds, soft, nontender, no hepatosplenomegaly Musculoskeletal: no cyanosis or clubbing, extremities motor strength 5/5 Neurologic: PERRL, EOMI, accommodation nl, no face palsy, no dysarthria Psychiatric: Orientation: alert and oriented x 3 Affect: + anxious affect Results & Data ([facility]) Vital Signs (Past 12 Hours) Vital Signs Temp Pulse Pulse Pulse Resp BP Pulse Ox 10/08/19 07:39 36.6 C 96 H 18 103/71 90 10/08/19 06:55 94 H 20 99 10/08/19 06:13 36.6 C 93 H 18 95/63 L 100 10/08/19 03:48 100 H 84/53 L 10/08/19 03:45 36.3 C L 102 H 20 94/66 L 100 10/08/19 02:33 107/74 10/08/19 01:25 102 H 18 95 10/08/19 00:01 37.2 C 106 H 18 96/55 L 95 10/07/19 23:00 36.4 C L 106 H 110 H 20 98/60 L 94 10/07/19 22:40 36.9 C 108 H 18 91/65 L 96 10/07/19 21:59 104 H 18 100 Laboratory Results Abnormal lab results 10/07/19 10/07/19 10/08/19 Range/Units 20:49 20:50 07:17 WBC 15.82 H 11.04 H (4.8-10.8) K/uL RBC 3.99 L 3.84 L (4.7-6.1) M/uL Hgb 12.4 L 11.9 L (14.0-18.0) g/dL Hct 36.3 L 34.8 L (42-52) % Immature Gran # (Auto) 0.17 H (0.00-0.02) K/uL Neut # (Auto) 14.09 H (1.4-6.5) K/uL Lymph # (Auto) 0.79 L (1.2-3.4) K/uL Beauregard # (Auto) 0.66 H (0.11-0.59) K/uL Sodium 131 L (136-145) mmol/L BUN 42 H (7-18) mg/dl BUN/Creatinine Ratio 42.3 H (10-20) Glucose 171 H (70-99) mg/dl 10/08/19 Range/Units 07:17 WBC (4.8-10.8) K/uL RBC (4.7-6.1) M/uL Hgb (14.0-18.0) g/dL Hct (42-52) % Immature Gran # (Auto) (0.00-0.02) K/uL Neut # (Auto) (1.4-6.5) K/uL Lymph # (Auto) (1.2-3.4) K/uL Beauregard # (Auto) (0.11-0.59) K/uL Sodium 131 L (136-145) mmol/L BUN 40 H (7-18) mg/dl BUN/Creatinine Ratio 40.1 H (10-20) Glucose 137 H (70-99) mg/dl
--- NOTE | 2019-10-08 10:32 | Communication Note ---
Date of Service: October 07, 2019 Late entry : Made aware by RN of SBP 80 to 60s, temperature 35.7, CR 90s around 8:30 PM upon return to floor from PACU. Junky cough as per RN postop left chest pain S OB symptoms CXR 1. No change in the position left-sided chest tube 2. No definite pneumothorax 3. Resolving basilar opacities AP Hypotension, hypovolemia ? Possible adrenal insufficiency ? Sepsis from HAP Decadron 1 dose now, NSS bolus. hold diuretic for now Cultures, check lactic acid, IV Zosyn Will relay to AM provider.
[2019-10-08] MEDS: [UNRECOGNIZED DRUG - OTHER] PO SCH (20:40)
[2019-10-08] MEDS: PSYLLIUM 58.6% POWDER PACKET PO SCH (20:42)
[2019-10-09] MEDS: LEVALBUTEROL 1.25MG/0.5ML NEB INH SCH ×4 (00:31→19:44)
[2019-10-09] MEDS: IPRATROPIUM BROMIDE NEB SOLN 0.02% 2.5 ML VIAL INH SCH ×4 (00:31→19:44)
[2019-10-09] MEDS: LORazepam 0.25 MG/0.5 ML VIAL IV PRN (01:45)
[2019-10-09] MEDS: guaiFENesin 200 MG TAB PO SCH ×3 (02:00→18:35)
[2019-10-09] MEDS: ACETAMINOPHEN 1,000 MG/100 ML VIAL IV SCH ×3 (03:33→20:54)
[2019-10-09] MEDS: PIPERACILLIN/TAZOBACTAM 3.375 GM in DEXTROSE 5% 100 ML IV SCH ×3 (03:55→20:53)
--- NOTE | 2019-10-09 05:02 | Progress Note ---
DATE: 10/08/2019 The patient is seen with his sister this morning, 1 day after we did a thoracoscopic apical bleb resection. He looks better to me. He is on 4 liters of O2, but his heart rate is actually below 100. He has an air leak which is a bit concerning because he did not have one in the OR. He has marked bullous emphysema, but we did not see an air leak when we left. At any rate, it is not a large air leak. He drained very little fluid. His x-ray shows a very small pneumothorax, but he is on waterseal, so I am not concerned about that. He is not wheezing on exam. We will continue the chest tube until the air leak stops. MTDD
--- NOTE | 2019-10-09 05:53 | Electrocardiogram Report ---
Test Reason : Blood Pressure : / mmHG Vent. Rate : 098 BPM Atrial Rate : 098 BPM P-R Int : 144 ms QRS Dur : 094 ms QT Int : 350 ms P-R-T Axes : 047 072 060 degrees QTc Int : 446 ms Normal sinus rhythm Nonspecific T wave abnormality Abnormal ECG When compared with ECG of 05-OCT-2019 11:02, No significant change was found Confirmed by Sami Steen ([id number]) on 10/09/2019 5:53:11 AM Referred By: REFERRED SELF Confirmed By:Sami Steen
[2019-10-09] MEDS: MoRPHine SULFATE 2 MG/ML CARP IV PRN ×2 (08:06→16:41)
[2019-10-09] MEDS: DOCUSATE SODIUM 100 MG CAP PO SCH ×2 (08:11→20:55)
[2019-10-09] MEDS: METOPROLOL TARTRATE 25 MG TAB PO SCH ×2 (08:11→20:55)
[2019-10-09] MEDS: ASPIRIN 81 MG ECTAB PO SCH (08:11)
[2019-10-09] MEDS: AMITRIPTYLINE HCL 50 MG TAB PO SCH (08:11)
[2019-10-09] MEDS: BusPIRone 15 MG TAB PO SCH ×2 (08:11→21:00)
[2019-10-09] MEDS: NICOTINE 21 MG/24 HR TDSY TD SCH (08:12)
[2019-10-09] MEDS: predniSONE 10 MG TABLET PO SCH (08:12)
[2019-10-09] MEDS: PANTOprazole 40 MG TAB PO SCH (08:12)
[2019-10-09] MEDS: ENOXAPARIN INJ 40 MG/0.4 ML SYR SQ SCH (08:13)
[2019-10-09] MEDS: FLUTICASONE FUROATE 200MCG 14 PUFFS/INHALER INH SCH (08:13)
[2019-10-09] MEDS: UREA (URE-NA) 15 GM PACK PO SCH ×2 (08:13→20:54)
[2019-10-09] MEDS: clonazePAM 1 MG TAB PO SCH ×2 (08:18→21:00)
[2019-10-09 08:26] LABS: Hematocrit (blood only) 33.5 % (42-52); Hemoglobin 11.4 g/dL (14.0-18.0); Mean Corpuscular Hemoglobin 30.6 pg (25-34); Mean Corpuscular Volume 89.8 fL (80-100); Mean Platelet Volume 9.2 fL (7.4-10.4); Platelet Count 277 K/uL (130-400); RDW Coefficient of Variation 13.8 % (11.5-14.5); RDW Standard Deviation 45.6 fL (36.4-46.3); Red Blood Count 3.73 M/uL (4.7-6.1); White Blood Count 8.09 K/uL (4.8-10.8)
--- NOTE | 2019-10-09 08:26 | XRay Report ---
XR chest 1V portable CLINICAL HISTORY: pneumothorax COMPARISON STUDY: 10/08/2019 FINDINGS: Unchanged location of left-sided chest tube. No significant residual pneumothorax. Subcutan eous emphysema slightly progressive. Right lung remains clear. Chronic postprocedural elevation left hemidiaphragm. IMPRESSION: 1. No significant residual pneumothorax. 2. Unchanged postoperative changes as described. 3. Slightly progressive subcutaneous emphysema ACT 112: Negative or not required by law. The above report was generated using voice recognition software. It may contain grammatical, syntax or spelling errors. Electronically signed by: Shantanu Jiménez M.D. 10/09/2019 8:25 AM
[2019-10-09] MEDS: OXYCODONE HCL IR 5 MG TAB (IMMEDIATE RELEASE) PO PRN (08:56)
[2019-10-09 09:06] LABS: BUN Creatinine Ratio 51.3 (10-20); Calcium 9.2 mg/dl (8.5-10.1); Creatinine Clr Calc Pharmacy 103.5 ml/min; Est GFR (African American) 119.7; Est GFR (Non-African American) 103.3; Potassium 3.7 mmol/L (3.5-5.1)
--- NOTE | 2019-10-09 09:50 | Progress Note ---
DATE: 10/09/2019 Mr. Pulido was seen with his sister today at bedside. He had a "rough night." He was quite anxious; however, he settled down with Ambien, slept most of the night. He has a very small air leak today. He has not drained much from this chest tube. He put out a total of 90 mL. He does have more subcutaneous emphysema on his x-ray; however, he does not have a pneumothorax today. We will keep the chest tube for the time being, but I believe we will be able to get this out soon.
--- NOTE | 2019-10-09 10:21 | Hospitalist Progress Note ---
Date of Service October 09, 2019 Assessment & Plan (1) Pericardial effusion: Present on admission with worsening chest pain when lying associated with SOB CTA chest on admission showed moderate pericardial effusion, simple appearing though increased from prior. Echo showed moderate sized circumferential pericardial effusion From lung mass, s/p pericardial window, mediastinal and lung biopsy 09/[address] Forrester Repeat ECHO on 09/30 showed no pericardial effusion Pathology report showed METASTATIC ADENOCARCINOMA CONSISTENT WITH LUNG PRIMARY. Thoracic surgery on board CTA neg for PE (2)Pneumothorax (3)Hypoxia CXR on 10/01 showed moderate left-sided pneumothorax with pleural separation of [address] Forrester was notified. Since Dr. Forrester was in the OR, [employer] Dr. Renee placed the chest tube on 10/01/19 CT chest repeat this morning showed trace left hydropneumothorax. intralobular septal thickening and ground glass change throughout the right lower lung has increased from 09/29/2019. Continue oxygen supplement Chest tube as been managed by Dr. Forrester s/p Left thoracoscopy with apical bleb resection left upper lobe performed on 10/07/[address] Forrester Chest tube drainage is reducing Continue to monitor with serial xray Wean oxygen as tolerated Consider 2 step exercise on discharge if continue requiring oxygen (4)Chest pain Likely related to the chest tube, recent procedure and malignancy Increased oxycodone to 10mg q6h prn to reduce iv morphine requirement Continue to monitor and optimize pain control (5)Pneumonia CXR showed interval development of diffuse right lung airspace opacities, asymmetric edema versus pneumonia. Currently on zosyn Day 2 (6)Lung CA Pathology showed METASTATIC ADENOCARCINOMA CONSISTENT WITH LUNG PRIMARY. Stage 4 with a malignant pericardial effusion. Genomic study pending Case had been discussed by Previous Attending with Dr. 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 SIADH IVF discontinued Na still 133 toady Fluid restriction at 1200ml Nephrology on board Continue Urea 15 g twice daily Continue PO Lasix 20 mg daily Weekly bmp at discharge x 4 checks will be ordered by nephrology Follow up in nephrology clinic 4-6 wks after discharge w/ Dr Macario or Liz (8)COPD Hx of tobacco abuse nebs and inhalers Has been on prednisone for past 13 days, will start tapering off and monitor Continue oxygen supplementation Counseling on tobacco abuse (9)HIV continue HAART (10) Hypertension BP stable Continue Metoprolol (11)Depression (12)Anxiety Continue Klonopin, fluoxetine and BuSpar DVT px On lovenox sq CODE Status Full code Dominguez @ [phone] Admission and Anticipated Discharge Date Admission Date: September 25, 2019 Subjective Patient seen and examined Reports he slept better yesterday night Reports chest pain mostly on the left side. States the morphine gets the pain some control shortly after getting it. Denied any shortness of breath Denied any fevers, chills, nausea, vomiting Physical Exam Constitutional: + ill appearing (Chronic ill appearing); no acute distress Eyes: PERRL, conjunctivae normal, anicteric sclerae Neck: trachea midline, no thyromegaly Respiratory: Left chest tube in situ, on 4l/min of nasal oxygen, not in resp distress, reduced breath sounds in left lung zone laterally Cardiovascular: RRR, no murmur, no edema Gastrointestinal (Abdomen): normal bowel sounds, soft, nontender, no hepatosplenomegaly Musculoskeletal: no cyanosis or clubbing, extremities motor strength 5/5 Neurologic: PERRL, EOMI, accommodation nl, no face palsy, no dysarthria Psychiatric: A+Ox3, euthymic affect Affect: no anxious affect Insight: good insight Results & Data ([facility]) Vital Signs (Past 12 Hours) Vital Signs Temp Pulse Pulse Pulse Resp BP Pulse Ox 10/09/19 07:55 36.7 C 92 H 20 117/71 94 10/09/19 07:31 90 10/09/19 06:57 90 18 96 10/09/19 04:00 36.7 C 95 H 18 124/82 92 10/09/19 01:23 96 H 10/09/19 00:31 98 H 18 96 10/08/19 22:56 36.5 C 105 H 20 156/89 H 93 Laboratory Results Abnormal lab results 10/09/19 10/09/19 Range/Units 07:50 07:50 RBC 3.73 L (4.7-6.1) M/uL Hgb 11.4 L (14.0-18.0) g/dL Hct 33.5 L (42-52) % Sodium 133 L (136-145) mmol/L BUN 36 H (7-18) mg/dl BUN/Creatinine Ratio 51.3 H (10-20) Glucose 121 H (70-99) mg/dl
[2019-10-09] MEDS: POLYETHYLENE (MIRALAX) 17 GM PACK PO SCH (15:54)
--- NOTE | 2019-10-09 16:20 | Palliative Care Progress Note ---
Date of Service October 09, 2019 Assessment & Plan (1) Goals of care, counseling/discussion: Pt seen and examined, pt's sister, Елена , at bedside Pt's spouse, Dominguez, is at home. Pt is primary caregiver for his spouse - spouse with hemiplegia s/p CVA. Pt is a 58 yo male with a PMH significant for HIV- dx 1996 on Atripla, Asthma/COPD- current smoker, depression/anxiety and HTN who presented to the ER on . with a complaint of CP X 2-3 days with increased sx when lying flat. pt was found to have a moderate pericardial effusion and L lung mass with adenopathy. Pt underwent pericardial window, mediastinal node bx, bx of pleural mass and MAYRA wedge resection of lung mass on 09/26. Pt required a pigtail CT placement on 10/01 for tension PTX. Node bx and pericardial effusion were + for Adenocarcinoma. Patient underwent apical bleb resection on 10/07-pt continues to require CT. Met with pt and sister at bedside - pt very SOB with speech, voice is just above a whisper. Suggested f/u after he speaks with his ID physician and Oncology. Discussed seeing his ID physician before Oncologist to discuss whether or not chemo would be an option for him. given his HIV status. Pt is to Dominguez, he has one sibling, his sister Елена. He has no children. Елена lives in [place], [place] and is here to help care for pt . Patient's sister has gotten a better idea of patient's living situation-she is planning to take him back to [place] with her to help care for him. Sister aware of how to obtain a hospice referral in [place] - Goals of care - Full code for now, pt to see ID after d/c to see if chemo is an option given his HIV disease - Pericardial effusion - s/p pericardial window on 09/26 - Lung CA - will need to speak with Onc regarding his options - Tension PTX - CT iin place - Dr Forrester following - Resp distress - on O2 , further plans per Dr Forrester, cont scheduled nebs - HIV disease - on Atripla - pt will need to see ID after d/c with new dx of Lung CA - Anxiety - increased anxiety with resp distress and new dx of Lung CA - cont Amitrip, Buspar, Klonopin, and prn Ativan. - TOB dependence - encourage smoking cessation - cont nicotine patch Pt given info for out pt follow up in Palliative Clinic if he does not go to [place] soon after discharge. (2) Pericardial effusion: (3) Carcinoma, lung: (4) Tension pneumothorax: (5) Respiratory distress: (6) HIV disease: (7) Anxiety: (8) Tobacco use disorder: Subjective Patient seen and examined, patient's sister at bedside. Patient sitting up on the side of bed having conversation with his roommate. Patient with no new complaints, states his breathing feels much better Review of Systems Review of Systems: Patient denies fever, chills, increased shortness of breath, or abdominal pain Left chest tube discomfort well controlled Physical Exam Physical Exam: PE: Awake and oriented, no acute distress HEENT: EOMI, hearing within normal limits Respirations: Labored with conversation, breath sounds improved CV: Tachycardic Abdomen: Soft, nontender Extremities: Full range of motion Neuro: Alert and oriented Results & Data Vital Signs (Past 12 Hours) Vital Signs Temp Pulse Pulse Pulse Resp BP Pulse Ox 10/09/19 15:29 101 H 10/09/19 15:15 98.2 F 95 H 20 124/92 90 10/09/19 12:59 92 H 18 98 10/09/19 11:41 97.7 F 92 H 20 121/80 96 10/09/19 07:55 98.1 F 92 H 20 117/71 94 10/09/19 07:31 90 10/09/19 06:57 90 18 96 PG Care Time/CCT Total # of Minutes Spent Total Time Spent with Patient: Total time spent 35 minutes with greater than 50% of the time spent at bedside discussing options with patient and sister at bedside. Coding Level of Care Code 80651 Subseq Hosp Care Lvl 3 Diagnoses Goals of care, counseling/discussion Z71.89 Pericardial effusion I31.3 Carcinoma, lung C34.90 Laterality: unspecified laterality Tension pneumothorax J93.0 Respiratory distress R06.03 HIV disease B20 Anxiety F41.9 Tobacco use disorder F17.200 Time Spent (min) 35 (1) Carcinoma, lung Laterality: unspecified laterality Qualified Code(s): C34.90 - Malignant neoplasm of unspecified part of unspecified bronchus or lung
--- NOTE | 2019-10-09 19:06 | XRay Report ---
XR chest 1V portable HISTORY: Atypical Chest pain COMPARISON: Chest 10/09/2019. FINDINGS: The left chest tube has been slightly pulled back. The fenestrated line is seen within the left chest wall. Small left apical pneumothorax is again noted. This is similar in size and demonstra jesika a maximal pleural gap of 2.6 cm. Volume loss within left hemithorax secondary to the postoperativ e change. Left apical density is also likely due to the postoperative change. There is interstitial v ascular thickening suggestive of mild congestive change. Left chest wall subcutaneous emphysema persi sts. IMPRESSION: 1. The left chest tube has been slightly pulled back. The fenestrated line is seen at the left chest wall. 2. No change in the small left apical pneumothorax. 3. Mild central pulmonary vascular congestion without overt edema. 4. These findings were called/faxed to the referring physician following dictation. ACT 112: Negative or not required by law. Electronically signed by: Christopher Napoles M.D. 10/09/2019 7:04 PM
[2019-10-09] MEDS: [UNRECOGNIZED DRUG - OTHER] PO SCH (20:53)
[2019-10-09] MEDS: PSYLLIUM 58.6% POWDER PACKET PO SCH (20:54)
[2019-10-10] MEDS: MoRPHine SULFATE 2 MG/ML CARP IV PRN ×10 (00:58→22:06)
[2019-10-10] MEDS: IPRATROPIUM BROMIDE NEB SOLN 0.02% 2.5 ML VIAL INH SCH ×4 (01:02→20:09)
[2019-10-10] MEDS: LEVALBUTEROL 1.25MG/0.5ML NEB INH SCH ×4 (01:02→20:09)
[2019-10-10] MEDS: guaiFENesin 200 MG TAB PO SCH ×3 (01:51→17:53)
[2019-10-10] MEDS ORDERED: HYDROmorphone INJ 0.5 MG/0.5 ML SYR IV STA (02:00)
[2019-10-10] MEDS: LORazepam 0.25 MG/0.5 ML VIAL IV PRN (02:49)
[2019-10-10] MEDS: OXYCODONE HCL IR 5 MG TAB (IMMEDIATE RELEASE) PO PRN ×3 (03:25→18:47)
[2019-10-10] MEDS: ACETAMINOPHEN 1,000 MG/100 ML VIAL IV SCH ×2 (03:26→12:44)
[2019-10-10] MEDS: PIPERACILLIN/TAZOBACTAM 3.375 GM in DEXTROSE 5% 100 ML IV SCH ×3 (05:10→22:00)
--- NOTE | 2019-10-10 07:13 | XRay Report ---
XR chest 1V portable CLINICAL HISTORY: pneumothorax COMPARISON STUDY: 10/09/2019 FINDINGS: The cardiac and mediastinal contours remain stable. There is persistent elevation left cristina diaphragm. There is a left-sided chest tube. The fenestrated lateral chest tube is again visualized w ithin the left chest wall. There is left-sided subcutaneous emphysema. No definite pneumothorax is vi sualized. Interstitial left lung opacities persist. IMPRESSION: 1. No change in the position of a left-sided chest tube 2. Persistent left-sided subcutaneous emphysema 3. Persistent left lung interstitial opacities 3. No definite pneumothorax ACT 112: Negative or not required by law. Electronically signed by: Kiel Garcia M.D. 10/10/2019 7:12 AM
[2019-10-10] MEDS: clonazePAM 1 MG TAB PO SCH ×2 (07:28→22:02)
[2019-10-10] MEDS: DOCUSATE SODIUM 100 MG CAP PO SCH ×2 (07:29→22:03)
[2019-10-10] MEDS: UREA (URE-NA) 15 GM PACK PO SCH ×2 (07:29→21:56)
[2019-10-10] MEDS: METOPROLOL TARTRATE 25 MG TAB PO SCH ×2 (07:29→22:03)
[2019-10-10] MEDS: PANTOprazole 40 MG TAB PO SCH (07:31)
[2019-10-10] MEDS: FLUTICASONE FUROATE 200MCG 14 PUFFS/INHALER INH SCH (07:32)
[2019-10-10] MEDS: predniSONE 10 MG TABLET PO SCH (07:32)
[2019-10-10] MEDS: ASPIRIN 81 MG ECTAB PO SCH (07:32)
[2019-10-10] MEDS: NICOTINE 21 MG/24 HR TDSY TD SCH (07:32)
[2019-10-10] MEDS: AMITRIPTYLINE HCL 50 MG TAB PO SCH (07:32)
[2019-10-10] MEDS: ENOXAPARIN INJ 40 MG/0.4 ML SYR SQ SCH (07:32)
[2019-10-10] MEDS: BusPIRone 15 MG TAB PO SCH ×2 (07:33→22:03)
[2019-10-10] MEDS: POLYETHYLENE (MIRALAX) 17 GM PACK PO SCH ×2 (07:34→13:52)
[2019-10-10 08:52] LABS: Hematocrit (blood only) 35.8 % (42-52); Hemoglobin 12.3 g/dL (14.0-18.0); Mean Corpuscular Hemoglobin 31.3 pg (25-34); Mean Corpuscular Hgb Conc 34.4 g/dL (32-36); Mean Corpuscular Volume 91.1 fL (80-100); Platelet Count 305 K/uL (130-400); RDW Coefficient of Variation 13.8 % (11.5-14.5); Red Blood Count 3.93 M/uL (4.7-6.1); White Blood Count 9.04 K/uL (4.8-10.8)
[2019-10-10 09:27] LABS: BUN Creatinine Ratio 36.8 (10-20); Calcium 9.2 mg/dl (8.5-10.1); Creatinine Clr Calc Pharmacy 97.8 ml/min; Est GFR (African American) 115.7; Est GFR (Non-African American) 99.9
--- NOTE | 2019-10-10 09:32 | XRay Report ---
XR chest 2V PA/lateral CLINICAL HISTORY: 58 years-old Male presenting with pneumothorax. TECHNIQUE: PA and lateral views of the chest were obtained. COMPARISON: 10/10/2019. FINDINGS: Large bore left pleural drain position at the periphery of the left upper lung as on prior exam with sidehole within the pleural cavity. Extensive associated soft tissue emphysema along the left chest w all similar to prior. Elevation of the left hemidiaphragm. Suture margin is noted at the periphery of the left apex with a persistent small left pneumothorax. Extensive interstitial prominence of both l ungs though greater on the left. Low lung volume on the left compatible with postsurgical change. Ath erosclerosis of the aortic arch. Cardiac silhouette partially obscured. Degenerative changes of the t horacic spine. Upper abdomen normal. IMPRESSION: 1. Small left pneumothorax with postsurgical changes of the left lung. 2. Left pleural drain remains in place. 3. Underlying interstitial infiltrates. This is similar to prior and not improved. ACT 112: Negative or not required by law. Electronically signed by: Robert Guzman M.D. 10/10/2019 9:31 AM
--- NOTE | 2019-10-10 09:47 | Progress Note ---
DATE: 10/10/2019 Mr. Pulido was seen today on 10/10/2019. His sister is at bedside. Saturations are 93% on 3 liters and his heart rate is an 88. He appears much more comfortable today. We took down all of his dressings and his incisions looked good. His chest tube site is clean. The x-ray report is concerned that the chest tube may be pulling out; however, it is going posterior, so on the frontal view they are not showing that length of the tube, which is intrathoracic very well. I looked at the chest tube, it did not appear to have pulled out at all. We will check a lateral film on him. He does not appear to have an air leak and we may want to remove his chest tube soon; however, he does have subcutaneous emphysema, which has been relatively stable. He looks better to me than I have seen him today.
--- NOTE | 2019-10-10 10:14 | Hospitalist Progress Note ---
Date of Service October 10, 2019 Assessment & Plan (1) Pericardial effusion: Present on admission with worsening chest pain when lying associated with SOB CTA chest on admission showed moderate pericardial effusion, simple appearing though increased from prior. Echo showed moderate sized circumferential pericardial effusion From lung mass, s/p pericardial window, mediastinal and lung biopsy 09/[address] Forrester Repeat ECHO on 09/30 showed no pericardial effusion Pathology report showed METASTATIC ADENOCARCINOMA CONSISTENT WITH LUNG PRIMARY. Thoracic surgery on board CTA neg for PE (2)Pneumothorax (3)Hypoxia CXR on 10/01 showed moderate left-sided pneumothorax with pleural separation of [address] Forrester was notified. Since Dr. Forrester was in the OR, Installation And Repair Technician Dr. Renee placed the chest tube on 10/01/19 CT chest repeat this morning showed trace left hydropneumothorax. intralobular septal thickening and ground glass change throughout the right lower lung has increased from 09/29/2019. Continue oxygen supplement Chest tube as been managed by Dr. Forrester s/p Left thoracoscopy with apical bleb resection left upper lobe performed on 10/07/[address] Forrester Will get 2V xrays as requested by Dr Forrester Continue to wean oxygen as tolerated Consider 2 step exercise on discharge if continue requiring oxygen (4)Chest pain Likely related to the chest tube, recent procedure and malignancy Increased oxycodone to 10mg q6h prn yesterday to reduce iv morphine requirement Continue to monitor and optimize pain control (5)Pneumonia CXR showed interval development of diffuse right lung airspace opacities, asymmetric edema versus pneumonia. Currently on zosyn Day 2 (6)Lung CA Pathology showed METASTATIC ADENOCARCINOMA CONSISTENT WITH LUNG PRIMARY. Stage 4 with a malignant pericardial effusion. Genomic study pending Case had been discussed by Previous Attending with Dr. 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 SIADH IVF discontinued Na still 132 toady Fluid restriction at 1200ml Nephrology on board Continue Urea 15 g twice daily Continue PO Lasix 20 mg daily Weekly bmp at discharge x 4 checks will be ordered by nephrology Follow up in nephrology clinic 4-6 wks after discharge w/ Dr Macario or Liz (8)COPD Hx of tobacco abuse nebs and inhalers Has been on prednisone for past 13 days, will start tapering off and monitor Continue oxygen supplementation Counseling on tobacco abuse (9)HIV continue HAART (10) Hypertension BP stable Continue Metoprolol (11)Depression (12)Anxiety Continue Klonopin, fluoxetine and BuSpar DVT px On lovenox sq CODE Status Full code Discussed with CM Apparently patient is not to partner and will like sister to be person to make decision if he is not able. Sister and patient are interested in moving patient and his care over to [place] [facility] sister leaves once stabilized and discharged Admission and Anticipated Discharge Date Admission Date: September 25, 2019 Subjective Patient still complains of chest pain Reported chest pain got a bit worse at night time and reported this was likely exacerbated by his anxiety. Sister was at bedside. Still on 3l/min of nasal oxygen Denied any other symptom besides chest pain Physical Exam Constitutional: + ill appearing and + well hydrated; no acute distress Eyes: PERRL, conjunctivae normal, anicteric sclerae ENMT: external ear and nose normal, oropharynx normal Respiratory: In no resp distress, nasal oxygen at 3/min, Left chest tube in situ, has breath sounds bilaterally, reduced in lower left lung zone. Cardiovascular: RRR, no murmur, no edema Gastrointestinal (Abdomen): normal bowel sounds, soft, nontender, no hepatosplenomegaly Neurologic: PERRL, EOMI, accommodation nl, no face palsy, no dysarthria Psychiatric: A+Ox3, euthymic affect Results & Data ([facility]) Vital Signs (Past 12 Hours) Vital Signs Temp Pulse Pulse Resp BP Pulse Ox 10/10/19 07:12 36.4 C L 88 18 115/79 93 10/10/19 04:52 36.6 C 98 H 20 130/90 90 10/10/19 01:04 96 H
--- NOTE | 2019-10-10 16:39 | Palliative Care Progress Note ---
Date of Service October 10, 2019 Assessment & Plan (1) Goals of care, counseling/discussion: Pt seen and examined, pt's partner, Dominguez , at bedside Pt has been primary caregiver for his spouse - spouse with hemiplegia s/p CVA. Pt is a 58 yo male with a PMH significant for HIV- dx 1996 on Atripla, Asthma/COPD- current smoker, depression/anxiety and HTN who presented to the ER on . with a complaint of CP X 2-3 days with increased sx when lying flat. pt was found to have a moderate pericardial effusion and L lung mass with adenopathy. Pt underwent pericardial window, mediastinal node bx, bx of pleural mass and MAYRA wedge resection of lung mass on 09/26. Pt required a pigtail CT place ment on 10/01 for tension PTX. Node bx and pericardial effusion were + for Adenocarcinoma. Patient underwent apical bleb resection on 10/07-pt continues to require CT. Met with pt and his partner at bedside - pt very SOB with speech, voice is just above a whisper. Suggested f/u after he speaks with his ID physician and Oncology. Discussed seeing his ID physician before Oncologist to discuss wh ether or not chemo would be an option for him. given his HIV status. Pt is not legally to Dominguez -they have been partners for 26 years, he has one sibling, his sister Елена. He has no children. Елена lives in [place], [place] and is here to help care for pt . Patient's sister has gotten a better idea of patient's living situation-she is planning to take him back to [place] with her to help care for him. Sister aware of how to obtain a hospice referral in [place]. Will continue to assist sister with transportation options. - Goals of care - Full code for now, pt to see ID after d/c to see if chemo is an option given his HIV disease - Pericardial effusion - s/p pericardial window on 09/26 - Lung CA - will need to speak with Onc regarding his options - Tension PTX - CT in place - Dr Forrester following - Resp distress - on O2 , further plans per Dr Forrester, cont scheduled nebs - HIV disease - on Atripla - pt will need to see ID after d/c with new dx of Lung CA - Anxiety - increased anxiety with resp distress and new dx of Lung CA - cont Amitrip, Buspar, Klonopin, and prn Ativan. - TOB dependence - encourage smoking cessation - cont nicotine patch Pt given info for out pt follow up in Palliative Clinic if he does not go to [place] soon after discharge. (2) Pericardial effusion: (3) Carcinoma, lung: (4) Tension pneumothorax: (5) Respiratory distress: (6) HIV disease: (7) Anxiety: (8) Tobacco use disorder: Subjective Patient seen and examined, patient's partner in wheelchair at bedside. Patient's sister asleep in recliner at bedside. Patient awake and alert, patient complaining of left-sided chest pain with deep breath-does not appear to be in increased distress compared to prior visits. Patient sitting on the side of the bed able to reposition himself without distress. Review of Systems Review of Systems: Patient denies fever, chills, increased shortness of breath, or abdominal pain Patient does report increased left-sided chest pain at chest tube site when trying to take a deep breath Physical Exam Physical Exam: PE: Patient awake and alert, talkative HEENT: EOMI, mild [place] Respirations: Diminished breath sounds bilaterally, left-sided chest tube in place CV: Regular rate, no edema Abdomen: Not distended Neuro: Alert and oriented Psych: Anxious. Results & Data Vital Signs (Past 12 Hours) Vital Signs Temp Pulse Pulse Resp BP BP Pulse Ox 10/10/19 15:26 97.9 F 98 H 20 130/87 94 10/10/19 13:20 103 H 18 91 10/10/19 12:05 97.9 F 103 H 22 102/80 91 10/10/19 07:12 97.5 F L 88 18 115/79 93 10/10/19 04:52 97.9 F 98 H 20 130/90 90 PG Care Time/CCT Total # of Minutes Spent Total Time Spent with Patient: Total time spent 35 minutes with greater than 50% of the time spent at bedside assessing patient's current status and updating patient's partner. Coding Level of Care Code 17108 Subseq Hosp Care Lvl 3 Diagnoses Goals of care, counseling/discussion Z71.89 Pericardial effusion I31.3 Carcinoma, lung C34.90 Laterality: unspecified laterality Tension pneumothorax J93.0 Respiratory distress R06.03 HIV disease B20 Anxiety F41.9 Tobacco use disorder F17.200 Time Spent (min) 35 (1) Carcinoma, lung Laterality: unspecified laterality Qualified Code(s): C34.90 - Malignant neoplasm of unspecified part of unspecified bronchus or lung
--- NOTE | 2019-10-10 20:58 | Electrocardiogram Report ---
Test Reason : Blood Pressure : / mmHG Vent. Rate : 109 BPM Atrial Rate : 109 BPM P-R Int : 152 ms QRS Dur : 086 ms QT Int : 324 ms P-R-T Axes : 065 070 054 degrees QTc Int : 436 ms Sinus tachycardia Nonspecific T wave abnormality Abnormal ECG When compared with ECG of 07-OCT-2019 21:15, No significant change was found Confirmed by Sami Steen ([id number]) on 10/10/2019 8:57:49 PM Referred By: REFERRED SELF Confirmed By:Sami Steen
[2019-10-10] MEDS: PSYLLIUM 58.6% POWDER PACKET PO SCH (21:56)
[2019-10-10] MEDS: [UNRECOGNIZED DRUG - OTHER] PO SCH (22:16)
[2019-10-11] MEDS: IPRATROPIUM BROMIDE NEB SOLN 0.02% 2.5 ML VIAL INH SCH ×4 (01:02→19:03)
[2019-10-11] MEDS: LEVALBUTEROL 1.25MG/0.5ML NEB INH SCH ×4 (01:02→19:04)
[2019-10-11] MEDS: MoRPHine SULFATE 2 MG/ML CARP IV PRN ×6 (01:12→19:32)
[2019-10-11] MEDS: LORazepam 0.25 MG/0.5 ML VIAL IV PRN ×3 (01:16→18:59)
[2019-10-11] MEDS: guaiFENesin 200 MG TAB PO SCH ×3 (01:17→17:55)
[2019-10-11] MEDS: PIPERACILLIN/TAZOBACTAM 3.375 GM in DEXTROSE 5% 100 ML IV SCH ×3 (05:02→19:36)
[2019-10-11] MEDS: OXYCODONE HCL IR 5 MG TAB (IMMEDIATE RELEASE) PO PRN ×2 (05:49→22:08)
--- NOTE | 2019-10-11 08:00 | XRay Report ---
XR chest 1V portable HISTORY: pneumothorax COMPARISON: Chest 10/10/2019. FINDINGS: There is again noted a left-sided chest tube which terminates within the periphery of the l eft upper lung zone. Small left apical pneumothorax and postoperative changes within the left lung re main unchanged. There is diffuse interstitial thickening which has slightly progressed. This may repr esent developing congestive change. Emphysema. The heart is stable in size. Left-sided chest wall sub cutaneous emphysema persists. One of the fenestrated lines of the left-sided chest tube is external t o the pleural space. This is also unchanged. IMPRESSION: 1. Small left apical pneumothorax, unchanged. 2. Left chest tube remains unchanged in position. One of the fenestrated lines of the chest tube is e xternal to the pleural space. ACT 112: Negative or not required by law. Electronically signed by: Christopher Napoles M.D. 10/11/2019 7:59 AM
[2019-10-11] MEDS: predniSONE 10 MG TABLET PO SCH (09:10)
[2019-10-11] MEDS: PANTOprazole 40 MG TAB PO SCH (09:10)
[2019-10-11] MEDS: ASPIRIN 81 MG ECTAB PO SCH (09:10)
[2019-10-11] MEDS: BusPIRone 15 MG TAB PO SCH ×2 (09:11→22:10)
[2019-10-11] MEDS: AMITRIPTYLINE HCL 50 MG TAB PO SCH (09:11)
[2019-10-11] MEDS: clonazePAM 1 MG TAB PO SCH ×2 (09:11→22:13)
[2019-10-11] MEDS: DOCUSATE SODIUM 100 MG CAP PO SCH ×2 (09:12→22:13)
[2019-10-11] MEDS: FLUTICASONE FUROATE 200MCG 14 PUFFS/INHALER INH SCH (09:12)
[2019-10-11] MEDS: METOPROLOL TARTRATE 25 MG TAB PO SCH ×2 (09:13→22:11)
[2019-10-11] MEDS: UREA (URE-NA) 15 GM PACK PO SCH ×2 (09:17→22:10)
[2019-10-11] MEDS: NICOTINE 21 MG/24 HR TDSY TD SCH (09:21)
[2019-10-11] MEDS: ENOXAPARIN INJ 40 MG/0.4 ML SYR SQ SCH (09:27)
[2019-10-11] MEDS: POLYETHYLENE (MIRALAX) 17 GM PACK PO SCH ×2 (09:59)
[2019-10-11 10:26] LABS: Hematocrit (blood only) 35.8 % (42-52); Hemoglobin 12.3 g/dL (14.0-18.0); Mean Corpuscular Hemoglobin 31.2 pg (25-34); Mean Corpuscular Hgb Conc 34.4 g/dL (32-36); Mean Corpuscular Volume 90.9 fL (80-100); Mean Platelet Volume 9.2 fL (7.4-10.4); Platelet Count 320 K/uL (130-400); RDW Coefficient of Variation 13.7 % (11.5-14.5); RDW Standard Deviation 45.5 fL (36.4-46.3); Red Blood Count 3.94 M/uL (4.7-6.1); White Blood Count 14.99 K/uL (4.8-10.8)
[2019-10-11 10:57] LABS: Calcium 9.1 mg/dl (8.5-10.1); Est GFR (African American) 115.1; Est GFR (Non-African American) 99.3; Potassium 4.2 mmol/L (3.5-5.1)
--- NOTE | 2019-10-11 11:52 | Hospitalist Progress Note ---
Date of Service October 11, 2019 Assessment & Plan (1) Pericardial effusion: Present on admission with worsening chest pain when lying associated with SOB CTA chest on admission showed moderate pericardial effusion, simple appearing though increased from prior. Echo showed moderate sized circumferential pericardial effusion From lung mass, s/p pericardial window, mediastinal and lung biopsy 09/[address] Forrester Repeat ECHO on 09/30 showed no pericardial effusion Pathology report showed METASTATIC ADENOCARCINOMA CONSISTENT WITH LUNG PRIMARY. Thoracic surgery on board CTA neg for PE (2)Pneumothorax (3)Hypoxia CXR on 10/01 showed moderate left-sided pneumothorax with pleural separation of [address] Forrester was notified. Since Dr. Forrester was in the OR, Stick Feeder Dr. Renee placed the chest tube on 10/01/19 CT chest repeat this morning showed trace left hydropneumothorax. intralobular septal thickening and ground glass change throughout the right lower lung has increased from 09/29/2019. Continue oxygen supplement Chest tube as been managed by Dr. Forrester s/p Left thoracoscopy with apical bleb resection left upper lobe performed on 10/07/[address] Forrester X-ray shows small left apical pneumothorax, unchanged and left chest tube in situ Continue to wean oxygen as tolerated Consider 2 step exercise on discharge if continue requiring oxygen (4)Chest pain Likely related to the chest tube, recent procedure and malignancy Continue current pain regimen (5)Pneumonia CXR showed interval development of diffuse right lung airspace opacities, asymmetric edema versus pneumonia. Currently on zosyn Day 4 (6)Lung CA Pathology showed METASTATIC ADENOCARCINOMA CONSISTENT WITH LUNG PRIMARY. Stage 4 with a malignant pericardial effusion. Genomic study pending Case had been discussed by Previous Attending with Dr. 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 Currently on 30mg daily. Will reduce to 20mg tomorrow AM Continue oxygen supplementation Had received counselling on tobacco abuse (9)HIV continue HAART (10) Hypertension BP stable Continue Metoprolol (11)Depression (12)Anxiety Continue Klonopin, fluoxetine and BuSpar DVT px On lovenox sq CODE Status Full code Discussed with CM Apparently patient is not to partner and will like sister to be person to make decision if he is not able. Sister and patient are interested in moving patient and his care over to [facility] sister leaves once stabilized and discharged Admission and Anticipated Discharge Date Admission Date: September 25, 2019 Subjective Patient seen and examined. Chest pain controlled on current regimen Reports shortness of breath same as before. Physical Exam Constitutional: no acute distress Eyes: PERRL, conjunctivae normal, anicteric sclerae Respiratory: no respiratory distress On 3 L/min of nasal oxygen Good air entry bilaterally, reduced air entry in left lung base. Left chest tube in situ Cardiovascular: RRR, no murmur, no edema Gastrointestinal (Abdomen): normal bowel sounds, soft, nontender, no hepatosplenomegaly Musculoskeletal: no cyanosis or clubbing, extremities motor strength 5/5 Neurologic: PERRL, EOMI, accommodation nl, no face palsy, no dysarthria Psychiatric: A+Ox3, euthymic affect Results & Data ([facility]) Vital Signs (Past 12 Hours) Vital Signs Temp Pulse Pulse Pulse Resp BP Pulse Ox 10/11/19 11:51 36.9 C 133 H 24 111/74 95 10/11/19 08:00 101 H 10/11/19 07:44 36.9 C 100 H 24 144/93 H 94 10/11/19 06:02 101 H 20 96 10/11/19 05:29 105 H 10/11/19 04:42 36.5 C 92 H 22 135/92 88 L 10/11/19 01:04 101 H 18 96 Laboratory Results Abnormal lab results 10/11/19 10/11/19 Range/Units 09:59 09:59 WBC 14.99 H (4.8-10.8) K/uL RBC 3.94 L (4.7-6.1) M/uL Hgb 12.3 L (14.0-18.0) g/dL Hct 35.8 L (42-52) % Sodium 131 L (136-145) mmol/L Chloride 96 L (98-107) mmol/L BUN 24 H (7-18) mg/dl BUN/Creatinine Ratio 31.0 H (10-20) Glucose 106 H (70-99) mg/dl
--- NOTE | 2019-10-11 14:58 | Surgery Progress Note ---
Date of Service October 11, 2019 Assessment & Plan (1) Pneumothorax: -pt. s/p LVATS with repair of air leak -CXR today shows subcutaneous emphysema and small left pneumothorax -CT without air leak: -keep CT in place for today as would like air leak resolved x 48 hours before removing (2) Pericardial effusion: -s/p LVATS with pericardial window -cytology of fluid showed metastatic lung cancer Subjective Pt. doing well. Pain control is adequate. He has SOB but not worse than usual. No other complaints. Physical Exam Constitutional: no acute distress Neck: trachea midline Respiratory: normal respiratory effort; no respiratory distress and no labored breathing small amount of crepitus in soft tissue of chest wall; BS present but decreased at left base Results & Data Vital Signs (Past 12 Hours) Vital Signs Temp Pulse Pulse Pulse Pulse Resp BP 10/11/19 13:32 109 H 22 10/11/19 12:30 93 H 10/11/19 11:51 36.9 C 133 H 24 111/74 10/11/19 08:00 101 H 10/11/19 07:44 36.9 C 100 H 24 144/93 H 10/11/19 06:02 101 H 20 10/11/19 05:29 105 H 10/11/19 04:42 36.5 C 92 H 22 135/92 Pulse Ox 10/11/19 13:32 98 10/11/19 12:30 10/11/19 11:51 95 10/11/19 08:00 10/11/19 07:44 94 10/11/19 06:02 96 10/11/19 05:29 10/11/19 04:42 88 L PG Care Time/CCT Total # of Minutes Spent Total Time Spent with Patient: Total time spent is greater than 50% in coordination of care (as documented) at patient's floor/unit and/or counseling patient: Coding Level of Care Code None Diagnoses Pneumothorax J93.9 Pericardial effusion I31.3
[2019-10-11] MEDS: PSYLLIUM 58.6% POWDER PACKET PO SCH (22:13)
[2019-10-11] MEDS: [UNRECOGNIZED DRUG - OTHER] PO SCH (22:23)
[2019-10-11] MEDS ORDERED: ACETAMINOPHEN 325 MG TAB PO PRN (22:50)
[2019-10-11] MEDS ORDERED: ACETAMINOPHEN 325 MG TAB ONE (22:54)
[2019-10-12] MEDS: IPRATROPIUM BROMIDE NEB SOLN 0.02% 2.5 ML VIAL INH SCH ×4 (00:45→19:24)
[2019-10-12] MEDS: LEVALBUTEROL 1.25MG/0.5ML NEB INH SCH ×4 (00:46→19:24)
[2019-10-12] MEDS: MoRPHine SULFATE 2 MG/ML CARP IV PRN ×5 (01:15→16:13)
[2019-10-12] MEDS: guaiFENesin 200 MG TAB PO SCH ×3 (01:16→19:41)
[2019-10-12] MEDS: PIPERACILLIN/TAZOBACTAM 3.375 GM in DEXTROSE 5% 100 ML IV SCH ×3 (04:46→20:55)
[2019-10-12 06:51] LABS: Hematocrit (blood only) 34.1 % (42-52); Hemoglobin 11.8 g/dL (14.0-18.0); Mean Corpuscular Hgb Conc 34.6 g/dL (32-36); Mean Corpuscular Volume 89.5 fL (80-100); Mean Platelet Volume 9.5 fL (7.4-10.4); Platelet Count 327 K/uL (130-400); RDW Coefficient of Variation 13.8 % (11.5-14.5); RDW Standard Deviation 44.9 fL (36.4-46.3); Red Blood Count 3.81 M/uL (4.7-6.1); White Blood Count 16.75 K/uL (4.8-10.8)
[2019-10-12 07:16] LABS: Calcium 9.1 mg/dl (8.5-10.1); Est GFR (African American) 120.4; Est GFR (Non-African American) 103.9; Potassium 4.2 mmol/L (3.5-5.1)
[2019-10-12] MEDS: DOCUSATE SODIUM 100 MG CAP PO SCH ×2 (07:20→21:02)
[2019-10-12] MEDS: OXYCODONE HCL IR 5 MG TAB (IMMEDIATE RELEASE) PO PRN ×3 (07:20→19:41)
[2019-10-12] MEDS: clonazePAM 1 MG TAB PO SCH ×2 (07:20→22:01)
[2019-10-12] MEDS: FLUTICASONE FUROATE 200MCG 14 PUFFS/INHALER INH SCH (07:21)
[2019-10-12] MEDS: predniSONE 20 MG TAB PO SCH (07:22)
[2019-10-12] MEDS: ASPIRIN 81 MG ECTAB PO SCH (07:22)
[2019-10-12] MEDS: BusPIRone 15 MG TAB PO SCH ×2 (07:22→21:02)
[2019-10-12] MEDS: METOPROLOL TARTRATE 25 MG TAB PO SCH ×2 (07:22→21:04)
[2019-10-12] MEDS: PANTOprazole 40 MG TAB PO SCH (07:22)
[2019-10-12] MEDS: AMITRIPTYLINE HCL 50 MG TAB PO SCH (07:23)
[2019-10-12] MEDS: ENOXAPARIN INJ 40 MG/0.4 ML SYR SQ SCH (07:23)
[2019-10-12] MEDS: UREA (URE-NA) 15 GM PACK PO SCH ×2 (07:24→22:01)
[2019-10-12] MEDS: NICOTINE 21 MG/24 HR TDSY TD SCH (07:35)
[2019-10-12] MEDS: POLYETHYLENE (MIRALAX) 17 GM PACK PO SCH ×2 (07:35)
--- NOTE | 2019-10-12 07:45 | XRay Report ---
XR chest 1V portable CLINICAL HISTORY: pneumothorax dyspnea COMPARISON STUDY: 10/11/2019 FINDINGS: Position of the chest tube is unaltered. There continues to be a very small left-sided pneu mothorax. Interstitial and parenchymal prominence throughout both hemithoraces is stable. There is chronic elev ation left hemidiaphragm. Subcutaneous emphysema is unchanged. IMPRESSION: Unchanged exam with stable postoperative changes left hemithorax. Small residual pneumot horax unchanged from the prior study. ACT 112: Negative or not required by law. The above report was generated using voice recognition software. It may contain grammatical, syntax or spelling errors. Electronically signed by: Shantanu Jiménez M.D. 10/12/2019 7:44 AM
[2019-10-12] MEDS ORDERED: OXYCODONE HCL IR 5 MG TAB (IMMEDIATE RELEASE) PO PRN (08:07)
--- NOTE | 2019-10-12 08:09 | Surgery Progress Note ---
Date of Service October 12, 2019 Assessment & Plan (1) Pneumothorax: -no air leak noted in CT -CXR shows only small pneumothorax with CT on suction -will keep CT on water seal without alternating suction and repeat CXR in am -consider removing CT in am Subjective Pt. doing well without worseing SOB. Physical Exam Constitutional: no acute distress Respiratory: normal respiratory effort; no respiratory distress and no labored breathing minimal crepitus noted in soft tissue of back Results & Data Vital Signs (Past 12 Hours) Vital Signs Temp Pulse Pulse Pulse Resp BP BP 10/12/19 07:26 37.1 C 106 H 24 135/64 10/12/19 02:59 37.0 C 90 20 94/65 L 10/12/19 02:34 117 H 10/12/19 00:46 101 H 18 10/11/19 22:44 37.4 C 113 H 24 113/70 Pulse Ox 10/12/19 07:26 90 10/12/19 02:59 93 10/12/19 02:34 10/12/19 00:46 93 10/11/19 22:44 91 PG Care Time/CCT Total # of Minutes Spent Total Time Spent with Patient: Total time spent is greater than 50% in coordination of care (as documented) at patient's floor/unit and/or counseling patient: Coding Level of Care Code None Diagnoses Pneumothorax J93.9
[2019-10-12] MEDS: ACETAMINOPHEN 325 MG TAB PO SCH ×3 (08:45→21:05)
[2019-10-12] MEDS: LORazepam 0.25 MG/0.5 ML VIAL IV PRN ×3 (08:50→22:00)
--- NOTE | 2019-10-12 11:07 | Hospitalist Progress Note ---
Date of Service October 12, 2019 Assessment & Plan (1) Pericardial effusion: Present on admission with worsening chest pain when lying associated with SOB CTA chest on admission showed moderate pericardial effusion, simple appearing though increased from prior. Echo showed moderate sized circumferential pericardial effusion From lung mass, s/p pericardial window, mediastinal and lung biopsy 09/[address] Forrester Repeat ECHO on 09/30 showed no pericardial effusion Pathology report showed METASTATIC ADENOCARCINOMA CONSISTENT WITH LUNG PRIMARY. Thoracic surgery on board CTA neg for PE (2)Pneumothorax (3)Hypoxia CXR on 10/01 showed moderate left-sided pneumothorax with pleural separation of [address] Forrester was notified. Since Dr. Forrester was in the OR, Blue Split Trimmer Dr. Renee placed the chest tube on 10/01/19 CT chest repeat this morning showed trace left hydropneumothorax. intralobular septal thickening and ground glass change throughout the right lower lung has increased from 09/29/2019. Continue oxygen supplement Chest tube as been managed by Dr. Forrester s/p Left thoracoscopy with apical bleb resection left upper lobe performed on 10/07/[address] Forrester X-ray shows small left apical pneumothorax, unchanged and left chest tube in situ Continue to wean oxygen as tolerated Consider 2 step exercise on discharge if continue requiring oxygen (4)Chest pain Likely related to the chest tube and malignancy Continue to optimize pain regimen (5)Pneumonia CXR showed interval development of diffuse right lung airspace opacities, asymmetric edema versus pneumonia. Currently on zosyn Day 5. (6)Lung CA Pathology showed METASTATIC ADENOCARCINOMA CONSISTENT WITH LUNG PRIMARY. Stage 4 with a malignant pericardial effusion. Genomic study pending Case had been discussed by Previous Attending with Dr. 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 However, Na this AM dropped to 127 from 131 yesterday Fluid restriction reduced to 1200 Continue Urea 15 g twice daily Weekly bmp at discharge x 4 checks will be ordered by nephrology Follow up in nephrology clinic 4-6 wks after discharge w/ Dr Macario or Liz (8)COPD Hx of tobacco abuse nebs and inhalers Has been on prednisone 40mg for 13 days, started tapering off. Currently on 20mg daily. Continue to taper Continue oxygen supplementation Had received counselling on tobacco abuse (9)HIV continue HAART (10) Hypertension BP stable Continue Metoprolol (11)Depression (12)Anxiety Continue Klonopin, fluoxetine and BuSpar Provided counselling to patient regarding his current medical issues DVT px On lovenox sq CODE Status Full code Apparently patient is not to partner and will like sister to be person to make decision if he is not able. Sister and patient are interested in moving patient and his care over to [place] where sister lives once stabilized and discharged Admission and Anticipated Discharge Date Admission Date: September 25, 2019 Subjective Patient seen and examined. Reports chest pain especially on the left side currently controlled on current regimen. Reports occasional anxiety over his current medical condition Reports no other problems Physical Exam Constitutional: + well hydrated; no acute distress Eyes: PERRL, conjunctivae normal, anicteric sclerae ENMT: external ear and nose normal, oropharynx normal Respiratory: Not in respiratory distress On 3 L/min of nasal oxygen Good air entry bilaterally, reduced air entry in left lung base. Left chest tube in situ Cardiovascular: RRR, no murmur, no edema Gastrointestinal (Abdomen): normal bowel sounds, soft, nontender, no hepatosplenomegaly Musculoskeletal: no cyanosis or clubbing, extremities motor strength 5/5 Neurologic: PERRL, EOMI, accommodation nl, no face palsy, no dysarthria Psychiatric: A+Ox3, euthymic affect Results & Data ([facility]) Vital Signs (Past 12 Hours) Vital Signs Temp Pulse Pulse Pulse Resp BP BP 10/12/19 09:24 106 H 10/12/19 07:37 103 H 20 10/12/19 07:26 37.1 C 106 H 24 135/64 10/12/19 02:59 37.0 C 90 20 94/65 L 10/12/19 02:34 117 H 10/12/19 00:46 101 H 18 Pulse Ox 10/12/19 09:24 10/12/19 07:37 95 10/12/19 07:26 90 10/12/19 02:59 93 10/12/19 02:34 10/12/19 00:46 93 Laboratory Results Abnormal lab results 10/12/19 10/12/19 Range/Units 06:18 06:18 WBC 16.75 H (4.8-10.8) K/uL RBC 3.81 L (4.7-6.1) M/uL Hgb 11.8 L (14.0-18.0) g/dL Hct 34.1 L (42-52) % Sodium 127 L (136-145) mmol/L Chloride 95 L (98-107) mmol/L BUN 23 H (7-18) mg/dl Fasting Glucose 126 H (70-99) mg/dl
[2019-10-12] MEDS: [UNRECOGNIZED DRUG - OTHER] PO SCH (21:03)
[2019-10-12] MEDS: PSYLLIUM 58.6% POWDER PACKET PO SCH (21:09)
[2019-10-12] MEDS ORDERED: HYDROmorphone INJ 0.5 MG/0.5 ML SYR IV STA (23:36)
[2019-10-13] MEDS: LEVALBUTEROL 1.25MG/0.5ML NEB INH SCH ×4 (00:58→19:42)
[2019-10-13] MEDS: IPRATROPIUM BROMIDE NEB SOLN 0.02% 2.5 ML VIAL INH SCH ×4 (00:58→19:42)
[2019-10-13] MEDS: guaiFENesin 200 MG TAB PO SCH ×3 (01:23→18:09)
[2019-10-13] MEDS: PIPERACILLIN/TAZOBACTAM 3.375 GM in DEXTROSE 5% 100 ML IV SCH (04:08)
[2019-10-13] MEDS: ACETAMINOPHEN 325 MG TAB PO SCH ×4 (04:09→20:49)
[2019-10-13] MEDS: OXYCODONE HCL IR 5 MG TAB (IMMEDIATE RELEASE) PO PRN ×3 (05:49→18:09)
[2019-10-13 07:02] LABS: Hematocrit (blood only) 32.7 % (42-52); Hemoglobin 11.5 g/dL (14.0-18.0); Mean Corpuscular Hemoglobin 31.1 pg (25-34); Mean Corpuscular Hgb Conc 35.2 g/dL (32-36); Mean Corpuscular Volume 88.4 fL (80-100); Platelet Count 275 K/uL (130-400); RDW Coefficient of Variation 13.7 % (11.5-14.5); RDW Standard Deviation 44.3 fL (36.4-46.3); White Blood Count 12.62 K/uL (4.8-10.8)
--- NOTE | 2019-10-13 07:16 | XRay Report ---
XR chest 1V portable HISTORY: 58 years-old Male pneumothorax left-sided chest tube with reported pneumothorax COMPARISON: Chest radiograph 10/12/2019, CTA chest 10/07/2019 TECHNIQUE: Portable AP view of the chest FINDINGS: Cardiac silhouette is normal. Severe emphysema. Postoperative changes of the left lung apex with unch anged positioning of the left-sided chest tube. Left-sided pneumothorax has decreased at the level of the left lung base is noted with only a few millimeters of pleural separation at the left lung apex. There is suggestion of a trace left pleural effusion. Progressively worsened mixed interstitial and alveolar opacities throughout the right midlung with unchanged left lung opacities. Mild left basilar atelectasis. Unchanged left hemidiaphragm elevation. Subcutaneous emphysema of the left chest wall a nd supraclavicular distribution. IMPRESSION: 1. Postoperative changes of the left lung apex with stable positioning of the left-sided chest tube. 2. Decreased size of the tiny left pneumothorax. 3. Progressively worsened mixed interstitial and alveolar opacities of the right midlung. 4. Severe emphysema. ACT 112: Negative or not required by law. The above report was generated using voice recognition software. It may contain grammatical, syntax o r spelling errors. Electronically signed by: Edwin Cristobal M.D. 10/13/2019 7:14 AM
[2019-10-13 07:36] LABS: BUN Creatinine Ratio 32.2 (10-20); Calcium 8.8 mg/dl (8.5-10.1); Creatinine Clr Calc Pharmacy 116.8 ml/min; Est GFR (Non-African American) 107.9; Potassium 3.7 mmol/L (3.5-5.1)
[2019-10-13] MEDS: MoRPHine SULFATE 2 MG/ML CARP IV PRN (07:36)
--- NOTE | 2019-10-13 07:42 | XRay Report ---
XR chest 1V portable CLINICAL HISTORY: tube removal COMPARISON STUDY: 08/12/2020 FINDINGS: There has been interval removal of the left-sided chest tube. There is elevation left hemid iaphragm. There is persistent left-sided subcutaneous emphysema. There is a trace left-sided pneumoth orax. There are persistent airspace opacities within the right midlung zone. Left basilar opacities, likely atelectatic. Underlying emphysema is suspected.[Right-sided line shadows, likely represent ski n folds. IMPRESSION: 1. Interval removal of the left-sided chest tube. 2. Trace left-sided pneumothorax. Persistent left-sided subcutaneous emphysema. 3. Persistent elevation left hemidiaphragm 4. Persistent airspace opacities within the right midlung zone 5. Line shadows paralleling the right chest wall, likely representing skin folds ACT 112: Negative or not required by law. Electronically signed by: Kiel Garcia M.D. 10/13/2019 7:40 AM
[2019-10-13] MEDS: clonazePAM 1 MG TAB PO SCH ×2 (08:42→20:46)
[2019-10-13] MEDS: AMITRIPTYLINE HCL 50 MG TAB PO SCH (08:45)
[2019-10-13] MEDS: predniSONE 20 MG TAB PO SCH (08:45)
[2019-10-13] MEDS: BusPIRone 15 MG TAB PO SCH ×2 (08:46→20:50)
[2019-10-13] MEDS: ASPIRIN 81 MG ECTAB PO SCH (08:46)
[2019-10-13] MEDS: METOPROLOL TARTRATE 25 MG TAB PO SCH ×2 (08:46→20:50)
[2019-10-13] MEDS: PANTOprazole 40 MG TAB PO SCH (08:46)
[2019-10-13] MEDS: NICOTINE 21 MG/24 HR TDSY TD SCH (08:47)
[2019-10-13] MEDS: POLYETHYLENE (MIRALAX) 17 GM PACK PO SCH (08:47)
[2019-10-13] MEDS: UREA (URE-NA) 15 GM PACK PO SCH ×2 (08:48→20:51)
[2019-10-13] MEDS: ENOXAPARIN INJ 40 MG/0.4 ML SYR SQ SCH (08:48)
[2019-10-13] MEDS: FLUTICASONE FUROATE 200MCG 14 PUFFS/INHALER INH SCH (08:48)
--- NOTE | 2019-10-13 09:11 | Hospitalist Progress Note ---
Date of Service October 13, 2019 Assessment & Plan (1) Pericardial effusion: Present on admission with worsening chest pain when lying associated with SOB CTA chest on admission showed moderate pericardial effusion, simple appearing though increased from prior. Echo showed moderate sized circumferential pericardial effusion From lung mass, s/p pericardial window, mediastinal and lung biopsy 09/[address] Forrester Repeat ECHO on 09/30 showed no pericardial effusion Pathology report showed METASTATIC ADENOCARCINOMA CONSISTENT WITH LUNG PRIMARY. Thoracic surgery on board CTA neg for PE (2)Pneumothorax (3)Hypoxia CXR on 10/01 showed moderate left-sided pneumothorax with pleural separation of [address] Forrester was notified. Since Dr. Forrester was in the OR, Dialysis Social Worker Dr. Renee placed the chest tube on 10/01/19 CT chest repeat this morning showed trace left hydropneumothorax. intralobular septal thickening and ground glass change throughout the right lower lung has increased from 09/29/2019. Continue oxygen supplement Chest tube managed by Dr. Forrester and Dr. Russell s/p Left thoracoscopy with apical bleb resection left upper lobe performed on 10/07/[address] Forrester Chest tube removed today. X-ray post chest tube removal noted. We will continue to monitor and wean oxygen as tolerated. Patient is likely going to require oxygen even on discharge (4)Chest pain Likely related to the chest tube and malignancy Patient also has anxiety regarding his medical condition. This is currently being managed with anxiety medications Continue to optimize pain regimen Discussed the side effects/risks of opioid including addiction and overdose (5)Pneumonia CXR showed interval development of diffuse right lung airspace opacities, asymmetric edema versus pneumonia. Completed treatment (6)Lung CA Pathology showed METASTATIC ADENOCARCINOMA CONSISTENT WITH LUNG PRIMARY. Stage 4 with a malignant pericardial effusion. Case had been discussed by Previous Attending with Dr. 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 Currently on 20mg daily. Continue to taper Had received counselling on tobacco abuse Continue nicotine patch (9)HIV continue HAART (10) Hypertension BP stable Continue Metoprolol (11)Depression (12)Anxiety Continue Klonopin, fluoxetine and BuSpar Provided counselling to patient regarding his current medical issues (13) Diarrhea This may be likely related to laxatives as patient had been on Dulcolax and MiraLAX for recent constipation from opioid. Laxative suspended for now. Was sent for C. difficile as patient has had prolonged hospital stay and had been on antibiotics. DVT px On lovenox sq CODE Status Full code Patient and sister stated that day will have to definitively be initial plan to move to [place] once patient is discharged and he stated they would like patient to be more stable and to follow-up with the doctors here including palliative care and oncologist for now Admission and Anticipated Discharge Date Admission Date: September 25, 2019 Subjective Patient seen and examined this morning. Reports he has been having diarrhea since yesterday. Diarrhea has been mostly loose and occasionally watery. Denied any abdominal pain. Reported occasional nausea. No fevers recorded. Patient still reports chest pain especially in the left side. Chest tube taking out this morning but the surgeon. Physical Exam Constitutional: + ill appearing (Chronic) and + well hydrated; no acute distress Eyes: PERRL, conjunctivae normal, anicteric sclerae ENMT: external ear and nose normal, oropharynx normal Respiratory: Not in respiratory distress. 4 L/min nasal oxygen. Good air entry bilaterally with reduced breath sounds in left lower lung zone. Clean dressing over left chest wall Cardiovascular: RRR, no murmur, no edema Gastrointestinal (Abdomen): normal bowel sounds, soft, nontender, no hepatosplenomegaly Inspection/Auscultation: abdomen not distended Musculoskeletal: no cyanosis or clubbing, extremities motor strength 5/5 Neurologic: PERRL, EOMI, accommodation nl, no face palsy, no dysarthria Psychiatric: Orientation: alert and oriented x 3 Affect: + anxious affect Insight: good insight Judgement: good judgement Breathy speech Results & Data ([facility]) Vital Signs (Past 12 Hours) Vital Signs Temp Pulse Pulse Pulse Resp BP Pulse Ox 10/13/19 07:43 36.7 C 107 H 24 107/58 L 92 10/13/19 07:06 98 H 18 93 10/13/19 05:02 102 H 10/13/19 03:00 36.7 C 94 H 22 102/74 94 10/13/19 00:58 95 H 18 95 10/12/19 23:22 100 H 24 103/71 96 10/12/19 22:45 36.8 C 103 H 22 106/72 95 Laboratory Results Abnormal lab results 10/13/19 10/13/19 Range/Units 06:51 06:51 WBC 12.62 H (4.8-10.8) K/uL RBC 3.70 L (4.7-6.1) M/uL Hgb 11.5 L (14.0-18.0) g/dL Hct 32.7 L (42-52) % Sodium 128 L (136-145) mmol/L Chloride 95 L (98-107) mmol/L BUN 20 H (7-18) mg/dl BUN/Creatinine Ratio 32.2 H (10-20) Glucose 118 H (70-99) mg/dl
--- NOTE | 2019-10-13 10:24 | Electrocardiogram Report ---
Test Reason : Blood Pressure : / mmHG Vent. Rate : 097 BPM Atrial Rate : 097 BPM P-R Int : 156 ms QRS Dur : 090 ms QT Int : 328 ms P-R-T Axes : 068 073 074 degrees QTc Int : 416 ms Normal sinus rhythm Possible Left atrial enlargement Borderline ECG When compared with ECG of 09-OCT-2019 18:37, Nonspecific T wave abnormality no longer evident in Anterior leads Confirmed by Elio Eisenberg ([id number]) on 10/13/2019 10:23:57 AM Referred By: REFERRED SELF Confirmed By:Herminio Eisenberg
--- NOTE | 2019-10-13 10:24 | Progress Note ---
DATE: 10/13/2019 Mr. Pulido was seen today. We removed his chest tube and he has no evidence of a pneumothorax. He is still complaining of shortness of breath of course. At this point, I would stop his antibiotics. He is also having diarrhea. I will check Clostridium difficile colitis. We will check on him in a couple of days to make sure his incisions look okay, but from our standpoint, he appears to be stable surgically. I am going to check a chest x-ray in 2 days.
--- NOTE | 2019-10-13 10:25 | Palliative Care Progress Note ---
Date of Service October 13, 2019 Assessment & Plan (1) Goals of care, counseling/discussion: -I met with the patient in room 254. He was sitting upright in his hospital bed in no apparent distress. His sister, Елена was at the bedside. -Pt reports that he had a difficult weekend. He started to have chest pain and increased shortness of breath late last evening. Pt now on 3LNC. -Pain relieved with Nitro and pain medications. EKG and Trop negative. Per review of notes, anticipated that this event may have been related to anxiety and his chest tube which was pulled this morning. -Discharge planning has changed, initially he was thinking of relocating to [place] to live near his sister and possibly revisit chemotherapy when he is slightly stronger. -After this weekend he has reconsidered this option and thinks it is best to remain local until he is more stable and as he has more of a network here. -He started talking about his goals and one is to walk his niece down the is[place] (she is 19 and in college, no wedding in the foreseeable future). He realizes this may not happen. -He has Roxicodone 10 mg Q6 hours PRN and Morphine 2mg IV Q6 PRN, the goal was to decrease frequency to anticipate discharge, but this weekend, we are taking one step back. I D/C the Morphine so we can have a better understanding about his utilization and possibly figure out a long acting option, but will decide once we know how much short acting requirement he has. -He also has increased anxiety which he reports may be triggered by his partner who is calling in frequently. He has Amitriptiline, Buspar, Klonopin and PRN Ativan which is helpful. -We talked at length about options that include SNF with rehab, SNF with Hospice, returning home which does not appear to be a good option due to lack of support at home, or transitioning to [place]. -The patient and sister agree to look into SNF for some rehab and a possible transition to Hospice once there. I will relay this with Case Management. -We discussed code status and him and his sister agree that they would like him to be DNR/DNI which has been changed in the computer. - see A/P for additional overall details -Patient indicated that he does not have a legal decision maker, and he would like his sister to be his decision maker. After reviewing, service excellence completed paperwork on Wednesday 10/11. -We will continue to follow from a symptom management and goals standpoint. After discussing with Hospitalist, possibly medically ready for discharge on Sunday. PT/OT ordered now to assist with placement support. -PPS: 40% (2) Pericardial effusion: (3) Carcinoma, lung: (4) Tension pneumothorax: (5) Respiratory distress: (6) HIV disease: (7) Anxiety: (8) Tobacco use disorder: Subjective Pt reports that he had a difficult weekend He started to have chest pain and increased shortness of breath late last evening Pain relieved with Nitro and pain medications. EKG and Trop negative Discharge planning has changed - see A/P for additional overall details Currently, patient denies pain. He does report fatigue, intermittent SOB and anxiety. Pt sister Елена at the bedside. Review of Systems Review of Systems: Patient denies fever, chills, or abdominal pain Patient does report increased left-sided chest pain at chest tube site when trying to take a deep breath and (+) intermittent anxiety with decreased appetite and (+) nausea Constitutional: + anorexia and + weight loss approx 30 # Ear, Nose, Mouth, Throat: + hoarseness Respiratory: + dyspnea at rest and increased with speech L CT discontinued today Cardiovascular: + dyspnea at rest and + dyspnea on exertion Gastrointestinal: + problem reported GERD Musculoskeletal: + muscle weakness Neurologic: + generalized weakness Psychiatric: + depression and + anxiety Tobacco dependence Physical Exam Constitutional: WD/WN, vitals as above + ill appearing (Chronic), + thin, + cachectic and cooperative; no acute distress Eyes: PERRL, conjunctivae normal, anicteric sclerae PERRL and EOM intact bilaterally; no conjunctival abnormality Neck: trachea midline, no thyromegaly normal visual inspection and trachea midline; no nuchal rigidity Respiratory: normal respiratory effort, lungs clear to auscultation normal respiratory effort and able to speak in complete sentences (but has to breathe between each); no respiratory distress and no labored breathing Auscultation: + diminished lung sounds and + crackles (R base posterior); + lungs not clear to auscultation Cardiovascular: RRR, no murmur, no edema Rate/Rhythm: regular rate, regular rhythm and + tachycardic Heart Sounds: normal S1 and normal S2; no gallop, no murmur and no cardiac rub Vessels: no JVD Extremities: no edema Gastrointestinal (Abdomen): normal bowel sounds, soft, nontender, no hepatosplenomegaly Musculoskeletal: no cyanosis or clubbing, extremities motor strength 5/5 S pine: normal cervical ROM and no pain with cervical ROM Extremities: strength 5/5 throughout Skin: no rashes, warm and dry Neurologic: PERRL, EOMI, accommodation nl, no face palsy, no dysarthria moves all extremities Psychiatric: A+Ox3, euthymic affect Affect: + anxious affect Insight: good insight Judgement: good judgement Lymphatic: no cervical or axillary lymphadenopathy Results & Data Vital Signs (Past 12 Hours) Vital Signs Temp Pulse Pulse Pulse Resp BP Pulse Ox 10/13/19 07:43 36.7 C 107 H 24 107/58 L 92 10/13/19 07:06 98 H 18 93 10/13/19 05:02 102 H 10/13/19 03:00 36.7 C 94 H 22 102/74 94 10/13/19 00:58 95 H 18 95 10/12/19 23:22 100 H 24 103/71 96 10/12/19 22:45 36.8 C 103 H 22 106/72 95 PG Care Time/CCT Total # of Minutes Spent Total Time Spent with Patient: Total time spent is greater than 50% in coordination of care (as documented) at patient's floor/unit and/or counseling patient: 45 Coding Level of Care Code 11106 Subseq Hosp Care Lvl 3 Diagnoses Goals of care, counseling/discussion Z71.89 Pericardial effusion I31.3 Carcinoma, lung C34.90 Laterality: unspecified laterality Tension pneumothorax J93.0 Respiratory distress R06.03 HIV disease B20 Anxiety F41.9 Tobacco use disorder F17.200 Time Spent (min) 45 Time Spent Midlevel Total time spent 45 minutes with > 50% of that time spent assessing the patient, discussing goals of care including code status and advanced directives. (1) Carcinoma, lung Laterality: unspecified laterality Qualified Code(s): C34.90 - Malignant neoplasm of unspecified part of unspecified bronchus or lung
[2019-10-13] MEDS ORDERED: MoRPHine SULFATE 2 MG/ML CARP IV PRN (10:30)
[2019-10-13] MEDS ORDERED: OXYCODONE HCL IR 5 MG TAB (IMMEDIATE RELEASE) PO PRN (10:30)
[2019-10-13] MEDS: LORazepam 0.25 MG/0.5 ML VIAL IV PRN ×2 (10:54→14:52)
[2019-10-13] MEDS: PROMETHAZINE HCL 12.5 MG in SODIUM CHLORIDE 0.9% 50 ML IV PRN (11:54)
[2019-10-13] MEDS: PSYLLIUM 58.6% POWDER PACKET PO SCH (20:52)
[2019-10-13] MEDS: [UNRECOGNIZED DRUG - OTHER] PO SCH (20:53)
[2019-10-14] MEDS: OXYCODONE HCL IR 5 MG TAB (IMMEDIATE RELEASE) PO PRN ×6 (00:47→21:49)
[2019-10-14] MEDS: IPRATROPIUM BROMIDE NEB SOLN 0.02% 2.5 ML VIAL INH SCH ×4 (00:57→19:48)
[2019-10-14] MEDS: LEVALBUTEROL 1.25MG/0.5ML NEB INH SCH ×4 (00:57→19:48)
[2019-10-14] MEDS: guaiFENesin 200 MG TAB PO SCH ×3 (02:53→17:12)
[2019-10-14] MEDS: ACETAMINOPHEN 325 MG TAB PO SCH ×4 (02:54→20:34)
[2019-10-14] MEDS: LORazepam 0.25 MG/0.5 ML VIAL IV PRN ×2 (04:02→23:13)
[2019-10-14 07:46] LABS: Hematocrit (blood only) 34.2 % (42-52); Hemoglobin 11.8 g/dL (14.0-18.0); Mean Corpuscular Hemoglobin 30.6 pg (25-34); Mean Corpuscular Hgb Conc 34.5 g/dL (32-36); Mean Corpuscular Volume 88.8 fL (80-100); Mean Platelet Volume 9.6 fL (7.4-10.4); Platelet Count 313 K/uL (130-400); RDW Coefficient of Variation 13.8 % (11.5-14.5); RDW Standard Deviation 44.8 fL (36.4-46.3); Red Blood Count 3.85 M/uL (4.7-6.1); White Blood Count 9.23 K/uL (4.8-10.8)
[2019-10-14 08:18] LABS: BUN Creatinine Ratio 45.4 (10-20); Calcium 9.3 mg/dl (8.5-10.1); Creatinine Clr Calc Pharmacy 120.4 ml/min; Est GFR (African American) 127.6; Est GFR (Non-African American) 110.1; Potassium 3.7 mmol/L (3.5-5.1)
[2019-10-14] MEDS: FLUTICASONE FUROATE 200MCG 14 PUFFS/INHALER INH SCH (08:34)
[2019-10-14] MEDS: UREA (URE-NA) 15 GM PACK PO SCH ×2 (08:35→20:25)
[2019-10-14] MEDS: PANTOprazole 40 MG TAB PO SCH (08:36)
[2019-10-14] MEDS: AMITRIPTYLINE HCL 50 MG TAB PO SCH (08:36)
[2019-10-14] MEDS: METOPROLOL TARTRATE 25 MG TAB PO SCH ×2 (08:36→20:28)
[2019-10-14] MEDS: predniSONE 20 MG TAB PO SCH (08:36)
[2019-10-14] MEDS: ASPIRIN 81 MG ECTAB PO SCH (08:36)
[2019-10-14] MEDS: BusPIRone 15 MG TAB PO SCH ×2 (08:37→20:35)
[2019-10-14] MEDS: ENOXAPARIN INJ 40 MG/0.4 ML SYR SQ SCH (08:37)
[2019-10-14] MEDS: NICOTINE 21 MG/24 HR TDSY TD SCH (08:38)
[2019-10-14] MEDS: clonazePAM 1 MG TAB PO SCH ×2 (08:50→20:25)
--- NOTE | 2019-10-14 17:12 | Hospitalist Progress Note ---
Date of Service October 14, 2019 Assessment & Plan (1) Pericardial effusion: Present on admission with worsening chest pain when lying associated with SOB CTA chest on admission showed moderate pericardial effusion, simple appearing though increased from prior. Echo showed moderate sized circumferential pericardial effusion From lung mass, s/p pericardial window, mediastinal and lung biopsy 09/[address] Forrester Repeat ECHO on 09/30 showed no pericardial effusion Pathology report showed METASTATIC ADENOCARCINOMA CONSISTENT WITH LUNG PRIMARY. Thoracic surgery on board CTA neg for PE (2)Pneumothorax (3)Hypoxia CXR on 10/01 showed moderate left-sided pneumothorax with pleural separation of [address] Forrester was notified. Since Dr. Forrester was in the OR, Weather Strip Installer Dr. Renee placed the chest tube on 10/01/19 CT chest repeat this morning showed trace left hydropneumothorax. intralobular septal thickening and ground glass change throughout the right lower lung has increased from 09/29/2019. Continue oxygen supplement Chest tube managed by Dr. Forrester and Dr. Russell s/p Left thoracoscopy with apical bleb resection left upper lobe performed on 10/07/[address] Forrester Chest tube removed yesterday Planned to get CXR tomorrow per Dr Forrester Will need oxygen on discharge (4)Chest pain Likely related to the chest tube and malignancy Patient also has anxiety regarding his medical condition. This is currently being managed with anxiety medications Continue current pain regimen Discussed the side effects/risks of opioid including addiction and overdose (5)Pneumonia CXR showed interval development of diffuse right lung airspace opacities, asymmetric edema versus pneumonia. Completed treatment (6)Lung CA Pathology showed METASTATIC ADENOCARCINOMA CONSISTENT WITH LUNG PRIMARY. Stage 4 with a malignant pericardial effusion. Case had been discussed by Previous Attending with Dr. 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 Currently on 20mg daily. Will do 10mg for 3 days from tomorrow and stop Had received counselling on tobacco abuse Continue nicotine patch (9)HIV continue HAART (10) Hypertension BP stable Continue Metoprolol (11)Depression (12)Anxiety Continue Klonopin, fluoxetine and BuSpar Provided counselling to patient regarding his current medical issues (13) Diarrhea Stopped laxatives. Resolved Later today, patient decided to be discharged on home hospice, wanted to be discharged home today. I discussed with patient. He stated he will want to go home on home hospice to spend the rest of the time he has with his loved ones considering his metastatic lung cancer. Discussed with patient case manager. microbiology manager will start making arrangements for home hospice in the morning as it was already late by the time patient made the decision today. Patient will need home oxygen. He would also need wheelchair per OT. He stated he would like to continue his oral medications for now including the antiretrovirals on discharge and will decide if he wants to have any more follow-ups with any of the doctors including the oncologist, infectious disease, associate director qa, surgeon. DVT px On lovenox sq CODE Status Full code Patient and sister stated that day will have to definitively be initial plan to move to [place] once patient is discharged and he stated they would like patient to be more stable and to follow-up with the doctors here including palliative care and oncologist for now Admission and Anticipated Discharge Date Admission Date: September 25, 2019 Subjective Patient seen and examined. Stated he is feeling much better and has been able to ambulate with oxygen. Still has chest pain and shortness of breath Reports current pain regimen is helping with pain control. Still has occasional anxiety which is controlled on current regimen. Diarrhea has resolved Physical Exam Constitutional: + ill appearing (Chronically ill appearing) and + well hydrated; no acute distress Eyes: PERRL, conjunctivae normal, anicteric sclerae ENMT: external ear and nose normal, oropharynx normal Respiratory: normal respiratory effort; no respiratory distress Auscultation: + diminished lung sounds (left lower lung zone) On nasal oxygen at 4l/min Cardiovascular: RRR, no murmur, no edema Gastrointestinal (Abdomen): normal bowel sounds, soft, nontender, no he patosplenomegaly Neurologic: PERRL, EOMI, accommodation nl, no face palsy, no dysarthria Psychiatric: A+Ox3, euthymic affect Results & Data ([facility]) Vital Signs (Past 12 Hours) Vital Signs Temp Pulse Pulse Pulse Resp BP BP 10/14/19 15:19 36.5 C 105 H 24 100/74 10/14/19 14:58 103 H 10/14/19 11:43 10/14/19 11:15 36.5 C 110 H 20 128/89 10/14/19 07:34 36.5 C 107 H 18 110/78 10/14/19 07:09 107 H 22 10/14/19 07:07 105 H Pulse Ox 10/14/19 15:19 95 10/14/19 14:58 10/14/19 11:43 95 10/14/19 11:15 96 10/14/19 07:34 94 10/14/19 07:09 88 L 10/14/19 07:07 Laboratory Results Abnormal lab results 10/14/19 10/14/19 Range/Units 07:03 07:03 RBC 3.85 L (4.7-6.1) M/uL Hgb 11.8 L (14.0-18.0) g/dL Hct 34.2 L (42-52) % Sodium 133 L (136-145) mmol/L BUN 27 H (7-18) mg/dl BUN/Creatinine Ratio 45.4 H (10-20) Glucose 118 H (70-99) mg/dl
[2019-10-14] MEDS: [UNRECOGNIZED DRUG - OTHER] PO SCH (20:35)
[2019-10-14] MEDS: PSYLLIUM 58.6% POWDER PACKET PO SCH (20:36)
[2019-10-14] MEDS: PROMETHAZINE HCL 12.5 MG in SODIUM CHLORIDE 0.9% 50 ML IV PRN (22:07)
[2019-10-15] MEDS ORDERED: LORazepam 0.5 MG TAB PO SCH
[2019-10-15] MEDS: IPRATROPIUM BROMIDE NEB SOLN 0.02% 2.5 ML VIAL INH SCH ×3 (00:57→13:15)
[2019-10-15] MEDS: LEVALBUTEROL 1.25MG/0.5ML NEB INH SCH ×3 (00:57→13:15)
[2019-10-15] MEDS: guaiFENesin 200 MG TAB PO SCH ×2 (02:09→09:01)
[2019-10-15] MEDS: ACETAMINOPHEN 325 MG TAB PO SCH ×2 (03:15→09:04)
[2019-10-15] MEDS: OXYCODONE HCL IR 5 MG TAB (IMMEDIATE RELEASE) PO PRN ×2 (03:51→10:04)
[2019-10-15] MEDS: LORazepam 0.25 MG/0.5 ML VIAL IV PRN (04:43)
--- NOTE | 2019-10-15 08:09 | XRay Report ---
XR chest 1V portable CLINICAL HISTORY: lung cancer COMPARISON STUDY: Chest radiograph October 13, 2019 at 7:26 AM. FINDINGS: Postoperative findings within the left chest with volume loss and elevation of the left hem idiaphragm are noted. Left lower lung aeration is slightly improved. A suspected skinfold projects ov er the left hemithorax. Skinfold project over the right hemithorax. Subcutaneous emphysema within the left chest wall is again noted. No definite pneumothorax is identified. Emphysema is noted. Minimal right upper lung opacity is improved. IMPRESSION: 1. Suspected skinfold projects over the left pneumothorax. No definite pneumothorax. Postoperative fi ndings within the left lung with elevation of the left hemidiaphragm with slight improvement in lung aeration. 2. Emphysema. 3. Mild improvement in right upper lung airspace opacity. ACT 112: Negative or not required by law. Electronically signed by: Jem Gallardo M.D. 10/15/2019 8:08 AM
[2019-10-15] MEDS ORDERED: predniSONE 10 MG TABLET PO SCH (09:00)
[2019-10-15] MEDS: FLUTICASONE FUROATE 200MCG 14 PUFFS/INHALER INH SCH (09:01)
[2019-10-15] MEDS: clonazePAM 1 MG TAB PO SCH (09:01)
[2019-10-15] MEDS: NICOTINE 21 MG/24 HR TDSY TD SCH (09:02)
[2019-10-15] MEDS: PANTOprazole 40 MG TAB PO SCH (09:02)
[2019-10-15] MEDS: BusPIRone 15 MG TAB PO SCH (09:03)
[2019-10-15] MEDS: AMITRIPTYLINE HCL 50 MG TAB PO SCH (09:03)
[2019-10-15] MEDS: METOPROLOL TARTRATE 25 MG TAB PO SCH (09:03)
[2019-10-15] MEDS: ENOXAPARIN INJ 40 MG/0.4 ML SYR SQ SCH (09:04)
[2019-10-15] MEDS: UREA (URE-NA) 15 GM PACK PO SCH (09:04)
[2019-10-15] MEDS: ASPIRIN 81 MG ECTAB PO SCH (09:05)
--- NOTE | 2019-10-15 11:56 | Palliative Care Progress Note ---
Date of Service October 15, 2019 Assessment & Plan (1) Goals of care, counseling/discussion: -Patient sitting on his bedside edge eating some ice cream/sherbert. His sister, Елена, is at the bedside. -Over the past 24 hours the patient has decided that he would like to return to his home here in [place] on Hosp[facility]. [facility] has been contacted and equipment was delivered today. -He has utilized 4 doses of Roxicodone 10 mg Q 6 PRN. All other medications will remain on his list upon discharge and he understands changes may occur at home regarding his medications. -He has utilized 1 dose of IV Ativan over the last 24 hours. Hospice can change to once he arrives home. -I did complete a POLST form with the patient and he signed it himself. DNR/DNI, comfort measures only when he leaves the hospital, trial abx, and no artificial nutrition/hydration. -We discussed code status and him and his sister agree that they would like him to be DNR/DNI which has been changed in the computer on Sunday. -Patient indicated that he does not have a legal decision maker, and he would like his sister to be his decision maker. After reviewing, service excellence completed paperwork on Wednesday 10/11. -Thank you for involving Palliative care with this patient. -Plan for discharge this afternoon. -PPS: 40% (2) Pericardial effusion: (3) Carcinoma, lung: (4) Tension pneumothorax: (5) Respiratory distress: (6) HIV disease: (7) Anxiety: (8) Tobacco use disorder: Subjective Patient has decided he wants to return to his home here on Hospice. Plan for discharge home with [facility] today. Sister Елена at his bedside. POLST completed. See A/P for additional details. Review of Systems Review of Systems: Patient denies fever, chills, or abdominal pain Patient does report increased left-sided chest pain at chest tube site when trying to take a deep breath and (+) intermittent anxiety with decreased appetite and (+) nausea Constitutional: + anorexia and + weight loss approx 30 # Ear, Nose, Mouth, Throat: + hoarseness Respiratory: + dyspnea at rest and increased with speech L CT discontinued today Cardiovascular: + dyspnea at rest and + dyspnea on exertion Gastrointestinal: + problem reported GERD Musculoskeletal: + muscle weakness Neurologic: + generalized weakness Psychiatric: + depression and + anxiety Tobacco dependence Physical Exam Constitutional: WD/WN, vitals as above + ill appearing (Chronic), + thin, + cachectic and cooperative; no acute distress Eyes: PERRL, conjunctivae normal, anicteric sclerae PERRL and EOM intact bilaterally; no conjunctival abnormality ENMT: Mouth: + dentures (Upper) and + chipped teeth (Broken L molar) Mallampati Class: I Neck: trachea midline, no thyromegaly normal visual inspection and trachea midline; no nuchal rigidity Respiratory: normal respiratory effort, lungs clear to auscultation normal respiratory effort and able to speak in complete sentences (but has to breathe between each); no respiratory distress and no labored breathing Auscultation: + diminished lung sounds and + crackles (R base posterior); + lungs not clear to auscultation Cardiovascular: RRR, no murmur, no edema Rate/Rhythm: regular rate, regular rhythm and + tachycardic Heart Sounds: normal S1 and normal S2; no gallop, no murmur and no cardiac rub Vessels: no JVD Extremities: no edema Gastrointestinal (Abdomen): normal bowel sounds, soft, nontender, no hepatospl enomegaly Inspection/Auscultation: normal bowel sounds; abdomen not distended Percussion/Palpation: abdomen soft; abdomen nontender and no guarding Musculoskeletal: no cyanosis or clubbing, extremities motor strength 5/5 Spine: normal cervical ROM and no pain with cervical ROM Extremities: strength 5/5 throughout Skin: no rashes, warm and dry Neurologic: PERRL, EOMI, accommodation nl, no face palsy, no dysarthria moves all extremities Psychiatric: A+Ox3, euthymic affect Orientation: alert and oriented x 3 Speech: normal rate/rhythm/volume of speech (though hoarse) Affect: + anxious affect Insight: good insight Judgement: good judgement Lymphatic: no cervical or axillary lymphadenopathy Results & Data Vital Signs (Past 12 Hours) Vital Signs Temp Pulse Pulse Pulse Resp BP Pulse Ox 10/15/19 11:00 36.7 C 107 H 18 114/72 16 L 10/15/19 07:47 106 H 20 98 10/15/19 07:39 36.6 C 109 H 22 114/82 99 10/15/19 07:06 92 H 10/15/19 04:00 36.6 C 104 H 20 119/82 94 10/15/19 00:41 83 PG Care Time/CCT Total # of Minutes Spent Total Time Spent with Patient: Total time spent is greater than 50% in coordination of care (as documented) at patient's floor/unit and/or counseling patient: 35 Coding Level of Care Code 75140 Subseq Hosp Care Lvl 3 Diagnoses Goals of care, counseling/discussion Z71.89 Pericardial effusion I31.3 Carcinoma, lung C34.90 Laterality: unspecified laterality Tension pneumothorax J93.0 Respiratory distress R06.03 HIV disease B20 Anxiety F41.9 Tobacco use disorder F17.200 Time Spent (min) 35 Time Spent Midlevel Total time spent 35 minutes with > 50% of that time spent assessing the patient, discussing goals of care and completing a POLST form with the patient. (1) Carcinoma, lung Laterality: unspecified laterality Qualified Code(s): C34.90 - Malignant neoplasm of unspecified part of unspecified bronchus or lung
--- NOTE | 2019-10-15 12:46 | Discharge Summary ---
Date of Service October 15, 2019 Admission HPI Per Admitting Provider CHIEF COMPLAINT: Chest pain. HISTORY OF PRESENT ILLNESS: This is a 58-year-old male with past medical history significant for asthma mild persistent, prediabetes, history of hypertension, generalized osteoarthritis, history of cervical disc herniation, history of HIV on antiviral therapy, generalized anxiety disorder, tobacco abuse. The patient was recently found to have enlarged lymph node in supraclavicular area. Smokes half pack a day for 50 years. CAT scan showed left lung mass and enlarged lymph node in mediastinal region. There is a plan for biopsy with Dr. Forrester as per patient. Presents now with chest pain going on for the last few days, all over the chest mostly on the left side and also left shoulder. He also complains of left knee pain and also pain in the left thigh. He is ambulating okay. Appetite is not that great. He says he has lost about 30 pounds in last 6 months, coughing up whitish yellow phlegm. Denies any fever, chills, no sore throat, no dysphagia, no odynophagia. No headache, no blurred vision, no earache, no runny nose. No fever, no chills. Has some shortness of breath, nauseous, no abdominal pain. Normal bowel and bladder movements. No hematuria or melena. No burning micturition, no hematuria. No swelling in the legs. He says the pain is more when lying down. Admission Exam Per Admitting Provider GENERAL: The patient is of moderate build, not in acute distress. VITAL SIGNS: Temperature 36.8, pulse 106, respiratory rate 22, blood pressure 109/88, oxygen 98%. HEENT: No pallor, no icterus. NECK: No JVD, no neck masses, no carotid bruits. CARDIOVASCULAR: S1, S2 heard, regular rate and rhythm, no murmur, no gallop. RESPIRATORY SYSTEM: Normal AP diameter. No accessory muscle use. No wheezing, no crackles. ABDOMEN: Soft, bowel sounds present, nontender. No distention. CENTRAL NERVOUS SYSTEM: Cranial nerves II-XII grossly nonfocal. EXTREMITIES: No edema, no erythema. Principal Diagnosis Pericardial effusion: Carcinoma, lung: Tension pneumothorax: Respiratory distress: HIV disease: Anxiety: Tobacco use disorder: Hyponatremia HIV Discharge Exam Constitutional: + ill appearing (Chronically ill appearing) and + well hydrated; no acute distress Eyes: PERRL, conjunctivae normal, anicteric sclerae ENMT: external ear and nose normal, oropharynx normal Respiratory: normal respiratory effort; no respiratory distress Auscultation: + diminished lung sounds (left lower lung zone) On nasal oxygen at 4l/min Cardiovascular: RRR, no murmur, no edema Gastrointestinal: normal bowel sounds, soft, nontender, no hepatosplenomegaly Neurologic: PERRL, EOMI, accommodation nl, no face palsy, no dysarthria Psychiatric: A+Ox3, euthymic affect Discharge Data Allergies Allergy/AdvReac Type Severity Reaction Status Date / Time pollen extracts Allergy Intermediate ASTHMA Verified 09/25/19 20:11 Sulfa (Sulfonamide Allergy Intermediate HIVES Verified 09/29/19 10:40 Antibiotics) Consultations 09/25/19 20:48 ED Decision to Admit Stat 09/26/19 00:21 Consult Case Management - Discharge Planning Routine 09/26/19 08:00 Consult Cardiology Routine Consult Pulmonology Routine 09/26/19 11:11 Consult Thoracic Surgery Routine 09/26/19 16:48 Consult Scaffolding Helper Routine 09/30/19 06:42 Consult Nephrology Routine 10/01/19 16:22 Consult Pulmonology Stat 10/02/19 01:16 Consult Case Management - Discharge Planning Routine Consult Scaffolding Helper Routine 10/06/19 08:16 Consult Palliative Care Routine 10/09/19 10:40 Consult Patient Rep / Service Excellence [Consult Patient Services] Routine Procedures Performed Operation Date: 09/26/19 12:20 Actual Procedures p Left Video Assisted Thoracoscopy with Pericardial Window(Left) - Cm Forrester MD, FACS Operation Date: 10/07/19 13:05 Actual Procedures p Left Thoracoscopy with Repair of Air Leak, Lysis of Adhesions, Apical Bleb Resection(Left) - Cm Forrester MD, FACS Ordered Studies 09/25/19 18:41 CT angio chest PE protocol Stat 09/29/19 14:39 CT angio chest PE protocol Stat 10/02/19 00:36 CT chest wo con Urgent 10/06/19 22:37 CT abd pelvis IV con only Urgent CT angio chest PE protocol Urgent CT ANGIOGRAM OF THE CHEST CLINICAL HISTORY: Hemoptysis. COMPARISON STUDY: Chest x-ray dated 10/06/2019. Chest CT scans dated 10/02/2019 and 09/25/2019. TECHNIQUE: Following the IV administration of 117 cc of Optiray 320, CT angiogram of the chest was performed from the upper abdomen to the thoracic inlet utilizing the pulmonary embolus protocol. Images are reviewed in the axial, sagittal, and coronal planes. 3-D MIPS images are created and assessed. IV contrast was administered without complication. A dose lowering technique was utilized adhering to the principles of ALARA. The examination is compromised by motion artifact. FINDINGS: Thyroid: Imaged portions of the thyroid gland are normal in size and attenuation. Thoracic aorta: The thoracic aorta is normal in caliber and demonstrates standard 3-vessel arch anatomy. No dissection is seen. Pulmonary vasculature: The pulmonary trunk is normal in caliber. There are no filling defects identified in main, lobar, or segmental pulmonary branches to suggest pulmonary embolus. Heart: The heart is normal in size and without pericardial effusion. There are coronary artery calcifications. Lungs and pleural spaces: Advanced emphysematous change is identified. There is postoperative change and volume loss consistent with left upper lobe resection. A small to moderate left pneumothorax persists. A pigtail drainage catheter is present at the anterior left lung base, entering between the lateral 7th and 8th ribs. The catheter traverses a segment of atelectatic left upper lobe. Segmental atelectasis is noted in the left lower lobe. Parenchymal scarring is seen adjacent to the suture line in the left upper lung. No pleural effusion is identified and there is no lobar consolidation. A 7 mm perifissural nodule is again seen in the left upper lobe on image #175. 11 mm right upper lobe nodule on image #205 is new from previous. Mediastinum: There is infiltrative soft tissue attenuation to the mediastinum consistent with tumor/lymphadenopathy. Dee: There is bilateral hilar adenopathy. The largest node is on the right measuring 3.3 x 2.6 cm. Axillae: Mildly enlarged right axillary lymph nodes are again noted. These measure up to 12 mm short axis. Upper abdomen: A 4.3 x 2.9 cm right adrenal metastasis and 2.1 cm left adrenal metastasis are again noted. Skeletal structures: Skeletal structures are osteopenic. No lytic or blastic bony lesions are seen. IMPRESSION: 1. There is no evidence of pulmonary embolus in the main, lobar, or segmental pulmonary arteries. 2. Advanced emphysema with postoperative change from left upper lobe resection. 3. A drainage catheter at the left lung base is unchanged in position. This traverses a segment of the atelectatic left lung. 4. A small to moderate left pneumothorax is again noted. 5. A 7 mm perifissural nodule in the left upper lobe is unchanged. There is a new 11 mm right upper lobe nodule. 6. Mediastinal and hilar adenopathy as well as adrenal metastases are again noted. 7. Segmental atelectasis in the left upper and lower lobes has progressed from 10/02/2019. ACT 112: Negative or not required by law. Electronically signed by: Pj Marx M.D. 10/07/2019 8:17 AM Dictated: 10/07/19 0806 Transcribed: 10/07/[address] WITH IV CONTRAST CT DOSE: 647.91 mGy.cm HISTORY: Left-sided abdominal pain. TECHNIQUE: Multiaxial CT images of the abdomen and pelvis were performed following the use of intravenous contrast. A dose lowering technique was utilized adhering to the principles of ALARA. COMPARISON STUDY: None. FINDINGS: Necrotic mediastinal and bilateral hilar lymphadenopathy is partially visualized on this study. Left basilar pneumothorax with a pigtail catheter located within the left anterior pleural space. Mild interlobular septal thickening and emphysema noted within the right lung base. No pneumoperitoneum. No pneumatosis. No suspicious lytic are blastic osseous lesions. The gallbladder, pancreas, spleen, and left kidney are unremarkable. There is a 6 mm hypodense lesion within the right kidney. This favors a cyst. Bilateral heterogeneous adrenal gland nodules with the largest on the right measuring 4.1 x 2.7 cm. The left adrenal gland nodule measures 2.0 cm. Normal bladder. No retroperitoneal or pelvic lymphadenopathy. Moderate well-formed stool within the colon. No bowel wall thickening or obstruction. IMPRESSION: 1. Necrotic mediastinal and bilateral hilar lymphadenopathy which is better appreciated on the same day chest CTA. 2. Left-sided pneumothorax with a left basilar pleural catheter in place. 3. Bilateral heterogeneous adrenal gland nodules likely representing metastatic disease. 4. Moderate well-formed stool within the colon. ACT 112: Negative or not required by law. Electronically signed by: Christopher Napoles M.D. 10/07/2019 7:11 AM Dictated: 10/07/19705 Transcribed: 02/18/20 0706 Hospital Course (1) Pericardial effusion: Present on admission with worsening chest pain when lying associated with SOB CTA chest on admission showed moderate pericardial effusion, simple appearing though increased from prior. Echo showed moderate sized circumferential pericardial effusion From lung mass, s/p pericardial window, mediastinal and lung biopsy 09/[address] Forrester Repeat ECHO on 09/30 showed no pericardial effusion Pathology report showed METASTATIC ADENOCARCINOMA CONSISTENT WITH LUNG PRIMARY. Thoracic surgery on board CTA neg for PE (2)Pneumothorax (3)Hypoxia CXR on 10/01 showed moderate left-sided pneumothorax with pleural separation of [address] Forrester was notified. Since Dr. Forrester was in the OR, Obstetrics Specialist Dr. Renee placed the chest tube on 10/01/19 CT chest repeat this morning showed trace left hydropneumothorax. intralobular septal thickening and ground glass change throughout the right lower lung has increased from 09/29/2019. Continue oxygen supplement Chest tube managed by Dr. Forrester and Dr. Russell s/p Left thoracoscopy with apical bleb resection left upper lobe performed on 10/07/[address] Forrester Chest tube removed yesterday Planned to get CXR tomorrow per Dr Forrester Will need oxygen on discharge (4)Chest pain Likely related to the chest tube and malignancy Patient also has anxiety regarding his medical condition. This is currently being managed with anxiety medications Continue current pain regimen Discussed the side effects/risks of opioid including addiction and overdose (5)Pneumonia CXR showed interval development of diffuse right lung airspace opacities, asymmetric edema versus pneumonia. Completed treatment (6)Lung CA Pathology showed METASTATIC ADENOCARCINOMA CONSISTENT WITH LUNG PRIMARY. Stage 4 with a malignant pericardial effusion. Case had been discussed by Previous Attending with Dr. 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 Currently on 20mg daily. Will do 10mg for 3 days from tomorrow and stop Had received counselling on tobacco abuse Continue nicotine patch (9)HIV continue HAART (10) Hypertension BP stable Continue Metoprolol (11)Depression (12)Anxiety Continue Klonopin, fluoxetine and BuSpar Provided counselling to patient regarding his current medical issues (13) Diarrhea Stopped laxatives. Resolved Patient decided to be discharged on home hospice He stated he will want to go home on home hospice to spend the rest of the time he has with his loved ones considering his metastatic lung cancer. Patient will need home oxygen. He would also need wheelchair per OT. He stated he would like to continue his oral medications for now including the antiretrovirals on discharge and will decide if he wants to have any more follow-ups with any of the doctors including the oncologist, infectious disease, mucker cofferdam, surgeon. DVT px On lovenox sq CODE Status Full code Patient and sister stated that day will have to definitively be initial plan to move to [place] once patient is discharged and he stated they would like patient to be more stable and to follow-up with the doctors here including palliative care and oncologist for now Total Time Total Time Spent Total Time Spent (In Minutes): 40 minutes Total Time Includes: Examination of the Patient, Discharge Planning, Medication Reconciliation, Communication With Other Providers and Other Discharge Plan Discharge Items Patient Disposition: Hospice - Home Reason For Visit: CHEST PAIN Discharge Diagnosis: Pericardial effusion: Carcinoma, lung: Tension pneumothorax: Respiratory distress: HIV disease: Anxiety: Tobacco use disorder: Hyponatremia HIV Activity: Resume your previous activity Non-emergency contact: Primary Care Provider, Surgeon, Projects Manager and Oncologist Call non-emergency contact if: you have any medication questions and your temperature is above 101 Follow-up/Referrals: Robert Black MD [Primary Care Provider] - 10/23/19 12:25 pm Diet: Regular Addtl Attending Provider Instructions: -Discharge home with hospice -Continue Urea 15 g twice daily; patient's sister aware pt may well have to pay for this out of pocket -fluid restriction of 1200 mL daily. -continue PO Lasix 20 mg daily -weekly bmp at discharge x 4 checks will be ordered by nephrology -follow up in nephrology clinic 4-6 wks after discharge w/ Dr Macario or Liz -Follow up with your primary care provider -Follow up with with Oncology Dr. Leyva if needed to discuss about other options -Follow up with Thoracic Surgery Dr. Forrester -Continue oxygen supplement -Fall precaution -Do not drive or operate any machine while on narcotic and benzodiazepine Pending Studies at Discharge: No Stand-Alone Forms: My [facility] Medications and DC Order Prescriptions: New ipratropium bromide 0.02 % Solution 0.5 mg inhalation Q4H PRN (Reason: shortness of breath or wheezing) 30 Days Qty: 75 RF: 0 levalbuterol HCl 1.25 mg/0.5 mL Solution For Nebulization 1.25 mg inhalation Q4H PRN (Reason: shortness of breath or wheezing) Qty: 30 RF: 0 metoprolol tartrate 25 mg Tablet 25 mg PO BID 30 Days Qty: 60 RF: 0 Ure-Na 15 gram Powder In Packet 15 g PO BID 30 Days Qty: 60 RF: 0 prednisone 10 mg Tablet 10 mg PO DAILY Qty: 3 RF: 0 guaifenesin 200 mg Tablet 200 mg PO Q8H PRN (Reason: cough) Qty: 20 RF: 0 oxycodone 5 mg Tablet 10 mg PO Q4H PRN (Reason: pain) Qty: 30 RF: 0 lorazepam [Ativan] 0.5 mg tablet 0.25 mg PO Q8H PRN (Reason: anxiety) Qty: 10 RF: 0 Continued fluticasone propionate 220 mcg/actuation HFA aerosol inhaler 1 puffs INH BID RF: 0 omeprazole 20 mg capsule,delayed release(DR/EC) 20 mg PO DAILY RF: 0 albuterol sulfate [Ventolin HFA] 90 mcg/actuation HFA aerosol inhaler 2 puffs INH Q6H PRN (Reason: Shortness Of Breath Or Wheezing) RF: 0 clonazepam 1 mg tablet 1 mg PO BID RF: 0 amitriptyline 50 mg tablet 50 mg PO DAILY RF: 0 dronabinol 10 mg capsule 10 mg PO BID RF: 0 fluoxetine 20 mg capsule 20 mg PO DAILY RF: 0 buspirone 15 mg tablet 15 mg PO BID RF: 0 Atripla 600-200-300 mg tablet 1 tab PO DAILY RF: 0 aspirin 81 mg tablet,delayed release (DR/EC) 162 mg PO DAILY RF: 0 Discontinued lisinopril 20 mg tablet 20 mg PO DAILY RF: 0 oxycodone-acetaminophen 10-325 mg tablet 1 - 2 tab PO Q4H PRN (Reason: Pain) RF: 0 triamterene-hydrochlorothiazid 37.5-25 mg tablet 1 tab PO DAILY RF: 0 Discharge Orders: Discharge Order (Routine); Ordered 10/15/19 Ordered By: Chaka Brandt Admission Data Admit Date/Time: 09/25/19 23:23 Attending Provider: Chaka Brandt Admit Provider: Eliezer Gonzales Primary Care Provider: Robert Black Other Providers: Alexey Grubbs ; Amarjit Gonzales ; Ryland Alba ; Mir Landry ; [facility] ; Eliezer Gonzales ; Fantasma Neely ; Fly Johnson ; iGl Cool ; Deshaun Dominguez ; Mansoor Candelario ; Shantanu Childress ; Julia Sidhu ; Juliet Skinner ; Francisco Leiva ; Cm Forrester ; Pj Sethi ; Syed Rey ; Ferny Hernandez ; Eldon Andre ; Scott Ovalles ; Viktoria Macario ; Corinne Parra ; Chaka Brandt ; SavannahNubia ; Marivel Bianchi I.
== END 2019-10-15 13:34 | disposition hospice, home (50) | DRG 270 ==
LOC: ED 18:31 → SUATTDRO 23:23 → 2S 23:23 → 1E 09-26 16:36 → 2E 09-27 13:34 → 3N 09-30 11:55 → 1E 10-02 01:07 → 3W 10-02 13:48 → 2N 10-03 03:37 → 2W 10-10 19:05

== ENCOUNTER 2019-10-31 10:23 | Inpatient (IN) ==
[2019-10-31] MEDS ORDERED: SODIUM CHLORIDE 0.9% 1000ML 2,000 ML IV ONE (10:35)
--- NOTE | 2019-10-31 10:48 | Emergency Department Note ---
History of Present Illness General Chief complaint: Shortness of Breath/Dyspnea Stated complaint: SOB Time Seen by Provider: 10/31/19 10:33 History of Present Illness Provider complaint: Altered mental status 58-year-old male with past medical history of asthma, hypertension, HIV, anxiety disorder, tobacco abuse, pericardial effusion, pneumothorax, hypoxia, and metastatic adenocarcinoma of the lung presents to the emergency department for altered mental status via EMS. Patient is unable to give history at this time. Per EMS and charge nurse who took the note, the patient was recently placed on home hospice after being discharged from the hospital. According to the charge nurse in the clinical biochemical geneticist who spoke with the home hospice nurse, the patient has been increasingly confused and needs to be removed from his home as it is not safe for him as there are several angry family members there who were abusing drugs in his home. Patient is sent for placement and admission. Home Medications Home Medications Medication Instructions Recorded Confirmed Type Atripla 1 tab PO DAILY 07/08/19 10/31/19 History buspirone 15 mg PO BID 07/08/19 10/31/19 History clonazepam 1 mg PO BID 07/08/19 10/31/19 History omeprazole 20 mg capsule,delayed 20 mg PO DAILY 08/21/19 10/31/19 History release prednisone 10 mg PO DAILY #3 tab 10/15/19 10/31/19 Rx ipratropium-albuterol 3 ml INHALATION QID 10/31/19 10/31/19 History lorazepam [Ativan] 0.5 mg PO Q4H 10/31/19 10/31/19 History morphine [MS Contin] 30 mg PO BID 10/31/19 10/31/19 History morphine concentrate 5 mg SUBLINGUAL UD 10/31/19 10/31/19 History Allergies Allergy/AdvReac Type Severity Reaction Status Date / Time pollen extracts Allergy Intermediate ASTHMA Verified 10/31/19 11:01 Sulfa (Sulfonamide Allergy Intermediate HIVES Verified 10/31/19 11:01 Antibiotics) Past Med/Surg History Medical History Anxiety (Chronic) Asthma Asymptomatic human immunodeficiency virus (HIV) infection status (Chronic 10/25/11) Carcinoma, lung Cervical disc herniation COPD (chronic obstructive pulmonary disease) Depression (Acute 10/25/11) Distal radial fracture (Acute) HTN (hypertension) (Chronic) Lymphadenopathy Osteoarthritis (Chronic) Pericardial effusion Pneumothorax Tachycardia Patient being followed by cardiology, has been maintained on metoprolol Surgical History History of temporal artery biopsy Status post creation of pericardial window 09/26/2019: pericardial window with Left VATS by Dr. Forrester. GETA. MAC 4, grade 2 view. 8.5 cuffed ETT. Arterial line. post-op delerium and to ICU. Family History Mother Stroke Social History Preferred Language: Japanese Communication Ability: Impaired Communication Ability Comment: lethargic Lead Cytogenetic Technologist Required: No Beliefs That Will Affect Care: None Current Living Situation: Spouse Other Information That Helps Us Care for You: No Feels Safe at Home: Yes Smoking Status: Current every day smoker Tobacco Type: cigarettes ; packs per day: 0.5 ; Cigarettes Per Day: 20 ; Do You Dip or Chew Tobacco: No ; Second Hand Exposure: No ; Tobacco Cessation Education Requested by Patient: No Hx Alcohol Use: No Hx Substance Use: No Review of Systems Unobtainable due to cognitive status Physical Exam Vital Signs Vital Signs - 24 hr 10/31/19 10:30 10/31/19 10:35 10/31/19 10:48 Temperature Temperature Source Pulse Rate 79 78 75 Pulse Rate from SpO2 Sensor Respiratory Rate 17 16 7 L Respiratory Depth Shallow Respiratory Pattern Irregular Blood Pressure 84/43 L 84/43 L 70/38 L Blood Pressure Mean 55 56 45 Pulse Oximetry 96 Oxygen Delivery Method Nasal Cannula Nasal Cannula Oxygen Flow Rate 3 Sepsis New/Unexplained Change in Mental Status Yes Sepsis Action Taken by Nursing No Action Required 10/31/19 11:06 10/31/19 11:15 10/31/19 11:17 Temperature 36 C L Temperature Source Rectal Pulse Rate 73 74 Pulse Rate from SpO2 Sensor 73 73 Respiratory Rate 5 L 21 Respiratory Depth Respiratory Pattern Blood Pressure 67/39 L 71/43 L Blood Pressure Mean 45 47 Pulse Oximetry 96 95 Oxygen Delivery Method Nasal Cannula Nasal Cannula Oxygen Flow Rate 3 3 Sepsis New/Unexplained Change in Mental Status Sepsis Action Taken by Nursing 10/31/19 11:28 10/31/19 11:30 Temperature Temperature Source Pulse Rate 74 Pulse Rate from SpO2 Sensor Respiratory Rate 6 L Respiratory Depth Respiratory Pattern Blood Pressure 85/43 L 78/43 L Blood Pressure Mean 54 52 Pulse Oximetry Oxygen Delivery Method Oxygen Flow Rate Sepsis New/Unexplained Change in Mental Status Sepsis Action Taken by Nursing Physical Exam GENERAL: Patient appears cachectic and confused. - Head: Normocephalic and atraumatic. - Right Ear: External ear normal. No mastoid tenderness. - Left Ear: External ear normal. No mastoid tenderness. - Mouth/Throat: Dry mucous membranes. EYES: Conjunctivae and EOM are normal. Pupils are equal, round, and reactive to light. Right eye exhibits no discharge. Left eye exhibits no discharge. No scleral icterus. NECK: Supple. CV: Normal rate, regular rhythm, normal heart sounds and intact distal pulses. There is no peripheral edema. Palpable radial pulses bue. PULM/CHEST: Diminished breath sounds bilaterally. ABD: The abdomen is soft. Course Course 1040: The patient was evaluated in room C3 after being called to bedside by nursing. Patient is hypotensive at 84/43. He is unable to give history. EMR reviewed. Patient was discharged from the hospital on October 15 on home hospice. Paperwork at bedside states that the patient is DNR/DNI and is comfort measures only. Patient will be given IV fluids and labs will be checked. 1056: Spoke with Kasey Lam PA said to admit to Dr. merino 1140: Labs show sodium of 127, potassium 5.8, creatinine of 7.33, and BUN of 120. Leukocytosis of 12.89, lactic acid within normal limits. Again patient is DNR/DNI. Is not thought that the patient would want invasive procedures such as hemodialysis. Patient will be given calcium gluconate 1 g IVPB, 10 units of insulin, and 1 amp of D50W. 1221: Spoke with Dr. Rikki Lam hospitalist who states that the patient needs no further imaging and he will admit the patient for inpatient hospice. Administered Medications Lorazepam (Ativan) 1 mg in 2 mls @ 0.5 mls/min IV Q4H PRN PRN Reason: Anxiety Stop: 11/30/19 13:21 Last Admin: 10/31/19 14:51 Dose: 0.5 mls/min Documented by: [id number] Morphine Sulfate (Morphine Sulfate) 3 mg IV Q1H PRN PRN Reason: pain/resp distress Stop: 11/14/19 13:21 Last Admin: 10/31/19 17:09 Dose: 3 mg Documented by: [id number] Admin: 10/31/19 15:49 Dose: 3 mg Documented by: [id number] Admin: 10/31/19 13:30 Dose: 3 mg Documented by: [id number] Discontinued Medications Dextrose (Dextrose 50%) 50 ml IV NOW STA Stop: 10/31/19 11:41 Last Admin: 10/31/19 12:03 Dose: Not Given Documented by: [id number] Sodium Chloride (Nss 1000ml) 2,000 mls @ 999 mls/hr IV .Q2H1M ONE Stop: 10/31/19 12:35 Last Infusion: 10/31/19 13:24 Dose: 0 mls/hr Documented by: [id number] Admin: 10/31/19 10:55 Dose: 999 mls/hr Documented by: [id number] Calcium Gluconate 1,000 mg/ (Sodium Chloride) 60 mls @ 240 mls/hr IV NOW STA Stop: 10/31/19 11:54 Last Admin: 10/31/19 12:03 Dose: Not Given Documented by: [id number] Insulin Human Regular 10 units (/ Syringe) 9.9 mls @ 3 mls/sec IV ONE STA Stop: 10/31/19 11:41 Last Admin: 10/31/19 12:03 Dose: Not Given Documented by: [id number] Critical Care Time Critical Care Time: Yes Total Critical Care Time: 40 I have personally spent greater than 40 minutes of critical care time in the direct management of this patient. This includes bedside care, interpretation of diagnostic studies, and testing, discussion with consultants, patient, and family members, and other required patient management activities. This 40 minutes is in excess of all separately billable procedures. Medical Decision Making Laboratory Data Result diagrams: 10/31/19 10:49 10/31/19 10:49 Lab Results 10/31/19 10/31/19 10/31/19 Range/Units 10:49 10:49 10:49 WBC 12.89 H (4.8-10.8) K/uL RBC 3.95 L (4.7-6.1) M/uL Hgb 12.1 L (14.0-18.0) g/dL Hct 34.9 L (42-52) % MCV 88.4 (80-100) fL MCH 30.6 (25-34) pg MCHC 34.7 (32-36) g/dL RDW Std Deviation 48.3 H (36.4-46.3) fL RDW Coeff of Greg 14.9 H (11.5-14.5) % Plt Count 258 (130-400) K/uL MPV 9.8 (7.4-10.4) fL Immature Gran % (Auto) 0.2 % Neut % (Auto) 85.5 % Lymph % (Auto) 5.0 % Sierra % (Auto) 7.2 % Eos % (Auto) 1.9 % Baso % (Auto) 0.2 % Immature Gran # (Auto) 0.03 H (0.00-0.02) K/uL Neut # (Auto) 11.02 H (1.4-6.5) K/uL Lymph # (Auto) 0.64 L (1.2-3.4) K/uL Sierra # (Auto) 0.93 H (0.11-0.59) K/uL Eos # (Auto) 0.25 (0-0.5) K/uL Baso # (Auto) 0.02 (0-0.2) K/uL PT 12.4 H (9.0-12.0) Seconds INR 1.2 H (0.9-1.1) APTT 31.3 H (21.0-31.0) Seconds PTT Ratio 1.1 Sodium 127 L (136-145) mmol/L Potassium 5.8 H (3.5-5.1) mmol/L Chloride 92 L (98-107) mmol/L Carbon Dioxide 21 (21-32) mmol/L Anion Gap 14.0 H (3-11) BUN 120 H (7-18) mg/dl Creatinine 7.33 H* (0.6-1.4) mg/dl Est Cr Clr Drug Dosing Not Reportable Est GFR ( Amer) 8.6 Est GFR (Non-Af Amer) 7.4 BUN/Creatinine Ratio 16.4 (10-20) Glucose 125 H (70-99) mg/dl Lactate (0.4-2.0) mmol/L Calcium 8.7 (8.5-10.1) mg/dl Magnesium 3.0 H (1.8-2.4) mg/dl Total Bilirubin 0.4 (0.2-1) mg/dl AST 36 (15-37) U/L ALT 61 (12-78) U/L Alkaline Phosphatase 134 H (45-117) U/L Ammonia (11-32) umol/L Total Protein 7.6 (6.4-8.2) gm/dl Albumin 3.0 L (3.4-5.0) gm/dl Globulin 4.6 H (2.5-4.0) gm/dl Albumin/Globulin Ratio 0.7 L (0.9-2) 10/31/19 10/31/19 Range/Units 10:49 11:05 WBC (4.8-10.8) K/uL RBC (4.7-6.1) M/uL Hgb (14.0-18.0) g/dL Hct (42-52) % MCV (80-100) fL MCH (25-34) pg MCHC (32-36) g/dL RDW Std Deviation (36.4-46.3) fL RDW Coeff of Greg (11.5-14.5) % Plt Count (130-400) K/uL MPV (7.4-10.4) fL Immature Gran % (Auto) % Neut % (Auto) % Lymph % (Auto) % Sierra % (Auto) % Eos % (Auto) % Baso % (Auto) % Immature Gran # (Auto) (0.00-0.02) K/uL Neut # (Auto) (1.4-6.5) K/uL Lymph # (Auto) (1.2-3.4) K/uL Sierra # (Auto) (0.11-0.59) K/uL Eos # (Auto) (0-0.5) K/uL Baso # (Auto) (0-0.2) K/uL PT (9.0-12.0) Seconds INR (0.9-1.1) APTT (21.0-31.0) Seconds PTT Ratio Sodium (136-145) mmol/L Potassium (3.5-5.1) mmol/L Chloride (98-107) mmol/L Carbon Dioxide (21-32) mmol/L Anion Gap (3-11) BUN (7-18) mg/dl Creatinine (0.6-1.4) mg/dl Est Cr Clr Drug Dosing Est GFR ( Amer) Est GFR (Non-Af Amer) BUN/Creatinine Ratio (10-20) Glucose (70-99) mg/dl Lactate 0.7 (0.4-2.0) mmol/L Calcium (8.5-10.1) mg/dl Magnesium (1.8-2.4) mg/dl Total Bilirubin (0.2-1) mg/dl AST (15-37) U/L ALT (12-78) U/L Alkaline Phosphatase (45-117) U/L Ammonia < 10.0 L (11-32) umol/L Total Protein (6.4-8.2) gm/dl Albumin (3.4-5.0) gm/dl Globulin (2.5-4.0) gm/dl Albumin/Globulin Ratio (0.9-2) Imaging Data Radiologist's Impression: XR chest 1V portable CLINICAL HISTORY: 58 years-old Male presenting with SEPSIS. TECHNIQUE: Portable upright AP view of the chest was obtained. COMPARISON: 10/15/2019. FINDINGS: Atherosclerosis of the aortic arch. Cardiac silhouette normal in size. Persistent elevation of the left hemidiaphragm. Prior left lateral chest wall soft tissue emphysema has resolved. Postsurgical changes of the left apex. Interval decrease in the bandlike opacity at the left lung base. Mild diffuse hazy opacities superimposed on reticular lung markings. No large effusion or pneumothorax. Degenerative changes of the thoracic spine. Upper abdomen normal. IMPRESSION: 1. Slight interval decrease in diffuse opacities, which may reflect resolving edema or infiltrates. 2. Postsurgical changes of the left apex. 3. Underlying emphysema. ACT 112: Negative or not required by law. Electronically signed by: Robert Guzman M.D. 10/31/2019 10:46 AM Dictated: 10/31/19 1043 Transcribed: 10/31/19 1043 ECG Data Rate (beats per minute): 73 Rhythm: + normal sinus ECG Intervals/blocks: + Normal QRS, + Normal ND and + Normal QT-c ECG ST segments: + Normal ST segments Additional Comments: Sinus Rhythym. Rate 73. ND QRS and Qtc intervals within normal limits. No ST elevation or ST depression MDM Narrative 1040: The patient was evaluated in room C3 after being called to bedside by nursing. Patient is hypotensive at 84/43. He is unable to give history. EMR reviewed. Patient was discharged from the hospital on October 15 on home hospice. Paperwork at bedside states that the patient is DNR/DNI and is comfort measures only. Patient will be given IV fluids and labs will be checked. 1056: Spoke with Kasey Lam PA said to admit to Dr. merino 1140: Labs show sodium of 127, potassium 5.8, creatinine of 7.33, and BUN of 120. Leukocytosis of 12.89, lactic acid within normal limits. Again patient is DNR/DNI. Is not thought that the patient would want invasive procedures such as hemodialysis. Patient will be given calcium gluconate 1 g IVPB, 10 units of insulin, and 1 amp of D50W. 1221: Spoke with Dr. Rikki Lam hospitalist who states that the patient needs no further imaging and he will admit the patient for inpatient hospice. Impression & Plan KRISTINE (acute kidney injury), Acute hyponatremia, Acute hyperkalemia, HIV disease, Lung cancer, Acute dehydration Discharge Plan Visit Data *Final* Discharge Date/Time: 10/31/19 12:51 Chief Complaint: Shortness of Breath/Dyspnea Stated Complaint: SOB ED Provider: Dustin Roberson Discharge Problem: KRISTINE (acute kidney injury), Acute hyponatremia, Acute hyperkalemia, HIV disease, Lung cancer, Acute dehydration Patient Disposition: Admitted As Inpatient Discharge Instructions Interventions: ED Discharge Assessment Last Done: 10/31/19 12:51
--- NOTE | 2019-10-31 10:48 | XRay Report ---
XR chest 1V portable CLINICAL HISTORY: 58 years-old Male presenting with SEPSIS. TECHNIQUE: Portable upright AP view of the chest was obtained. COMPARISON: 10/15/2019. FINDINGS: Atherosclerosis of the aortic arch. Cardiac silhouette normal in size. Persistent elevation of the le ft hemidiaphragm. Prior left lateral chest wall soft tissue emphysema has resolved. Postsurgical winslow ges of the left apex. Interval decrease in the bandlike opacity at the left lung base. Mild diffuse h azy opacities superimposed on reticular lung markings. No large effusion or pneumothorax. Degenerativ e changes of the thoracic spine. Upper abdomen normal. IMPRESSION: 1. Slight interval decrease in diffuse opacities, which may reflect resolving edema or infiltrates. 2. Postsurgical changes of the left apex. 3. Underlying emphysema. ACT 112: Negative or not required by law. Electronically signed by: Robert Guzman M.D. 10/31/2019 10:46 AM
[2019-10-31 11:01] LABS: Basophils # (auto) 0.02 K/uL (0-0.2); Basophils % (auto) 0.2 %; Eosinophils # (auto) 0.25 K/uL (0-0.5); Eosinophils % (auto) 1.9 %; Hematocrit (blood only) 34.9 % (42-52); Hemoglobin 12.1 g/dL (14.0-18.0); Immature Granulocytes # (auto) 0.03 K/uL (0.00-0.02); Immature Granulocytes % (auto) 0.2 %; Lymphocytes # (auto) 0.64 K/uL (1.2-3.4); Mean Corpuscular Hemoglobin 30.6 pg (25-34); Mean Corpuscular Hgb Conc 34.7 g/dL (32-36); Mean Corpuscular Volume 88.4 fL (80-100); Mean Platelet Volume 9.8 fL (7.4-10.4); Monocytes # (auto) 0.93 K/uL (0.11-0.59); Monocytes % (auto) 7.2 %; Neutrophils # (auto) 11.02 K/uL (1.4-6.5); Neutrophils % (auto) 85.5 %; Platelet Count 258 K/uL (130-400); RDW Coefficient of Variation 14.9 % (11.5-14.5); RDW Standard Deviation 48.3 fL (36.4-46.3); Red Blood Count 3.95 M/uL (4.7-6.1); White Blood Count 12.89 K/uL (4.8-10.8)
[2019-10-31 11:12] LABS: INR 1.2 (0.9-1.1); Partial Thromboplastin Ratio 1.1; Partial Thromboplastin Time 31.3 Seconds (21.0-31.0); Prothrombin Time 12.4 Seconds (9.0-12.0)
[2019-10-31 11:29] LABS: Alanine Aminotransferase 61 U/L (12-78); Albumin Globulin Ratio 0.7 (0.9-2); Alkaline Phosphatase 134 U/L (45-117); Aspartate Aminotransferase 36 U/L (15-37); BUN Creatinine Ratio 16.4 (10-20); Bilirubin,Total 0.4 mg/dl (0.2-1); Blood Urea Nitrogen 120 mg/dl (7-18); Calcium 8.7 mg/dl (8.5-10.1); Carbon Dioxide 21 mmol/L (21-32); Chloride 92 mmol/L (98-107); Est GFR (African American) 8.6; Est GFR (Non-African American) 7.4; Globulin 4.6 gm/dl (2.5-4.0); Glucose 125 mg/dl (70-99); Potassium 5.8 mmol/L (3.5-5.1); Sodium 127 mmol/L (136-145); Total Protein 7.6 gm/dl (6.4-8.2)
[2019-10-31] MEDS ORDERED: DEXTROSE 50% 50 ML SYRINGE IV STA (11:40)
[2019-10-31] MEDS ORDERED: CALCIUM GLUCONATE 10% 1,000 MG in SODIUM CHLORIDE 0.9% 50 ML IV STA (11:40)
[2019-10-31] MEDS ORDERED: INSULIN HUMAN REGULAR PER UNIT 10 UNITS in SYRINGE 9.9 ML IV STA (11:40)
--- NOTE | 2019-10-31 13:14 | History & Physical Report ---
Date of Service October 31, 2019 Assessment & Plan (1) Carcinoma, lung: (2) Asymptomatic human immunodeficiency virus (HIV) infection status: (3) Acute renal failure: (4) End of life care: 58-year-old male who was sent to the ED from home due to worsening condition and increased care needs. Patient is currently on home hospice, has metastatic lung cancer as well as HIV. In ED, patient appears to be actively dying with periods of apnea and unresponsiveness. Labs show acute renal failure with creatinine of 7.3. Patient will be admitted for general inpatient hospice. Comfort medications including morphine, Ativan, atropine drops, Zofran have all been ordered. History of Present Illness Chief Complaint: End of Life Care Primary Care Provider: Robert Black MD 58 year old male who was home receiving hospice care for metastatic lung cancer and HIV, presents to the ED by referral of hospice agency for further end of life care. Patient was recently admitted to [facility] 09/26 through 10/15 for management of multiple issues including pericardial effusion, pneumothorax, metastatic lung cancer. Patient was discharged home on hospice. Patient is currently unresponsive and history is unobtainable from him. Per manager appointment who was in contact with patient's hospice agency, patient has been requiring increased care and his has been unable to care for him. They have been attempting to find the patient placement however have been unsuccessful. Patient was sent to the ED today for ongoing end-of-life care. In the ED, patient appears to be actively dying with periods of apnea. He is hypotensive and hypoxic as well. Labs show several abnormalities, including acute renal failure with creatinine 7.3. Allergies Allergy/AdvReac Type Severity Reaction Status Date / Time pollen extracts Allergy Intermediate ASTHMA Verified 10/31/19 11:01 Sulfa (Sulfonamide Allergy Intermediate HIVES Verified 10/31/19 11:01 Antibiotics) Home Medications Home Medications Medication Instructions Recorded Confirmed Type Atripla 1 tab PO DAILY 07/08/19 10/31/19 History buspirone 15 mg PO BID 07/08/19 10/31/19 History clonazepam 1 mg PO BID 07/08/19 10/31/19 History omeprazole 20 mg capsule,delayed 20 mg PO DAILY 08/21/19 10/31/19 History release prednisone 10 mg PO DAILY #3 tab 10/15/19 10/31/19 Rx ipratropium-albuterol 3 ml INHALATION QID 10/31/19 10/31/19 History lorazepam [Ativan] 0.5 mg PO Q4H 10/31/19 10/31/19 History morphine [MS Contin] 30 mg PO BID 10/31/19 10/31/19 History morphine concentrate 5 mg SUBLINGUAL UD 10/31/19 10/31/19 History Past Med/Surg History Medical History Anxiety (Chronic) Asthma Asymptomatic human immunodeficiency virus (HIV) infection status (Chronic 10/25/11) Carcinoma, lung Cervical disc herniation COPD (chronic obstructive pulmonary disease) Depression (Acute 10/25/11) Distal radial fracture (Acute) HTN (hypertension) (Chronic) Lymphadenopathy Osteoarthritis (Chronic) Pericardial effusion Pneumothorax Tachycardia Patient being followed by cardiology, has been maintained on metoprolol Surgical History History of temporal artery biopsy Status post creation of pericardial window 09/26/2019: pericardial window with Left VATS by Dr. Forrester. GETA. MAC 4, grade 2 view. 8.5 cuffed ETT. Arterial line. post-op delerium and to ICU. Family History Mother Stroke Social History Preferred Language: Serbian Communication Ability: Unable Elevator Constructor Helper Required: No Beliefs That Will Affect Care: None Current Living Situation: Spouse Feels Safe at Home: Yes Smoking Status: Current every day smoker Tobacco Type: cigarettes ; packs per day: 0.5 ; Cigarettes Per Day: 20 ; Second Hand Exposure: No ; Hx Alcohol Use: No Hx Substance Use: No Review of Systems Review of Systems: Unobtainable due to reduced consciousness Physical Exam Constitutional: + ill appearing and + thin; no acute distress Eyes: + conjunctival abnormality (Mild erythema noted) and + anicteric sclerae (Sclera icteric) ENMT: Ears: no external ear abnormality Nose: no external nose abnormality Mouth: + dry oral mucous membranes Respiratory: Auscultation: + rhonchi Periods of apnea Cardiovascular: Rate/Rhythm: regular rate and regular rhythm Vessels: normal peripheral pulses Extremities: no edema Gastrointestinal (Abdomen): normal bowel sounds, soft, nontender, no hepatosplenomegaly Musculoskeletal: Extremities: + abnormal strength (Unable to test due to unresponsiveness), no cyanosis and no clubbing Skin: no rashes, warm and dry Neurologic: Unresponsive to all stimuli Psychiatric: Orientation: + not alert Results & Data Vital Signs (Past 12 Hours) Vital Signs Temp Pulse Resp BP Pulse Ox 10/31/19 12:50 86 L 10/31/19 12:30 80 7 L 92/51 L 10/31/19 12:15 79 9 L 94/53 L 10/31/19 12:00 79 11 L 91/52 L 10/31/19 11:45 78 12 77/52 L 10/31/19 11:30 74 6 L 78/43 L 10/31/19 11:28 85/43 L 10/31/19 11:17 36 C L 10/31/19 11:15 74 21 71/43 L 95 10/31/19 11:06 73 5 L 67/39 L 96 10/31/19 10:48 75 7 L 70/38 L 10/31/19 10:35 78 16 84/43 L 96 10/31/19 10:30 79 17 84/43 L Laboratory Results Short CBC 10/31/19 Range/Units 10:49 WBC 12.89 H (4.8-10.8) K/uL Hgb 12.1 L (14.0-18.0) g/dL Hct 34.9 L (42-52) % Plt Count 258 (130-400) K/uL BMP 10/31/19 10:49 Sodium 127 L Potassium 5.8 H Chloride 92 L Carbon Dioxide 21 BUN 120 H Creatinine 7.33 H* Glucose 125 H Calcium 8.7 Liver Function 10/31/19 Range/Units 10:49 Total Bilirubin 0.4 (0.2-1) mg/dl AST 36 (15-37) U/L ALT 61 (12-78) U/L Alkaline Phosphatase 134 H (45-117) U/L Albumin 3.0 L (3.4-5.0) gm/dl Diagnostic Findings CXR IMPRESSION: 1. Slight interval decrease in diffuse opacities, which may reflect resolving edema or infiltrates. 2. Postsurgical changes of the left apex. 3. Underlying emphysema. Code Status & VTE Plan Code Status Patient is a DNR as per POLST form that accompanies the patient. VTE Prophylaxis Plan VTE Prophylaxis will be ordered: No Supervising Physician Co-Signing Physician Notes Pt was seen and examined. Agreed with Kasey exam, assessment and plan. 58-year-old male with past medical history significant for asthma mild persistent, prediabetes, history of hypertension, generalized osteoarthritis, history of cervical disc herniation, history of HIV on antiviral therapy, generalized anxiety disorder, tobacco abuse, HIV, Lung cancer was recently discharged on home hospice was sent to the ER by the hospice nurse due to worsening condition and needs increased care. Will admitting him for inpatient hospice for comfort care. Will do Morphine, Ativan for comfort care. MD Rikki (1) Carcinoma, lung Laterality: unspecified laterality Qualified Code(s): C34.90 - Malignant neoplasm of unspecified part of unspecified bronchus or lung
[2019-10-31] MEDS ORDERED: ONDANSETRON INJ 2 MG/ML 2 ML VIAL IV PRN (13:22)
[2019-10-31] MEDS: MoRPHine SULFATE 4 MG/ML 1 ML CARP\\VIAL IV PRN ×3 (13:30→17:09)
[2019-10-31] MEDS: LORazepam 1 MG/2 ML VIAL IV PRN (14:51)
--- NOTE | 2019-10-31 16:44 | Electrocardiogram Report ---
Test Reason : Blood Pressure : / mmHG Vent. Rate : 073 BPM Atrial Rate : 073 BPM P-R Int : 166 ms QRS Dur : 112 ms QT Int : 388 ms P-R-T Axes : 073 069 031 degrees QTc Int : 427 ms Normal sinus rhythm Normal ECG When compared with ECG of 12-OCT-2019 23:27, QRS duration has increased Confirmed by Rolo Flowers ([id number]) on 10/31/2019 4:44:24 PM Referred By: REFERRED SELF Confirmed By:Rolo Flowers
[2019-11-01] MEDS: LORazepam 1 MG/2 ML VIAL IV PRN ×6 (01:31→23:47)
[2019-11-01] MEDS: ATROPINE SULFATE 1% OP SOLN 5 ML BTL SL PRN ×2 (08:48→14:32)
[2019-11-01] MEDS: MoRPHine SULFATE 4 MG/ML 1 ML CARP\\VIAL IV PRN ×4 (09:10→18:57)
--- NOTE | 2019-11-01 18:56 | Hospitalist Progress Note ---
Date of Service November 01, 2019 Assessment & Plan (1) Carcinoma, lung: (2) Asymptomatic human immunodeficiency virus (HIV) infection status: (3) Acute renal failure: (4) End of life care: 58-year-old male who was sent to the ED from home due to worsening condition and increased care needs. Currently on home hospice. Continue comfort care with morphine, Ativan, atropine drops, Zofran Continue oxygen supplement Code Status DNR/DNI Admission and Anticipated Discharge Date Admission Date: October 31, 2019 Subjective Pt was seen and examined Sitting in bed with mild discomfort He has not been talking He is doing better today compare to yesterday on admission Physical Exam Physical Exam: General- Respiratory distress Head- atraumatic Eyes- PERRL, EOMI, ENT- oropharynx clear Neck- supple, no JVD Lungs-Coarse BS Heart- regular rhythm; no murmur Abdomen- normal bowel sounds, soft, nontender Extremities- no calf tenderness Neuro- alert, oriented x 3; PERRL, EOMI; no facial palsy; no dysarthria Skin- warm & dry (1) Carcinoma, lung Laterality: unspecified laterality Qualified Code(s): C34.90 - Malignant neoplasm of unspecified part of unspecified bronchus or lung
[2019-11-01] MEDS ORDERED: ALBUT/IPRATROP 3MG/0.5MG NEB 3 ML VIAL NEB PRN (19:01)
[2019-11-02] MEDS: MoRPHine SULFATE 4 MG/ML 1 ML CARP\\VIAL IV PRN ×7 (00:38→05:39)
[2019-11-02] MEDS: LORazepam 1 MG/2 ML VIAL IV PRN ×12 (02:19→23:22)
[2019-11-02] MEDS ORDERED: LIDOCAINE 2% JELLY 5 ML TUBE ONE (04:33)
[2019-11-02] MEDS ORDERED: LIDOCAINE 2% JELLY 5 ML TUBE EXT PRN (04:45)
[2019-11-02] MEDS ORDERED: STAT IV Infusion **Titration per Protocol STA (06:04)
[2019-11-02] MEDS: MoRPHine SULF/NSS 250 MG/250 ML BTL IV SCH (06:27)
[2019-11-02] MEDS: ATROPINE SULFATE 1% OP SOLN 5 ML BTL SL PRN ×2 (11:50→23:20)
--- NOTE | 2019-11-02 19:17 | Hospitalist Progress Note ---
Date of Service November 02, 2019 Assessment & Plan (1) Carcinoma, lung: (2) Asymptomatic human immunodeficiency virus (HIV) infection status: (3) Acute renal failure: (4) End of life care: 58-year-old male who was sent to the ED from home due to worsening condition and increased care needs. Currently on home hospice. Continue comfort care with morphine, Ativan, atropine drops, Zofran Continue oxygen supplement Code Status DNR/DNI Admission and Anticipated Discharge Date Admission Date: October 31, 2019 Subjective Pt was seen and examined Lying in bed resting comfortable Nurse said that early today pt was restlessness Physical Exam Physical Exam: General- resting comfortable Head- atraumatic Eyes- PERRL, EOMI, ENT- oropharynx clear Neck- supple, no JVD Lungs-Coarse BS Heart- regular rhythm; no murmur Abdomen- normal bowel sounds, soft, nontender Extremities- no calf tenderness Neuro- alert, oriented x 3; PERRL, EOMI; no facial palsy; no dysarthria Skin- warm & dry (1) Carcinoma, lung Laterality: unspecified laterality Qualified Code(s): C34.90 - Malignant neoplasm of unspecified part of unspecified bronchus or lung
[2019-11-03] MEDS: LORazepam 1 MG/2 ML VIAL IV PRN ×8 (00:05→13:33)
[2019-11-03] MEDS: ATROPINE SULFATE 1% OP SOLN 5 ML BTL SL PRN ×8 (02:07→14:38)
[2019-11-03] MEDS ORDERED: SCOPOLAMINE 1.5 MG TDSY TD PRN (03:25)
[2019-11-03] MEDS: CHECK SCOPOLAMINE PATCH PLACEMENT SCH ×2 (03:46→07:31)
[2019-11-03] MEDS: MoRPHine SULF/NSS 250 MG/250 ML BTL IV SCH ×2 (07:34→13:30)
--- NOTE | 2019-11-03 15:32 | Palliative Care Progress Note ---
Date of Service November 03, 2019 Assessment & Plan (1) End of life care: Patient with increased respiratory effort and agitation/restlessness- requiring high-dose morphine drip and frequent PRN Ativan dosing-patient continues to be GIP appropriate Patient appears to be nearing [id number]-continue morphine drip, suggest increase Ativan to 1 mg every 2 hours as needed Excess oral secretions-continue scopolamine patch (2) Carcinoma, lung: Subjective Patient seen and examined-patient is GIP under hospice care. Patient is obtunded, labored respirations, currently on a morphine drip at 17 mg/h, he required 12 doses of PRN Ativan over the past 24 hours for restlessness. Patient remains GIP for agitation and respiratory distress-requiring high dose morphine drip and frequent PRN Ativan. Review of Systems Review of Systems: Unobtainable due to reduced consciousness Physical Exam Physical Exam: PE: Patient with labored respirations, no facial grimace HEENT: Dry eyes, eyes do not completely close, excess upper respiratory secretions Respiratory: Labored, increased work of breathing CV: Tachycardic Abdomen: Not distended, no grimace with palpation Extremities: Warm to touch Neuro: Unresponsive to voice or touch PG Care Time/CCT Total # of Minutes Spent Total Time Spent with Patient: Total time spent is greater than 50% in coordination of care (as documented) at patient's floor/unit and/or counseling patient: Coding Level of Care Code None Diagnoses End of life care Z51.5 Carcinoma, lung C34.90 Laterality: unspecified laterality Time Spent (min) 25 (1) Carcinoma, lung Laterality: unspecified laterality Qualified Code(s): C34.90 - Malignant neoplasm of unspecified part of unspecified bronchus or lung
--- NOTE | 2019-11-03 19:56 | Hospitalist Progress Note ---
Date of Service November 03, 2019 Assessment & Plan (1) Carcinoma, lung: (2) Asymptomatic human immunodeficiency virus (HIV) infection status: (3) Acute renal failure: (4) End of life care: 58-year-old male who was sent to the ED from home due to worsening condition and increased care needs. Currently on home hospice. Continue comfort care with morphine drip , Ativan, atropine drops, Zofran Continue oxygen supplement Code Status DNR/DNI Admission and Anticipated Discharge Date Admission Date: October 31, 2019 Subjective Pt was seen and examined Lying in bed comfortable on morphine drip Her hospice next at bedside Pt does not seems to be in pain Physical Exam Physical Exam: General- resting comfortable Head- atraumatic Eyes- PERRL, EOMI, ENT- oropharynx clear Neck- supple, no JVD Lungs-Coarse BS Heart- regular rhythm; no murmur Abdomen- normal bowel sounds, soft, nontender Extremities- no calf tenderness Neuro- alert, oriented x 3; PERRL, EOMI; no facial palsy; no dysarthria Skin- warm & dry (1) Carcinoma, lung Laterality: unspecified laterality Qualified Code(s): C34.90 - Malignant neoplasm of unspecified part of unspecified bronchus or lung
[2019-11-04] MEDS: CHECK SCOPOLAMINE PATCH PLACEMENT SCH (00:30)
[2019-11-04] MEDS: MoRPHine SULF/NSS 250 MG/250 ML BTL IV SCH (02:38)
[2019-11-04] MEDS ORDERED: Nursing to Pharmacy Communication ONE (02:39)
--- NOTE | 2019-11-04 03:47 | Death Pronouncement Note ---
Date of Service November 04, 2019 Pronouncement Note Admission Date Admission Date: October 31, 2019 Date and Time of Date of : 11/04/19 Time of : 03:20 Contributing Factors (1) Carcinoma, lung: (2) Asymptomatic human immunodeficiency virus (HIV) infection status: (3) Acute renal failure: (4) End of life care: Summary Additional details: Discharge summary to be accomplished by Dr. Brandt. Additional Data Confirmation of : no pulse, no respirations, no heart sounds and pupils fixed and dilated Family: contacted Attending/PCP notified?: No Attending physician: Chaka Brandt MD
--- NOTE | 2019-11-06 13:07 | Discharge Summary ---
Date of Service November 04, 2019 Admission HPI Per Admitting Provider 58 year old male who was home receiving hospice care for metastatic lung cancer and HIV, presents to the ED by referral of hospice agency for further end of life care. Patient was recently admitted to [facility] 09/26 through 10/15 for management of multiple issues including pericardial effusion, pneumothorax, metastatic lung cancer. Patient was discharged home on hospice. Patient is currently unresponsive and history is unobtainable from him. Per dependency case manager who was in contact with patient's hospice agency, patient has been requiring increased care and his has been unable to care for him. They have been attempting to find the patient placement however have been unsuccessful. Patient was sent to the ED today for ongoing end-of-life care. In the ED, patient appears to be actively dying with periods of apnea. He is hypotensive and hypoxic as well. Labs show several abnormalities, including acute renal failure with creatinine 7.3. Admission Exam Per Admitting Provider Constitutional: + ill appearing and + thin; no acute distress Eyes: + conjunctival abnormality (Mild erythema noted) and + anicteric sclerae (Sclera icteric) ENMT: Ears: no external ear abnormality Nose: no external nose abnormality Mouth: + dry oral mucous membranes Respiratory: Auscultation: + rhonchi Periods of apnea Cardiovascular: : regular rate and regular rhythm Vessels: normal peripheral pulses Extremities: no edema Gastrointestinal: normal bowel sounds, soft, nontender, no hepatosplenomegaly Musculoskeletal: Extremities: + abnormal strength (Unable to test due to unresponsiveness), no cyanosis and no clubbing Skin: no rashes, warm and dry Neurologic: Unresponsive to all stimuli Psychiatric: Orientation: + not alert Principal Diagnosis Pericardial effusion: Carcinoma, lung: Tension pneumothorax: Respiratory distress: HIV disease: Anxiety: Tobacco use disorder: Hyponatremia HIV Discharge Exam no pulse, no respirations, no heart sounds and pupils fixed and dilated Discharge Data Allergies Allergy/AdvReac Type Severity Reaction Status Date / Time pollen extracts Allergy Intermediate ASTHMA Verified 10/31/19 11:01 Sulfa (Sulfonamide Allergy Intermediate HIVES Verified 10/31/19 11:01 Antibiotics) Consultations 10/31/19 10:54 ED Decision to Admit Stat Ordered Studies XR chest 1V portable CLINICAL HISTORY: 58 years-old Male presenting with SEPSIS. TECHNIQUE: Portable upright AP view of the chest was obtained. COMPARISON: 10/15/2019. FINDINGS: Atherosclerosis of the aortic arch. Cardiac silhouette normal in size. Persistent elevation of the left hemidiaphragm. Prior left lateral chest wall soft tissue emphysema has resolved. Postsurgical changes of the left apex. Interval decrease in the bandlike opacity at the left lung base. Mild diffuse hazy opacities superimposed on reticular lung markings. No large effusion or pneumothorax. Degenerative changes of the thoracic spine. Upper abdomen normal. IMPRESSION: 1. Slight interval decrease in diffuse opacities, which may reflect resolving e gely or infiltrates. 2. Postsurgical changes of the left apex. 3. Underlying emphysema. ACT 112: Negative or not required by law. Electronically signed by: Robert Guzman M.D. 10/31/2019 10:46 AM Dictated: 10/31/19 1043 Transcribed: 10/31/19 104 Hospital Course (1) Carcinoma, lung: (2) Asymptomatic human immunodeficiency virus (HIV) infection status: (3) Acute renal failure: (4) End of life care: 58-year-old male who was sent to the ED from home due to worsening condition and increased care needs. Currently on home hospice. Continue comfort care with morphine drip , Ativan, atropine drops, Zofran Continue oxygen supplement Code Status DNR/DNI Total Time Total Time Spent Total Time Spent (In Minutes): 10 minutes Discharge Plan Discharge Items Patient Disposition: Reason For Visit: INPATIENT HOSPICE Follow-up/Referrals: Robert Black MD [Primary Care Provider] - Admission Data Admit Date/Time: 10/31/19 11:35 Other DC Date/Time DO NOT enter until pt leaves facility: 11/04/19 05:49
== END 2019-11-04 05:49 | disposition expired | DRG 951 ==
LOC: ED 10:23 → 2W 11:35 → 4W 19:41